=== PATIENT | female | born 1985 | race Caucasian/White ===

== ENCOUNTER → 2018-03-16 17:46 | Outpatient (CLI) | payer BC, SELFPAY | PROVIDERS: PCP Nurse Practitioner Family; Visit Provider Nurse Practitioner Family | DX: R00.2 Palpitations (principal) | CPT/HCPCS: 93225; 93226 ==

== ENCOUNTER → 2018-03-30 08:26 | Outpatient (CLI) | payer BC, SELFPAY ==
--- NOTE | 2018-03-30 08:47 | CA_ITS ---
PROCEDURE: 2-D M-mode and color Doppler study INDICATIONS FOR THE TEST: Chest pain X COPD Heart Murmur Tobacco SmokingX PalpitationsX Fatigue Syncope Edema Hypertension Diabetes MellitusX Rheumatic Fever SOB CHANG Obesity Hyperlipidemia Family History HD Additional History PATIENT INFORMATION HEIGHT: 63 WEIGHT:137 GENDER: Female B/P:132/65 2-D/M-MODE INTERPRETATION: 2-D MEASUREMENTS OBSERVED VALUES IN CMS Right Ventricular Dimension (RVDd) 1.9 Interventricular Septum (Thickness)(IVsd) .7 Left Ventricular Internal Dimensions(LVIDd) 5.2 Left Ventricular Posterior Wall (Thickness)(LVPWd) .7 Aortic Root 3.1 Aortic Cusp Separation 1.7 Left Atrial Dimensions (LAD) 1.6 2D 1. Left atrium is normal size, left ventricle is normal size, there is no concentric left ventricular hypertrophy, visually estimated ejection fraction 55% with no obvious regional wall motion abnormality. 2. The right atrium and right ventricle are normal size and contractility. 3. The aortic, mitral and tricuspid valve are structurally normal. 4. The pulmonic valve is poorly visualized. 5. No significant pericardial effusion noted DOPPLER INTERROGATION: Doppler interrogation of the aortic, mitral and tricuspid valvular presence of mild mitral and tricuspid regurgitation, tricuspid regurgitant jet velocity is insufficient for calculation of the right ventricular systolic pressure, diastolic parameters are within normal range. CONCLUSION: 1. Normal left ventricular size, preserved left ventricular systolic function, visually estimated ejection fraction 55% with no obvious regional wall motion abnormality, diastolic parameters are within normal range. Mild mitral and tricuspid addition 3. No significant pericardial effusion noted.
== END ==
PROVIDERS: Family Provider Nurse Practitioner Family; PCP Nurse Practitioner Family; Visit Provider Nurse Practitioner Family
DX: R07.2 Precordial pain (principal)
CPT/HCPCS: 93306

== ENCOUNTER → 2018-04-06 06:07 | Outpatient (CLI) | payer BC, SELFPAY ==
--- NOTE | 2018-04-06 | NM_ITS ---
History and Indications: Tobacco use, family history, chest pain, shortness of breath, palpitations and fatigue Procedure: Patient exercised on [place] protocol 10 minutes and 45 seconds, resting heart rate was 70 bpm resting blood pressure 131/66, with exercise maximum heart rate achieved was 1 62 bpm which is equal to 86% of the maximum predicted heart rate and a blood pressure was 176/60. Test was started due to shortness of breath and fatigue, patient also complained of atypical chest pain. Patient has good exercise capacity achieved 12.8mets of workload on treadmill, the blood pressure response to exercise was adequate. Electrocardiogram: Resting electrocardiogram showed sinus rhythm rightward axis, with exercise there is less than 1.[address] segment depression noted from the baseline EKG. The EKG portion of the exercise Myoview is negative for ischemia. Cardiac stress and resting SPECT images: Cardiac stress and rest SPECT images were obtained using technetium 99 Myoview 29.5 mCi at stress content 10.2 mCi at rest, gated SPECT further analysis of segmental wall motion and calculation of the ejection fraction also done. Cardiac stress and resting SPECT images show uniform myocardial activity without segmental perfusion abnormality, computer derived ejection fraction is 55% with no obvious regional wall motion abnormality, right ventricle is normal size and contractility. Conclusion: 1. The EKG portion of the exercise Myoview is negative for ischemia, patient has good exercise capacity achieved 12.8mets of workload on treadmill, the blood pressure response to exercise was adequate, patient complained of atypical chest pain with exercise. 2. No obvious scintigraphic evidence of reversible ischemia seen, computer derived ejection fraction is 55% with no obvious regional wall motion abnormality, right ventricle is normal size and contractility.
== END ==
PROVIDERS: Family Provider Nurse Practitioner Family; PCP Nurse Practitioner Family; Visit Provider Nurse Practitioner Family
DX: R00.2 Palpitations (principal); R07.2 Precordial pain
CPT/HCPCS: 78452; 93017; A9502

== ENCOUNTER → 2018-07-11 11:53 | Outpatient (CLI) | payer BC, SELFPAY ==
[2018-07-11 11:59] LABS: Microscopic, Urine URINE MICROSCOPIC (MICROSCOPIC)
[2018-07-11 12:42] LABS: Appearance,Urine SL CLOUDY (Clear); Bilirubin,Urine Negative (Negative); Blood, Urine Negative (Negative); Color,Urine YELLOW (Yellow); Glucose,Urine (UA) Negative (Negative); Ketones,Urine 1+ (Negative); Leukocyte Esterase,Urine Negative (Negative); Nitrate,Urine Negative (Negative); Protein,Urine Negative (Negative); Specific Gravity, Urine 1.025 (1.005-1.030); Urobilinogen,Urine 0.2 EU/dl (0.2)
[2018-07-11 12:47] LABS: Basophils % 0.3 % (0.1-2.0); Eosinophils # 0.1 K/mm3 (0.0-0.4); Eosinophils % 0.8 % (0.1-12.0); Hematocrit 44.4 % (37.0-47.0); Hemoglobin 14.7 g/dL (12.2-16.2); Lymphocytes % 24.4 K/mm3 (10-50); Mean Corpuscular HGB Conc 33.1 g/dL (31.8-35.4); Mean Corpuscular Volume 96.7 fl (81-99); Mean Platelet Volume 8.7 fl (7.4-10.4); Monocytes # 0.3 K/mm3 (0.1-1.0); Monocytes % 3.6 % (1.7-9.3); Neutrophils # 5.9 K/mm3 (1.8-7.8); Neutrophils % 70.9 % (37.0-80.0); Platelet Count 186 K/mm3 (142-424); Red Blood Count 4.59 M/mm3 (4.20-5.40); Red Cell Distribution Width 12.1 % (11.5-17.5); White Blood Count 8.3 K/mm3 (4.8-10.8)
[2018-07-11 13:01] LABS: Bacteria,Urine Trace /lpf; Squamous Epithelial Cell,Urine 20-50 #/hpf (0-5)
[2018-07-11 13:29] LABS: Alanine Aminotransferase 16 U/L (12-78); Anion Gap 10.2 mEq/L (5-15); Aspartate Amino Transferase 7 U/L (15-37); Bilirubin,Total 0.5 mg/dL (0.2-1.0); Blood Urea Nitrogen 11 mg/dL (7-18); Carbon Dioxide 30 mmol/L (21.0-32.0); Chloride 104 mmol/L (98-107); Creatinine,Serum 0.63 mg/dL (0.55-1.02); Estimated Glomerular Filt Rate 109 ml/min (>60); GFR (African American) 132 ML/MIN (>60); Glucose 87 mg/dL (74-106); Potassium 4.2 mmoL/L (3.5-5.1); Sodium 140 mmol/L (136-145); Total Protein,Serum 7.1 gm/dL (6.4-8.2)
[2018-07-11 13:30] LABS: Albumin Level 4.5 gm/dL (3.4-5.0); Albumin/Globulin Ratio 1.7 (1.1-1.8); Alkaline Phosphatase 58 U/L (46-116); Globulin 2.6 gm/dl (1.3-3.2)
== END ==
PROVIDERS: Family Provider Nurse Practitioner Family; PCP Nurse Practitioner Family; Visit Provider Surgery
DX: R10.84 Generalized abdominal pain (principal); R19.7 Diarrhea, unspecified
CPT/HCPCS: 36415; 80053; 81001; 85025

== ENCOUNTER → 2018-07-20 07:29 | Outpatient (CLI) | payer BC, SELFPAY ==
[2018-07-20 07:37] LABS: Adenovirus F 40/41, stool Not Detected (NotDetected); Astrovirus Not Detected (NotDetected); Campylobacter Not Detected (NotDetected); Clostridium Difficile A/B, PCR Not Detected (NotDetected); Cryptosporidium Not Detected (NotDetected); Cyclospora Cayetanesis Not Detected (NotDetected); Entamoeba histolytica Not Detected (NotDetected); Enteropathogenic E coli Not Detected (NotDetected); Enterotoxigenic E coli Not Detected (NotDetected); Giardia lamblia Not Detected (NotDetected); Norovirus Not Detected (NotDetected); Plesimonas Shigalloides, PCR Not Detected (NotDetected); Rotavirus A Not Detected (NotDetected); Salmonella, PCR Not Detected (NotDetected); Sapovirus Not Detected (NotDetected); Shiga-like toxin E coli Not Detected (NotDetected); Shigella Enterovasive E coli Not Detected (NotDetected); Vibrio Cholerae Not Detected (NotDetected); Vibrio, PCR Not Detected (NotDetected); Yersinia Entercolitica, PCR Not Detected (NotDetected)
--- NOTE | 2018-07-20 07:38 | CT_ITS ---
CT abdomen pelvis w con CLINICAL INDICATION: Periumbilical pain with nausea and diarrhea ITS.REASON: periumbilical pain, diarrhea ORDERING PHYSICIAN: Tony Ruelas MD PATIENT AGE: 33 years COMPARISON: 05/30/2016 TECHNIQUE: Axial images obtained with sagittal and coronal reformats. All CT scans at the facility use one or more dose reduction, viz: automated exposure control, ma/kV adjustment per patient size (including targeted exams where dose is matched to indication, i.e. head), or iterative reconstruction technique. PROCEDURE: Oral Contrast: Gastroview IV Contrast: 75 mL's of Isovue-370. FINDINGS: The lung bases are clear. The liver, gallbladder, spleen, pancreas, adrenal glands, and kidneys have an unremarkable appearance. No renal or ureteral calculi. No hydronephrosis. Unremarkable appendix. No intestinal obstruction or free air. There is mild diffuse thickening of the sigmoid colon and rectosigmoid region consistent with colitis and proctitis. There is some minimal infiltration of the perirectal fat. No evidence of diverticulitis. There are bilateral tubal ligation clips present. There is a small amount of cul-de-sac fluid. No acute bony anomalies. IMPRESSION: 1. Thickening of the sigmoid colon and rectosigmoid region consistent with colitis and proctitis with minimal infiltration of the perirectal fat with a small amount fluid in the cul-de-sac. 2. No evidence of appendicitis or other acute anomalies.
[2018-07-20 19:00] LABS: Enteroaggregative E coli Detected (NotDetected)
== END ==
PROVIDERS: Family Provider Nurse Practitioner Family; PCP Nurse Practitioner Family; Visit Provider Surgery
DX: R10.33 Periumbilical pain (principal); R19.7 Diarrhea, unspecified
CPT/HCPCS: 74177; 87507; Q9967

== ENCOUNTER → 2018-08-20 14:17 | Outpatient (CLI) | payer BC, SELFPAY ==
[2018-08-20 15:08] LABS: Basophils % 0.6 % (0.1-2.0); Eosinophils # 0.1 K/mm3 (0.0-0.4); Hematocrit 45.1 % (37.0-47.0); Hemoglobin 14.7 g/dL (12.2-16.2); Lymphocytes # 2.2 K/mm3 (0.7-4.5); Lymphocytes % 31.7 K/mm3 (10-50); Mean Corpuscular HGB Conc 32.5 g/dL (31.8-35.4); Mean Corpuscular Hemoglobin 31.9 pg (27.0-31.2); Mean Corpuscular Volume 97.9 fl (81-99); Mean Platelet Volume 9.2 fl (7.4-10.4); Monocytes # 0.3 K/mm3 (0.1-1.0); Neutrophils # 4.2 K/mm3 (1.8-7.8); Neutrophils % 62.6 % (37.0-80.0); Platelet Count 216 K/mm3 (142-424); Red Cell Distribution Width 12.1 % (11.5-17.5); White Blood Count 6.8 K/mm3 (4.8-10.8)
== END ==
PROVIDERS: Visit Provider Surgery
DX: K52.9 Noninfective gastroenteritis and colitis, unspecified (principal)
CPT/HCPCS: 36415; 85025

== ENCOUNTER 2018-08-21 12:58 | Outpatient (CLI) | payer BC, SELFPAY ==
[2018-08-21 13:00] VITALS: BMI 23.9
[2018-08-21 13:32] VITALS: BMI 24.6
--- NOTE | 2018-08-21 13:33 | XR_ITS ---
XR chest portable HISTORY: ITS.REASON: PICC PLACEMENT ORDERING PHYSICIAN: Tony Ruelas MD PATIENT AGE: 33 years COMPARISON: None FINDINGS: Left upper from a PICC line has been placed. The tip is in good position at the SVC region. Lungs are clear bilaterally. Normal heart size. IMPRESSION: Good placement of PICC line. Significant findings called to [facility] on 08/21/2018 1:48 PM.
[2018-08-21 13:59] LABS: Creatinine Clearance Estimated 126 mL/min (0-300); Creatinine,Serum 0.63 mg/dL (0.55-1.02); Estimated Glomerular Filt Rate 109 ml/min (>60); GFR (African American) 132 ML/MIN (>60)
[2018-08-21 13:59] LABS: Basophils % 0.7 % (0.1-2.0); Eosinophils # 0.1 K/mm3 (0.0-0.4); Eosinophils % 1.6 % (0.1-12.0); Hematocrit 41.2 % (37.0-47.0); Hemoglobin 13.8 g/dL (12.2-16.2); Lymphocytes # 2.2 K/mm3 (0.7-4.5); Lymphocytes % 39.5 % (10-50); Mean Corpuscular HGB Conc 33.4 g/dL (31.8-35.4); Mean Corpuscular Hemoglobin 31.6 pg (27.0-31.2); Mean Corpuscular Volume 94.7 fl (81-99); Mean Platelet Volume 8.9 fl (7.4-10.4); Monocytes # 0.3 K/mm3 (0.1-1.0); Monocytes % 4.9 % (1.7-9.3); Neutrophils # 2.9 K/mm3 (1.8-7.8); Neutrophils % 53.5 % (37.0-80.0); Platelet Count 205 K/mm3 (142-424); Red Blood Count 4.35 M/mm3 (4.20-5.40); Red Cell Distribution Width 12.1 % (11.5-17.5); White Blood Count 5.5 K/mm3 (4.8-10.8)
[2018-08-21 14:06] VITALS: BP 101/56; PULSE 76; RESP 18; TEMP 36.4; O2SAT 100
[2018-08-21 14:34] VITALS: BP 98/55; PULSE 79; RESP 18; O2SAT 99
[2018-08-21 14:45] VITALS: BP 97/52; PULSE 75; RESP 18; O2SAT 100
== END 2018-08-21 14:55 | disposition home or self-care (01) ==
LOC: INF 12:58
PROVIDERS: Visit Provider Surgery
DX: K52.9 Noninfective gastroenteritis and colitis, unspecified (principal)
CPT/HCPCS: 36569; 71045; 82565; 85025; 96365; C1751; J1335

== ENCOUNTER 2018-08-22 12:26 | Outpatient (CLI) | payer BC, SELFPAY ==
[2018-08-22 12:25] VITALS: BP 115/64; PULSE 76; RESP 18; TEMP 36.8; O2SAT 100
[2018-08-22 12:55] VITALS: BP 109/69; PULSE 78; RESP 18; O2SAT 99
[2018-08-22 13:15] VITALS: BP 112/65; PULSE 76; RESP 18; O2SAT 98
== END 2018-08-22 13:20 | disposition home or self-care (01) ==
LOC: INF 12:26
PROVIDERS: Visit Provider Surgery
DX: K52.9 Noninfective gastroenteritis and colitis, unspecified (principal)
CPT/HCPCS: 96365; J1335

== ENCOUNTER 2018-08-23 13:00 | Outpatient (CLI) | payer BC, SELFPAY ==
[2018-08-23 13:22] VITALS: BP 110/56; PULSE 82; RESP 18; TEMP 36.6; O2SAT 100; BMI 23.9
== END 2018-08-23 13:55 | disposition home or self-care (01) ==
LOC: INF 13:20
PROVIDERS: Visit Provider Surgery
DX: K52.9 Noninfective gastroenteritis and colitis, unspecified (principal)
CPT/HCPCS: 96365; J1335

== ENCOUNTER 2018-08-24 12:35 | Outpatient (CLI) | payer BC, SELFPAY ==
[2018-08-24 12:45] VITALS: BP 103/50; PULSE 68; RESP 20; TEMP 36.9; O2SAT 96
[2018-08-24 13:25] VITALS: BP 112/52; PULSE 62; RESP 20; TEMP 37.1; O2SAT 96
== END 2018-08-24 13:15 | disposition home or self-care (01) ==
LOC: INF 13:01
PROVIDERS: Visit Provider Surgery
DX: K52.9 Noninfective gastroenteritis and colitis, unspecified (principal)
CPT/HCPCS: 96365; J1335

== ENCOUNTER 2018-08-25 12:58 | Outpatient (CLI) | payer BC, SELFPAY ==
[2018-08-25 13:12] VITALS: BMI 23.3
[2018-08-25 13:13] VITALS: BP 116/69; PULSE 72; RESP 16; TEMP 36.4; O2SAT 99
== END 2018-08-25 13:43 | disposition home or self-care (01) ==
LOC: INF 12:58
PROVIDERS: PCP Surgery; Visit Provider Surgery
DX: K52.9 Noninfective gastroenteritis and colitis, unspecified (principal)
CPT/HCPCS: 96365; J1335

== ENCOUNTER 2018-08-26 12:29 | Outpatient (CLI) | payer BC, SELFPAY ==
[2018-08-26 12:52] VITALS: BP 116/51; PULSE 81; RESP 16; TEMP 36.8; O2SAT 94
== END 2018-08-26 14:04 | disposition home or self-care (01) ==
PROVIDERS: PCP Nurse Practitioner Family; Visit Provider Surgery
DX: K52.9 Noninfective gastroenteritis and colitis, unspecified (principal)
CPT/HCPCS: 96365; J1335

== ENCOUNTER 2018-08-27 12:58 | Outpatient (CLI) | payer BC, SELFPAY ==
[2018-08-27 13:10] VITALS: BP 109/61; PULSE 72; RESP 20; TEMP 36.9; O2SAT 96
[2018-08-27 13:45] VITALS: BP 109/62; PULSE 68; RESP 20; TEMP 36.9; O2SAT 96
== END 2018-08-27 13:50 | disposition home or self-care (01) ==
LOC: INF 12:58
PROVIDERS: Visit Provider Surgery
DX: K52.9 Noninfective gastroenteritis and colitis, unspecified (principal)
CPT/HCPCS: 96365; J1335

== ENCOUNTER 2018-08-28 13:00 | Outpatient (CLI) | payer BC, SELFPAY ==
[2018-08-28 13:15] VITALS: BP 105/51; PULSE 68; RESP 20; TEMP 36.9; O2SAT 96
[2018-08-28 13:35] VITALS: BP 106/72; PULSE 72; RESP 20; TEMP 36.9; O2SAT 96
== END 2018-08-28 13:40 | disposition home or self-care (01) ==
LOC: INF 13:20
PROVIDERS: Visit Provider Surgery
DX: K52.9 Noninfective gastroenteritis and colitis, unspecified (principal)
CPT/HCPCS: 96365; J1335

== ENCOUNTER 2018-08-29 12:59 | Outpatient (CLI) | payer BC, SELFPAY ==
[2018-08-29 13:35] VITALS: BP 112/57; PULSE 69; RESP 18; TEMP 36.3; O2SAT 100
[2018-08-29 13:55] VITALS: BMI 23.9
--- NOTE | 2018-08-29 13:56 | NVE_ITS ---
Venous Exam Indications: 729.81 Swelling of limb. s/p PICC placement last Tues, c/o sharp pain 2 days ago now has bruise prox lt arm IMPRESSIONS No evidence of deep or superficial vein thrombosis involving the veins of the left upper extremity Left upper extremity venous duplex. Doppler flow study including spectral analysis, color and gomez scale imaging. Location: Vascular laboratory. Patient status: Outpatient. Findings: Unable to visualize mid lt basilic and mid brachial vein r/t PICC dressing. Tables: Venous flow and imaging: + + + Location Flow properties + + + Left internal jugular Normal phasicity; spontaneous; compressible + + + Left subclavian Normal phasicity; spontaneous; normal augmentation; compressible + + + Left axillary Normal phasicity; spontaneous; normal augmentation; compressible + + + Left brachial Normal phasicity; spontaneous; normal augmentation; compressible + + + Left cephalic Normal phasicity; spontaneous; normal augmentation; compressible + + + Left basilic Normal phasicity; spontaneous; normal augmentation; compressible + + + Left radial Compressible + + + Left ulnar Compressible + + + (Report amended ) Electronically signed by: Jean-Claude Pittman [id number]
[2018-08-29 14:05] VITALS: BP 115/62; PULSE 70; RESP 18; O2SAT 99
[2018-08-29 14:20] VITALS: BP 113/59; PULSE 68; RESP 18; O2SAT 99
== END 2018-08-29 14:25 | disposition home or self-care (01) ==
LOC: INF 12:59
PROVIDERS: Visit Provider Surgery
DX: K52.9 Noninfective gastroenteritis and colitis, unspecified (principal)
CPT/HCPCS: 93971; 96365; J1335

== ENCOUNTER 2018-08-30 12:55 | Outpatient (CLI) | payer BC, SELFPAY ==
[2018-08-30 13:11] VITALS: BP 105/58; PULSE 87; RESP 20; TEMP 36.6; O2SAT 98
[2018-08-30 13:41] VITALS: BP 112/61; PULSE 81; RESP 20; O2SAT 97
[2018-08-30 14:02] VITALS: BP 120/62; PULSE 74; RESP 20; O2SAT 97
== END 2018-08-30 14:05 | disposition home or self-care (01) ==
LOC: INF 13:04
PROVIDERS: Visit Provider Surgery
DX: K52.9 Noninfective gastroenteritis and colitis, unspecified (principal)
CPT/HCPCS: 96365; J1335

== ENCOUNTER 2018-08-31 12:35 | Outpatient (CLI) | payer BC, SELFPAY ==
[2018-08-31 13:20] VITALS: BP 113/58; PULSE 78; RESP 18; TEMP 36.7
[2018-08-31 13:50] VITALS: BP 105/61; PULSE 72; RESP 16; O2SAT 98
== END 2018-08-31 14:25 | disposition home or self-care (01) ==
LOC: INF 13:00
PROVIDERS: Visit Provider Surgery
DX: K52.9 Noninfective gastroenteritis and colitis, unspecified (principal)
CPT/HCPCS: 96365; J1335

== ENCOUNTER → 2018-09-01 13:08 | Outpatient (CLI) | payer BC, SELFPAY ==
[2018-09-01 13:27] VITALS: BP 106/56; BP 111/61; PULSE 74; PULSE 87; RESP 16; TEMP 36.7; TEMP 36.9; O2SAT 100; BMI 23.9
== END ==
PROVIDERS: PCP Surgery; Visit Provider Surgery
DX: K52.9 Noninfective gastroenteritis and colitis, unspecified (principal)
CPT/HCPCS: 96365; J1335

== ENCOUNTER → 2018-09-02 12:43 | Outpatient (CLI) | payer BC, SELFPAY ==
[2018-09-02 12:57] VITALS: BP 127/54; PULSE 69; RESP 16; TEMP 36.9; O2SAT 100
[2018-09-02 13:45] VITALS: BP 114/68; PULSE 60; RESP 16; TEMP 37; O2SAT 99
== END ==
PROVIDERS: PCP Nurse Practitioner Family; Visit Provider Surgery
DX: K52.9 Noninfective gastroenteritis and colitis, unspecified (principal)
CPT/HCPCS: 96365; J1335

== ENCOUNTER 2018-09-03 12:35 | Outpatient (CLI) | payer BC, SELFPAY ==
[2018-09-03 12:55] VITALS: BP 112/55; PULSE 79; RESP 18; O2SAT 99
[2018-09-03 13:40] VITALS: BP 117/55; PULSE 89; RESP 18; O2SAT 100
== END 2018-09-03 13:40 | disposition home or self-care (01) ==
LOC: INF 12:39
PROVIDERS: Visit Provider Surgery
DX: K52.9 Noninfective gastroenteritis and colitis, unspecified (principal)
CPT/HCPCS: 96365; J1335

== ENCOUNTER → 2018-10-10 14:42 | Outpatient (CLI) | payer BC, SELFPAY ==
[2018-10-10 15:12] LABS: Basophils % 0.4 % (0.1-2.0); Eosinophils # 0.1 K/mm3 (0.0-0.4); Eosinophils % 1.8 % (0.1-12.0); Hematocrit 40.2 % (37.0-47.0); Hemoglobin 13.2 g/dL (12.2-16.2); Lymphocytes % 34.5 % (10-50); Mean Corpuscular HGB Conc 32.8 g/dL (31.8-35.4); Mean Corpuscular Hemoglobin 31.9 pg (27.0-31.2); Mean Corpuscular Volume 97.3 fl (81-99); Mean Platelet Volume 8.4 fl (7.4-10.4); Monocytes # 0.2 K/mm3 (0.1-1.0); Monocytes % 4.1 % (1.7-9.3); Neutrophils # 3.5 K/mm3 (1.8-7.8); Neutrophils % 59.1 % (37.0-80.0); Platelet Count 231 K/mm3 (142-424); Red Blood Count 4.13 M/mm3 (4.20-5.40); Red Cell Distribution Width 12.8 % (11.5-17.5); White Blood Count 5.9 K/mm3 (4.8-10.8)
[2018-10-10 16:00] LABS: Alanine Aminotransferase 20 U/L (12-78); Albumin Level 4.2 gm/dL (3.4-5.0); Albumin/Globulin Ratio 1.8 (1.1-1.8); Alkaline Phosphatase 55 U/L (46-116); Anion Gap 13.8 mEq/L (5-15); Aspartate Amino Transferase 13 U/L (15-37); Bilirubin,Total 0.3 mg/dL (0.2-1.0); Blood Urea Nitrogen 14 mg/dL (7-18); Calcium 8.7 mg/dL (8.5-10.1); Carbon Dioxide 28 mmol/L (21.0-32.0); Chloride 105 mmol/L (98-107); Creatinine,Serum 0.66 mg/dL (0.55-1.02); Estimated Glomerular Filt Rate 103 ml/min (>60); GFR (African American) 125 ML/MIN (>60); Globulin 2.4 gm/dl (1.3-3.2); Glucose 93 mg/dL (74-106); Potassium 3.8 mmoL/L (3.5-5.1); Sodium 143 mmol/L (136-145); Total Protein,Serum 6.6 gm/dL (6.4-8.2)
== END ==
PROVIDERS: Visit Provider Surgery
DX: R11.0 Nausea (principal)
CPT/HCPCS: 36415; 80053; 85025

== ENCOUNTER → 2018-10-15 08:45 | Outpatient (CLI) | payer BC, SELFPAY ==
--- NOTE | 2018-10-15 08:46 | US_ITS ---
US gallbladder COMPARISON: CT scan abdomen pelvis 07/20/2018 HISTORY: Sagittal, transverse and decubitus imaging of the gallbladder was performed. GALLBLADDER - No stones are evident. The gallbladder is slightly contracted, there is a minimal amount of biliary sludge along the dependent wall. The common bile duct is normal caliber. Liver: Unremarkable Pancreas: Unremarkable Right kidney: The right kidney measures 11.2 x 4.3 x 5.5 cm and appears sonographically normal. IMPRESSION: Tiny amount biliary sludge, otherwise unremarkable study
== END ==
PROVIDERS: PCP Nurse Practitioner Family; Visit Provider Surgery
DX: R11.0 Nausea (principal)
CPT/HCPCS: 76705

== ENCOUNTER → 2018-10-30 10:01 | Outpatient (CLI) | payer BC, SELFPAY ==
--- NOTE | 2018-10-30 10:07 | NM_ITS ---
NM hepatobiliary w pharm HISTORY: Right upper quadrant pain ITS.REASON: ruq pain ORDERING PHYSICIAN: Tony Ruelas MD PATIENT AGE: 33 years COMPARISON: None DOSE: 8.65 MCI TC Choletec 1.3 MCG CCK INJ into RT ANT FINDINGS: Homogeneous activity is present within the hepatic parenchyma. Activity is present in the gallbladder by 15 minutes. Activity is present in the small bowel by 45 minutes. The gallbladder ejection fraction is calculated to be 98% The patient reported mild pain during CCK infusion. IMPRESSION: Unremarkable hepatobiliary scan and gallbladder ejection fraction. No evidence of common or cystic duct obstruction with normal gallbladder ejection fraction The patient did report mild pain with CCK infusion
--- NOTE | 2018-10-30 10:26 | HMH.ITSHM ---
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 []OMEPRAZOLE RANITIDINE HYDROXEFINE TOZANOMINE
== END ==
PROVIDERS: PCP Nurse Practitioner Family; Visit Provider Surgery
DX: R10.11 Right upper quadrant pain (principal)
CPT/HCPCS: 78227; A9537; J2805

== ENCOUNTER 2018-11-13 18:51 | Observation (INO) ==
--- NOTE | 2018-11-13 19:14 | Emergency Department Note ---
ED Disposition Clinical Impression: Right upper quadrant abdominal pain Disposition: Admitted as Observation Condition on Discharge: Fair Referrals: Gladys Sabillon APRN [Primary Care Provider] - - Critical Care Critical Care Time: No Attestation: On 11/13/18, the high probability of a clinically significant, sudden or life threatening deterioration of the following system(s) required my full and direct attention, intervention and personal management. The time I documented below is in addition to time spent performing reported procedures but includes the following listed in this critical care notation. Medical Decision Making - [place] Inquiry Pt receiving controlled substance: Yes [place] was queried for this patient: No Reason not queried -: Emergent pt cond-no time Risks and benefits of using a controlled substance: were not discussed with pt by me Vital Signs: 11/13/18 18:58 Temperature 98.5 F Temperature Source Oral Pulse Rate [Left Radial] 73 Respiratory Rate 16 Blood Pressure [Right Arm] 141/95 H Blood Pressure Mean [Right Arm] 110 Blood Pressure Source [Right Arm] Automatic Cuff Blood Pressure Position [Right Arm] Sitting 02 Sat by Pulse Oximetry 98 Oxygen Delivery Method Room Air - Lab Data Lab Results 11/13/18 19:10: WBC 8.4, RBC 4.24, Hgb 13.3, Hct 41.5, MCV 97.9, MCH 31.4 H, MCHC 32.0, RDW 12.9, Plt Count 193, MPV 8.3, Neut % (Auto) 64.5, Lymph % (Auto) 28.9, Bath % (Auto) 5.1, Eos % (Auto) 1.2, Baso % (Auto) 0.3, Neut # (Auto) 5.4, Lymph # (Auto) 2.4, Bath # (Auto) 0.4, Eos # (Auto) 0.1, Baso # (Auto) 0.0 11/13/18 19:10: Sodium 141, Potassium 3.3 L, Chloride 104, Carbon Dioxide 30, Anion Gap 10.3, BUN 11, Creatinine 0.71, Estimated Creat Clear 102, Estimated GFR 95, Est GFR ( Amer) 115, Glucose 107 H, Calcium 8.4 L, Total Bilirubin 0.3, AST 195 H, ALT 137 H, Alkaline Phosphatase 95, Total Protein 7.0, Albumin 4.1, Globulin 2.9, Albumin/Globulin Ratio 1.4 11/13/18 19:10: Serum HCG, Qual Negative 11/13/18 19:10: Lipase 61 L Result diagrams: 11/13/18 19:10 11/13/18 19:10 Orders (Tests/Meds): ED MEDICATIONS Discontinued Medications Generic Name Dose Route Start Last Admin Trade Name Freq PRN Reason Stop Dose Admin Hydromorphone HCl 1 mg 11/13/18 19:22 11/13/18 19:29 Dilaudid 2mg/Ml Syringe IV 11/13/18 19:23 1 mg ONCE ONE Administration Hydromorphone HCl 1 mg 11/13/18 20:36 11/13/18 20:39 Dilaudid 2mg/Ml Syringe IV 11/13/18 20:37 1 mg ONCE ONE Administration Ondansetron HCl 4 mg 11/13/18 19:22 11/13/18 19:30 Zofran 4mg/2ml Vial IV 11/13/18 19:23 4 mg ONCE ONE Administration - Physician Consults Physician Consulted: Dustin Ruelas Time: 19:35 Reason -: Surgical Eval/Care Comment/Response: Discussed case. Discussed imaging. He does not feel any imaging is needed at this point unless labs are significantly abnormal. Dr. Ruelas can follow-up the patient in the office tomorrow. May restart pain medication. Additional Consult: Dustin Time: 20:45 Reason -: Admission Comment/Response: Discussed clinical condition and labs. Discussed imaging again. Admit to Dr. Ruelas. He does not feel imaging is needed at this time. Pain control overnight and they will reassess in the morning. Repeat labs in the morning. - Reevaluation(s) Time: 20:35 Reevaluation #1: Patient says she initially started feeling a little better after Dilaudid, but now pain is severe again. General Adult HPI - General Chief complaint: Abdominal Pain Stated complaint: Surg Fri GB Time Seen by Provider: 11/13/18 19:14 Mode of Arrival: Ambulatory Limitations: No Limitations Description of Symptoms (Recalled from ER Triage Doc. 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 pt states gallbladder surgery monday. pt denies fever, chills, nausea, vomiting - History of Present Illness HPI narrative: The patient had a cholecystectomy done on Monday 4 days ago. She says that after eating tonight she had sudden onset of severe right upper quadrant pain. The pain is like what she had prior to having her cholecystectomy, but worse. No vomiting or diarrhea. No fever. She was on pain medication postoperatively, but took the last of it this morning. Review of her records shows that she had an unremarkable gallbladder ultrasound, small amount of sludge. She had a HIDA scan that showed normal ejection fraction, but she had pain with CCK administration, therefore cholecystectomy was performed. Dr. Ruelas notes that if symptoms do not improve following cholecystectomy he was going to refer her to gastroenterology for possible sp hincter of Oddi spasm, ERCP. - Related Data Home Medications Medication Instructions Recorded Confirmed hydrOXYzine HCl [Hydroxyzine HCl] 25 mg PO BID 03/10/18 11/13/18 Loratadine [Claritin] 10 mg PO DAILY 03/28/18 11/13/18 aspirin 81 mg tablet,delayed 81 mg PO DAILY tab 04/06/18 11/13/18 release tizanidine 4 mg tablet 2 mg PO QHS tab 04/06/18 11/13/18 Omeprazole [Omeprazole 40mg 40 mg PO QDAY 08/21/18 11/13/18 Capsule] Allergies Allergy/AdvReac Type Severity Reaction Status Date / Time lactose Allergy Mild DIARRHEA Verified 11/09/18 11:01 [From LACTOSE (FOOD/DRUG)] From LACTOSE (FOOD/DRUG) Allergy Mild DIARRHEA Uncoded 11/07/18 13:23 [facility] History - Hepatitis A Screen Drug use history?: Yes High risk sexual behaviors?: No History of sexually transmitted infection?: No Currently employed?: No Childcare worker?: No Do you have indoor plumbing?: Yes Do you have electricity?: Yes Attestation statement:: This patient has been screened for Hepatitis A risk factors. I have reviewed the patient's past medical history: Yes Medical History: Reports:: Hiatal Hernia, Kidney Stones, Palpitations Denies:: Cancer, Diabetes Mellitus Type 1, Diabetes Mellitus Type 2, Internal Pacemaker, MRSA, Seizures Other Medical History: Denies: Blood Transfusion Reaction Laterality Cases: Bilateral: Myringotomy (Ear Tubes), Tonsillectomy Other Surgeries: Yes: Tubal Ligation. No: Pacemaker Amputation: No Fractures: No - Social History Smoking Status: Current every day smoker Tobacco Type: cigarettes # Packs/Day (cigarettes): 1 Alcohol Intake: never Alcohol Intake Frequency:: holidays/special occasions only Substance Use Type: former substance user Occupational Status: employed Housing: house Household Members: children - Psychiatric History Expresses thoughts of harming self/others: None Suicide Plan Description: No Plan Family Hx:: Heart Attack, Coronary Artery Disease Comment: Father- of [place] at 60's ROS Obtained: Yes All systems reviewed & no additional complaints - Constitutional Constitutional: Denies fever(s) - Gastrointestinal Gastrointestingal: Reports: abdominal pain. Denies: diarrhea, nausea, vomiting Physical Exam - General General appearance: alert, in distress Comment: Tearful - Head Head exam: atraumatic, normocephalic - Eye Eye exam: Present: normal appearance, PERRL, EOMI - ENT ENT exam: Present: mucous membranes moist - Neck Neck exam: Present: normal inspection, trachea midline - Chest Chest inspection: Present: normal inspection, symmetric chest wall rise - Respiratory Respiratory exam: Present: normal lung sounds bilaterally. Absent: respiratory distress - Cardiovascular Cardiovascular exam: Present: regular rate, normal rhythm, normal heart sounds - Abdominal Exam Abdominal exam: Present: soft, tenderness. Absent: distention, guarding, rebound, rigidity Abdominal tenderness: Present: RUQ Comment: Laparoscopic incisions unremarkable. - Extremities Exam Extremities exam: Present: normal inspection - Neurological Exam Neurological exam: Present: alert, oriented X3 - Psychiatric Psychiatric exam: Present: anxious - Skin Skin exam: Present: warm, dry
[2018-11-13 19:27] LABS: Basophils % 0.3 % (0.1-2.0); Eosinophils # 0.1 K/mm3 (0.0-0.4); Eosinophils % 1.2 % (0.1-12.0); Hematocrit 41.5 % (37.0-47.0); Hemoglobin 13.3 g/dL (12.2-16.2); Lymphocytes # 2.4 K/mm3 (0.7-4.5); Lymphocytes % 28.9 % (10-50); Mean Corpuscular Hemoglobin 31.4 pg (27.0-31.2); Mean Corpuscular Volume 97.9 fl (81-99); Mean Platelet Volume 8.3 fl (7.4-10.4); Monocytes # 0.4 K/mm3 (0.1-1.0); Monocytes % 5.1 % (1.7-9.3); Neutrophils # 5.4 K/mm3 (1.8-7.8); Neutrophils % 64.5 % (37.0-80.0); Platelet Count 193 K/mm3 (142-424); Red Blood Count 4.24 M/mm3 (4.20-5.40); Red Cell Distribution Width 12.9 % (11.5-17.5); White Blood Count 8.4 K/mm3 (4.8-10.8)
[2018-11-13 19:38] LABS: Albumin Level 4.1 gm/dL (3.4-5.0); Albumin/Globulin Ratio 1.4 (1.1-1.8); Anion Gap 10.3 mEq/L (5-15); Bilirubin,Total 0.3 mg/dL (0.2-1.0); Calcium 8.4 mg/dL (8.5-10.1); Globulin 2.9 gm/dl (1.3-3.2); Potassium 3.3 mmoL/L (3.5-5.1)
[2018-11-14 06:36] LABS: Basophils % 0.2 % (0.1-2.0); Eosinophils # 0.1 K/mm3 (0.0-0.4); Eosinophils % 0.5 % (0.1-12.0); Hematocrit 38.5 % (37.0-47.0); Hemoglobin 12.5 g/dL (12.2-16.2); Lymphocytes # 1.1 K/mm3 (0.7-4.5); Lymphocytes % 10.2 % (10-50); Mean Corpuscular HGB Conc 32.6 g/dL (31.8-35.4); Mean Corpuscular Volume 98.2 fl (81-99); Mean Platelet Volume 8.7 fl (7.4-10.4); Monocytes # 0.5 K/mm3 (0.1-1.0); Monocytes % 4.9 % (1.7-9.3); Neutrophils # 9.4 K/mm3 (1.8-7.8); Neutrophils % 84.3 % (37.0-80.0); Platelet Count 157 K/mm3 (142-424); Red Blood Count 3.92 M/mm3 (4.20-5.40); Red Cell Distribution Width 12.9 % (11.5-17.5); White Blood Count 11.2 K/mm3 (4.8-10.8)
[2018-11-14 06:51] LABS: Albumin Level 3.4 gm/dL (3.4-5.0); Albumin/Globulin Ratio 1.3 (1.1-1.8); Anion Gap 10.6 mEq/L (5-15); Bilirubin,Total 0.8 mg/dL (0.2-1.0); Calcium 8.4 mg/dL (8.5-10.1); Globulin 2.6 gm/dl (1.3-3.2); Potassium 4.6 mmoL/L (3.5-5.1)
--- NOTE | 2018-11-14 07:40 | Pharmacy Consult Notes ---
[facility] Pharmacy VTE Monitoring - Patient Demographics Admission date: 11/13/18 Report Date: 11/14/18 Time: 07:39 Allergies/Adverse Reactions: Patient Allergies lactose [From LACTOSE (FOOD/DRUG)] Allergy (Mild, Verified 11/09/18 11:01) DIARRHEA From LACTOSE (FOOD/DRUG) Allergy (Mild, Uncoded 11/07/18 13:23) DIARRHEA Height: 1.6 m Weight: 64.042 kg Patient Problems: Current Active Problems Right upper quadrant abdominal pain (Acute) - VTE Risk Labs: VTE Related Lab Results Hgb 12.5 g/dL (12.2-16.2) 11/14/18 06:12 Hct 38.5 % (37.0-47.0) 11/14/18 06:12 Plt Count 157 K/mm3 (142-424) 11/14/18 06:12 BUN 9 mg/dL (7-18) 11/14/18 06:12 Creatinine 0.64 mg/dL (0.55-1.02) 11/14/18 06:12 Estimated Creat Clear 126 mL/min (50-200) 11/14/18 06:12 Was VTE Risk Assessment Performed: Yes VTE Score: 2 VTE Risk Level: Very Low Risk - Prophylaxis VTE Prophylaxis Ordered?: Yes Types of VTE Prophylaxis: TEDS Knee High Location of Applied Device: Bilateral Lower Extremeties - VTE Diagnosis Confirmed Treatment or plan recommended: Continue Current Treatment
--- NOTE | 2018-11-14 08:29 | History & Physical Report ---
HPI HPI: This is a 33-year-old female who presented overnight to the emergency department with sharp pain in the upper abdomen. She is now postoperative day 5 status post laparoscopic cholecystectomy. She initially convalesced well; however, she developed what she describes as "sharp/crampy pain" while visiting a restaurant last evening. She states that her symptoms started before she began her meal. No fevers. No jaundice. [facility] History Medical History: Reports:: Hiatal Hernia, Kidney Stones, Palpitations Denies:: Cancer, Diabetes Mellitus Type 1, Diabetes Mellitus Type 2, Internal Pacemaker, MRSA, Seizures Have you ever received a pneumonia vaccine?: No Have you received a flu vaccine this season?: No Other Medical History: Denies: Blood Transfusion Reaction Laterality Cases: Bilateral: Myringotomy (Ear Tubes), Tonsillectomy Other Surgeries: Yes: Cholecystectomy, Tubal Ligation. No: Pacemaker Amputation: No Fractures: No - *Social History Educational Level: Completed College Smoking Status: Current every day smoker Tobacco Type: cigarettes # Packs/Day (cigarettes): 1 Alcohol Intake: current Alcohol Intake Frequency:: holidays/special occasions only Substance Use Type: former substance user Occupational Status: employed Housing: house Household Members: significant other, children Travel in the last 8 weeks: None - Psychiatric History Expresses thoughts of harming self/others: None Suicide Plan Description: No Plan *Family Hx:: Heart Attack, Coronary Artery Disease Review of Systems - Constitutional Denies chills - Eyes Denies change in vision - ENT Denies change in voice - *Cardiovascular Denies chest pain - *Respiratory Denies cough - *Gastrointestinal Reports abdominal pain, Denies bright, red blood in stools, Denies black, tarry stools, Denies nausea - *Genitourinary Denies abnormal vaginal bleeding - *Musculoskeletal Denies abnormal walking - Integumentary/Breasts Denies change in hair - *Neurologic Denies abnormal hearing - Psychiatric Denies anxiety - Endocrine Denies cold intolerance - Hematologic/Lymphatic Denies easy bleeding - Allergic/Immunologic Denies tongue swelling Meds Home Medications Medication Instructions Recorded Confirmed Type hydrOXYzine HCl [Hydroxyzine HCl] 25 mg PO BID 03/10/18 11/13/18 History Loratadine [Claritin] 10 mg PO DAILY 03/28/18 11/13/18 History aspirin 81 mg tablet,delayed 81 mg PO DAILY tab 04/06/18 11/13/18 History release tizanidine 4 mg tablet 2 mg PO QHS tab 04/06/18 11/13/18 History Omeprazole [Omeprazole 40mg 40 mg PO HS 08/21/18 11/13/18 History Capsule] Allergies Allergy/AdvReac Type Severity Reaction Status Date / Time lactose Allergy Mild DIARRHEA Verified 11/09/18 11:01 [From LACTOSE (FOOD/DRUG)] From LACTOSE (FOOD/DRUG) Allergy Mild DIARRHEA Uncoded 11/07/18 13:23 Exam Vital signs and Labs for Last 24 Hours: Temp Pulse Resp BP Pulse Ox 98.2 F 74 16 125/47 L 99 11/14/18 07:21 11/14/18 07:21 11/14/18 07:21 11/14/18 07:21 11/14/18 07:21 Laboratory Results - last 24 hr 11/13/18 19:10: WBC 8.4, RBC 4.24, Hgb 13.3, Hct 41.5, MCV 97.9, MCH 31.4 H, MCHC 32.0, RDW 12.9, Plt Count 193, MPV 8.3, Neut % (Auto) 64.5, Lymph % (Auto) 28.9, [place] % (Auto) 5.1, Eos % (Auto) 1.2, Baso % (Auto) 0.3, Neut # (Auto) 5.4, Lymph # (Auto) 2.4, [place] # (Auto) 0.4, Eos # (Auto) 0.1, Baso # (Auto) 0.0 11/13/18 19:10: Sodium 141, Potassium 3.3 L, Chloride 104, Carbon Dioxide 30, Anion Gap 10.3, BUN 11, Creatinine 0.71, Estimated Creat Clear 102, Estimated GFR 95, Est GFR ( Amer) 115, Glucose 107 H, Calcium 8.4 L, Total Bilirubin 0.3, AST 195 H, ALT 137 H, Alkaline Phosphatase 95, Total Protein 7.0, Albumin 4.1, Globulin 2.9, Albumin/Globulin Ratio 1.4 11/13/18 19:10: Serum HCG, Qual Negative 11/13/18 19:10: Lipase 61 L 11/14/18 06:12: WBC 11.2 H D, RBC 3.92 L, Hgb 12.5, Hct 38.5, MCV 98.2, MCH 32.0 H, MCHC 32.6, RDW 12.9, Plt Count 157, MPV 8.7, Neut % (Auto) 84.3 H, Lymph % (Auto) 10.2, [place] % (Auto) 4.9, Eos % (Auto) 0.5, Baso % (Auto) 0.2, Neut # (Auto) 9.4 H, Lymph # (Auto) 1.1, [place] # (Auto) 0.5, Eos # (Auto) 0.1, Baso # (Auto) 0.0 11/14/18 06:12: Sodium 139, Potassium 4.6 D, Chloride 105, Carbon Dioxide 28, Anion Gap 10.6, BUN 9, Creatinine 0.64, Estimated Creat Clear 126, Estimated GFR 107, Est GFR ( Amer) 129, Glucose 119 H, Calcium 8.4 L, Total Bilirubin 0.8, AST 117 H D, ALT 154 H, Alkaline Phosphatase 91, Total Protein 6.0 L, Albumin 3.4 D, Globulin 2.6, Albumin/Globulin Ratio 1.3 I & O for Last 24 hours: Intake & Output 11/11/18 11/12/18 11/13/18 11/14/18 11:59 11:59 11:59 11:59 Intake Total 924 / 924 Output Total 600 / 600 Balance 324 / 324 Weight 141 lb 3 oz - Constitutional no acute distress - *Routine HEENT Exam Head: Present: normocephalic, atraumatic - *Routine Neck Exam Present: full ROM - Routine Chest/Breast/Axilla Exam Chest wall: Absent: tenderness - *Routine Respiratory Exam Absent: respiratory distress - *Routine Cardiovascular Exam Present: RRR - *Routine Abdominal Exam Present: soft, tenderness, guarding. Absent: distended, rebound - *Routine Extremities Exam Present: full ROM - Routine Back/Spine/Pelvis Exam Back/Spine: Present: full ROM - *Routine Skin Exam Present: intact Comments: Incision(s) clean, dry, and intact. No erythema. - *Routine Neurological Exam Present: alert, oriented X3 - Routine Psychiatric Exam Present: normal affect Results - Results Lab Results Last 24 Hours:: Laboratory Results - last 24 hr 11/13/18 19:10: WBC 8.4, RBC 4.24, Hgb 13.3, Hct 41.5, MCV 97.9, MCH 31.4 H, MCHC 32.0, RDW 12.9, Plt Count 193, MPV 8.3, Neut % (Auto) 64.5, Lymph % (Auto) 28.9, [place] % (Auto) 5.1, Eos % (Auto) 1.2, Baso % (Auto) 0.3, Neut # (Auto) 5.4, Lymph # (Auto) 2.4, [place] # (Auto) 0.4, Eos # (Auto) 0.1, Baso # (Auto) 0.0 11/13/18 19:10: Sodium 141, Potassium 3.3 L, Chloride 104, Carbon Dioxide 30, Anion Gap 10.3, BUN 11, Creatinine 0.71, Estimated Creat Clear 102, Estimated GFR 95, Est GFR ( Amer) 115, Glucose 107 H, Calcium 8.4 L, Total Bilirubin 0.3, AST 195 H, ALT 137 H, Alkaline Phosphatase 95, Total Protein 7.0, Albumin 4.1, Globulin 2.9, Albumin/Globulin Ratio 1.4 11/13/18 19:10: Serum HCG, Qual Negative 11/13/18 19:10: Lipase 61 L 11/14/18 06:12: WBC 11.2 H D, RBC 3.92 L, Hgb 12.5, Hct 38.5, MCV 98.2, MCH 32.0 H, MCHC 32.6, RDW 12.9, Plt Count 157, MPV 8.7, Neut % (Auto) 84.3 H, Lymph % (Auto) 10.2, [place] % (Auto) 4.9, Eos % (Auto) 0.5, Baso % (Auto) 0.2, Neut # (Auto) 9.4 H, Lymph # (Auto) 1.1, [place] # (Auto) 0.5, Eos # (Auto) 0.1, Baso # (Auto) 0.0 11/14/18 06:12: Sodium 139, Potassium 4.6 D, Chloride 105, Carbon Dioxide 28, Anion Gap 10.6, BUN 9, Creatinine 0.64, Estimated Creat Clear 126, Estimated GFR 107, Est GFR ( Amer) 129, Glucose 119 H, Calcium 8.4 L, Total Bilirubin 0.8, AST 117 H D, ALT 154 H, Alkaline Phosphatase 91, Total Protein 6.0 L, Albumin 3.4 D, Globulin 2.6, Albumin/Globulin Ratio 1.3 Assessment and Plan (1) Right upper quadrant abdominal pain Current visit: Yes Status: Acute Category: Medical Code(s): R10.11 - Right upper quadrant pain Most likely secondary to "gas trapping". Also with known history of irritable bowel syndrome; therefore, spasmodic bowel also consideration. Toradol Minimize narcotics Continue ambulation Clear liquids Librax (2) Abdominal pain Current visit: No Status: Acute Qualifiers: Abdominal location: right upper quadrant Qualified Code(s): R10.11 - Right upper quadrant pain Category: Medical Code(s): R10.9 - Unspecified abdominal pain
--- NOTE | 2018-11-14 13:41 | Discharge Summary ---
General - General Admission date:: 11/13/18 Discharge date: 11/14/18 HPI HPI: This is a 33-year-old female who presented overnight to the emergency department with sharp pain in the upper abdomen. She is now postoperative day 5 status post laparoscopic cholecystectomy. She initially convalesced well; however, she developed what she describes as "sharp/crampy pain" while visiting a restaurant last evening. She states that her symptoms started before she began her meal. No fevers. No jaundice. Hospital Course Hospital Course: The patient was admitted for pain control from the emergency department. She was initially placed on Dilaudid and did have a dose of Toradol. These medications did not seem to alleviate her symptoms. Dilaudid was discontinued and she was started on Librax and continued on p.o. Toradol. She stated that the Librax significantly helped and was "wanting to go home" on the afternoon of November 14, 2018. At the time of discharge the patient was afebrile stable normal vital signs. She was ambulating without difficulty and tolerating clear liquids. Objective Vital signs: Temp Pulse Resp BP Pulse Ox 98.2 F 74 16 125/47 L 99 11/14/18 07:21 11/14/18 07:21 11/14/18 07:21 11/14/18 07:21 11/14/18 07:21 no acute distress - *Routine HEENT Exam Head: Present: normocephalic, atraumatic - *Routine Neck Exam Present: full ROM - Routine Chest/Breast/Axilla Exam Chest wall: Absent: tenderness - *Routine Cardiovascular Exam Present: RRR - *Routine Abdominal Exam Present: soft, tenderness Comments: upper abdominal TTP (resolved at time of discharge) - *Routine Extremities Exam Present: full ROM - Routine Back/Spine/Pelvis Exam Back/Spine: Present: full ROM - *Routine Skin Exam Present: intact Comments: Incision(s) clean, dry, and intact. No erythema. - *Routine Neurological Exam Present: alert, oriented X3 - Routine Psychiatric Exam Present: normal affect Results Labs on day of discharge: Labs from last 24 hours 11/14/18 11/14/18 11/13/18 06:12 06:12 19:10 WBC 11.2 H D RBC 3.92 L Hgb 12.5 Hct 38.5 MCV 98.2 MCH 32.0 H MCHC 32.6 RDW 12.9 Plt Count 157 MPV 8.7 Neut % (Auto) 84.3 H Lymph % (Auto) 10.2 [place] % (Auto) 4.9 Eos % (Auto) 0.5 Baso % (Auto) 0.2 Neut # (Auto) 9.4 H Lymph # (Auto) 1.1 [place] # (Auto) 0.5 Eos # (Auto) 0.1 Baso # (Auto) 0.0 Sodium 139 Potassium 4.6 D Chloride 105 Carbon Dioxide 28 Anion Gap 10.6 BUN 9 Creatinine 0.64 Estimated Creat Clear 126 Estimated GFR 107 Est GFR ( Amer) 129 Glucose 119 H Calcium 8.4 L Total Bilirubin 0.8 AST 117 H D ALT 154 H Alkaline Phosphatase 91 Total Protein 6.0 L Albumin 3.4 D Globulin 2.6 Albumin/Globulin Ratio 1.3 Lipase 61 L Serum HCG, Qual 11/13/18 11/13/18 11/13/18 19:10 19:10 19:10 WBC 8.4 RBC 4.24 Hgb 13.3 Hct 41.5 MCV 97.9 MCH 31.4 H MCHC 32.0 RDW 12.9 Plt Count 193 MPV 8.3 Neut % (Auto) 64.5 Lymph % (Auto) 28.9 [place] % (Auto) 5.1 Eos % (Auto) 1.2 Baso % (Auto) 0.3 Neut # (Auto) 5.4 Lymph # (Auto) 2.4 [place] # (Auto) 0.4 Eos # (Auto) 0.1 Baso # (Auto) 0.0 Sodium 141 Potassium 3.3 L Chloride 104 Carbon Dioxide 30 Anion Gap 10.3 BUN 11 Creatinine 0.71 Estimated Creat Clear 102 Estimated GFR 95 Est GFR ( Amer) 115 Glucose 107 H Calcium 8.4 L Total Bilirubin 0.3 AST 195 H ALT 137 H Alkaline Phosphatase 95 Total Protein 7.0 Albumin 4.1 Globulin 2.9 Albumin/Globulin Ratio 1.4 Lipase Serum HCG, Qual Negative DS: Diagnosis - Discharge Diagnosis (1) Right upper quadrant abdominal pain Status: Acute Problem details: Essentially resolved with Librax and Toradol. (2) Abdominal pain Status: Acute Discharge Plan - Patient Discharge Instructions ACTIVITY: No heavy lifting DIET: advance to your usual diet Additional Instructions: wean Librax to off Patient Instructions: DI for Abdominal Pain-Adult - Follow up Plan Follow up with: Tony Ruelas MD [Staff Physician] - 1 week Disposition: Home, [facility] Medications: Home Medications Medication Instructions Recorded Confirmed Type hydrOXYzine HCl [Hydroxyzine HCl] 25 mg PO BID 03/10/18 11/13/18 History Loratadine [Claritin] 10 mg PO DAILY 03/28/18 11/13/18 History aspirin 81 mg tablet,delayed 81 mg PO DAILY tab 04/06/18 11/13/18 History release Tizanidine HCl 2 mg PO HS 11/14/18 11/14/18 History raNITIdine HCl [Ranitidine HCl] 150 mg PO BID 11/14/18 11/14/18 History Prescriptions/Medication Reconciliation: New Chlordiazepoxide/Clidinium Br [Librax Capsule] 1 each PO QID capsule Simethicone [Mylicon 80mg Chewable Tablet] 80 mg PO Q4HP PRN tab.chew PRN Reason: GAS PAIN Tizanidine HCl [Zanaflex 4mg tablet] 2 mg PO HS tablet Continue aspirin 81 mg tablet,delayed release 81 mg PO DAILY tab hydrOXYzine HCl [Hydroxyzine HCl] 25 mg PO BID Loratadine [Claritin] 10 mg PO DAILY Tizanidine HCl 2 mg PO HS raNITIdine HCl [Ranitidine HCl] 150 mg PO BID
[2018-11-15 07:15] LABS: Hepatitis B Core Antibody IgM Negative (Negative); Hepatitis B Surface Antigen Negative (Negative)
[2018-11-15 13:35] LABS: Hepatitis C Antibody <0.1 s/co ratio (0.0-0.9)
== END 2018-11-14 15:00 | disposition home or self-care (01) ==
LOC: ER 18:51 → 2ND 18:51
PROVIDERS: ADMIT Surgery; ATTEND Surgery
DX: Z91.011 Allergy to milk products; Z79.899 Other long term (current) drug therapy; R10.11 Right upper quadrant pain; Z90.49 Acquired absence of other specified parts of digestive tract; Z79.82 Long term (current) use of aspirin
CPT/HCPCS: 36415; 80053; 80074; 83690; 84703; 85025; 96374; 96375; 96376; 99282; G0378; J2405

== ENCOUNTER 2019-06-12 17:30 | Outpatient (RCR) | payer OTHER, MEDICAID, SELFPAY | END 2019-06-12 17:35 | disposition home or self-care (01) | LOC: PT 17:30 | PROVIDERS: Visit Provider Nurse Practitioner Family | DX: M79.641 Pain in right hand (principal) | CPT/HCPCS: 97010; 97012; 97014; 97035; 97110; 97140; 97163; G0283 ==

== ENCOUNTER → 2019-08-07 10:05 | Outpatient (CLI) | payer OTHER, MEDICAID, SELFPAY ==
[2019-08-07 10:21] LABS: Basophils % 0.6 % (0.1-2.0); Eosinophils # 0.1 K/mm3 (0.0-0.4); Eosinophils % 1.3 % (0.1-12.0); Hematocrit 44.5 % (37.0-47.0); Hemoglobin 14.7 g/dL (12.2-16.2); Lymphocytes # 1.6 K/mm3 (0.7-4.5); Lymphocytes % 22.4 % (10-50); Mean Corpuscular Hemoglobin 32.1 pg (27.0-31.2); Mean Corpuscular Volume 97.4 fl (81-99); Mean Platelet Volume 7.8 fl (7.4-10.4); Monocytes # 0.4 K/mm3 (0.1-1.0); Neutrophils # 4.9 K/mm3 (1.8-7.8); Neutrophils % 70.7 % (37.0-80.0); Platelet Count 204 K/mm3 (142-424); Red Blood Count 4.57 M/mm3 (4.20-5.40); Red Cell Distribution Width 12.1 % (11.5-17.5)
[2019-08-07 11:10] LABS: Anion Gap 14.2 mEq/L (5-15); Blood Urea Nitrogen 18 mg/dL (7-18); Calcium 9.3 mg/dL (8.5-10.1); Carbon Dioxide 27 mmol/L (21.0-32.0); Chloride 105 mmol/L (98-107); Creatinine,Serum 0.82 mg/dL (0.55-1.02); Estimated Glomerular Filt Rate 80 ml/min (>60); GFR (African American) 97 ML/MIN (>60); Glucose 95 mg/dL (74-106); Potassium 4.2 mmoL/L (3.5-5.1); Sodium 142 mmol/L (136-145)
[2019-08-07 13:42] LABS: HCG Qualitative, Serum Negative (Negative)
== END ==
PROVIDERS: Visit Provider Nurse Practitioner Obstetrics & Gynecology
DX: Z01.818 Encounter for other preprocedural examination (principal); N92.0 Excessive and frequent menstruation with regular cycle
CPT/HCPCS: 36415; 80048; 84703; 85025

== ENCOUNTER → 2019-08-26 14:48 | Outpatient (POV) | payer OTHER, MEDICAID, SELFPAY | PROVIDERS: PCP Nurse Practitioner Family; Visit Provider Nurse Practitioner Family | DX: Z00.00 Encounter for general adult medical examination without abnormal findings (principal) ==

== ENCOUNTER → 2019-09-23 14:31 | Outpatient (POV) | payer OTHER, MEDICAID, SELFPAY | PROVIDERS: Visit Provider Nurse Practitioner Family | DX: Z00.00 Encounter for general adult medical examination without abnormal findings (principal) ==

== ENCOUNTER → 2019-09-26 08:25 | Outpatient (CLI) | payer OTHER, MEDICAID, SELFPAY ==
--- NOTE | 2019-09-26 08:34 | MR_ITS ---
PROCEDURE: MR ABDOMEN WO/W CON CLINICAL INDICATION: ABDOMINAL PAIN, CONSTIPATION, HEPATIC FLEXURE SYNDROME Right upper quadrant pain off and on irregular bowel movements COMPARISON: CT ABDOMEN PELVIS W CON from 06/10/2019 TECHNIQUE: Routine multiplanar multi echo sequences are performed without and with gadolinium enhancement. MRCP sequences also performed FINDINGS: The liver, spleen, kidneys, adrenal glands, and pancreas have an unremarkable appearance. No enhancing lesions are evident. There is a moderate amount of retained colonic feces. MRCP images show prominence of the common hepatic duct and common bile duct. The common hepatic duct measures to 10 mm and the common bile duct measures up to 7 mm. No obvious filling defects are evident within the common duct. Pancreatic duct is slightly prominent in the head of the pancreas at 3 mm and has an unremarkable appearance in the body and tail the pancreas. There has been a prior cholecystectomy. IMPRESSION: 1. Ectasia of the common hepatic and common bile duct without obvious common duct lesion or filling defect. This may be physiologic secondary to prior cholecystectomy. 2. Moderate amount of retained colonic feces 3. Otherwise negative MR abdomen Dictated by: Jean-Claude Pittman MD 09/27/2019 11:25 Electronically signed by Jean-Claude Pittman MD in [place] 10/01/2019 10:47
== END ==
PROVIDERS: PCP Nurse Practitioner Family; Visit Provider Nurse Practitioner Family
DX: R10.11 Right upper quadrant pain (principal); K59.00 Constipation, unspecified; K59.8 Other specified functional intestinal disorders
CPT/HCPCS: 74183; 76376; A9576

== ENCOUNTER → 2019-10-25 11:39 | Outpatient (CLI) | payer OTHER, MEDICAID, SELFPAY | PROVIDERS: PCP Nurse Practitioner Family; Visit Provider Internal Medicine Cardiovascular Disease | DX: R00.2 Palpitations (principal); R07.89 Other chest pain; R42 Dizziness and giddiness; F41.9 Anxiety disorder, unspecified; Z72.0 Tobacco use | CPT/HCPCS: 93270 ==

== ENCOUNTER → 2019-11-04 14:15 | Outpatient (POV) | payer OTHER, MEDICAID, SELFPAY | PROVIDERS: Visit Provider Specialist | DX: G25.81 Restless legs syndrome (principal) | CPT/HCPCS: 95886; 95908 ==

== ENCOUNTER → 2019-11-07 07:42 | Outpatient (CLI) | payer OTHER, MEDICAID, SELFPAY ==
--- NOTE | 2019-11-07 | CA_ITS ---
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 Exam: Exercise Treadmill Technologist: Radha Higginbotham, Ht: 5 ft 3 in Wt: 141 lbs BSA: 1.67 m2 HR: 82 bpm BP: 139/58 mmHg Rhythm: NSR Indications: PalpATATIONS Medical History Medications: Lorazepam,,,,, Citalopram,,,,, Montelukast,,,,, Buspiron,,,,, LiNACLOTIDE,,,,, Hydroxine,,,,, HyCOScyamine,,,,, Allergies: LACTOSE Stress Test Details Test: Jamie HR Resting HR: 96 bpm Max Heart Rate (APMHR): 186 bpm Max HR Achieved: 170 bpm Target HR (85% APMHR): 158 bpm % of APMHR: 91 Recovery HR: 158 bpm BP Resting BP: 124/76 mmHg Max BP: 142/83 mmHg Recovery BP: 120.0/57.0 mmHg ECG Resting ECG: NSR Arrhythmia: None, APC's, VPC's Clinical Reason for Termination: Dyspnea Exercise duration: 09:01 min Highest Stage Achieved: Exercise capacity: 10.1 METs Stress ECG Conclusion PATIENT WALKED 9 MINUTES ON JAMIE PROTOCOL WITH METS = 10.1. MAX HEART RATE 168 BPM WHICH IS 106% OF PM. TEST STOPPED DUE TO SOA. NO CHEST PAIN. ONE COUPLET. <1.5MM ST SEGMENT CHANGES. NEGATIVE STRESS. Test Summary REST . . . . . . . Sitting REST . . . . . . . Standing REST 12:19 0.0 0.0 96 . 124/ 76 . . Stage 1 01:00 10.0 1.7 110 . . . . Stage 1 02:00 10.0 1.7 117 . . . . Stage 1 03:00 10.0 1.7 122 . 128/ 72 . . Stage 2 01:00 12.0 2.5 127 . . . . Stage 2 02:00 12.0 2.5 135 . . . . Stage 2 03:00 12.0 2.5 144 . 134/ 80 . . Stage 3 01:00 14.0 3.4 156 . . . . Stage 3 02:00 14.0 3.4 162 . . . . Stage 3 . . . . . . . Stage held Stage 3 03:00 14.0 3.4 . . 142/ 83 . . Stage 3 . . . . . . . Stage resumed Stage 3 03:01 14.0 3.4 . . 142/ 83 . Stop exercise at 09:01 RECOVERY 01:00 0.0 0.0 134 . . . . RECOVERY 02:00 0.0 0.0 117 . . . . RECOVERY 03:00 0.0 0.0 106 . . . . RECOVERY 04:00 0.0 0.0 101 . . . . RECOVERY 05:00 0.0 0.0 99 . . . . RECOVERY 06:00 0.0 0.0 99 . . . . RECOVERY 07:00 0.0 0.0 118 . . . . RECOVERY 07:16 0.0 0.0 114 . . . . Electronically signed by : Ham Rogers, 11/07/2019 12:49:05
--- NOTE | 2019-11-07 07:42 | CA_ITS ---
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 EXAM: Comprehensive 2D, Doppler, and color-flow Echocardiogram Drop Man: Sheron Dumont RDCS Ht: 5 ft 3 in Wt: 141lbs BSA: 1.67 BP: 121/68 mmHg Indications: Abnormal ECG R94.31, Syncope R55, Chest Pain R07.89 stress echo Conclusion 1. Patient exercised on [place] protocol without any chest pain or EKG changes. Demonstrated good exercise capacity. 2. The resting echocardiogram showed normal left ventricular systolic function, with exercise there is no exercise induced segmental wall motion abnormality to suggest underlying ischemic heart disease. 3. Normal exercise stress echo. Electronically signed by : Ham Rogers, 11/07/2019 15:19:55
--- NOTE | 2019-11-07 07:42 | CA_ITS ---
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 EXAM: Comprehensive 2D, Doppler, and color-flow Echocardiogram Green Building Design Specialist: Svitlana Godinez CRT Ht: 5 ft 3 in Wt: 141lbs BSA: 1.67 BP: 126/61 mmHg Indications: Abnormal ECG, Chest Pain, Shortness of Breath, Dizziness and Vertigo, Palpitations, Fatigue 2D Dimensions LVOT 1.95 cm (M/F) 1.5-2.5 M-Mode Dimensions RVDd 2.10 cm (0.9-2.6) LVDd 4.26 cm (3.5-5.7) LVDs 3.03 cm (3.5-5.7) IVSd 0.98 cm (0.6-1.1) PWd 0.54 cm (0.6-1.1) EF (Teich) 55.80% FS 28.90% EDV (Teich) 81.30 mL ESV (Teich) 35.90 mL LV Diastology E/A Ratio 1.12 Mitral Valve MV A Velocity 56.00 (40-130 cm/s) Left Ventricle Left atrium is normal size, left ventricle is normal size, there is no concentric left ventricular hypertrophy, visually estimated ejection fraction 55% with no regional wall motion abnormality. Diastolic parameters are within normal range. Right Ventricle Right atrium and right ventricular normal size and contractility. Aortic Valve Aortic valve is normal, there is no aortic stenosis or aortic insufficiency. Mitral Valve Mitral valve is grossly normal, there is mild mitral regurgitation. Tricuspid Valve Tricuspid valve is grossly normal, there is mild tricuspid regurgitation. Pulmonic Valve Pulmonic valve is poorly visualized. Great Vessels Aortic root is normal size. Pericardium No significant pericardial effusion noted. Conclusion 1. Normal left ventricular size, preserved left ventricular systolic function, visually estimated ejection fraction 55% with no regional wall motion abnormality. Diastolic parameters are within normal range. 2. Mild mitral and tricuspid regurgitation. 3. No significant pericardial effusion noted. Electronically signed by : Ham Rogers, 11/07/2019 15:17:42
--- NOTE | 2019-11-07 09:23 | XR_ITS ---
PROCEDURE: XR SHOULDER RT MIN 2V CLINICAL INDICATION: Shoulder pain COMPARISON: No exams were available for comparison FINDINGS: There is no acute fracture dislocation or other focal bony lesion. Joint space is preserved. IMPRESSION: No acute findings. Dictated by: Tra De León 11/07/2019 09:48 Electronically signed by Tra De León in [place] 11/07/2019 09:48
== END ==
PROVIDERS: PCP Nurse Practitioner Family; Visit Provider Internal Medicine Cardiovascular Disease
DX: R00.2 Palpitations (principal); R07.89 Other chest pain; R42 Dizziness and giddiness; F41.9 Anxiety disorder, unspecified; Z72.0 Tobacco use; R55 Syncope and collapse; M25.511 Pain in right shoulder
CPT/HCPCS: 73030; 93017; 93306; 93350

== ENCOUNTER → 2019-11-19 07:47 | Outpatient (CLI) | payer OTHER, MEDICAID, SELFPAY ==
--- NOTE | 2019-11-19 07:48 | MR_ITS ---
PROCEDURE: MR CERVICAL SPINE WO CON CLINICAL INDICATION: neck/shoulder pain Neck and shoulder pain with burning down the right arm right weakness COMPARISON: There TECHNIQUE: Standard multiplanar multiecho sequences are performed without contrast. 3-D MIP and myelographic images are also rendered and reviewed FINDINGS: The craniocervical junction has an unremarkable appearance. There is normal alignment with straightening of the normal cervical lordosis. C2-C3: Unremarkable. C3-C4: Unremarkable. C4-C5: Small right paracentral disc protrusion which abuts the anterior aspect of the cord on the right with some minimal right lateral recess narrowing. Not significantly changed. C5-C6: Unremarkable. C6-C7: Minimal bulging disc. C7-T1 and T1-T2: Unremarkable. No extruded herniated disc evident. Cervical cord has an unremarkable appearance IMPRESSION: 1. Overall no significant change compared to the previous exam. 2. At C4-C5 there is a small right paracentral disc protrusion which abuts the anterior aspect of the cord on the right with some minimal right lateral recess narrowing. Not significantly changed. Dictated by: Jean-Claude Pittman MD 11/20/2019 12:59 Electronically signed by Jean-Claude Pittman MD in [place] 11/20/2019 12:59
== END ==
PROVIDERS: PCP Nurse Practitioner Family; Visit Provider Orthopaedic Surgery
DX: M54.2 Cervicalgia (principal)
CPT/HCPCS: 72141; 76376

== ENCOUNTER → 2019-11-22 13:48 | Outpatient (CLI) | payer OTHER, MEDICAID, SELFPAY ==
--- NOTE | 2019-11-22 13:54 | XR_ITS ---
PROCEDURE: XR CERVICAL SPINE 2V CLINICAL INDICATION: Neck pain COMPARISON: No exams were available for comparison FINDINGS: There is normal alignment. No fracture or dislocation is evident. There is slight decrease in the disc space at C4-C5 consistent with mild degenerative disc disease. No lytic or blastic change. Patient's head is slightly tilted toward the right IMPRESSION: Mild degenerative disc disease C4-C5. Dictated by: Jean-Claude Pittman MD 11/22/2019 14:07 Electronically signed by Jean-Claude Pittman MD in [place] 11/22/2019 14:07
== END ==
PROVIDERS: Visit Provider Orthopaedic Surgery
DX: M54.2 Cervicalgia (principal)
CPT/HCPCS: 72040

== ENCOUNTER 2019-11-27 17:30 | Outpatient (RCR) | payer OTHER, MEDICAID, SELFPAY | END 2019-11-27 17:35 | disposition home or self-care (01) | LOC: PT 17:30 | PROVIDERS: PCP Nurse Practitioner Family; Visit Provider Nurse Practitioner Family | DX: G25.81 Restless legs syndrome (principal); M50.10 Cervical disc disorder with radiculopathy, unspecified cervical region | CPT/HCPCS: 95886; 95908; 97010; 97012; 97014; 97110; 97163; G0283 ==

== ENCOUNTER → 2019-12-09 11:12 | Outpatient (POV) | payer OTHER, MEDICAID, SELFPAY ==
[2019-12-09 11:24] VITALS: BP 137/72; PULSE 85; RESP 18; O2SAT 98; BMI 25.8
--- NOTE | 2019-12-09 12:46 | HMH.PMCON ---
Assessment and Plan (1) Cervical radiculopathy at C5 Current visit: No Status: Chronic Category: Medical Code(s): M54.12 - Radiculopathy, cervical region (2) Cervical disc disease Current visit: No Status: Chronic Category: Medical Code(s): M50.90 - Cervical disc disorder, unspecified, unspecified cervical region - Assessment and plan all Dx Assessment and Plan for all problems:: We will set up a C4-C5 cervical epidural steroid injection to the patient. I do believe it would benefit her given her symptomology. Also her pathology in regards to her MRI. Patient also has some SI joint issues she would like to address in the future. At this time her neck is what bothers her the worst she also is continuing physical therapy at this time. Patient's been instructed to call the office if she has any issues prior to her next appointment. She is not on any anticoagulation therapy. Dr. Kearns has reviewed this note and agrees with this plan of care. This note was dictated using voice recognition software and may contain errors or omissions HPI - Data of Consult Consult date: 12/09/19 Requesting Physician: Zelda Kirkland APRN Primary Care Provider: Jesus Manuel Castro MD - Consult Narrative Reason for consult: Neck pain, arm pain History of present illness: Ms. Leiva is a 34 year old female who presents today for consultation in regards to her neck and arm pain. Patient has had chronic neck pain for quite some time however she had an accident back in April 2019 which aggravated it. Patient is continuing physical therapy. Traction does benefit her however the effects are not long lasting she rates her pain a 7 out of 10 in a radiation down her right arm and into her hands. Patient does have an dated MRI showing a C4-C5 paracentral disc protrusion that abuts the anterior aspect of the cord on the right side. Patient and I discussed about epidural injection she is interested in pursuing this. Patient is unable to take anti-inflammatories due to her cardiac history. Patient was on gabapentin however she is no longer on it at this time. CC: Zelda Kirkland APRN [facility] History I have reviewed the patient's past medical history: Yes Medical History: Reports:: Anxiety, Gastroesophageal Reflux Disease(GERD), Hiatal Hernia, Kidney Stones, Palpitations, Seizures Denies:: Cancer, Diabetes Mellitus Type 1, Diabetes Mellitus Type 2, Internal Pacemaker, Lung Disease, MRSA *Have you ever received a pneumonia vaccine?: Yes *Have you received a flu vaccine this season?: Yes Other Medical History: Reports: Other. Denies: Blood Transfusion Reaction Laterality Cases: Bilateral: Myringotomy (Ear Tubes), Tonsillectomy Other Surgeries: Yes: Cholecystectomy, Colonoscopy, Diagnostic Lap, Hernia Repair, Tubal Ligation. No: Pacemaker Amputation: No Fractures: No - *Social History Smoking Status: Current every day smoker Tobacco Type: cigarettes # Packs/Day (cigarettes): 1 Alcohol Intake: never Alcohol Intake Frequency:: holidays/special occasions only Substance Use Type: unknown *Occupational Status:: other Housing: house Household Members: other *Travel in the last 8 weeks: None - Psychiatric History Pschychiatric History:: Reports:: Anxiety Family Hx:: Unable to obtain Review of Systems - Review of Systems ROS General: no recent weight change, no fever, no sleep disturbances Respiratory: no cough, no shortness of air, no recurring pulmonary infections Cardiovascular/Peripheral Vascular: No chest pain, No palpitations, no edema, no shortness of breath. Gastrointestinal: no new onset incontinence, normal bowel movements reported Genitourinary: no new onset incontinence Musculoskeletal: Neck pain, arm pain Psychiatric: normal mood/ affect Neurological: [denies new onset weakness in extremities], [denies new onset balance issues] Meds Home Medications Medication Instructions Recorded Confirmed Type
== END ==
PROVIDERS: PCP Emergency Medicine; Visit Provider Clinical Nurse Specialist Family Health
DX: M50.10 Cervical disc disorder with radiculopathy, unspecified cervical region (principal)
CPT/HCPCS: 99202

== ENCOUNTER → 2019-12-30 13:53 | Outpatient (POV) | payer OTHER, SELFPAY ==
[2019-12-30 14:48] VITALS: BP 130/80; PULSE 89; RESP 18; O2SAT 98; BMI 26.0
--- NOTE | 2019-12-31 09:14 | P.CONS_ITS ---
[facility] Pain Management SOAP Note Subjective:: Patient is a pleasant 34-year-old white female who presents today for follow-up after cervical epidural steroid injection. She rates her pain a 7 out of 10. She had a couple hours relief however after that she was diagnosed with pancreatitis and taken to [facility] where she had an ERCP. Patient is doing somewhat better. Patient I have discussed multiple things however we did discuss adding gabapentin to her medication regimen. I discussed with the patient that it is a controlled substance and that she will be subject to urine drug screens and pill counts. Patient [facility] #[id number] reviewed and appropriate. ROS General: no recent weight change, no fever, no sleep disturbances Respiratory: no cough, no shortness of air, no recurring pulmonary infections Cardiovascular/Peripheral Vascular: No chest pain, No palpitations, no edema, no shortness of breath. Gastrointestinal: no new onset incontinence, normal bowel movements reported Genitourinary: no new onset incontinence Musculoskeletal: Cervical pain Psychiatric: normal mood/ affect Neurological: [denies new onset weakness in extremities], [denies new onset balance issues] Objective:: Physical Exam General: Alert and oriented x3, no acute distress, pleasant and cooperative, [on room air] Lungs: Resps E/U, Symmetrical chest expansion, Eyes: PERRL Musculoskeletal: Flexion and extension of cervical spine somewhat guarded secondary to pain, deep tendon reflexes normal, strength in upper and lower extremities [5/5], slightly antalgic gait noted Neurological: speech clear, director client services equal, no gross sensory deficits Assessment:: Degenerative disc disease cervical spine cervical radiculopathy Plan:: We will start the patient on gabapentin 300 mg 1 p.o. 3 times daily. I will see the patient back in 1 month and reassess her symptoms. She is been instructed to call the office if she has any issues prior to her next appointment. Dr. Kearns has reviewed this note and agrees with this plan of care. This note was dictated using voice recognition software and may contain errors or omissions [facility] History I have reviewed the patient's past medical history: Yes Medical History: Reports:: Anxiety, Arrhythmia, Gastroesophageal Reflux Disease(GERD), Hiatal Hernia, Kidney Stones, Palpitations, Seizures Denies:: Cancer, Diabetes Mellitus Type 1, Diabetes Mellitus Type 2, Internal Pacemaker, Lung Disease, MRSA *Have you ever received a pneumonia vaccine?: Yes *Have you received a flu vaccine this season?: Yes Other Medical History: Reports: Other. Denies: Blood Transfusion Reaction Laterality Cases: Bilateral: Myringotomy (Ear Tubes), Tonsillectomy Other Surgeries: Yes: Cholecystectomy, Colonoscopy, Diagnostic Lap, Hernia Repair, Tubal Ligation. No: Pacemaker Amputation: No Fractures: No - *Social History Smoking Status: Current every day smoker Tobacco Type: e-cigarettes # Packs/Day (cigarettes): 1 Alcohol Intake: never Alcohol Intake Frequency:: holidays/special occasions only Substance Use Type: unknown *Occupational Status:: other Housing: house Household Members: other *Travel in the last 8 weeks: None - Psychiatric History Pschychiatric History:: Reports:: Anxiety Family Hx:: Heart Attack, Cancer, Diabetes
== END ==
PROVIDERS: PCP Emergency Medicine; Visit Provider Clinical Nurse Specialist Family Health
DX: M50.10 Cervical disc disorder with radiculopathy, unspecified cervical region (principal)
CPT/HCPCS: 99212

== ENCOUNTER → 2020-01-01 12:47 | Outpatient (CLI) | payer OTHER, SELFPAY ==
--- NOTE | 2020-01-01 12:57 | XR_ITS ---
PROCEDURE: XR KUB CLINICAL INDICATION: SPONTANEOUS PASSAGE OF PANCREAS DUCT STENT COMPARISON: CT ABDOMEN PELVIS W CON from 06/10/2019 MR ABDOMEN WO/W CON from 09/26/2019 FINDINGS: A stent is present in the mid abdominal region at the L1 area on the right consistent with a pancreatic ductal stent. Surgical clips are present in right upper quadrant and there are bilateral tubal ligation clips present. Bowel gas pattern is nonspecific. IMPRESSION: Pancreatic stent in place otherwise negative Dictated by: Jean-Claude Pittman MD 01/01/2020 13:53 Electronically signed by Jean-Claude Pittman MD in [place] 01/01/2020 13:53
[2020-01-01 15:00] LABS: Basophils % 0.4 % (0.1-2.0); Eosinophils # 0.1 K/mm3 (0.0-0.4); Eosinophils % 1.7 % (0.1-12.0); Hematocrit 40.9 % (37.0-47.0); Hemoglobin 13.8 g/dL (12.2-16.2); Lymphocytes % 31.1 % (10-50); Mean Corpuscular HGB Conc 33.7 g/dL (31.8-35.4); Mean Corpuscular Hemoglobin 31.6 pg (27.0-31.2); Mean Corpuscular Volume 93.9 fl (81-99); Monocytes # 0.3 K/mm3 (0.1-1.0); Monocytes % 4.3 % (1.7-9.3); Neutrophils # 4.1 K/mm3 (1.8-7.8); Neutrophils % 62.4 % (37.0-80.0); Platelet Count 246 K/mm3 (142-424); Red Blood Count 4.36 M/mm3 (4.20-5.40); Red Cell Distribution Width 12.5 % (11.5-17.5); White Blood Count 6.6 K/mm3 (4.8-10.8)
== END ==
PROVIDERS: Physician Assistant; PCP Emergency Medicine; Referring Provider Internal Medicine Gastroenterology; Visit Provider Internal Medicine Gastroenterology
DX: Q45.3 Other congenital malformations of pancreas and pancreatic duct (principal)
CPT/HCPCS: 36415; 74018; 85025

== ENCOUNTER → 2020-01-13 09:43 | Outpatient (POV) | payer OTHER, SELFPAY ==
--- NOTE | 2020-01-13 09:56 | HMH.VVPMSO ---
[facility] Virtual Visit SOAP Consent for virtual visit:: With the recent concerns about the COVID-19, we are trying to minimize exposure to you by shifting to telehealth appointments whenever possible. It restricts me from seeing you in person, but the trade off is protecting you during this pandemic. Can you see and hear me okay, and do you consent to this option? If not, I would be happy to see if we can reschedule your appointment in the future, when feasible. Has patient consented to this virtual visit?: Yes Subjective:: Patient has chosen to have telemedicine visit for his symptoms due to risk of COVID19 Patient is a pleasant 34-year-old white female who is being evaluated via telehealth today secondary to recent restrictions associated with Covid 19 pandemic. Patient is being treated for neck pain with cervical radiculopathy symptoms. Patient rates her pain a 5 out of 10 today. She says following her injection that she did get a few hours of relief. The patient was started on gabapentin for severe numbness and tingling in her bilateral arms and hands. She says that she has gotten some relief with gabapentin . She was also managed with Flexeril 10 mg 1 tablet p.o. 3 times daily. She does say that she did get relief with the muscle relaxer. She denies any side effects to the medications. He says that it is controlling her pain to a degree. Patient's [place]rell #[id number] reviewed and is appropriate. Her urine drug screens are appropriate. Review of Systems General: No recent weight changes, no fever, no sleep disturbances Respiratory: No cough, no shortness of air, no recurring pulmonary infections Cardiovascular/peripheral vascular: No chest pain, no palpitations, no edema, no shortness of breath Gastrointestinal: No new onset incontinence, normal bowel movements reported Genitourinary: No new onset incontinence Musculoskeletal: Neck pain, bilateral arm pain with numbness and tingling Psychiatric: Normal mood/affect Neurological: [Denies weakness in extremities], [denies balance issues] Objective:: PHYSICAL EXAM: Constitutional: Healthy appearing, well-developed, alert and oriented, no acute distress noted Psychiatric: Judgment and insight intact. Mood normal, affect appropriate Head: Normocephalic, atraumatic, extraocular movement intact Respiratory: Nonlabored, non-dyspneic Cardiovascular: No cyanosis, no clubbing, no edema observed Skin: Head and neck, no lesions or rashes noted. Bilateral upper extremities no lesions or rashes noted Gait: Able to walk without assist of heel and toe walk Neurological: Sensation grossly intact per patient C3-T1 Musculoskeletal: Full range of motion, positive straight leg raise Assessment:: Degenerative disc disease cervical spine cervical radiculopathy Plan:: We will refill the patient's Flexeril 10 mg 1 tablet p.o. 3 times daily. She does not need any refills on her gabapentin at this time. We will not be able to perform any type of injective therapies secondary to restrictions associated with pandemic. Patient has been instructed to contact clinic if she has any concerns before next appointment. Dr. Kearns has reviewed this note and agrees with this plan of care. This note was dictated using voice recognition software and make contain errors or omissions. This encounter was performed as telemedicine. The visit was performed via a secure to a video and audio to minimize risk and transmission of COVID19. Patient understands limitations of telemedicine visits which include inability to check reflexes, possibly missing subtle findings on the physical exam. Alternative options were presented to the patient and the patient did elect to proceed with the visit. The patient and I specifically discussed risk factors for COVID19. These risks include, but are not limited to age greater than 60, heart or lung disease, diabetes, immunosuppression, and travel. We also discussed NSAIDs
== END ==
PROVIDERS: Visit Provider Clinical Nurse Specialist Family Health
DX: M50.10 Cervical disc disorder with radiculopathy, unspecified cervical region (principal)
CPT/HCPCS: 99212

== ENCOUNTER → 2020-02-06 20:21 | Outpatient (CLI) | payer OTHER, SELFPAY ==
[2020-02-08 08:51] LABS: Covid-19 Nasal PCR Sendout Lex Not Detected
--- NOTE | 2020-02-08 10:19 | PC.NURSE ---
Notified pt and Dr Castro of negative covid results[facility]
== END ==
PROVIDERS: Visit Provider Nurse Practitioner
DX: Z03.818 Encounter for observation for suspected exposure to other biological agents ruled out (principal)
CPT/HCPCS: U0003

== ENCOUNTER → 2020-04-06 10:49 | Outpatient (POV) | payer OTHER, SELFPAY ==
--- NOTE | 2020-04-06 12:44 | P.CONS_ITS ---
[facility] History I have reviewed the patient's past medical history: Yes Medical History: Reports:: Anxiety, Arrhythmia, Gastroesophageal Reflux Disease(GERD), Hiatal Hernia, Kidney Stones, Palpitations, Seizures Denies:: Cancer, Diabetes Mellitus Type 1, Diabetes Mellitus Type 2, Internal Pacemaker, Lung Disease, MRSA *Have you ever received a pneumonia vaccine?: Yes *Have you received a flu vaccine this season?: Yes Other Medical History: Reports: Other. Denies: Blood Transfusion Reaction Laterality Cases: Bilateral: Myringotomy (Ear Tubes), Tonsillectomy Other Surgeries: Yes: Cholecystectomy, Colonoscopy, Diagnostic Lap, Hernia Repair, Tubal Ligation. No: Pacemaker Amputation: No Fractures: No - *Social History Smoking Status: Current every day smoker Tobacco Type: cigarettes # Packs/Day (cigarettes): 1 Alcohol Intake: never Alcohol Intake Frequency:: holidays/special occasions only Substance Use Type: unknown *Occupational Status:: other Housing: house Household Members: other *Travel in the last 8 weeks: None - Psychiatric History Pschychiatric History:: Reports:: Anxiety Family Hx:: Heart Attack, Cancer, Diabetes
--- NOTE | 2020-04-06 12:48 | HMH.VVPMSO ---
[facility] Virtual Visit SOAP Consent for virtual visit:: With the recent concerns about the COVID-19, we are trying to minimize exposure to you by shifting to telehealth appointments whenever possible. It restricts me from seeing you in person, but the trade off is protecting you during this pandemic. Can you see and hear me okay, and do you consent to this option? If not, I would be happy to see if we can reschedule your appointment in the future, when feasible. Has patient consented to this virtual visit?: Yes Subjective:: Patient is a pleasant 34-year-old white female who presents today for follow-up. Patient is being treated for pain secondary to degenerative disc disease cervical spine with cervical radiculopathy. She is on gabapentin along with Flexeril. Patient and I discussed increasing her gabapentin due to increased numbness and tingling in her hands along with muscle spasms. Patient I also discussed potentially a neurology consult will be necessary. She is on gabapentin 300 mg 1 p.o. 3 times daily and Flexeril 10 mg 1 p.o. 3 times daily. She denies any issues with the medications. [facility] #[id number] reviewed and appropriate. ROS General: no recent weight change, no fever, no sleep disturbances Respiratory: no cough, no shortness of air, no recurring pulmonary infections Cardiovascular/Peripheral Vascular: No chest pain, No palpitations, no edema, no shortness of breath. Gastrointestinal: no new onset incontinence, normal bowel movements reported Genitourinary: no new onset incontinence Musculoskeletal: Neck pain, arm pain, muscle spasms Psychiatric: normal mood/ affect, Neurological: [denies new onset weakness in extremities], [denies new onset balance issues] Objective:: Physical exam: Constitutional: Healthy appearing, well-developed, alert, in no acute distress Psychiatric: Judgment and insight intact, Alert and oriented x4 Mood and affect: Mood normal, affect appropriate Head and face: Inspection: Normocephalic atraumatic, extraocular movement intact Respiratory: Breathing nonlabored, nondyspneic Cardiovascular: No cyanosis, clubbing, or edema observed Skin: Head and neck: Skin with no lesions or rash observed Gait: Able to walk without assistive device: Able to heel and toe walk Neurologic: Sensation grossly intact per patient Musculoskeletal: Decreased range of motion cervical spine noted Assessment:: Degenerative disc disease cervical spine cervical radiculopathy Plan:: We will increase the patient's gabapentin to 300 mg 1 p.o. 5 times a day and continue her Flexeril 10 mg 1 p.o. 3 times daily. We will see her in 1 month reassess her symptoms at that time. Again patient may need a neurology consult. Patient's been instructed to call the office if she has any issues prior to her next appointment. This encounter was performed as a telemedicine visit via secure 2 way video and audio to minimize risk and transmission of Covid-19. The patient and we understand the limitations of a telemedicine visit including inability to check reflexes, possibly missing subtle findings on physical exam. Alternative options were presented to the patient and the patient elected to proceed with the visit. We specifically discussed risk factors for Covid-19 including age, heart or lung disease, diabetes, immunosuppression and travel. We also discussed that NSAIDs may worsen Covid-19 infection symptoms and that they should not be used to treat Covid-19 symptoms. Patient was also informed that corticosteroids in any form oral or injectable will decrease immune response and may increase risk of Covid-[address] Kearns has reviewed this patient's chart and this note and agrees with plan of care. Patient has been instructed to call the office if they have any issues prior to the next appointment. Time In:: 10:30 Time Out:: 10:40 [facility] History I have reviewed the patient's past medical history: Yes Medical History: Re
== END ==
PROVIDERS: Visit Provider Clinical Nurse Specialist Family Health
DX: M50.10 Cervical disc disorder with radiculopathy, unspecified cervical region (principal)
CPT/HCPCS: 99212

== ENCOUNTER → 2020-04-09 11:30 | Outpatient (CLI) | payer OTHER, SELFPAY ==
[2020-04-09 11:47] LABS: Basophils # 0.1 K/mm3 (0-0.2); Basophils % 0.7 % (0.1-2.0); Eosinophils # 1.1 K/mm3 (0.0-0.4); Eosinophils % 14.3 % (0.1-12.0); Hematocrit 39.8 % (37.0-47.0); Hemoglobin 13.8 g/dL (12.2-16.2); Lymphocytes # 2.2 K/mm3 (0.7-4.5); Lymphocytes % 28.1 % (10-50); Mean Corpuscular HGB Conc 34.5 g/dL (31.8-35.4); Mean Corpuscular Hemoglobin 32.3 pg (27.0-31.2); Mean Corpuscular Volume 93.5 fl (81-99); Mean Platelet Volume 8.2 fl (7.4-10.4); Monocytes # 0.3 K/mm3 (0.1-1.0); Neutrophils # 4.1 K/mm3 (1.8-7.8); Neutrophils % 52.9 % (37.0-80.0); Platelet Count 205 K/mm3 (142-424); Red Blood Count 4.26 M/mm3 (4.20-5.40); Red Cell Distribution Width 12.8 % (11.5-17.5); White Blood Count 7.7 K/mm3 (4.8-10.8)
[2020-04-09 13:20] LABS: Alanine Aminotransferase 28 U/L (12-78); Albumin Level 4.5 g/dl (3.5-5.0); Alkaline Phosphatase 66 U/L (38-126); Amylase 34 U/L (30-110); Anion Gap 11.1 mEq/L (5-15); Aspartate Amino Transferase 34 U/L (14-36); Bilirubin,Total 0.5 mg/dl (0.2-1.3); Blood Urea Nitrogen 13 mg/dl (7-17); Calcium 9.4 mg/dl (8.4-10.2); Carbon Dioxide 28 mmol/L (22.0-30.0); Chloride 100 mmol/L (98-107); Estimated Glomerular Filt Rate 96 ml/min (>60); GFR (African American) 116 ML/MIN (>60); Globulin 2.3 g/dL (1.3-3.2); Glucose 99 mg/dl (74-100); Lipase 40 U/L (23-300); Potassium 4.1 mmoL/L (3.5-5.1); Sodium 135 mmol/L (136-145); Total Protein,Serum 6.8 g/dl (6.3-8.2)
[2020-04-09 13:36] LABS: Free Thyroxine Index 2.4 ug/dL (5.93-13.13); T4 (Thyroxine) 7.9 ug/dl (5.53-11.0); Triiodothryronine (T3) Uptake 31 % (23.5-40.5)
== END ==
PROVIDERS: Nurse Practitioner Family; Visit Provider Nurse Practitioner Obstetrics & Gynecology
DX: R53.82 Chronic fatigue, unspecified (principal); R63.5 Abnormal weight gain
CPT/HCPCS: 36415; 80053; 82150; 83690; 84436; 84443; 84479; 85025

== ENCOUNTER 2020-04-14 16:53 | Emergency (ER) | payer OTHER, SELFPAY ==
[2020-04-14 17:13] VITALS: BP 120/73; PULSE 114; RESP 18; TEMP 36.4; O2SAT 98; BMI 29.7
--- NOTE | 2020-04-14 17:17 | CT_ITS ---
PROCEDURE: CT ABDOMEN PELVIS WO CON CLINICAL INDICATION: RUQ abd pain COMPARISON: CT ABDOMEN PELVIS W CON from 06/10/2019 TECHNIQUE: Axial images obtained with sagittal and coronal reformats. All CT scans at the facility use one or more dose reduction, viz: automated exposure control, ma/kV adjustment per patient size (including targeted exams where dose is matched to indication, i.e. head), or iterative reconstruction technique. FINDINGS: LOWER THORAX: No acute finding ABDOMEN & PELVIS: The prior cholecystectomy with biliary ectasia slightly increased compared to the previous exam. MRCP may provide further evaluation. The liver, spleen, adrenal glands, pancreas, and kidneys have an unremarkable appearance. There are fluid-filled loops of small and large bowel which may indicate enterocolitis/diarrhea disease. Mild amount of retained colonic feces. The appendix has an unremarkable appearance. There is a small amount fluid in the cul-de-sac. There is a small umbilical hernia which contains fat. No acute bony anomalies. IMPRESSION: Possible enterocolitis/diarrhea disease Biliary ectasia status post cholecystectomy which may be better evaluated with MRCP if clinically desired Dictated by: Jean-Claude Pittman MD 04/15/2020 09:12 Electronically signed by Jean-Claude Pittman MD in [place] 04/15/2020 09:12
[2020-04-14 17:22] LABS: Microscopic, Urine URINE MICROSCOPIC (MICROSCOPIC)
[2020-04-14 17:24] LABS: Appearance,Urine CLEAR (Clear); Bilirubin,Urine Negative (Negative); Blood, Urine Negative (Negative); Color,Urine YELLOW (Yellow); Glucose,Urine (UA) Negative (Negative); Ketones,Urine Negative (Negative); Leukocyte Esterase,Urine TRACE (Negative); Nitrate,Urine Negative (Negative); Protein,Urine Negative (Negative); Specific Gravity, Urine 1.025 (1.005-1.030); Urobilinogen,Urine 0.2 EU/dl (0.2)
[2020-04-14 17:26] LABS: Bacteria,Urine Trace /lpf
[2020-04-14 17:37] LABS: Basophils % 0.3 % (0.1-2.0); Eosinophils # 0.7 K/mm3 (0.0-0.4); Eosinophils % 4.1 % (0.1-12.0); Hemoglobin 15.9 g/dL (12.2-16.2); Lymphocytes # 1.8 K/mm3 (0.7-4.5); Lymphocytes % 10.9 % (10-50); Mean Corpuscular HGB Conc 35.2 g/dL (31.8-35.4); Mean Corpuscular Hemoglobin 32.7 pg (27.0-31.2); Mean Corpuscular Volume 92.8 fl (81-99); Mean Platelet Volume 7.7 fl (7.4-10.4); Monocytes # 0.6 K/mm3 (0.1-1.0); Monocytes % 3.9 % (1.7-9.3); Neutrophils # 13.1 K/mm3 (1.8-7.8); Neutrophils % 80.8 % (37.0-80.0); Platelet Count 262 K/mm3 (142-424); Red Blood Count 4.85 M/mm3 (4.20-5.40); Red Cell Distribution Width 12.5 % (11.5-17.5); White Blood Count 16.2 K/mm3 (4.8-10.8)
[2020-04-14 17:40] LABS: Chloride 100 mmol/L (98-107); MANUAL DIFFERENTIAL MANUAL DIFFERENTIAL (MANUAL DIFF); Sodium 138 mmol/L (136-145)
[2020-04-14 17:41] LABS: Potassium 4.2 mmoL/L (3.5-5.1)
[2020-04-14 17:43] LABS: Alanine Aminotransferase 51 U/L (12-78); Alkaline Phosphatase 75 U/L (38-126); Amylase 66 U/L (30-110); Anion Gap 13.2 mEq/L (5-15); Aspartate Amino Transferase 46 U/L (14-36); Bilirubin,Total 0.5 mg/dl (0.2-1.3); Blood Urea Nitrogen 13 mg/dl (7-17); Calcium 9.7 mg/dl (8.4-10.2); Carbon Dioxide 29 mmol/L (22.0-30.0); Creatinine Clearance Estimated 119 mL/min (50-200); Estimated Glomerular Filt Rate 82 ml/min (>60); GFR (African American) 99 ML/MIN (>60); Glucose 128 mg/dl (74-100)
[2020-04-14 17:44] LABS: Albumin Level 4.9 g/dl (3.5-5.0); Albumin/Globulin Ratio 1.6 (1.1-1.8); Lipase 45 U/L (23-300); Total Protein,Serum 7.9 g/dl (6.3-8.2)
--- NOTE | 2020-04-14 18:15 | HMH.EDABDPAI ---
ED Disposition Clinical Impression: Gastroenteritis, UTI (urinary tract infection) Disposition: Home, Self-Care Condition on Discharge: Good Instructions: DI for Acute Abdomen Prescriptions: Dicyclomine HCl [Bentyl 10mg capsule] 20 mg PO QID PRN 10 Days #40 cap PRN Reason: Abdominal Distention Transmission Status: Received by [id number] Cefdinir [Omnicef 300mg Capsule] 300 mg PO BID 10 Days #20 cap Transmission Status: Received by [id number] Promethazine HCl 50 mg PO TID 6 Days #20 tab Transmission Status: Received by [id number] Ondansetron [Zofran 4mg ODT] 4 mg PO TID PRN 4 Days #15 tab.rapdis PRN Reason: Nausea Transmission Status: Received by [id number] Referrals: Jesus Manuel Castro MD [Primary Care Provider] - - Critical Care Critical Care Time: No Attestation: On 04/14/20, the high probability of a clinically significant, sudden or life threatening deterioration of the following system(s) required my full and direct attention, intervention and personal management. The time I documented below is in addition to time spent performing reported procedures but includes the following listed in this critical care notation. Medical Decision Making - Medical Records Medical records reviewed: Yes: I reviewed the patient's medical records. - [place]rell Inquiry Pt receiving controlled substance: No Vital Signs: 04/14/20 17:13 Temperature 97.5 F L Temperature Source Oral Pulse Rate [Left Radial] 114 H Respiratory Rate 18 Blood Pressure [Left Arm] 120/73 Blood Pressure Mean [Left Arm] 88 Blood Pressure Source [Left Arm] Automatic Cuff Blood Pressure Position [Left Arm] Sitting 02 Sat by Pulse Oximetry 98 Oxygen Delivery Method Room Air - Lab Data Lab Results 04/14/20 17:10: Urine Color Yellow, Urine Appearance Clear, Urine pH 6.0, Ur Specific [place] 1.025, Urine Protein Negative, Urine Glucose (UA) Negative, Urine Ketones Negative, Urine Blood Negative, Urine Nitrate Negative, Urine Bilirubin Negative, Urine Urobilinogen 0.2, Ur Leukocyte Esterase Trace, Urine WBC 3-5, Ur Squamous Epith Cells 10-20, Urine Bacteria Trace 04/14/20 17:33: WBC 16.2 H, RBC 4.85, Hgb 15.9, Hct 45.0, MCV 92.8, MCH 32.7 H, MCHC 35.2, RDW 12.5, Plt Count 262, MPV 7.7, Neut % (Auto) 80.8 H, Lymph % (Auto) 10.9, [place] % (Auto) 3.9, Eos % (Auto) 4.1, Baso % (Auto) 0.3, Neut # (Auto) 13.1 H, Lymph # (Auto) 1.8, [place] # (Auto) 0.6, Eos # (Auto) 0.7 H, Baso # (Auto) 0.0 04/14/20 17:33: Sodium 138, Potassium 4.2, Chloride 100, Carbon Dioxide 29, Anion Gap 13.2, BUN 13, Creatinine 0.80, Estimated Creat Clear 119, Estimated GFR 82, Est GFR ( Amer) 99, Glucose 128 H, Calcium 9.7, Total Bilirubin 0.5, AST 46 H, ALT 51, Alkaline Phosphatase 75, Total Protein 7.9, Albumin 4.9, Globulin 3.0, Albumin/Globulin Ratio 1.6, Amylase 66, Lipase 45 Result diagrams: 04/14/20 17:33 04/14/20 17:33 Orders (Tests/Meds): ED MEDICATIONS Generic Name Dose Route Start Last Admin Trade Name Freq PRN Reason Stop Dose Admin Sodium Chloride 1,000 mls @ 999 mls/hr 04/14/20 17:45 04/14/20 17:39 Sod Chlor 0.9% 1000ml Bag IV 04/14/20 18:45 999 mls/hr .Q1H1M NORBERTO Administration Discontinued Medications Generic Name Dose Route Start Last Admin Trade Name Freq PRN Reason Stop Dose Admin Ketorolac Tromethamine 30 mg 04/14/20 17:34 04/14/20 17:39 Toradol 30mg/Ml Vial IV 04/14/20 17:35 30 mg ONCE ONE Administration Ondansetron HCl 4 mg 04/14/20 17:34 04/14/20 17:39 Zofran 4mg/2ml Vial IV 04/14/20 17:35 4 mg ONCE ONE Administration ORDERS Category Date Time Status CT abdomen pelvis wo con Stat Cat Scan 04/14/20 17:17 Taken Complete Blood Count Auto Diff Stat Lab 04/14/20 17:33 Results - CT Data CT Scan: Abdomen, Pelvis Time Received: 18:[address] Reviewed: Yes: I have viewed the radiologist's interpretation Preliminary Findings: Abnormal (Patient does have d
[2020-04-14 18:24] VITALS: BP 109/62; PULSE 84; RESP 18; O2SAT 100
[2020-04-14 19:02] VITALS: BP 102/90; PULSE 82; RESP 16; TEMP 36.6; O2SAT 97
[2020-04-14 19:36] LABS: Eosinophils % 2 % (0-3); Lymphocytes % 23 % (10-50); Monocytes % 4 % (2-9); Neutrophils % 71 % (42-76); Total Cells Counted 100
[2020-04-14 19:38] LABS: Platelet Estimate Normal; RBC Morphology Normal
== END 2020-04-14 19:08 | disposition home or self-care (01) ==
PROVIDERS: Emergency Provider Family Medicine; PCP Emergency Medicine
DX: K52.9 Noninfective gastroenteritis and colitis, unspecified (principal); N39.0 Urinary tract infection, site not specified; K59.00 Constipation, unspecified; F17.210 Nicotine dependence, cigarettes, uncomplicated; K21.9 Gastro-esophageal reflux disease without esophagitis; Z79.899 Other long term (current) drug therapy
CPT/HCPCS: 74176; 80053; 81001; 82150; 83690; 85007; 85025; 96365; 96366; 96375; 99283; J2405

== ENCOUNTER → 2020-05-04 10:59 | Outpatient (POV) | payer OTHER, SELFPAY ==
--- NOTE | 2020-05-04 11:25 | HMH.PAINSOAP ---
[facility] Pain Management SOAP Note Subjective:: Patient is a 34-year-old white female who presents today for follow-up. She has been treated for degenerative disc disease cervical spine with cervical radiculopathy symptoms. Patient says that her pain and numbness and tingling to her upper extremities has worsened. She does say she got relief with an increase in her gabapentin and was started on Flexeril, however, she says she is now dropping objects and is unable to grasp anything due to the numbness in her hands. She did discuss a possible neurological consult with the provider at her last visit and would like to proceed with the. She has seen Dr. Bradford in the past for bilateral lower extremity numbness and tingling. Patient says that she was told she has restless leg syndrome in her lower extremities. She says that she is also having jerking sensations to her bilateral upper extremities. She is scheduled for hysterectomy in a week. She does want to undergo bilateral SI joint injections, however, she says this will have to be after her hysterectomy. He does have chronic low back pain with pain into her bilateral hips. She does have notable tenderness over bilateral SI joints today. Review of Systems General: No recent weight changes, no fever, no sleep disturbances Respiratory: No cough, no shortness of air, no recurring pulmonary infections Cardiovascular/peripheral vascular: No chest pain, no palpitations, no edema, no shortness of breath Gastrointestinal: No new onset incontinence, normal bowel movements reported Genitourinary: No new onset incontinence Musculoskeletal: Low back pain, bilateral arm numbness and tingling Psychiatric: Normal mood/affect Neurological: [Denies weakness in extremities], [denies balance issues] Objective:: Physical exam General: Alert and oriented x3, no acute distress, pleasant and cooperative, [on room air] Lungs: Respirations even and unlabored, symmetrical chest expansion Eyes: PERRL Musculoskeletal: Flexion and extension of cervical and lumbar spine somewhat guarded secondary to pain, deep tendon reflexes normal, strength in upper and lower extremities [5/5], [abnormal gait noted] positive [place]'s test, positive Carrie's test, positive distraction test Neurological: Speech clear, final cleaner equal, no gross sensory deficit Assessment:: Degenerative disc disease cervical spine with cervical radiculopathy symptoms, bilateral sacroiliitis Plan:: Patient is scheduled to undergo a hysterectomy this upcoming week. We will plan for bilateral SI joint injections after her surgery. We will also refer her to Dr. Bradford for worsening numbness and tingling in her upper extremities all along with jerking movements and ability to grasp objects. We will see her back in the clinic to her injections to reassess her symptoms. She has been instructed to contact the clinic if she has any concerns before next appointment. Patient does not need a refill on her medications. She says that she did get refills last week. Patient has been instructed to contact clinic if she has any concerns before next ointment. The patient and I specifically discussed risk factors for COVID19. These risks include, but are not limited to age greater than 60, heart or lung disease, diabetes, immunosuppression, and travel. We also discussed NSAIDs may worsen COVID19 infection or symptoms. Patient should not use NSAIDs to treat COVID19 signs or symptoms. Patient was also informed that any type of corticosteroid of any form (oral or injection) will decrease the patient's immune system response and may increase the likelihood of COVID19 infection and symptoms. And [facility] History I have reviewed the patient's past medical history: Yes Medical History: Reports:: Anxiety, Arrhythmia, Gastroesophageal Reflux Disease(GERD), Hiatal Hernia, Kidney Stones, Palpitations, Seizures Denies:: Cancer, Diabetes Mellitus Type 1, Diabetes Mellitus Type 2,
[2020-05-04 11:26] VITALS: BP 149/72; PULSE 81; RESP 18; O2SAT 98; BMI 28.3
== END ==
PROVIDERS: PCP Emergency Medicine; Visit Provider Clinical Nurse Specialist Family Health
DX: M50.10 Cervical disc disorder with radiculopathy, unspecified cervical region (principal); M46.1 Sacroiliitis, not elsewhere classified
CPT/HCPCS: 99212

== ENCOUNTER → 2020-05-07 10:04 | Outpatient (CLI) | payer OTHER, SELFPAY ==
[2020-05-07 11:30] LABS: Coronavirus 19 IgG Antibody Negative (Negative); Coronavirus 19 IgM Antibody Negative (Negative)
== END ==
PROVIDERS: Visit Provider Nurse Practitioner Obstetrics & Gynecology
DX: Z01.818 Encounter for other preprocedural examination (principal)
CPT/HCPCS: 36415; 86328

== ENCOUNTER 2020-05-08 12:01 | Observation (INO) | payer OTHER, SELFPAY ==
[2020-05-06 12:00] VITALS: BMI 29.7
[2020-05-08] VITALS (25 sets, daily range): BP systolic 89–150; BP diastolic 41–83; PULSE 86–112; RESP 12–18; TEMP 36.5–43; O2SAT 92–99
[2020-05-08 07:45] LABS: Urine Pregnancy, HCG Qual. Negative (Negative)
[2020-05-08 07:51] LABS: Basophils % 0.6 % (0.1-2.0); Eosinophils # 0.3 K/mm3 (0.0-0.4); Hematocrit 39.4 % (37.0-47.0); Hemoglobin 13.4 g/dL (12.2-16.2); Lymphocytes # 1.9 K/mm3 (0.7-4.5); Lymphocytes % 28.1 % (10-50); Mean Corpuscular HGB Conc 33.9 g/dL (31.8-35.4); Mean Corpuscular Hemoglobin 32.1 pg (27.0-31.2); Mean Corpuscular Volume 94.8 fl (81-99); Monocytes # 0.3 K/mm3 (0.1-1.0); Monocytes % 4.8 % (1.7-9.3); Neutrophils # 4.1 K/mm3 (1.8-7.8); Neutrophils % 62.4 % (37.0-80.0); Platelet Count 200 K/mm3 (142-424); Red Blood Count 4.16 M/mm3 (4.20-5.40); Red Cell Distribution Width 12.5 % (11.5-17.5); White Blood Count 6.6 K/mm3 (4.8-10.8)
[2020-05-08 07:55] LABS: Chloride 103 mmol/L (98-107); Potassium 3.9 mmoL/L (3.5-5.1); Sodium 137 mmol/L (136-145)
[2020-05-08 07:58] LABS: Anion Gap 9.9 mEq/L (5-15); Blood Urea Nitrogen 12 mg/dl (7-17); Carbon Dioxide 28 mmol/L (22.0-30.0); Creatinine Clearance Estimated 136 mL/min (50-200); Estimated Glomerular Filt Rate 96 ml/min (>60); GFR (African American) 116 ML/MIN (>60); Glucose 95 mg/dl (74-100)
[2020-05-08 07:59] LABS: Calcium 8.7 mg/dl (8.4-10.2)
--- NOTE | 2020-05-08 09:06 | P.PN_ITS ---
[facility] Anesthesia Checklist - Structural Data Admitted From: Home Planned Operative Procedure/s: [facility] Consent for Planned Operative Procedure(s) Verified: Yes - Additional verifications Anesthesia Reactions: No Hx Blood Transfusions: No Blood Transfusion Reaction: No - Airway Assessment C-Spine Mobility Assessed: Yes TMJ Mobility Assessed: Yes Dentition: Good Dentition - Neurological Assessment Level of Consciousness: Awake, Alert, Appropriate - Anesthesia Plan Anesthesia Risk discussed: Yes Anesthesia Plan: Verified ASA Class: II Anesthesia Type: General [facility] History I have reviewed the patient's past medical history: Yes Medical History: Reports:: Anxiety, Arrhythmia, Gastroesophageal Reflux Disease(GERD), Hiatal Hernia, Kidney Stones, Palpitations, Seizures Denies:: Cancer, Diabetes Mellitus Type 1, Diabetes Mellitus Type 2, Internal Pacemaker, Lung Disease, MRSA *Have you ever received a pneumonia vaccine?: No *Have you received a flu vaccine this season?: No Other Medical History: Reports: Other. Denies: Blood Transfusion Reaction Anesthesia experience/problems:: none Laterality Cases: Bilateral: Myringotomy (Ear Tubes), Tonsillectomy Other Surgeries: Yes: Cholecystectomy, Colonoscopy, Diagnostic Lap, Hernia Repair, Tubal Ligation. No: Pacemaker Amputation: No Fractures: No - *Social History Last grade of school completed: Advanced degree Smoking Status: Current every day smoker Tobacco Type: e-cigarettes # Packs/Day (cigarettes): 1 Alcohol Intake: never Alcohol Intake Frequency:: holidays/special occasions only Substance Use Type: unknown, crack/cocaine, heroin *Occupational Status:: employed Housing: house Household Members: family *Travel in the last 8 weeks: None - Psychiatric History Pschychiatric History:: Reports:: Anxiety Family Hx:: Heart Attack, Cancer, Diabetes
--- NOTE | 2020-05-08 10:40 | HMH.OPNOTE ---
Date of procedure: 05/08/20 Pre-op Diagnosis:: Pelvic pain, possible adenomyosis Post-op Diagnosis:: Pelvic pain, adenomyosis Procedure performed:: Laparoscopically assisted vaginal hysterectomy, bilateral salpingectomy Surgeon:: Meir Paulson MD Marketing Administrator(s):: Chana Coronel WOUND CARE TECHNICIAN:: Messi Becerril Anesthesia: GETA Estimated blood loss (mL): 150 Clinical Note:: She is a 34-year-old lady who had an ablation last year. She had menorrhagia. Since that time she has had severe discomfort when she is due to have her period. She said that the pain is excruciating. On examination her uterus was exquisitely tender. It was somewhat bulky as well. After having discussed the risks and benefits with her to perform a laparoscopic-assisted vaginal hysterectomy and bilateral salpingectomy for suspected adenomyosis. Operative findings:: She had an anteverted bulky uterus. The ovaries and tubes appeared normal. The tubes of been previously ligated with Filshie clips. Appendix appeared normal. Upper abdomen appeared normal. Her gallbladder had been previously surgically removed. The rest the pelvis appeared completely normal. Operative note:: She was taken to the operating room where general anesthesia was found be adequate. She was prepped and draped in normal sterile fashion in the semilithotomy position. A weighted speculum was placed in the vagina and the anterior lip of the cervix was grasped with a tenaculum. An acorn uterine manipulator was then placed within the cervical os. I then changed gloves. I injected 10 cc of 0.5% ropivacaine around the umbilicus and made a small incision within the umbilicus. I inserted a Veress needle into the abdominal cavity. The abdominal cavity was then insufflated with carbon dioxide gas to a pressure of 20 mmHg. I then inserted an 11 mm trocar under direct vision. I injected through and through the pubic hairline, made a small incision here and inserted a 5 mm trocar under direct vision. I identified the inferior epigastric arteries on the left side, went lateral to these and injected through and through. I then made a small incision and inserted an 11 mm trocar under direct vision. A similar 11 mm trocar was placed on the right side. The left round ligament was then grasped and cut through with harmonic scalpel. This was followed by opening up the peritoneum anteriorly to the midline. I then grasped the tube on the left side and cut through this. This is followed by cutting through the left utero-ovarian ligament. I used Harmonic scalpel on the coagulation mode. I then took down the posterior aspect of the broad ligament to the level of the uterosacral ligament. I then skeletonized the uterine arteries on the left side and placed hemoclips on these. Using the harmonic scalpel on coagulation mode adjacent to the cervix I then took down these uterine arteries. I then further freed up the bladder anteriorly and laterally on the left side. I then turned my attention to the right side where I grasped the right round ligament. I then cut through the right round ligament. I then took down the anterior peritoneum to the midline joining up with the other side. I further dissected the bladder off. The posterior aspect of the right broad ligament was then taken down with harmonic scalpel. I skeletonized the uterine arteries on the right side. I applied hemoclips to the uterine arteries and staying adjacent to the cervix on the right side I took down the uterine arteries with harmonic scalpel on coagulation mode. I further freed up the bladder. We then assured hemostasis. I then grasped the distal end of the right tube and using harmonic scalpel I cut along the mesosalpinx. The tube was removed through the 11 mm trocar site. This was only performed on the patient's left side. There was a small hematoma in the left peritoneum overlying the infundibulopelvic ligament. I placed hemoclips here and then
--- NOTE | 2020-05-08 10:47 | P.PN_ITS ---
[facility] Anesthesia Record Part I Intake, IV Amount: 2,500 Estimated blood loss (mL): 150 Urine output (mL): 200 Blood Pressure: 118/75 SaO2: 98 Pulse Rate: 98 Respiratory Rate: 12 Temperature: 98.3 F Patient is:: Awake, Stable Stable to PACU at:: 10:45
--- NOTE | 2020-05-08 14:59 | PC.NURSE ---
REPORT RECEIVED FROM Hill BARRAGAN RN
--- NOTE | 2020-05-08 15:06 | PC.NURSE ---
PT RESTING IN BED. ICE CREAM PROVIDED. NO FURTHER NEEDS
[2020-05-08 15:10] LABS: Microscopic,Cath URINE MICROSCOPIC (MICROSCOPIC)
[2020-05-08 15:19] LABS: Appearance,Urine/Cath CLEAR (Clear); Bilirubin,Cath Negative (Negative); Blood, Urine/Cath Negative (Negative); Color,Urine/Cath YELLOW (Yellow); Glucose,Urine/Cath (UA) Negative (Negative); Ketones,Urine/Cath Negative (Negative); Leukocyte Esterase,Cath Negative (Negative); Nitrate,Cath Negative (Negative); Protein,Urine/Cath Negative (Negative); Specific Gravity, Urine/Cath >= 1.030 (1.005-1.030); Urobilinogen,Cath 0.2 EU/dl (0.2)
[2020-05-08 16:01] LABS: Amorphous Sediment,Ur/Cath 1+ /lpf
--- NOTE | 2020-05-08 16:20 | PC.NURSE ---
NO ACUTE CHANGES NOTED IN REASSESSMENT. LUNGS CTA AND BOWEL SOUNDS HYPOACTIVE X4. 4 LAP SITES NOTED. SEROSANG DRAINAGE ON ALL OF THEM. SCANT VAG BLEEDING. 1+ PEDAL AND ANKLE EDEMA NOTED. PULSES 2+. IV INFUSING W/O DIFFICULTY. AMBULATING W/O DIFFICULTY. DECLINES PAIN. USING INCENTIVE SPRIO. NO CURRENT NEEDS VOICED. GOOD APPETITE
--- NOTE | 2020-05-08 17:18 | PC.NURSE ---
DINNER TRAY GIVEN. PT UP TO THE BATHROOM. NO NEW NEEDS VOICED.
--- NOTE | 2020-05-08 18:38 | PC.NURSE ---
pt had just received dilaudid 2mg iv for pain. toradol due, but held r/t patient no needing it now. will pass along in report
--- NOTE | 2020-05-08 19:08 | PC.NURSE ---
report given to moiz peoples rn
--- NOTE | 2020-05-08 19:10 | PC.NURSE ---
Report received from Gary Emery RN.
--- NOTE | 2020-05-08 20:30 | PC.NURSE ---
routine assessment completed , pt. reports pain medications given see DEC , swelling noted edema on ankles, feet propped on pillow after pt ambulated to bathroom pt tolerated well, Gatorade and sherbert given per pt request pt denies further needs
--- NOTE | 2020-05-08 22:58 | PC.NURSE ---
NURSE TO ROOM PATIENT RATES PAIN 8 OUT OF 10 IN LOWER ABD PAIN MEDICATION GIVEN SEE MAR. dRESSING OVER UMBILICUS NOTED TO BE LEAKING TELFA/TEGADERM REMOVED CLEANED WITH HALF SALINE HALF PEROXIDE SOLUTION NEW TELFA/TEGADERM IN PLACE PATIENT TOLERATED WELL
[2020-05-09] VITALS: BP 112/54; PULSE 90; RESP 16; TEMP 36.8; O2SAT 100
[2020-05-09 04:00] VITALS: BP 106/54; PULSE 88; RESP 17; TEMP 36.9
--- NOTE | 2020-05-09 05:27 | PC.NURSE ---
reassessment competed no acute changes, Lungs CTA, heart at RRR, bowels sounds present x4 quadrants, telfa tegaderm remain unchanged, +1 pitting edema in left ankle, nonpitting noted in right patient rates pain 7 out of 10 pain medication given see MAR advised for patient to rest in bed until pain medications takes effect patient verbalizes understanding and denies further needs at this time
--- NOTE | 2020-05-09 07:16 | PC.NURSE ---
Report given to Faina Reddy RN, and Bartolome Luke RN.
--- NOTE | 2020-05-09 07:22 | HMH.DCSUM ---
General - General Admission date:: 05/08/20 Discharge date: 05/09/20 HPI HPI: She is a 34-year-old lady who had a NovaSure ablation last year. I suspected that she had adenomyosis that caused her menorrhagia. She was doing well initially post surgery but then began having severe lower abdominal pain and her uterus was exquisitely tender. After having discussed the risks and benefits we like to perform a laparoscopically assisted vaginal hysterectomy and bilateral salpingectomy. Hospital Course Hospital Course: On May 08, 2020 she underwent a laparoscopically assisted vaginal hysterectomy and bilateral salpingectomy. She has done well postoperatively and has remained afebrile with her hospitalization. She is eating and drinking and ambulating. She denies any chest pain, shortness of breath or calf tenderness. On examination her heart sounds are normal her chest is clear. Her incisions are clean and dry. She is discharged home to follow-up with me in 2 weeks time. She will continue with her home medications. She was given a prescription for Percocet 5/325 number 30 tablets. She will also take an anti-inflammatory. She was given the usual instructions with respect to limiting her activity, driving and sexual activity. Her condition on discharge is stable and improved. Objective Vital signs: Temp Pulse Resp BP Pulse Ox 98.4 F 88 17 106/54 L 100 05/09/20 04:00 05/09/20 04:00 05/09/20 04:00 05/09/20 04:00 05/09/20 00:00 no acute distress - *Routine HEENT Exam Head: Present: normocephalic Eye: Present: EOMI, PERRL ENT: Present: mucous membranes moist Results Labs on day of discharge: Labs from last 24 hours 05/08/20 05/08/20 05/08/20 10:15 07:40 07:40 WBC 6.6 RBC 4.16 L Hgb 13.4 Hct 39.4 MCV 94.8 MCH 32.1 H MCHC 33.9 RDW 12.5 Plt Count 200 MPV 8.0 Neut % (Auto) 62.4 Lymph % (Auto) 28.1 [place] % (Auto) 4.8 Eos % (Auto) 4.0 Baso % (Auto) 0.6 Neut # (Auto) 4.1 Lymph # (Auto) 1.9 [place] # (Auto) 0.3 Eos # (Auto) 0.3 Baso # (Auto) 0.0 Sodium 137 Potassium 3.9 Chloride 103 Carbon Dioxide 28 Anion Gap 9.9 BUN 12 Creatinine 0.70 Estimated Creat Clear 136 Estimated GFR 96 Est GFR ( Amer) 116 Glucose 95 Calcium 8.7 Urine Color Yellow Urine Appearance Clear Urine pH 6.0 Ur Specific [place] >= 1.030 Urine Protein Negative Urine Glucose (UA) Negative Urine Ketones Negative Urine Blood Negative Urine Nitrate Negative Urine Bilirubin Negative Urine Urobilinogen 0.2 Ur Leukocyte Esterase Negative Urine RBC None Urine WBC None Ur Squamous Epith Cells 10-20 Urine Bacteria None Urine HCG, Qual 05/08/20 07:30 WBC RBC Hgb Hct MCV MCH MCHC RDW Plt Count MPV Neut % (Auto) Lymph % (Auto) [place] % (Auto) Eos % (Auto) Baso % (Auto) Neut # (Auto) Lymph # (Auto) [place] # (Auto) Eos # (Auto) Baso # (Auto) Sodium Potassium Chloride Carbon Dioxide Anion Gap BUN Creatinine Estimated Creat Clear Estimated GFR Est GFR ( Amer) Glucose Calcium Urine Color Urine Appearance Urine pH Ur Specific [place] Urine Protein Urine Glucose (UA) Urine Ketones Urine Blood Urine Nitrate Urine Bilirubin Urine Urobilinogen Ur Leukocyte Esterase Urine RBC Urine WBC Ur Squamous Epith Cells Urine Bacteria Urine HCG, Qual Negative DS: Diagnosis - Discharge Diagnosis (1) Adenomyosis Status: Acute (2) Dysmenorrhea Status: Acute (3) Pelvic pain Status: Acute Discharge Plan - Patient Discharge Instructions ACTIVITY: No heavy lifting DIET: continue same diet Additional Instructions: NO HEAVY LIFTING, NOTHING IN THE VAGINA FOR 6 WEEKS. Patient Instructions: How to Care for a Surgical Wound, DI for Surgical Site Infection, DI for Postoperative
[2020-05-09 07:44] LABS: Hematocrit 33.1 % (37.0-47.0)
[2020-05-09 07:55] LABS: Hemoglobin 11.5 g/dL (12.2-16.2)
[2020-05-09 08:03] VITALS: BP 111/63; PULSE 89; RESP 18; TEMP 36.6; O2SAT 98
== END 2020-05-09 10:00 | disposition home or self-care (01) ==
LOC: OB 12:02
PROVIDERS: Admitting Provider Nurse Practitioner Obstetrics & Gynecology; PCP Emergency Medicine; Visit Provider Nurse Practitioner Obstetrics & Gynecology
PROC: 0UT9FZZ Resection of Uterus, Via Natural or Artificial Opening With Percutaneous Endoscopic Assistance (ICD-10-PCS; CPT 58552; principal; 2020-05-08 08:45)
DX: R10.2 Pelvic and perineal pain (principal); N80.0 Endometriosis of uterus; N94.6 Dysmenorrhea, unspecified
CPT/HCPCS: 58552; 80048; 81001; 81025; 85014; 85018; 85025; 96372; 96374; G0378; J2405

== ENCOUNTER 2020-06-15 13:46 | Day surgery (SDC) | payer OTHER, SELFPAY ==
[2020-06-15 13:58] VITALS: BP 122/76; PULSE 90; RESP 18; TEMP 36.3; O2SAT 100; BMI 31.8
[2020-06-15 14:06] VITALS: BP 142/78; PULSE 85; RESP 18; O2SAT 98
--- NOTE | 2020-06-15 14:06 | HMH.PMPROC ---
- Procedure Date: 06/15/20 Time: 14:15 Anesthesiologist:: Zelda Kirkland APRN Complications:: None Pre-procedure Diagnosis:: Sacroiliitis Post-procedure Diagnosis:: Same Indications for Procedure:: Patient is a pleasant 35-year-old white female presents today for follow-up and bilateral SI joint injections. Patient's been having quite a bit of SI joint pain. She is a positive Isidro test SI joint compression test and Carrie's test bilaterally. She has notable tenderness over her bilateral SI joints. She rates her pain a 6 out of 10 today. We will move forward with an injection today. Physical Exam General: Alert and oriented x3, no acute distress, pleasant and cooperative, Lungs: Resps E/U, Symmetrical chest expansion, Eyes: PERRL Musculoskeletal: Flexion and extension of lumbar spine somewhat guarded secondary to pain, deep tendon reflexes normal, strength in upper and lower extremities [5/5], slightly antalgic gait noted Neurological: speech clear, numerical control programmer equal, no gross sensory deficits Procedure Details:: Informed consent was obtained and the risks and benefits of the procedure were explained to the patient. Patient was taken to the procedure room. Patient was placed prone on the procedure table. The left hip was prepped using ChloraPrep as a cleansing solution. The skin and subcutaneous tissues were anesthetized using lidocaine. Using fluoroscopic guidance I placed a 22-gauge spinal needle into the inferior aspect of the left SI joint. After this I injected 5 mL bupivacaine 0.25% and Depo-Medrol 40 mg into the left SI joint. We then repeated this on the right side. The patient tolerated the procedure well with no complication. Plan and Disposition:: I will see the patient back in several weeks reassess her symptoms at that time she has been instructed to call the office if she has any issues prior to her next appointment. Dr. Kearns has reviewed this note and agrees with this plan of care. This note was dictated using voice recognition software and may contain errors or omissions
[2020-06-15 14:07] VITALS: BP 140/78; PULSE 79; RESP 18; O2SAT 98
[2020-06-15 14:19] VITALS: BP 107/70; PULSE 77; RESP 20; O2SAT 100
== END 2020-06-15 14:19 | disposition home or self-care (01) ==
LOC: SC.PAINP 13:47
PROVIDERS: PCP Emergency Medicine; Visit Provider Clinical Nurse Specialist Family Health
DX: M46.1 Sacroiliitis, not elsewhere classified (principal)
CPT/HCPCS: 27096; G0260; J1030; Q9966

== ENCOUNTER → 2020-07-06 11:23 | Outpatient (POV) | payer OTHER, MEDICAID, SELFPAY ==
[2020-07-06 11:34] VITALS: BP 125/52; PULSE 74; RESP 18; TEMP 36.9; O2SAT 98; BMI 31.8
--- NOTE | 2020-07-06 13:09 | P.CONS_ITS ---
[facility] Pain Management SOAP Note Subjective:: Patient is a pleasant 35-year-old white female who presents today for follow-up after bilateral SI joint injections. Patient got over 80% relief of her symptomology. Patient's pain today is in her neck. She had a cervical epidural steroid injection which did help somewhat however most of her pain is when she is try to turn her neck. She has tenderness over her facet joints. Patient rates her pain today 2 out of 10. Patient is tried and failed anti- inflammatories, medications, stretching exercises. ROS General: no recent weight change, no fever, no sleep disturbances Respiratory: no cough, no shortness of air, no recurring pulmonary infections Cardiovascular/Peripheral Vascular: No chest pain, No palpitations, no edema, no shortness of breath. Gastrointestinal: no new onset incontinence, normal bowel movements reported Genitourinary: no new onset incontinence Musculoskeletal:Neck pain Psychiatric: normal mood/ affect Neurological: [denies new onset weakness in extremities], [denies new onset balance issues] Objective:: Physical Exam General: Alert and oriented x3, no acute distress, pleasant and cooperative, [on room air] Lungs: Resps E/U, Symmetrical chest expansion, Eyes: PERRL Musculoskeletal: Flexion and extension of cervical spine somewhat guarded secondary to pain, deep tendon reflexes normal, strength in upper and lower extremities [5/5], normal gait noted Neurological: speech clear, guest services assistant equal, no gross sensory deficits Assessment:: Degenerative disc disease cervical spine, facet arthropathy cervical spine Plan:: We will schedule a C5-C6 C6-C7 bilateral cervical medial branch block. She may be a neurotomy candidate. I will follow-up with her after and reassess her symptoms at that time she has been instructed to call the office if she has any issues prior to her next appointment. Patient is not on any anticoagulation therapy. Dr. Kearns has reviewed this note and agrees with this plan of care. This note was dictated using voice recognition software and may contain errors or omissions [facility] History I have reviewed the patient's past medical history: Yes Medical History: Reports:: Anxiety, Arrhythmia, Gastroesophageal Reflux Disease(GERD), Hiatal Hernia, Kidney Stones, Palpitations Denies:: Cancer, Diabetes Mellitus Type 1, Diabetes Mellitus Type 2, Internal Pacemaker, Lung Disease, MRSA, Seizures *Have you ever received a pneumonia vaccine?: Yes *Have you received a flu vaccine this season?: Yes Other Medical History: Reports: Other. Denies: Blood Transfusion Reaction Laterality Cases: Bilateral: Myringotomy (Ear Tubes), Tonsillectomy Other Surgeries: Yes: Cholecystectomy, Colonoscopy, Diagnostic Lap, Hernia Repair, Hysterectomy-Total, Tubal Ligation. No: Pacemaker Amputation: No Fractures: No - *Social History Smoking Status: Current every day smoker Tobacco Type: e-cigarettes # Packs/Day (cigarettes): 1 Alcohol Intake: never Alcohol Intake Frequency:: holidays/special occasions only Substance Use Type: unknown, crack/cocaine, heroin *Occupational Status:: other Housing: house Household Members: other *Travel in the last 8 weeks: None - Psychiatric History Pschychiatric History:: Reports:: Anxiety Family Hx:: Heart Attack, Cancer, Diabetes
== END ==
PROVIDERS: PCP Emergency Medicine; Visit Provider Clinical Nurse Specialist Family Health
DX: M50.30 Other cervical disc degeneration, unspecified cervical region (principal); M12.88 Other specific arthropathies, not elsewhere classified, other specified site
CPT/HCPCS: 99212

== ENCOUNTER → 2020-07-15 17:27 | Outpatient (CLI) | payer OTHER, MEDICAID, SELFPAY ==
[2020-07-15 18:39] LABS: Free T4 (Free Thyroxine) 0.92 ng/dl (0.78-2.19)
[2020-07-15 18:53] LABS: Thyroid Stimulating Hormone 1.02 uIU/mL (0.465-4.68)
[2020-07-17 19:06] LABS: Triiodothyronine (T3) Total 112 ng/dL (71-180)
== END ==
PROVIDERS: Visit Provider Nurse Practitioner Family
DX: R10.11 Right upper quadrant pain (principal); R14.0 Abdominal distension (gaseous); R63.5 Abnormal weight gain; K59.00 Constipation, unspecified
CPT/HCPCS: 36415; 84439; 84443; 84480

== ENCOUNTER → 2020-08-05 13:51 | Outpatient (CLI) | payer OTHER, MEDICAID, SELFPAY ==
[2020-08-05 14:24] LABS: Basophils % 0.5 % (0.1-2.0); Eosinophils # 0.2 K/mm3 (0.0-0.4); Eosinophils % 2.1 % (0.1-12.0); Hemoglobin 14.3 g/dL (12.2-16.2); Lymphocytes # 2.2 K/mm3 (0.7-4.5); Lymphocytes % 31.8 % (10-50); Mean Corpuscular HGB Conc 32.5 g/dL (31.8-35.4); Mean Corpuscular Hemoglobin 30.2 pg (27.0-31.2); Mean Platelet Volume 7.7 fl (7.4-10.4); Monocytes # 0.4 K/mm3 (0.1-1.0); Monocytes % 5.2 % (1.7-9.3); Neutrophils # 4.2 K/mm3 (1.8-7.8); Neutrophils % 60.4 % (37.0-80.0); Platelet Count 263 K/mm3 (142-424); Red Blood Count 4.73 M/mm3 (4.20-5.40); Red Cell Distribution Width 12.7 % (11.5-17.5); White Blood Count 6.9 K/mm3 (4.8-10.8)
[2020-08-05 15:01] LABS: Anion Gap 11.5 mEq/L (5-15); Blood Urea Nitrogen 8 mg/dl (7-17); Calcium 9.7 mg/dl (8.4-10.2); Carbon Dioxide 33 mmol/L (22.0-30.0); Chloride 98 mmol/L (98-107); Estimated Glomerular Filt Rate 82 ml/min (>60); GFR (African American) 99 ML/MIN (>60); Glucose 92 mg/dl (74-100); Potassium 4.5 mmoL/L (3.5-5.1); Sodium 138 mmol/L (136-145)
== END ==
PROVIDERS: Visit Provider Urology
DX: R07.9 Chest pain, unspecified (principal); R06.00 Dyspnea, unspecified; R00.2 Palpitations; R20.0 Anesthesia of skin; R42 Dizziness and giddiness; Z72.0 Tobacco use
CPT/HCPCS: 36415; 80048; 85025

== ENCOUNTER → 2020-08-06 06:52 | Outpatient (CLI) | payer OTHER, MEDICAID, SELFPAY ==
--- NOTE | 2020-08-06 06:57 | CT_ITS ---
PROCEDURE: CT HEAD/BRAIN WO CON CLINICAL INDICATION: numbness in face, hands, and left arm COMPARISON: No exams were available for comparison TECHNIQUE: Axial images obtained. All CT scans at the facility use one or more dose reduction, viz: automated exposure control, ma/kV adjustment per patient size (including targeted exams where dose is matched to indication, i.e. head), or iterative reconstruction technique. FINDINGS: No midline shift, mass effect, intracranial hemorrhage, hydrocephalus, or extra-axial fluid collection is evident. There is a 6 mm area of decreased density in the deep white matter of the right parietal lobe nonspecific. There is sclerosis with decreased pneumatization of the right mastoid sinus the. The calvarium has an unremarkable appearance. No mastoid effusion. No sinus air-fluid level. IMPRESSION: 1. No acute intracranial findings. 2. Small hypodense region in the deep white matter of the right parietal lobe which could represent an old lacunar infarction or small cystic area of encephalomalacia. Dictated by: Jean-Claude Pittman MD 08/06/2020 12:38 Jean-Claude Pittman MD in [place] 08/06/2020 12:38
== END ==
PROVIDERS: PCP Emergency Medicine; Visit Provider Urology
DX: R42 Dizziness and giddiness (principal); R00.2 Palpitations; R06.00 Dyspnea, unspecified; R07.9 Chest pain, unspecified; R20.0 Anesthesia of skin; Z72.0 Tobacco use
CPT/HCPCS: 70450

== ENCOUNTER 2020-08-20 14:23 | Emergency (ER) | payer OTHER, MEDICAID, SELFPAY ==
[2020-08-20 14:24] VITALS: BP 142/80; PULSE 104; RESP 18; TEMP 36.6; O2SAT 100; BMI 33.6
--- NOTE | 2020-08-20 14:42 | HMH.EDABDPAI ---
ED Disposition Clinical Impression: Abdominal pain Qualifiers: Abdominal location: upper abdomen, unspecified Qualified Code(s): R10.10 - Upper abdominal pain, unspecified Disposition: Home, Self-Care Condition on Discharge: Good Instructions: DI for Abdominal Pain-Adult Referrals: Jesus Manuel Castro MD [Primary Care Provider] - 3 days Sylvester Babin MD [Staff Physician] - 3 days - Critical Care Critical Care Time: No Attestation: On 08/20/20, the high probability of a clinically significant, sudden or life threatening deterioration of the following system(s) required my full and direct attention, intervention and personal management. The time I documented below is in addition to time spent performing reported procedures but includes the following listed in this critical care notation. Medical Decision Making - Medical Records Medical records reviewed: Yes: I reviewed the patient's medical records. - [place] Inquiry Pt receiving controlled substance: No Vital Signs: 08/20/20 14:24 08/20/20 16:26 Temperature 97.8 F Temperature Source Temporal Artery Scan Pulse Rate [Right] 104 H 89 Respiratory Rate 18 16 Blood Pressure [Right Arm] 142/80 H 121/59 L Blood Pressure Mean [Right Arm] 100 79 Blood Pressure Position [Right Arm] Sitting 02 Sat by Pulse Oximetry 100 98 - Lab Data Lab results reviewed: Yes: I reviewed the patient's lab results. Lab Results 08/20/20 15:03: WBC 10.8, RBC 4.58, Hgb 14.2, Hct 42.2, MCV 92.0, MCH 31.0, MCHC 33.7, RDW 12.7, Plt Count 236, MPV 8.5, Neut % (Auto) 68.1, Lymph % (Auto) 24.3, [place] % (Auto) 4.8, Eos % (Auto) 2.3, Baso % (Auto) 0.6, Neut # (Auto) 7.4, Lymph # (Auto) 2.6, [place]anan # (Auto) 0.5, Eos # (Auto) 0.2, Baso # (Auto) 0.1 08/20/20 15:03: Sodium 139, Potassium 3.8, Chloride 100, Carbon Dioxide 31 H, Anion Gap 11.8, BUN 10, Creatinine 0.70, Estimated Creat Clear 153, Estimated GFR 95, Est GFR ( Amer) 115, Glucose 95, Calcium 9.3, Total Bilirubin 0.3, AST 26, ALT 18, Alkaline Phosphatase 59, Total Protein 7.3, Albumin 4.5, Globulin 2.8, Albumin/Globulin Ratio 1.6, Lipase 76 08/20/20 15:07: Urine Color Yellow, Urine Appearance Clear, Urine pH 7.0, Ur Specific [place] 1.025, Urine Protein Negative, Urine Glucose (UA) Negative, Urine Ketones Negative, Urine Blood Negative, Urine Nitrate Negative, Urine Bilirubin Negative, Urine Urobilinogen 0.2, Ur Leukocyte Esterase Negative, Urine RBC Occasional, Urine WBC 3-5, Ur Squamous Epith Cells 3-5 08/20/20 15:07: Urine HCG, Qual Negative Result diagrams: 08/20/20 15:03 08/20/20 15:03 Orders (Tests/Meds): ED MEDICATIONS Discontinued Medications Generic Name Dose Route Start Last Admin Trade Name Freq PRN Reason Stop Dose Admin Sodium Chloride 1,000 mls @ 999 mls/hr 08/20/20 14:45 08/20/20 15:22 Sod Chlor 0.9% 1000ml Bag IV 08/20/20 15:45 999 mls/hr .Q1H1M NORBERTO Administration Ketorolac Tromethamine 30 mg 08/20/20 15:40 08/20/20 15:42 Ketorolac 30mg/Ml Vial IV 08/20/20 15:41 30 mg ONCE ONE Administration Medical Decision Narrative: Patient with labs within normal limits. No significant elevation of lipase, no signs of biliary obstruction. No fever or leukocytosis that would suggest acute necrotizing pancreatitis. She has no vomiting and is in no distress here. Her abdominal exam is benign. Low suspicion for bowel obstruction, perforation, volvulus, perforated viscus given her history and exam. Given Toradol here with no improvement of symptoms, however she is in no distress on multiple reevaluations and then asks for a work note at the end of the visit. I have advised follow-up with her GI doctor for further management. Abdominal Pain HPI - General Chief Complaint: Abdominal Pain Stated Complaint: Possible pancreatitis Time Seen by Provider: 08/20/20 14:42 Mode of Arrival: Ambulatory Source of Information: Patient Limitations: No Limitations Description of Symptoms (Recalled from
[2020-08-20 15:15] LABS: Microscopic, Urine URINE MICROSCOPIC (MICROSCOPIC)
[2020-08-20 15:28] LABS: Basophils # 0.1 K/mm3 (0-0.2); Basophils % 0.6 % (0.1-2.0); Eosinophils # 0.2 K/mm3 (0.0-0.4); Eosinophils % 2.3 % (0.1-12.0); Hematocrit 42.2 % (37.0-47.0); Hemoglobin 14.2 g/dL (12.2-16.2); Lymphocytes # 2.6 K/mm3 (0.7-4.5); Lymphocytes % 24.3 % (10-50); Mean Corpuscular HGB Conc 33.7 g/dL (31.8-35.4); Mean Platelet Volume 8.5 fl (7.4-10.4); Monocytes # 0.5 K/mm3 (0.1-1.0); Monocytes % 4.8 % (1.7-9.3); Neutrophils # 7.4 K/mm3 (1.8-7.8); Neutrophils % 68.1 % (37.0-80.0); Platelet Count 236 K/mm3 (142-424); Red Blood Count 4.58 M/mm3 (4.20-5.40); Red Cell Distribution Width 12.7 % (11.5-17.5); White Blood Count 10.8 K/mm3 (4.8-10.8)
[2020-08-20 15:28] LABS: Appearance,Urine CLEAR (Clear); Bilirubin,Urine Negative (Negative); Blood, Urine Negative (Negative); Color,Urine YELLOW (Yellow); Glucose,Urine (UA) Negative (Negative); Ketones,Urine Negative (Negative); Leukocyte Esterase,Urine Negative (Negative); Nitrate,Urine Negative (Negative); Protein,Urine Negative (Negative); Specific Gravity, Urine 1.025 (1.005-1.030); Urobilinogen,Urine 0.2 EU/dl (0.2)
[2020-08-20 15:30] LABS: Urine Pregnancy, HCG Qual. Negative (Negative)
[2020-08-20 15:31] LABS: RBC,Urine Occasional #/hpf (0-3)
[2020-08-20 15:35] LABS: Chloride 100 mmol/L (98-107); Sodium 139 mmol/L (136-145)
[2020-08-20 15:36] LABS: Potassium 3.8 mmoL/L (3.5-5.1)
[2020-08-20 15:38] LABS: Alanine Aminotransferase 18 U/L (12-78); Alkaline Phosphatase 59 U/L (38-126); Anion Gap 11.8 mEq/L (5-15); Aspartate Amino Transferase 26 U/L (14-36); Bilirubin,Total 0.3 mg/dl (0.2-1.3); Blood Urea Nitrogen 10 mg/dl (7-17); Calcium 9.3 mg/dl (8.4-10.2); Carbon Dioxide 31 mmol/L (22.0-30.0); Creatinine Clearance Estimated 153 mL/min (50-200); Estimated Glomerular Filt Rate 95 ml/min (>60); GFR (African American) 115 ML/MIN (>60); Glucose 95 mg/dl (74-100)
[2020-08-20 15:39] LABS: Albumin Level 4.5 g/dl (3.5-5.0); Albumin/Globulin Ratio 1.6 (1.1-1.8); Globulin 2.8 g/dL (1.3-3.2); Lipase 76 U/L (23-300); Total Protein,Serum 7.3 g/dl (6.3-8.2)
[2020-08-20 16:26] VITALS: BP 121/59; PULSE 89; RESP 16; O2SAT 98
[2020-08-20 16:49] VITALS: BP 126/59; PULSE 90; RESP 13; TEMP 36.6; O2SAT 100
== END 2020-08-20 16:58 | disposition home or self-care (01) ==
PROVIDERS: Emergency Provider Emergency Medicine; PCP Emergency Medicine
DX: R10.10 Upper abdominal pain, unspecified (principal); K21.9 Gastro-esophageal reflux disease without esophagitis; Z87.442 Personal history of urinary calculi; R00.2 Palpitations; F17.290 Nicotine dependence, other tobacco product, uncomplicated; Z90.49 Acquired absence of other specified parts of digestive tract
CPT/HCPCS: 80053; 81001; 81025; 83690; 85025; 96365; 96375; 99283

== ENCOUNTER → 2020-09-01 09:34 | Outpatient (CLI) | payer MEDICAID, SELFPAY ==
--- NOTE | 2020-09-01 09:34 | CA_ITS ---
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: CT Laterality: Bilateral Indications: facial numbness Risk Factors Hypertension: Hyperlipidemia Smoking Doppler Spectral Velocity Analysis ECA (R) 75.90/18.70 cm/s ECA (L) 68.10/15.40 cm/s dICA (R) 75.60/32.20 cm/s dICA (L) 75.80/32.70 cm/s Karen (R) 59.90/30.40 cm/s Karen (L) 73.20/30.80 cm/s pICA (R) 56.50/21.40 cm/s pICA (L) 62.30/19.90 cm/s dCCA (R) 85.30/21.70 cm/s dCCA (L) 86.00/21.20 cm/s pCCA (R) 86.00/21.70 cm/s pCCA (L) 100.30/26.20 cm/s Vert (R) 57.30/12.40 cm/s Vert (L) 53.90/19.30 cm/s ICA/CCA 0.90 ICA/CCA 0.90 Findings Duplex evaluation demonstrates stenosis of the right proximal internal carotid artery <20%. Duplex evaluation demonstrates stenosis of the left proximal internal carotid artery <20%. Duplex evaluation demonstrates antegrade flow of the bilateral Vertebral Arteries. Conclusion Duplex evaluation demonstrates stenosis of the right proximal internal carotid artery <20%. Duplex evaluation demonstrates stenosis of the left proximal internal carotid artery <20%. Duplex evaluation demonstrates antegrade flow of the bilateral Vertebral Arteries. 1.7cm solid rt thyroid nodule well circumscribed mildly suspicious rec 6mo thyroid ultrasound follow up Electronically signed by : Jean-Claude Pittman MD 09/01/2020 17:33:06
== END ==
PROVIDERS: PCP Emergency Medicine; Visit Provider Internal Medicine Cardiovascular Disease
DX: R42 Dizziness and giddiness (principal); R20.0 Anesthesia of skin; R00.2 Palpitations; R06.00 Dyspnea, unspecified; R07.9 Chest pain, unspecified; Z72.0 Tobacco use; R09.89 Other specified symptoms and signs involving the circulatory and respiratory systems
CPT/HCPCS: 93880

== ENCOUNTER → 2020-09-02 17:51 | Outpatient (CLI) | payer MEDICAID, SELFPAY ==
[2020-09-02 19:29] LABS: Chol/HDL Ratio 2.4 (1-3.5); Cholesterol 141 mg/dl (140-200); HDL Cholesterol 60 mg/dl (40-60); Triglycerides 126 mg/dl (30-150); VLDL Cholesterol 25 mg/dL (0-40)
[2020-09-02 19:39] LABS: Direct LDL Cholesterol 64.48 mg/dL (100-129)
== END ==
PROVIDERS: Visit Provider Emergency Medicine
DX: R42 Dizziness and giddiness (principal)
CPT/HCPCS: 80061

== ENCOUNTER 2020-09-04 09:56 | Day surgery (SDC) | payer MEDICAID, SELFPAY ==
[2020-09-04 10:19] VITALS: BP 127/68; PULSE 84; RESP 18; TEMP 37.2; O2SAT 98; BMI 33.6
[2020-09-04 10:40] VITALS: BP 122/78; PULSE 89; RESP 18; O2SAT 98
[2020-09-04 10:42] VITALS: BP 123/87; PULSE 88; RESP 18; O2SAT 98
--- NOTE | 2020-09-04 10:48 | HMH.PMPROC ---
- Procedure Date: 09/04/20 Time: 10:49 Anesthesiologist:: Shon Kearns MD Complications:: None Pre-procedure Diagnosis:: Degenerative disc disease of cervical spine with cervical spondylosis and cervical facet arthropathy neck pain Post-procedure Diagnosis:: Same Indications for Procedure:: Patient is a pleasant 35-year-old white female who we have been treating for neck pain with cervical radiculopathy symptoms. She did have a cervical epidural steroid injection which did help some however she has some increasing axial neck pain worse when she is turning her head. She is tender over the facet joints of C5-C6 and C6-C7. We will do bilateral cervical medial branch block/facet joint injections of C5-C6 and C6-C7 today. Procedure Details:: Cervical medial branch block Informed consent was obtained and the risk and benefits of the procedure was explained to the patient. The patient was into the procedure room and placed prone on the procedure table. The neck was prepped using ChloraPrep. C-arm fluoroscopy was used to view the cervical spine. The skin and subcutaneous tissues were anesthetized lidocaine. I placed 22-gauge spinal needles into the facet joints of C5-6, C6-7 bilaterally. Needle placement was confirmed with dye. After this I injected 1 mL lidocaine 1.5% and Depo-Medrol 20 mg into each facet joint/medial branch of C5-6, C6-7 bilaterally. We used a total of 80 mg of Medrol for both levels bilaterally. Patient tolerated the procedure well with no complications. Plan and Disposition:: We will follow-up with this patient in 2 weeks. Will reevaluate symptoms at that time.
[2020-09-04 10:55] VITALS: BP 119/76; PULSE 81; RESP 18; O2SAT 98
== END 2020-09-04 10:56 | disposition home or self-care (01) ==
LOC: SC.PAINP 09:57
PROVIDERS: PCP Emergency Medicine; Visit Provider Anesthesiology
DX: M50.30 Other cervical disc degeneration, unspecified cervical region (principal); M54.02 Panniculitis affecting regions of neck and back, cervical region; M47.892 Other spondylosis, cervical region; I10 Essential (primary) hypertension; E78.5 Hyperlipidemia, unspecified; K21.9 Gastro-esophageal reflux disease without esophagitis; F32.9 Major depressive disorder, single episode, unspecified; Z88.6 Allergy status to analgesic agent
CPT/HCPCS: 64490; 64491; J1030; Q9966

== ENCOUNTER → 2020-09-16 15:18 | Outpatient (CLI) | payer MEDICAID, SELFPAY ==
--- NOTE | 2020-09-16 15:18 | MR_ITS ---
PROCEDURE: MR HEAD/BRAIN WO CON CLINICAL INDICATION: dizziness, facial numbness ABNORMAL CT 08-06-20. LT FACIAL NUMBNESS. COMPARISON: CT CT HEAD/BRAIN WO CON from 08/06/2020 TECHNIQUE: Routine multiplanar multi echo sequences are performed without gadolinium enhancement. FINDINGS: No midline shift, mass effect, intracranial hemorrhage or hydrocephalus. No evidence of acute infarction. The cerebellopontine angles, cerebellum, brainstem, and mid brain have an unremarkable appearance. There is a 6 x 4 mm well circumscribed cystic area in the a deep white matter at the right parieto-occipital junction. This does not demonstrate any surrounding gliotic change. The hippocampal gyri and temporal horns have an unremarkable appearance. The pituitary, optic chiasm, corpus callosum, and craniocervical junction have an unremarkable appearance. No mastoid effusion or sinus air-fluid level. IMPRESSION: 1. Benign-appearing cyst within the right parietal occipital junction white matter measuring 6 x 4 mm. This does not appear to represent an area of gliosis or demyelinization. Consider six-month follow-up to confirm stability. 2. Otherwise negative MRI of the brain. Dictated by: Jean-Claude Pittman MD 09/17/2020 09:41 Jean-Claude Pittman MD in [place] 09/17/2020 09:41
== END ==
PROVIDERS: PCP Emergency Medicine; Visit Provider Emergency Medicine
DX: R42 Dizziness and giddiness (principal)
CPT/HCPCS: 70551

== ENCOUNTER → 2020-09-17 10:14 | Outpatient (CLI) | payer MEDICAID, SELFPAY | PROVIDERS: PCP Emergency Medicine; Visit Provider Specialist | DX: E83.10 Disorder of iron metabolism, unspecified (principal) | CPT/HCPCS: 36415; 82728; 93225; 93226 ==

== ENCOUNTER → 2020-09-21 13:36 | Outpatient (CLI) | payer MEDICAID, SELFPAY ==
--- NOTE | 2020-09-21 13:36 | CA_ITS ---
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 Household Appliances: Svitlana Godinez CRT Ht: 5 ft 3 in Wt: 196lbs BSA: 1.92 BP: 130/72 mmHg Indications: Palpitations, Hyperlipidemia, Hypertension/HDD, smoker, hx substance abuse, GERD, Migraines 2D Dimensions LVOT 1.90 cm (M/F) 1.5-2.5 M-Mode Dimensions RVDd 1.70 cm (0.9-2.6) LA Diam 2.90 cm (1.9-4.0) LVDd 4.80 cm (3.5-5.7) Ao Diam 3.60 cm (2.0-3.7) LVDs 3.10 cm (3.5-5.7) AV Cusp 2.10 cm (1.5-2.6) IVSd 1.40 cm (0.6-1.1) PWd 1.00 cm (0.6-1.1) EF (Teich) 64.90% FS 35.40% EDV (Teich) 108.00 mL ESV (Teich) 37.90 mL LV Diastology E/A Ratio 1.20 MED E' 11.70 (< 7 cm/sec) E'/MED E' Ratio 8.40 (>14) LAT E' 14.90 (<10 cm/sec) E/LAT E' Ratio 6.60 (>14) Aortic Valve AoV Peak Ranjan. 147.00 (50-130 cm/s) AO Peak GR. 9.00 mmHg Mitral Valve MV E Max Ranjan. 98.70 (40-130 cm/s) MV A Velocity 80.90 (40-130 cm/s) E/A Ratio 1.20 Pulmonary Valve CO End VMAX 61.10 cm/s PA Accel Time 201.00 (>120 msec) Tricuspid Valve TR P. Velocity 160.00 cm/s RAP Estimate 10.00 mmHg RVSP 20.00 mmHg Left Ventricle Left atrium is normal size, left ventricle is normal size, preserved left ventricular systolic function, visually estimated ejection fraction 55% with no regional wall motion abnormality, diastolic parameters are within normal range. Right Ventricle Right atrium and right ventricle are normal size and contractility. Aortic Valve Aortic valve is grossly normal, there is no aortic stenosis or aortic insufficiency. Mitral Valve Mitral valve is grossly normal, there is trace mitral regurgitation. Tricuspid Valve Tricuspid valve grossly normal, there is trace tricuspid regurgitation, tricuspid regurgitation jet velocity is inadequate for calculation of the right ventricular systolic pressure. Pulmonic Valve Pulmonic valve is poorly visualized. Great Vessels Aortic root is normal size. Pericardium No significant pericardial effusion noted. Conclusion 1. Normal left ventricular size, preserved left ventricular systolic function, visually estimated ejection fraction 55% with no regional wall motion abnormality. Diastolic parameters are within normal range. 2. Trace mitral and tricuspid regurgitation. 3. No significant pericardial effusion noted. Electronically signed by : Ham Rogers, 09/22/2020 06:05:11
== END ==
PROVIDERS: PCP Emergency Medicine; Visit Provider Specialist
DX: I69.398 Other sequelae of cerebral infarction (principal); R20.9 Unspecified disturbances of skin sensation; R00.2 Palpitations
CPT/HCPCS: 93306

== ENCOUNTER → 2020-09-24 10:29 | Outpatient (POV) | payer MEDICAID, SELFPAY ==
[2020-09-24 10:47] VITALS: BP 112/74; PULSE 65; RESP 18; O2SAT 98; BMI 34.7
--- NOTE | 2020-09-24 10:55 | HMH.PAINSOAP ---
[facility] Pain Management SOAP Note Subjective:: Patient is a pleasant 35-year-old white female who presents today for follow-up after C5-C6 C6-C7 medial branch block. Patient got relief up to 80% right after her medial branch block. She did not have any long-term relief with this after her the anesthetic wore off. She rates her pain a 6 out of 10 she has difficulty with turning her neck. Patient may be a candidate for a neurotomy. She is not on any anticoagulation therapy. She would like to repeat her medial branch block to see if she potentially could benefit from an RFA. ROS General: no recent weight change, no fever, no sleep disturbances Respiratory: no cough, no shortness of air, no recurring pulmonary infections Cardiovascular/Peripheral Vascular: No chest pain, No palpitations, no edema, no shortness of breath. Gastrointestinal: no new onset incontinence, normal bowel movements reported Genitourinary: no new onset incontinence Musculoskeletal: Neck pain Psychiatric: normal mood/ affect Neurological: [denies new onset weakness in extremities], [denies new onset balance issues] Objective:: Physical Exam General: Alert and oriented x3, no acute distress, pleasant and cooperative, [on room air] Lungs: Resps E/U, Symmetrical chest expansion, Eyes: PERRL Musculoskeletal: Flexion and extension of cervical spine somewhat guarded secondary to pain, deep tendon reflexes normal, strength in upper and lower extremities [5/5], normal gait noted Neurological: speech clear, equine 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 Patient is on gabapentin and has failed other injective therapy, physical therapy, medications. I will follow-up with her after this reassess her symptoms at that time she has been instructed to call the office if she has any issues prior to her next appointment. She is not on any anticoagulation therapy. Dr. Kearns has reviewed this note and agrees with this plan of care. This note was dictated using voice recognition software and may contain errors or omissions [facility] History I have reviewed the patient's past medical history: Yes Medical History: Reports:: Anxiety, Arrhythmia, Depression, Gastroesophageal Reflux Disease(GERD), Hiatal Hernia, Hyperlipidemia, Hypertension, Kidney Stones, Migraine, Palpitations, Seizures Denies:: Cancer, Diabetes Mellitus Type 1, Diabetes Mellitus Type 2, Internal Pacemaker, Lung Disease, MRSA *Have you ever received a pneumonia vaccine?: No *Have you received a flu vaccine this season?: No Other Medical History: Reports: Thyroid Disease, Other. Denies: Blood Transfusion Reaction Laterality Cases: Bilateral: Myringotomy (Ear Tubes), Tonsillectomy Other Surgeries: Yes: Cholecystectomy, Colonoscopy, Diagnostic Lap, Hernia Repair, Hysterectomy-Total, Tubal Ligation, Other. No: Pacemaker Amputation: No Fractures: No - *Social History Smoking Status: Current every day smoker Tobacco Type: e-cigarettes # Packs/Day (cigarettes): 1 Alcohol Intake: never Alcohol Intake Frequency:: holidays/special occasions only Substance Use Type: unknown, crack/cocaine, heroin *Occupational Status:: other Housing: house Household Members: children, significant other *Travel in the last 8 weeks: None - Psychiatric History Pschychiatric History:: Reports:: Anxiety, Depression Family Hx:: Heart Attack, Cancer, Diabetes
== END ==
PROVIDERS: PCP Emergency Medicine; Visit Provider Clinical Nurse Specialist Family Health
DX: M50.30 Other cervical disc degeneration, unspecified cervical region (principal); M47.812 Spondylosis without myelopathy or radiculopathy, cervical region; M54.02 Panniculitis affecting regions of neck and back, cervical region
CPT/HCPCS: 99212

== ENCOUNTER → 2020-09-29 10:27 | Outpatient (POV) | payer MEDICAID, SELFPAY | PROVIDERS: Visit Provider Otolaryngology | DX: Z00.00 Encounter for general adult medical examination without abnormal findings (principal) ==

== ENCOUNTER → 2020-09-30 17:17 | Outpatient (CLI) | payer MEDICAID, SELFPAY ==
[2020-09-30 18:02] LABS: Coronavirus 19 IgG Antibody Negative (Negative); Coronavirus 19 IgM Antibody Negative (Negative)
[2020-09-30 18:37] LABS: Chloride 99 mmol/L (98-107)
[2020-09-30 18:38] LABS: Potassium 3.9 mmoL/L (3.5-5.1); Sodium 136 mmol/L (136-145)
[2020-09-30 18:41] LABS: Anion Gap 9.9 mEq/L (5-15); Blood Urea Nitrogen 12 mg/dl (7-17); Calcium 9.5 mg/dl (8.4-10.2); Carbon Dioxide 31 mmol/L (22.0-30.0); Estimated Glomerular Filt Rate 95 ml/min (>60); GFR (African American) 115 ML/MIN (>60); Glucose 105 mg/dl (74-100)
== END ==
PROVIDERS: PCP Specialist; Visit Provider Internal Medicine
DX: R07.9 Chest pain, unspecified (principal); R06.00 Dyspnea, unspecified; R60.0 Localized edema; Z72.0 Tobacco use; Z01.818 Encounter for other preprocedural examination; Z03.818 Encounter for observation for suspected exposure to other biological agents ruled out
CPT/HCPCS: 36415; 80048; 86328

== ENCOUNTER → 2020-10-01 20:03 | Outpatient (CLI) | payer MEDICAID, SELFPAY | PROVIDERS: PCP Emergency Medicine; Visit Provider Specialist | DX: G47.33 Obstructive sleep apnea (adult) (pediatric) (principal) | CPT/HCPCS: 95810 ==

== ENCOUNTER → 2020-10-05 15:05 | Outpatient (CLI) | payer MEDICAID, SELFPAY ==
--- NOTE | 2020-10-05 15:08 | US_ITS ---
PROCEDURE: US THYROID CLINICAL INDICATION: THYROID NODULE thyroid nodule seen on recent carotid ultrasound-prior thyroid ultrasound in PACS from 2017- hypervascular nodule seen in right lobe COMPARISON: US THY US THYROID from 06/06/2017 FINDINGS: Right lobe: 1.5cm x 4.5cm x 1.8cm Left lobe: 0.9cm x 3.9cm x 1.3cm Isthmus: Unremarkable Additional findings: There is a well-circumscribed I so/hypoechoic nodule in the mid polar region of the right lobe of the thyroid gland. This is hypervascular measuring 14 x 9 mm. This has increased in size previously measuring 7 x 6 mm. This is wider than tall. No internal calcifications. There is an additional 6 mm I so/hypoechoic nodule in the mid polar region laterally previously measuring 5 mm. The left lobe has an unremarkable appearance. IMPRESSION: TR level 3 nodule right lobe of the thyroid gland less than 1.5 cm. This has nearly doubled in size from 06/06/2017 therefore, suggest ultrasound-guided FNA for further evaluation. Dictated by: Jean-Claude Pittman MD 10/06/2020 10:51 Jean-Claude Pittman MD in [place] 10/06/2020 10:51
== END ==
PROVIDERS: PCP Specialist; Visit Provider Otolaryngology
DX: E04.1 Nontoxic single thyroid nodule (principal)
CPT/HCPCS: 76536

== ENCOUNTER → 2020-10-06 07:36 | Outpatient (CLI) | payer MEDICAID, SELFPAY ==
--- NOTE | 2020-10-06 | CA_ITS ---
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 Exam: Exercise Treadmill Technologist: Jessy Mendoza Ht: 5 ft 3 in Wt: 205 lbs BSA: 1.95 m2 HR: 85 bpm BP: 117/49 mmHg Indications: Shortness of Air, chest pain Medical History Medications: Lorazepam,,,,, Aspirin,,,,, Propranolol,,,,, Gabapentin,,,,, Hyoscyamine,,,,, Pantoprazole,,,,, Escitalopram,,,,, Ropinirole,,,,, Montelukast,,,,, FluTICASONE,,,,, PraZOSIN,,,,, Cyclobenzaprine,,,,, Stress Test Details Test: Ky HR Resting HR: 89 bpm Max Heart Rate (APMHR): 185 bpm Max HR Achieved: 138 bpm Target HR (85% APMHR): 157 bpm % of APMHR: 74 Recovery HR: 96 bpm BP Resting BP: 117.0/49.0 mmHg Max BP: 164.0/80.0 mmHg Recovery BP: 130.0/68.0 mmHg ECG Resting ECG: Normal sinus rhythm, rightward axis ST Change: Normal ST response to exercise, for heart rate achieved. Clinical Exercise duration: 06:00 min Highest Stage Achieved: Exercise capacity: 7.0 METs Stress ECG Conclusion Patient exercised for 6:00 on Ky Protocol, stopping due to fatigue and shortness of air. Symptoms: complained of sharp, tight chest pain briefly during exercise. Arrhythmias/Ectopy: None ST-T Changes: Normal ST response to exercise, for heart rate achieved. Conclusion: Normal GXT to heart rate achieved (75% of PM), Atypical chest pain, Blunted heart rate response on Propranolol, Myoview images reported separately. Electronically signed by : Ham Rogers, 10/07/2020 06:35:42
--- NOTE | 2020-10-06 07:37 | NM_ITS ---
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 Exam: Nuclear Stress Test Indication: Chest pain, SOB, Palpitations, Syncope, Fatigue, High cholesterol, Tobacco use, Family history Patient Location: Outpatient Stress Tech: Jessy Mendoza CO Tech:Jazmyne Acosta, ARRT, RT (R)(N) Ht: 5 ft 3 in Wt: 200 lbs Bra Size: 38B HR: 85 bpm BP: 117/49 mmHg BSA: 1.93 m2 BMI: 35.4 History: Chest pain, SOB, Palpitations, Syncope, Fatigue, High cholesterol, Tobacco use, Family history Procedure: Patient exercised on Ky protocol 6:00 minutes and sec, resting heart rate 85 bpm, resting blood pressure 117/49 mmHg, with exercise maximum heart rate achived was 138 bpm which is 75 % of the maximum predicted heart rate and blood pressure was 164/80 mmHg. Test was stopped due to SOA and fatigue. Patient has Adequate exercise capacity, achieved 7.0 METs of workload on treadmill, the blood pressure response to exercise was Adequate. Electrocardiogram Resting electrocardiogram showed sinus rhythm nonspecific ST-T changes, with exercise there is less than 1.[address] segment depression noted from the baseline EKG. The EKG portion of the exercise Myoview is nondiagnostic as patient did not achieve the target heart rate. Cardiac Stress and Resting SPECT Images: Cardiac Stress and Resting SPECT images were obtained using technetium 99m Myoview 32.7 mCi stress and 10.31 mCi at rest. Gated SPECT for analysis of segmental wall motion and calculation of the ejection fraction also done, prone images were also obtained. Cardiac stress and resting SPECT images show uniform myocardial activity without segmental perfusion abnormality, computer derived ejection fraction is 47% with no regional wall motion abnormality, right ventricle is normal size and contractility. Conclusion: 1. The EKG portion of the exercise Myoview is nondiagnostic as patient did not achieve the target heart rate, patient has adequate exercise capacity achieved 7 mets of workload on treadmill, the blood pressure response to exercise was adequate. 2. No scintigraphic evidence of reversible ischemia seen at this level of exercise, computer derived ejection fraction is 47% with no regional wall motion abnormality, right ventricle is normal size and contractility. Electronically signed by : Ham Rogers, 10/07/2020 06:50:00
--- NOTE | 2020-10-06 09:11 | HMH.ITSHM ---
Current Home Medications as stated by this patient Samson Leiva or labor relations representative. []PROPRANOLOL CRESTOR FUROSEMIDE GABAPENTIN ADAVAN HYDROXOZINE FLEXERIL PRESOSIN ROPINOROLE LEXAPRO
== END ==
PROVIDERS: PCP Specialist; Visit Provider Urology
DX: R07.9 Chest pain, unspecified (principal); R00.2 Palpitations; R42 Dizziness and giddiness; R60.0 Localized edema; F17.200 Nicotine dependence, unspecified, uncomplicated
CPT/HCPCS: 78452; 93017; A9502

== ENCOUNTER 2020-10-14 13:53 | Day surgery (SDC) | payer MEDICAID, SELFPAY ==
[2020-10-14 14:12] VITALS: BP 121/68; PULSE 94; RESP 18; TEMP 36.4; O2SAT 98; BMI 35.9
[2020-10-14 14:59] VITALS: BP 125/88; BP 132/74; PULSE 79; PULSE 85; RESP 18; O2SAT 99
--- NOTE | 2020-10-14 15:03 | HMH.PMPROC ---
- Procedure Date: 10/14/20 Time: 15:03 Anesthesiologist:: Shon Kearns MD Complications:: None Pre-procedure Diagnosis:: Degenerative disc disease of the cervical spine with cervical spondylosis and increasing neck pain with cervical facet arthropathy Post-procedure Diagnosis:: Same Indications for Procedure:: Patient is a pleasant 35-year-old white female who we are treating for neck pain with cervical spondylosis and cervical facet arthropathy. She was 80 to 90% better after her last round of medial branch blocks for several days. Her pain is now starting to return. We will do a repeat bilateral cervical medial branch block/facet joint injections of C5-C6 and C6-C7 today to help her with her returning pain symptoms. Procedure Details:: Cervical medial branch block Informed consent was obtained and the risk and benefits of the procedure was explained to the patient. The patient was into the procedure room and placed prone on the procedure table. The neck was prepped using ChloraPrep. C-arm fluoroscopy was used to view the cervical spine. The skin and subcutaneous tissues were anesthetized lidocaine. I placed 22-gauge spinal needles into the facet joints of C5-6, C6-7 bilaterally. Needle placement was confirmed with dye. After this I injected 1 mL lidocaine 1.5% and Depo-Medrol 20 mg into each facet joint/medial branch of C5-6, C6-7 bilaterally. We used a total of 80 mg of Medrol for both levels bilaterally. Patient tolerated the procedure well with no complications. Plan and Disposition:: We will follow-up with her in 2 weeks. Will reevaluate symptoms at that time. We will plan on RF ablation to the facet joints of C5-C6 and C6-C7 if these are successful blocks.
[2020-10-14 15:10] VITALS: BP 122/60; PULSE 83; RESP 18; O2SAT 98
== END 2020-10-14 15:10 | disposition home or self-care (01) ==
LOC: SC.PAINP 13:54
PROVIDERS: PCP Nurse Practitioner Family; Visit Provider Anesthesiology
DX: M50.30 Other cervical disc degeneration, unspecified cervical region (principal); M47.812 Spondylosis without myelopathy or radiculopathy, cervical region; M54.02 Panniculitis affecting regions of neck and back, cervical region; F41.9 Anxiety disorder, unspecified; F32.9 Major depressive disorder, single episode, unspecified; Z88.8 Allergy status to other drugs, medicaments and biological substances; K21.9 Gastro-esophageal reflux disease without esophagitis; Z87.19 Personal history of other diseases of the digestive system; E07.9 Disorder of thyroid, unspecified
CPT/HCPCS: 64490; 64491; J1030; Q9966

== ENCOUNTER → 2020-10-20 12:46 | Outpatient (CLI) | payer OTHER, SELFPAY ==
--- NOTE | 2020-10-20 12:51 | US_ITS ---
PROCEDURE: US FNA THYROID CLINICAL INDICATION: THYROID NODULE COMPARISON: US US THYROID from 10/05/2020 TECHNIQUE: Following obtaining informed consent, using aseptic technique and local anesthesia with buffered lidocaine, fine-needle aspiration was performed of the nodule of interest using sonographic guidance. 3 passes were made into the nodule with a 21-gauge needle. Specimen was given to cytology. The patient tolerated the procedure well without evidence of immediate complications and left the ultrasound suite in stable condition. FINDINGS: Right thyroid nodule CYTOLOGY: Negative for malignant cells. Benign follicular nodule IMPRESSION: Uneventful ultrasound-guided FNA of the right lobe of the thyroid nodule negative for malignant cells. Dictated by: Jean-Claude Pittman MD 11/09/2020 19:35 Jean-Claude Pittman MD in [place] 11/09/2020 19:35
== END ==
PROVIDERS: PCP Emergency Medicine; Visit Provider Otolaryngology
DX: E04.1 Nontoxic single thyroid nodule (principal)
CPT/HCPCS: 10005

== ENCOUNTER 2020-10-31 14:09 | Emergency (ER) | payer OTHER, SELFPAY ==
[2020-10-31 14:41] VITALS: BP 102/45; PULSE 87; RESP 20; TEMP 36.3; O2SAT 99; BMI 35.9
--- NOTE | 2020-10-31 14:42 | HMH.EDUTC ---
[facility] [place] Disposition Clinical Impression: Viral syndrome, Exposure to COVID-19 virus Disposition: Home, Self-Care Condition on Discharge: Good Instructions: DI for COVID-19 (Suspected or Confirmed ), Preventing the Spread of Coronavirus Discharge Instructions Additional Instructions: Drink plenty of fluids. Take tylenol for pain or fever. Return if you begin to have difficulty breathing. Follow up with your regular doctor. GO TO THE ER FOR ANY WORSENING SYMPTOMS Prescriptions: Azithromycin [Z-Nathaniel 250mg Tab*] 250 mg PO UD DOSE PK #6 tab Transmission Status: Received by [id number] Referrals: Jesus Manuel Castro MD [Primary Care Provider] - Time of Disposition: 15:01 Medical Decision Making - Medical Records Medical records reviewed: No: I reviewed the patient's medical records. - Montrell Inquiry Pt receiving controlled substance: No Vital Signs: 10/31/20 14:41 10/31/20 14:58 Temperature 97.3 F L 97.3 F L Temperature Source Oral Pulse Rate 87 Pulse Rate [Right Brachial] 87 Respiratory Rate 20 20 Blood Pressure 102/45 L Blood Pressure [Right Arm] 102/45 L Blood Pressure Mean [Right Arm] 64 Blood Pressure Source [Right Arm] Automatic Cuff Blood Pressure Position [Right Arm] Sitting 02 Sat by Pulse Oximetry 99 Oxygen Delivery Method Room Air [facility] [place] HPI - General Stated complaint: covid exposure Time Seen by Provider: 10/31/20 14:45 - History of Present Illness Provider Complaint: She states that since yesterday she has had a dry cough, sinus drainage and feeling bad. She has been exposed to covid thru her job. - Related Data Home Medications Medication Instructions Recorded Confirmed montelukast 10 mg tablet 1 mg PO DAILY tab 10/25/19 10/27/20 fluticasone propionate 50 1 mcg INTRANASAL DAILY 12/09/19 10/27/20 mcg/actuation nasal spray,suspension Cyclobenzaprine HCl [Flexeril 10mg 10 mg PO TID 12/20/19 10/27/20 tablet] Aspirin [Low Dose Aspirin EC] 81 mg PO DAILY 09/04/20 10/27/20 Rosuvastatin Calcium 10 mg PO DAILY 09/04/20 10/27/20 hyoscyamine sulfate 0.125 mg tablet 0.125 mg PO QID PRN tab 09/17/20 10/27/20 linaclotide 290 mcg capsule 290 mcg PO DAILY cap 09/17/20 10/27/20 gabapentin 300 mg capsule 300 mg PO Q8H cap 10/13/20 10/27/20 Galcanezumab-Gnlm [Emgality Pen] 120 mg SQ QMONTH 10/14/20 10/27/20 Propranolol HCl [Inderal 20mg 20 mg PO BID 10/14/20 10/27/20 tablet] Rimegepant Sulfate [Nurtec ODT] 75 mg PO .COMPLEX 10/14/20 10/27/20 Previous Rx's Medication Instructions Recorded ropinirole 1 mg tablet 1 mg PO QHS #90 tab 07/23/20 lorazepam 0.5 mg tablet 0.5 mg PO TID PRN #90 tab 09/02/20 furosemide 20 mg tablet 20 mg PO DAILY PRN #90 tab 09/28/20 escitalopram oxalate 20 mg tablet 20 mg PO DAILY #30 tab 10/27/20 hydroxyzine HCl 50 mg tablet 50 mg PO QID PRN #120 tab 10/27/20 pantoprazole 40 mg tablet,delayed 40 mg PO DAILY #90 tab 10/27/20 release prazosin 5 mg capsule 5 mg PO HS #30 cap 10/27/20 Azithromycin [Z-Nathaniel 250mg Tab*] 250 mg PO UD DOSE PK #6 tab 10/31/20 Allergies Allergy/AdvReac Type Severity Reaction Status Date / Time lactose Allergy Mild DIARRHEA Verified 10/27/20 15:27 [From LACTOSE (FOOD/DRUG)] ibuprofen Allergy Verified 10/27/20 15:27 [facility] History - Hepatitis A Screen Attestation statement:: This patient has been screened for Hepatitis A risk factors. I have reviewed the patient's past medical history: Yes Medical History: Reports:: Anxiety, Arrhythmia, Depression, Gastroesophageal Reflux Disease(GERD), Hiatal Hernia, Hyperlipidemia, Hypertension, Kidney Stones, Migraine, Palpitations Denies:: Cancer, Diabetes Mellitus Type 1, Diabetes Mellitus Type 2, Internal Pacemaker, Lung Disease, MRSA, Seizures Other Medical History: Reports: Thyroid Disease, Other. Denies: Blood Transfusion Reaction Comment: IBS. Audiosclerosis Laterality Cases: Bilateral: Myringotomy (Ear Tubes), Tonsillectomy Other Surge
[2020-10-31 14:58] VITALS: BP 102/45; PULSE 87; RESP 20; TEMP 36.3; O2SAT 99
== END 2020-10-31 15:00 | disposition home or self-care (01) ==
PROVIDERS: Emergency Provider Nurse Practitioner Family; PCP Emergency Medicine
DX: Z20.822 Contact with and (suspected) exposure to COVID-19 (principal); B34.9 Viral infection, unspecified; F41.8 Other specified anxiety disorders; E78.5 Hyperlipidemia, unspecified; I10 Essential (primary) hypertension; K21.9 Gastro-esophageal reflux disease without esophagitis; F17.290 Nicotine dependence, other tobacco product, uncomplicated; Z79.899 Other long term (current) drug therapy
CPT/HCPCS: 99202; G0463; U0003

== ENCOUNTER → 2020-11-05 10:42 | Outpatient (POV) | payer OTHER, SELFPAY ==
[2020-11-05 10:56] VITALS: BP 122/74; PULSE 75; RESP 18; O2SAT 98; BMI 35.9
--- NOTE | 2020-11-05 11:29 | HMH.PAINSOAP ---
[facility] Pain Management SOAP Note Subjective:: Patient is a pleasant 35-year-old white female who presents today for follow-up after her second medial branch block at C5-C6 C6-C7 bilaterally. Patient got percent relief of her symptomology. She rates her pain today 3 out of 10. Her pain is beginning to return she is had 2 successful medial branch block she is a neurotomy candidate. She is interested in moving forward with radiofrequency ablation. Patient is not on any anticoagulation therapy. Patient's tried and failed other conservative modalities of treatment including anti-inflammatories, medication management, stretching. ROS General: no recent weight change, no fever, no sleep disturbances Respiratory: no cough, no shortness of air, no recurring pulmonary infections Cardiovascular/Peripheral Vascular: No chest pain, No palpitations, no edema, no shortness of breath. Gastrointestinal: no new onset incontinence, normal bowel movements reported Genitourinary: no new onset incontinence Musculoskeletal: Neck pain Psychiatric: normal mood/ affect Neurological: [denies new onset weakness in extremities], [denies new onset balance issues] Objective:: Physical Exam General: Alert and oriented x3, no acute distress, pleasant and cooperative, [on room air] Lungs: Resps E/U, Symmetrical chest expansion, Eyes: PERRL Musculoskeletal: Flexion and extension of cervical spine somewhat guarded secondary to pain, deep tendon reflexes normal, strength in upper and lower extremities [5/5], normal gait noted Neurological: speech clear, 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 Patient's not on any anticoagulation therapy. She had 2 appropriate medial branch blocks. Patient will be followed up with after this procedure and reassessed at that time she has been instructed to call the office if she has any issues prior to her next appointment. Patient is having some back pain I told her we would discuss this post neurotomy. Dr. Kearns has reviewed this note and agrees with this plan of care. This note was dictated using voice recognition software and may contain errors or omissions [facility] History I have reviewed the patient's past medical history: Yes Medical History: Reports:: Anxiety, Arrhythmia, Depression, Gastroesophageal Reflux Disease(GERD), Hiatal Hernia, Hyperlipidemia, Hypertension, Kidney Stones, Migraine, Palpitations Denies:: Cancer, Diabetes Mellitus Type 1, Diabetes Mellitus Type 2, Internal Pacemaker, Lung Disease, MRSA, Seizures *Have you ever received a pneumonia vaccine?: Yes *Have you received a flu vaccine this season?: Yes Other Medical History: Reports: Thyroid Disease, Other. Denies: Blood Transfusion Reaction Laterality Cases: Bilateral: Myringotomy (Ear Tubes), Tonsillectomy Other Surgeries: Yes: Cholecystectomy, Colonoscopy, Diagnostic Lap, Hernia Repair, Hysterectomy-Total, Tubal Ligation, Other. No: Pacemaker Amputation: No Fractures: No - *Social History Smoking Status: Current every day smoker Tobacco Type: e-cigarettes # Packs/Day (cigarettes): 1 Alcohol Intake: never Alcohol Intake Frequency:: holidays/special occasions only Substance Use Type: unknown, crack/cocaine, heroin *Occupational Status:: other Housing: house Household Members: children, significant other *Travel in the last 8 weeks: None - Psychiatric History Pschychiatric History:: Reports:: Anxiety, Depression Family Hx:: Heart Attack, Cancer, Diabetes
== END ==
PROVIDERS: PCP Nurse Practitioner Family; Visit Provider Clinical Nurse Specialist Family Health
DX: M50.10 Cervical disc disorder with radiculopathy, unspecified cervical region (principal); M54.04 Panniculitis affecting regions of neck and back, thoracic region
CPT/HCPCS: 99212; G0463

== ENCOUNTER 2020-11-07 14:02 | Emergency (ER) | payer OTHER, SELFPAY ==
[2020-11-07 14:20] VITALS: BP 132/84; PULSE 91; RESP 18; TEMP 36.8; O2SAT 98; BMI 35.9
--- NOTE | 2020-11-07 14:39 | HMH.EDUTC ---
[facility] [place] Disposition Clinical Impression: Viral syndrome, Encounter for laboratory testing for COVID-19 virus Disposition: Home, Self-Care Condition on Discharge: Good Instructions: DI for COVID-19 (Suspected or Confirmed ), Coronavirus Disease 2019, Preventing the Spread of Coronavirus Discharge Instructions Additional Instructions: *Monitor Temp, Over the counter Motrin or Tylenol as directed/as needed Tylenol every 4 hours and Motrin every 6 hours (as long as your family doctor has told you that you can take it) for fever or pain. and straight to ER if unable to lower temp less than 101.0 after medication given *Warm salt water gargles may help to soothe the throat *Throat Lozenges *Warm fluids like tea with honey may help to soothe the throat *Sleep elevated *Humidifier/Vaporizer Follow up IMMEDIATELY for new or worsening symptoms or no Noticeable improvement over the next 48-72 hours. 911 for difficulty breathing or swallowing You were tested for today for COVID19 your test result should be back in the next 24-48 hours, you may call to the [facility] to see if your test results are back in the next 48 hours [phone] [facility] hours are 9am-9pm You was given a handout with instructions for Self Quarantine and Self isolation for while you wait on test results and what to do if they are positive If you are positive the Health Dept will be contacting you also Referrals: Jesus Manuel Castro MD [Primary Care Provider] - As needed Forms: Work/School Release Time of Disposition: 14:43 Medical Decision Making - Montrell Inquiry Pt receiving controlled substance: No Montrell was queried for this patient: No Vital Signs: 11/07/20 14:20 Temperature 98.2 F Temperature Source Oral Pulse Rate [Right Brachial] 91 H Respiratory Rate 18 Blood Pressure [Right Arm] 132/84 Blood Pressure Mean [Right Arm] 100 Blood Pressure Source [Right Arm] Automatic Cuff Blood Pressure Position [Right Arm] Sitting 02 Sat by Pulse Oximetry 98 Oxygen Delivery Method Room Air Orders (Tests/Meds): ORDERS Category Date Time Status Covid-19 Nasal PCR ([facility]) Routine Lab 11/07/20 14:18 Ordered [facility] HPI - General Stated complaint: covid test Time Seen by Provider: 11/07/20 14:39 Mode of Arrival: Ambulatory Source of Information: Patient Limitations: No Limitations Description of Symptoms (Recalled from Triage Doc. by RN): COVID RE-TEST D/T EXPOSURE. C/O BODY ACHES, COUGH, SOA, AND NAUSEA X 1 WEEK HEENT Symptoms (Recalled from RN notes): No Resp Symptoms (Recalled from RN notes): No Skin Symptoms (Recalled from RN notes): No MS Symptoms (Recalled from RN notes): Yes Functional Status (Recalled from RN notes): WNL - History of Present Illness Provider Complaint: Patient states that she was exposed to COVID about a week ago and got tested and thinks she may have tested too early States that for the last week she has been having runny nose, cough, body aches and felt SOA a few times and had fever State that she is feeling a little better todya but wanted to get tested for COVID thinking she may have tested too early - Related Data Home Medications Medication Instructions Recorded Confirmed montelukast 10 mg tablet 1 mg PO DAILY tab 10/25/19 10/27/20 fluticasone propionate 50 1 mcg INTRANASAL DAILY 12/09/19 10/27/20 mcg/actuation nasal spray,suspension Cyclobenzaprine HCl [Flexeril 10mg 10 mg PO TID 12/20/19 10/27/20 tablet] Aspirin [Low Dose Aspirin EC] 81 mg PO DAILY 09/04/20 10/27/20 Rosuvastatin Calcium 10 mg PO DAILY 09/04/20 10/27/20 hyoscyamine sulfate 0.125 mg tablet 0.125 mg PO QID PRN tab 09/17/20 10/27/20 linaclotide 290 mcg capsule 290 mcg PO DAILY cap 09/17/20 10/27/20 gabapentin 300 mg capsule 300 mg PO Q8H cap 10/13/20 10/27/20 Galcanezumab-Gnlm [Emgality Pen] 120 mg SQ QMONTH 10/14/20 10/27/20 Propranolol HCl [Inderal 20mg 20 mg PO BID 10/14/20 10/27/20 tablet] Rimegepant Sulfate [Nurtec ODT] 75 mg PO .COMPLEX
[2020-11-07 14:44] VITALS: BP 132/84; PULSE 91; RESP 18; TEMP 36.8; O2SAT 98
== END 2020-11-07 14:48 | disposition home or self-care (01) ==
PROVIDERS: Emergency Provider Nurse Practitioner; PCP Emergency Medicine
DX: Z20.822 Contact with and (suspected) exposure to COVID-19 (principal); B34.9 Viral infection, unspecified; I10 Essential (primary) hypertension; E78.5 Hyperlipidemia, unspecified; F41.8 Other specified anxiety disorders; K21.9 Gastro-esophageal reflux disease without esophagitis; F17.290 Nicotine dependence, other tobacco product, uncomplicated; Z87.442 Personal history of urinary calculi; Z79.899 Other long term (current) drug therapy
CPT/HCPCS: 99202; G0463; U0003

== ENCOUNTER → 2020-12-10 12:34 | Outpatient (CLI) | payer OTHER, SELFPAY ==
--- NOTE | 2020-12-10 12:35 | CA_ITS ---
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 Bilateral Lower Extremity Venous Study for DVT. Potato Peeler: Marge RCS, RVS Indications Lower Extremity Swelling: Bilateral edema, Heaviness in legs, smoker, HTN, HLD Risk Factors Current Smoker Findings All visualized bilateral lower extremity veins are clear and compressible. Color flow duplex of the bilateral lower extremities demonstrates no evidence of superficial venous thrombophlebitis. Conclusion All visualized bilateral lower extremity veins are clear and compressible. Color flow duplex of the bilateral lower extremities demonstrates no evidence of superficial venous thrombophlebitis. Electronically signed by : Jean-Claude Pittman MD 12/10/2020 15:52:58
== END ==
PROVIDERS: PCP Emergency Medicine; Visit Provider Internal Medicine Cardiovascular Disease
DX: R60.9 Edema, unspecified (principal)
CPT/HCPCS: 93970

== ENCOUNTER → 2020-12-18 16:47 | Outpatient (CLI) | payer OTHER, SELFPAY ==
[2020-12-18 17:35] LABS: Anion Gap 11.1 mEq/L (5-15); Blood Urea Nitrogen 11 mg/dl (7-17); Carbon Dioxide 31 mmol/L (22.0-30.0); Chloride 100 mmol/L (98-107); Estimated Glomerular Filt Rate 71 ml/min (>60); GFR (African American) 86 ML/MIN (>60); Glucose 107 mg/dl (74-100); Potassium 4.1 mmoL/L (3.5-5.1); Sodium 138 mmol/L (136-145)
[2020-12-18 17:43] LABS: NT Pro Brain Natriuretic Pep. 19.9 pg/mL (0-125)
== END ==
PROVIDERS: Visit Provider Internal Medicine Cardiovascular Disease
DX: R06.00 Dyspnea, unspecified (principal); R00.2 Palpitations; I50.9 Heart failure, unspecified; R60.9 Edema, unspecified; Z72.0 Tobacco use
CPT/HCPCS: 36415; 80048; 83880

== ENCOUNTER → 2021-01-11 08:51 | Outpatient (POV) | payer OTHER, SELFPAY ==
[2021-01-11 08:58] VITALS: BP 132/66; PULSE 95; RESP 18; O2SAT 98; BMI 36.8
--- NOTE | 2021-01-11 09:03 | HMH.PAINSOAP ---
[facility] Pain Management SOAP Note Subjective:: 35-year-old white female who presents today for follow-up. Patient had 2 medial branch blocks at C5-C6 C6-C7 bilaterally. She got over 80% relief of her symptomology. She rates her pain today a 5 out of 10. She is interested in moving forward with her radiofrequency ablation. She is not on any anticoagulation therapy. Patient's tried and failed other conservative modalities of treatment including anti-inflammatories, medication management and stretching. Patient is on gabapentin 3 mg 1 p.o. 5 times a day. [facility] #[id number] reviewed. ROS General: no recent weight change, no fever, no sleep disturbances Respiratory: no cough, no shortness of air, no recurring pulmonary infections Cardiovascular/Peripheral Vascular: No chest pain, No palpitations, no edema, no shortness of breath. Gastrointestinal: no new onset incontinence, normal bowel movements reported Genitourinary: no new onset incontinence Musculoskeletal: Neck pain Psychiatric: normal mood/ affect Neurological: [denies new onset weakness in extremities], [denies new onset balance issues] Objective:: Physical Exam General: Alert and oriented x3, no acute distress, pleasant and cooperative, [on room air] Lungs: Resps E/U, Symmetrical chest expansion, Eyes: PERRL Musculoskeletal: Flexion and extension of cervical spine somewhat guarded secondary to pain, deep tendon reflexes normal, strength in upper and lower extremities [5/5], normal gait noted Neurological: speech clear, 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 Again she is not on any anticoagulation therapy she is had 2 appropriate medial branch blocks. We will follow up with her after this reassess her symptoms at that time she has been instructed to call the office if she has any issues prior to her next appointment. Dr. Kearns has reviewed this note and agrees with this plan of care. This note was dictated using voice recognition software and may contain errors or omissions [facility] History I have reviewed the patient's past medical history: Yes Medical History: Reports:: Anxiety, Arrhythmia, Depression, Gastroesophageal Reflux Disease(GERD), Hiatal Hernia, Hyperlipidemia, Hypertension, Kidney Stones, Migraine, Palpitations Denies:: Cancer, Diabetes Mellitus Type 1, Diabetes Mellitus Type 2, Internal Pacemaker, Lung Disease, MRSA, Seizures *Have you ever received a pneumonia vaccine?: Yes *Have you received a flu vaccine this season?: Yes Other Medical History: Reports: Thyroid Disease, Other. Denies: Blood Transfusion Reaction Laterality Cases: Bilateral: Myringotomy (Ear Tubes), Tonsillectomy Other Surgeries: Yes: Cholecystectomy, Colonoscopy, Diagnostic Lap, Hernia Repair, Hysterectomy-Total, Tubal Ligation, Other. No: Pacemaker Amputation: No Fractures: No - *Social History Smoking Status: Current every day smoker Tobacco Type: e-cigarettes # Packs/Day (cigarettes): 1 Alcohol Intake: never Alcohol Intake Frequency:: holidays/special occasions only Substance Use Type: unknown, crack/cocaine, heroin *Occupational Status:: employed Housing: house Household Members: children, significant other *Travel in the last 8 weeks: None - Psychiatric History Pschychiatric History:: Reports:: Anxiety, Depression Family Hx:: Heart Attack, Cancer, Diabetes
== END ==
PROVIDERS: Visit Provider Clinical Nurse Specialist Family Health
DX: M50.30 Other cervical disc degeneration, unspecified cervical region (principal); M54.02 Panniculitis affecting regions of neck and back, cervical region
CPT/HCPCS: 99212; G0463

== ENCOUNTER 2021-01-15 11:23 | Day surgery (SDC) | payer OTHER, SELFPAY ==
[2021-01-15 12:35] VITALS: BP 155/52; PULSE 85; RESP 18; TEMP 36.7; O2SAT 98; BMI 36.8
--- NOTE | 2021-01-15 12:48 | P.PCN_ITS ---
- Procedure Date: 01/15/21 Time: 12:48 Anesthesiologist:: Shon Kearns MD Complications:: None Pre-procedure Diagnosis:: Degenerative disc disease of the cervical spine with cervical spondylosis and cervical facet arthropathy Post-procedure Diagnosis:: Same Indications for Procedure:: Patient is a pleasant 35-year-old white female who we are treating for neck pain with cervical spondylosis and cervical facet arthropathy. She is done well with previous medial branch blocks of C5-C6 and C6-C7. He was 80% better for a couple weeks. We will do RF ablation to the facet joint/medial branches of C5- C6 and C6-C7 today. We will start with the right side followed by the left side in 2 weeks. Procedure Details:: Cervical RFA informed consent was obtained and the risk and benefits of the procedure was explained to the patient. Patient was placed prone on the procedure table. The patient was prepped and draped in sterile fashion. C-arm fluoroscopy was used to view the cervical spine. The skin and subcutaneous tissues were anesthetized using lidocaine. I placed 20-gauge RF needles into the facet joints of C5-C6 and C6-7 levels on the right side. We underwent sensory stimulation. There is good sensory stimulation at 0.8 V. We underwent motor stimulation. There is no motor stimulation at 2 V. We then anesthetized these levels with lidocaine and Depo-Medrol. I used a total of 40 mg Depo-Medrol for both levels. I then burned both levels of C5-C6 and C6-C7 facet joint/medial branches on the right side, each one, for 4 minutes at 80 ?C. We underwent 4 cross again each 1 for 60 seconds at 80?C. Patient tolerated the procedure well with no complication. Plan and Disposition:: We will follow-up with her in 2 weeks. Will reevaluate symptoms at that time. We will plan on RF ablation to the facet joint/medial branches of C5-C6 and C6- C7 on the left side.
[2021-01-15 12:56] VITALS: BP 132/78; PULSE 85; RESP 18; O2SAT 98
[2021-01-15 12:57] VITALS: BP 132/79; PULSE 89; RESP 18; O2SAT 98
[2021-01-15 13:15] VITALS: BP 145/80; PULSE 79; RESP 20; O2SAT 98
== END 2021-01-15 13:15 | disposition home or self-care (01) ==
PROVIDERS: PCP Emergency Medicine; Visit Provider Anesthesiology
DX: M50.30 Other cervical disc degeneration, unspecified cervical region (principal); M47.812 Spondylosis without myelopathy or radiculopathy, cervical region; M54.02 Panniculitis affecting regions of neck and back, cervical region; J45.909 Unspecified asthma, uncomplicated; F41.9 Anxiety disorder, unspecified; F32.9 Major depressive disorder, single episode, unspecified; Z72.0 Tobacco use; Z82.49 Family history of ischemic heart disease and other diseases of the circulatory system; Z88.6 Allergy status to analgesic agent; K21.9 Gastro-esophageal reflux disease without esophagitis; Z87.19 Personal history of other diseases of the digestive system; Z79.899 Other long term (current) drug therapy
CPT/HCPCS: 64633; 64634; J1040; Q9966

== ENCOUNTER → 2021-01-25 08:14 | Outpatient (POV) | payer OTHER, SELFPAY ==
[2021-01-25 08:40] VITALS: BP 133/74; PULSE 74; RESP 18; O2SAT 98; BMI 37.5
--- NOTE | 2021-01-25 08:45 | HMH.PAINSOAP ---
[facility] Pain Management SOAP Note Subjective:: Patient is a pleasant 35-year-old white female who we are treating for neck pain with cervical spondylosis and cervical facet arthropathy. Patient is following up after her cervical RFA she rates her pain a 3 out of 10 stating that it is helped up to 80%. Overall doing extremely well. She is having some left foot pain. Patient and I discussed a visit with the clinical practice consultant she is agreeable. We will set this up. ROS General: no recent weight change, no fever, no sleep disturbances Respiratory: no cough, no shortness of air, no recurring pulmonary infections Cardiovascular/Peripheral Vascular: No chest pain, No palpitations, no edema, no shortness of breath. Gastrointestinal: no new onset incontinence, normal bowel movements reported Genitourinary: no new onset incontinence Musculoskeletal: Left foot pain Psychiatric: normal mood/ affect Neurological: [denies new onset weakness in extremities], [denies new onset balance issues] Objective:: Physical Exam General: Alert and oriented x3, no acute distress, pleasant and cooperative, [on room air] Lungs: Resps E/U, Symmetrical chest expansion, Eyes: PERRL Musculoskeletal: Flexion and extension of cervical spine somewhat guarded secondary to pain, deep tendon reflexes normal, strength in upper and lower extremities [5/5], slightly antalgic gait noted Neurological: speech clear, solution maker equal, no gross sensory deficits Assessment:: Degenerative disc disease cervical spine cervical facet arthropathy, cervical spondylosis Plan:: We will see the patient back in 3 months we will also refer her to Dr. Vidal. Patient's been instructed to call the office if she has any issues prior to her next appointment. Dr. Kearns has reviewed this note and agrees with this plan of care. This note was dictated using voice recognition software and may contain errors or omissions [facility] History I have reviewed the patient's past medical history: Yes Medical History: Reports:: Anxiety, Arrhythmia, Depression, Gastroesophageal Reflux Disease(GERD), Hiatal Hernia, Hyperlipidemia, Hypertension, Kidney Stones, Migraine, Palpitations Denies:: Cancer, Diabetes Mellitus Type 1, Diabetes Mellitus Type 2, Internal Pacemaker, Lung Disease, MRSA, Seizures *Have you ever received a pneumonia vaccine?: Yes *Have you received a flu vaccine this season?: Yes Other Medical History: Reports: Thyroid Disease, Other. Denies: Blood Transfusion Reaction Laterality Cases: Bilateral: Myringotomy (Ear Tubes), Tonsillectomy Other Surgeries: Yes: Cholecystectomy, Colonoscopy, Diagnostic Lap, Hernia Repair, Hysterectomy-Total, Tubal Ligation, Other (pancreatic stent, fine needle aspiration on thyroid). No: Pacemaker Amputation: No Fractures: No - *Social History Smoking Status: Current every day smoker Tobacco Type: e-cigarettes # Packs/Day (cigarettes): 0 Alcohol Intake: never Alcohol Intake Frequency:: holidays/special occasions only Substance Use Type: unknown, crack/cocaine, heroin *Occupational Status:: employed Housing: house Household Members: other *Travel in the last 8 weeks: None - Psychiatric History Pschychiatric History:: Reports:: Anxiety, Depression Family Hx:: Heart Attack, Cancer, Diabetes
== END ==
PROVIDERS: PCP Emergency Medicine; Visit Provider Clinical Nurse Specialist Family Health
DX: M50.30 Other cervical disc degeneration, unspecified cervical region (principal); M47.812 Spondylosis without myelopathy or radiculopathy, cervical region; M54.02 Panniculitis affecting regions of neck and back, cervical region
CPT/HCPCS: 99212; G0463

== ENCOUNTER 2021-01-25 14:00 | Emergency (ER) | payer OTHER, SELFPAY ==
[2021-01-25 14:05] VITALS: BP 117/74; PULSE 86; RESP 19; TEMP 36.8; O2SAT 100; BMI 37.5
--- NOTE | 2021-01-25 14:31 | HMH.EDUTC ---
[facility] [place] Dis[place] Clinical Impression: Encounter for laboratory testing for COVID-19 virus Disposition: Home, Self-Care Condition on Discharge: Good Instructions: DI for COVID-19 (Suspected or Confirmed ), Preventing the Spread of Coronavirus Discharge Instructions Additional Instructions: *Monitor Temp, Over the counter Motrin or Tylenol as directed/as needed Tylenol every 4 hours and Motrin every 6 hours (as long as your family doctor has told you that you can take it) for fever or pain. and straight to ER if unable to lower temp less than 101.0 after medication given Follow up IMMEDIATELY for new or worsening symptoms or no Noticeable improvement over the next 48-72 hours. 911 for difficulty breathing or swallowing You were tested for today for COVID19 your test result should be back in the next 24-48 hours, you may call to the [facility] to see if your test results are back in the next 48 hours [phone] [facility] hours are 9am-9pm You was given a handout with instructions for Self Quarantine and Self isolation for while you wait on test results and what to do if they are positive If you are positive the Health Dept will be contacting you also Referrals: Jesus Manuel Castro MD [Primary Care Provider] - As needed Forms: Work/School Release Time of Disposition: 14:40 Medical Decision Making - Montrell Inquiry Pt receiving controlled substance: No Montrell was queried for this patient: No Vital Signs: 01/25/21 14:05 Temperature 98.2 F Temperature Source Oral Pulse Rate [Right Brachial] 86 Respiratory Rate 19 Blood Pressure [Right Arm] 117/74 Blood Pressure Mean [Right Arm] 88 Blood Pressure Source [Right Arm] Automatic Cuff Blood Pressure Position [Right Arm] Sitting 02 Sat by Pulse Oximetry 100 Oxygen Delivery Method Room Air Orders (Tests/Meds): ORDERS Category Date Time Status Covid-19 Nasal PCR ([facility]) Routine Lab 01/25/21 14:10 Received [facility] [place] HPI - General Stated complaint: cov test Time Seen by Provider: 01/25/21 14:31 Mode of Arrival: Ambulatory Source of Information: Patient Limitations: No Limitations Description of Symptoms (Recalled from Triage Doc. by RN): COVID TEST D/T EXPOSURE ON MONDAY AT WORK. C/O HEADACHE HEENT Symptoms (Recalled from RN notes): Yes Resp Symptoms (Recalled from RN notes): No Skin Symptoms (Recalled from RN notes): No MS Symptoms (Recalled from RN notes): No Functional Status (Recalled from RN notes): WNL - History of Present Illness Provider Complaint: Patient states that she was around someone on Monday at work that has since tested positive for COVID States she also has been walking and exercising with her so today she started having a headache so she came in to get tested - Related Data Home Medications Medication Instructions Recorded Confirmed montelukast 10 mg tablet 1 mg PO DAILY tab 10/25/19 01/15/21 fluticasone propionate 50 1 mcg INTRANASAL DAILY 12/09/19 01/15/21 mcg/actuation nasal spray,suspension Cyclobenzaprine HCl [Flexeril 10mg 10 mg PO TID 12/20/19 01/15/21 tablet] Aspirin [Low Dose Aspirin EC] 81 mg PO DAILY 09/04/20 01/15/21 Rosuvastatin Calcium 10 mg PO DAILY 09/04/20 01/15/21 hyoscyamine sulfate 0.125 mg tablet 0.125 mg PO QID PRN tab 09/17/20 01/15/21 linaclotide 290 mcg capsule 290 mcg PO DAILY cap 09/17/20 01/15/21 gabapentin 300 mg capsule 300 mg PO Q8H cap 10/13/20 01/15/21 Galcanezumab-Gnlm [Emgality Pen] 120 mg SQ QMONTH 10/14/20 01/15/21 rimegepant 75 mg disintegrating 75 mg PO ONCE PRN tab 12/10/20 01/15/21 tablet dicyclomine 20 mg tablet 20 mg PO . PRN tab 12/15/20 01/15/21 prucalopride 2 mg tablet 2 mg PO . tab 12/15/20 01/15/21 valacyclovir 500 mg tablet 500 mg PO . PRN tab 12/15/20 01/15/21 metformin 500 mg tablet 500 mg PO DAILY tab 01/07/21 01/15/21 Mupirocin [Centany] 1 applic TOPICAL BID 01/15/21 01/15/21 Phentermine HCl 37.5 mg PO DAILY 01/15/21 01/15/21 Prazosin HCl [Minipress] 5 mg PO HS 01/15/21 01/15/21
[2021-01-25 14:58] VITALS: BP 117/74; PULSE 86; RESP 19; TEMP 36.8; O2SAT 100
== END 2021-01-25 15:00 | disposition home or self-care (01) ==
PROVIDERS: Emergency Provider Nurse Practitioner; PCP Emergency Medicine
DX: Z20.822 Contact with and (suspected) exposure to COVID-19 (principal); R51.9 Headache, unspecified; F41.8 Other specified anxiety disorders; E78.5 Hyperlipidemia, unspecified; K21.9 Gastro-esophageal reflux disease without esophagitis; I10 Essential (primary) hypertension; Z87.442 Personal history of urinary calculi; E03.9 Hypothyroidism, unspecified; F17.290 Nicotine dependence, other tobacco product, uncomplicated; Z79.899 Other long term (current) drug therapy
CPT/HCPCS: 99202; G0463; U0003

== ENCOUNTER 2021-01-29 16:30 | Emergency (ER) | payer OTHER, SELFPAY ==
--- NOTE | 2021-01-29 16:44 | XR_ITS ---
PROCEDURE: XR FOOT LT MIN 3V CLINICAL INDICATION: PAIN COMPARISON: No exams were available for comparison FINDINGS: No fracture or dislocation. No lytic or blastic change. There is normal mineralization. The joint spaces are well-preserved. No significant degenerative/arthritic changes. No erosive changes evident. Other findings:None. IMPRESSION: No acute findings. Dictated by: Jean-Claude Pittman MD 01/29/2021 17:22 Jean-Claude Pittman MD in [place] 01/29/2021 17:22
[2021-01-29 16:45] VITALS: BP 131/83; PULSE 85; RESP 19; TEMP 37.1; O2SAT 98; BMI 37.5
--- NOTE | 2021-01-29 17:02 | HMH.EDUTC ---
[facility] [place] Disposition Clinical Impression: Foot sprain Qualifiers: Encounter type: initial encounter Laterality: left Qualified Code(s): S93.602A - Unspecified sprain of left foot, initial encounter Disposition: Home, Self-Care Condition on Discharge: Good Instructions: How to Use Crutches, How To Perform RICE (Rest, Ice, Compress, Elevate), How to Use a Walking Boot Additional Instructions: *weight bearing as tolerated *RICE, Rest the extremity, Ice 15-20 minutes 3-4 times daily, Compress- wear the branden wrap as discussed as much as possible to help reduce swelling and pain, Elevate the extremity when at rest *Branden wrap is for support and help control swelling, use it except in the shower. Be sure that is not to tight but not to loose either *Elevate when resting *Ibuprofen every 6-8 hours as needed for pain an inflammation. If need something more can take Tylenol in between doses of Ibuprofen to help Immediately follow up with your family doctor for new or worsening of symptoms, or no noticeable improvement over the next 3-5 days Call back to the [facility] later tonight or in the morning for the Official Radiology reading of your xray Return if needed Straight to ER if any life threatening symptoms Keep appointment with Dr Espinoza Referrals: Jesus Manuel Castro MD [Primary Care Provider] - As needed Lynette Espinoza DPM [Staff Physician] - (as scheduled) Time of Disposition: 17:12 Medical Decision Making - Montrell Inquiry Pt receiving controlled substance: No Montrell was queried for this patient: No Vital Signs: 01/29/21 16:45 01/29/21 17:27 Temperature 98.8 F 98.8 F Temperature Source Oral Pulse Rate 87 Pulse Rate [Right Brachial] 85 Respiratory Rate 19 20 Blood Pressure 130/80 Blood Pressure [Right Arm] 131/83 Blood Pressure Mean [Right Arm] 99 Blood Pressure Source [Right Arm] Automatic Cuff 02 Sat by Pulse Oximetry 98 Oxygen Delivery Method Room Air Room Air - Radiology Data #1 Image(s): Foot/Toes (left) Image Reviewed: Yes I reviewed the patient's radiology image Preliminary Findings: No Fracture Seen will place in walking boot, crutches and have patient call back for official radiology reading [facility] [place] HPI - General Stated complaint: pain in L foot following a popping sound Time Seen by Provider: 01/29/21 17:02 Source of Information: Patient Description of Symptoms (Recalled from Triage Doc. by RN): Pt c/o pain in her left foot that began 1 wk ago. HEENT Symptoms (Recalled from RN notes): No Resp Symptoms (Recalled from RN notes): No Skin Symptoms (Recalled from RN notes): No MS Symptoms (Recalled from RN notes): No Functional Status (Recalled from RN notes): n/a - History of Present Illness Provider Complaint: Patient states that she started having pain in her left foot about a week ago States that she was walking through her house last night when she felt a pop in the top of her foot and has been having pain and swelling since State that she has an appointment with Dr Espinoza but not until next month - Related Data Home Medications Medication Instructions Recorded Confirmed montelukast 10 mg tablet 1 mg PO DAILY tab 10/25/19 01/29/21 fluticasone propionate 50 1 mcg INTRANASAL DAILY 12/09/19 01/29/21 mcg/actuation nasal spray,suspension Cyclobenzaprine HCl [Flexeril 10mg 10 mg PO TID 12/20/19 01/29/21 tablet] Aspirin [Low Dose Aspirin EC] 81 mg PO DAILY 09/04/20 01/29/21 Rosuvastatin Calcium 10 mg PO DAILY 09/04/20 01/29/21 hyoscyamine sulfate 0.125 mg tablet 0.125 mg PO QID PRN tab 09/17/20 01/29/21 linaclotide 290 mcg capsule 290 mcg PO DAILY cap 09/17/20 01/29/21 gabapentin 300 mg capsule 300 mg PO Q8H cap 10/13/20 01/29/21 Galcanezumab-Gnlm [Emgality Pen] 120 mg SQ QMONTH 10/14/20 01/29/21 rimegepant 75 mg disintegrating 75 mg PO ONCE PRN tab 12/10/20 01/29/21 tablet dicyclomine 20 mg tablet 20 mg PO . PRN tab 12/15/20 01/29/21 prucalopride 2 mg tablet 2 mg PO . tab 12/15/20
[2021-01-29 17:27] VITALS: BP 130/80; PULSE 87; RESP 20; TEMP 37.1; O2SAT 100
== END 2021-01-29 17:29 | disposition home or self-care (01) ==
PROVIDERS: Emergency Provider Nurse Practitioner; PCP Emergency Medicine
DX: S93.602A Unspecified sprain of left foot, initial encounter (principal); X50.9XXA Other and unspecified overexertion or strenuous movements or postures, initial encounter; Y92.019 Unspecified place in single-family (private) house as the place of occurrence of the external cause; E11.9 Type 2 diabetes mellitus without complications; F41.8 Other specified anxiety disorders; I10 Essential (primary) hypertension; E78.5 Hyperlipidemia, unspecified; K21.9 Gastro-esophageal reflux disease without esophagitis; F17.290 Nicotine dependence, other tobacco product, uncomplicated; Z79.899 Other long term (current) drug therapy
CPT/HCPCS: 73630; 99202; G0463

== ENCOUNTER 2021-02-26 11:32 | Day surgery (SDC) | payer OTHER, SELFPAY ==
[2021-02-26 11:53] VITALS: BP 125/70; PULSE 101; RESP 18; TEMP 36.7; O2SAT 97; BMI 36.5
[2021-02-26 12:26] VITALS: BP 152/72; PULSE 84; RESP 20; O2SAT 96
[2021-02-26 12:35] VITALS: BP 148/91; PULSE 87; RESP 20; O2SAT 96
--- NOTE | 2021-02-26 12:37 | P.PCN_ITS ---
- Procedure Date: 02/26/21 Time: 12:37 Anesthesiologist:: Shon Kearns MD Complications:: None Pre-procedure Diagnosis:: Disc disease of cervical spine with cervical facet arthropathy and cervical spondylosis Post-procedure Diagnosis:: Same Indications for Procedure:: This patient is a pleasant 35-year-old white female who we are treating for neck pain with cervical spondylosis and cervical facet arthropathy. She has increasing pain in her neck. She is done well with previous medial branch blocks. She has increased pain with extension and twisting. She is tender over the facet joints of C5-C6 and C6-C7 on the left side. Since she has had successful medial branch blocks we will plan on cervical RFA to C5-6 and C6-C7 today. Procedure Details:: Cervical RFA Informed consent was obtained and the risk and benefits of the procedure was explained to the patient. Patient was placed prone on the procedure table. The patient was prepped and draped in sterile fashion. C-arm fluoroscopy was used to view the lumbar spine. The skin and subcutaneous tissues were anesthetized using lidocaine. I placed 20-gauge RF needles into the facet joints of C5-6 and C6-7 levels on the left side. We underwent sensory stimulation. There is good sensory stimulation at 0.8 V. We underwent motor stimulation. There is no motor stimulation at 2.5 V. We then anesthetized these levels with lidocaine and Depo-Medrol. I used a total of 40 mg Depo-Medrol for both levels. I then burned both levels of C5-6, C6-7 facet joint/medial branches on the left side fo r 4 minutes at 80?C. Patient tolerated the procedure well with no complication. Plan and Disposition:: We will follow-up with her in 2 weeks. Will reevaluate her symptoms at that time. We will also refill her gabapentin today.
[2021-02-26 12:55] VITALS: BP 122/78; PULSE 90; RESP 20; O2SAT 97
== END 2021-02-26 12:56 | disposition home or self-care (01) ==
LOC: SC.PAINP 11:33
PROVIDERS: PCP Emergency Medicine; Visit Provider Anesthesiology
DX: M50.30 Other cervical disc degeneration, unspecified cervical region (principal); M54.02 Panniculitis affecting regions of neck and back, cervical region; M47.812 Spondylosis without myelopathy or radiculopathy, cervical region; E03.9 Hypothyroidism, unspecified; E78.5 Hyperlipidemia, unspecified; I10 Essential (primary) hypertension; K21.9 Gastro-esophageal reflux disease without esophagitis; F41.9 Anxiety disorder, unspecified; F32.9 Major depressive disorder, single episode, unspecified
CPT/HCPCS: 64633; 64634; J1040

== ENCOUNTER 2021-03-18 15:35 | Emergency (ER) | payer OTHER, SELFPAY ==
[2021-03-18] VITALS (8 sets, daily range): BP systolic 97–119; BP diastolic 54–76; PULSE 83–98; RESP 18–20; TEMP 36.7; O2SAT 97–100; BMI 36.5; BMI 36.8
--- NOTE | 2021-03-18 15:50 | XR_ITS ---
PROCEDURE INFORMATION: Exam: XR Left Ankle Exam date and time: 03/18/2021 3:50 PM Age: 35 years old Clinical indication: Injury or trauma; Fall; Blunt trauma; Ankle and foot; Patient HX: Patient twisted left ankle her at hospital on curb by pharmacy. Pain and swelling. ; Additional info: Fall/injury TECHNIQUE: Imaging protocol: XR Left ankle. Views: 1 or 2 views. COMPARISON: CR XR FOOT LT MIN 3V 01/29/2021 4:42 PM FINDINGS: Bones/joints: No definite acute fracture or dislocation at the left ankle. Subacute healing 2nd metatarsal fracture noted, see the foot x-ray report. At the ankle joint the bones appear intact and normally aligned with normal mineralization.No significant arthritic deformities. Soft tissues: No acute findings in the soft tissues at the ankle. IMPRESSION: 1. Subacute healing 2nd metatarsal fracture, see foot x-ray report. 2. No acute findings at the ankle joint.
--- NOTE | 2021-03-18 16:33 | XR_ITS ---
PROCEDURE INFORMATION: Exam: XR Left Foot Exam date and time: 03/18/2021 4:33 PM Age: 35 years old Clinical indication: Injury or trauma; Fall; Blunt trauma; Patient HX: Left foot injured, fell on curb here at hospital TECHNIQUE: Imaging protocol: XR Left foot. Views: 3 or more views. COMPARISON: CR XR FOOT LT MIN 3V 01/29/2021 4:42 PM FINDINGS: Bones/joints: Healing stress fracture of the 2nd metatarsal neck. There is surrounding callus formation. There is normal alignment. The fracture is not visible on the previous x-rays from 01/29/2021. Bones otherwise appear intact and normally aligned with normal mineralization. Soft tissues: No acute findings in the soft tissues. No radiopaque foreign bodies seen. IMPRESSION: 1. Healing stress fracture of the 2nd metatarsal neck with surrounding callus formation, as detailed above. 2. No acute findings.
--- NOTE | 2021-03-18 18:38 | HMH.EDGENADL ---
ED Disposition Clinical Impression: Foot sprain Disposition: Home, Self-Care Condition on Discharge: Good Instructions: Sprain Additional Instructions: Ice elevation with using a walking boot for 1 to 3 weeks as needed can follow-up with an orthopedist or wound care coordinator Referrals: Jesus Manuel Castro MD [Primary Care Provider] - - Critical Care Critical Care Time: No Attestation: On 03/18/21, the high probability of a clinically significant, sudden or life threatening deterioration of the following system(s) required my full and direct attention, intervention and personal management. The time I documented below is in addition to time spent performing reported procedures but includes the following listed in this critical care notation. Medical Decision Making - Medical Records Medical records reviewed: Yes: I reviewed the patient's medical records. - Montrell Inquiry Pt receiving controlled substance: No Vital Signs: 03/18/21 15:37 03/18/21 16:12 Temperature 98.1 F Temperature Source Oral Pulse Rate 89 Pulse Rate [Left Radial] 93 H Respiratory Rate 18 Blood Pressure 106/67 L Blood Pressure [Right Arm] 103/76 L Blood Pressure Mean 81 Blood Pressure Mean [Right Arm] 85 Blood Pressure Source [Right Arm] Automatic Cuff Blood Pressure Position [Right Arm] Sitting 02 Sat by Pulse Oximetry 97 98 Oxygen Delivery Method Room Air Orders (Tests/Meds): ED MEDICATIONS Discontinued Medications Generic Name Dose Route Start Last Admin Trade Name Freq PRN Reason Stop Dose Admin Acetaminophen 1,000 mg 03/18/21 15:51 03/18/21 15:56 Acetaminophen 500mg Tab PO 03/18/21 15:52 1,000 mg ONCE ONE Administration - Radiology Data #1 Image(s): Ankle, Foot/Toes Image Reviewed: Yes I reviewed the patient's radiology results, Yes I have reviewed radiologist's interpretation Preliminary Findings: No Fracture Seen (No acute fracture seen a healing fracture of the second metatarsal on x-ray) Medical Decision Narrative: 35-year-old female with a inversion injury of her left foot some history of previous injury in the past, x-rays are negative for acute fracture but an old fracture of the second metatarsal. Patient still has a walking boot at home General Adult HPI - General Chief complaint: Extremity Injury, Lower Stated complaint: [id number] left foot injury Time Seen by Provider: 03/18/21 15:35 Mode of Arrival: Wheelchair Source of Information: Patient Limitations: No Limitations Description of Symptoms (Recalled from ER Triage Doc. by RN): Pt states that she was walking by the pharmacy when she fell hurting her left ankle. States that she has been seeing Dr. Mackay for this foot and was just taken out of a boot. - History of Present Illness HPI narrative: Ends of twisting her left foot with pain over the lateral aspect. Now she has pain on walking no additional injury no ankle pain Onset (ago): hour(s) - Related Data Home Medications Medication Instructions Recorded Confirmed montelukast 10 mg tablet 1 mg PO DAILY tab 10/25/19 03/02/21 fluticasone propionate 50 1 mcg INTRANASAL DAILY 12/09/19 03/02/21 mcg/actuation nasal spray,suspension Cyclobenzaprine HCl [Flexeril 10mg 10 mg PO TID 12/20/19 03/02/21 tablet] Aspirin [Low Dose Aspirin EC] 81 mg PO DAILY 09/04/20 03/02/21 Rosuvastatin Calcium 10 mg PO DAILY 09/04/20 03/02/21 hyoscyamine sulfate 0.125 mg tablet 0.125 mg PO QID PRN tab 09/17/20 03/02/21 linaclotide 290 mcg capsule 290 mcg PO DAILY cap 09/17/20 03/02/21 Galcanezumab-Gnlm [Emgality Pen] 120 mg SQ QMONTH 10/14/20 03/02/21 rimegepant 75 mg disintegrating 75 mg PO ONCE PRN tab 12/10/20 03/02/21 tablet dicyclomine 20 mg tablet 20 mg PO . PRN tab 12/15/20 03/02/21 prucalopride 2 mg tablet 2 mg PO . tab 12/15/20 03/02/21 Mupirocin [Centany] 1 applic TOPICAL BID 01/15/21 03/02/21 Spironolactone [Spironolactone 25 mg PO DAILY 01/15/21 03/02/21 25mg Ta
== END 2021-03-18 19:05 | disposition home or self-care (01) ==
PROVIDERS: Emergency Provider Emergency Medicine; PCP Emergency Medicine
DX: S93.602A Unspecified sprain of left foot, initial encounter (principal); X50.1XXA Overexertion from prolonged static or awkward postures, initial encounter; Y93.9 Activity, unspecified; Y92.89 Other specified places as the place of occurrence of the external cause; E78.5 Hyperlipidemia, unspecified; K21.9 Gastro-esophageal reflux disease without esophagitis; E11.9 Type 2 diabetes mellitus without complications; I10 Essential (primary) hypertension; F41.8 Other specified anxiety disorders; Z87.442 Personal history of urinary calculi; E03.9 Hypothyroidism, unspecified; F17.210 Nicotine dependence, cigarettes, uncomplicated; Z79.899 Other long term (current) drug therapy
CPT/HCPCS: 73600; 73630; 99282

== ENCOUNTER → 2021-03-25 10:11 | Outpatient (POV) | payer OTHER, SELFPAY ==
--- NOTE | 2021-03-25 10:34 | HMH.VVPMSO ---
[facility] Virtual Visit SOAP Consent for virtual visit:: With the recent concerns about the COVID-19, we are trying to minimize exposure to you by shifting to telehealth appointments whenever possible. It restricts me from seeing you in person, but the trade off is protecting you during this pandemic. Can you see and hear me okay, and do you consent to this option? If not, I would be happy to see if we can reschedule your appointment in the future, when feasible. Has patient consented to this virtual visit?: Yes Subjective:: Patient is a 35-year-old female who presents with a virtual visit for follow-up after a cervical RFA. Patient rates her pain a 2 out of 10 today. She says that she has gotten significant relief after her RFA. She is much more mobile and able to function with less pain. She says that she does still have some stiffness, however, she is doing much better. She is also managed with Flexeril 10 mg 1 tablet p.o. 3 times daily and gabapentin 300 mg 1 tablet p.o. 5 times daily. She does need a refill on the medications. [facility] #[id number] has been reviewed and is appropriate. Drug screens have been appropriate. Review of Systems General: No recent weight changes, no fever, no sleep disturbances Respiratory: No cough, no shortness of air, no recurring pulmonary infections Cardiovascular/peripheral vascular: No chest pain, no palpitations, no edema, no shortness of breath Gastrointestinal: No new onset incontinence, normal bowel movements reported Genitourinary: No new onset incontinence Musculoskeletal: Stiffness to neck Psychiatric: Normal mood/affect Neurological: [Denies weakness in extremities], [denies balance issues] Objective:: Constitutional: alert and oriented, no acute distress noted Psychiatric: Judgment and insight intact. Mood normal, affect appropriate Assessment:: Degenerative disc disease cervical spine with cervical facet arthropathy Plan:: Patient is doing well since her RFA. We will refill her medications of Flexeril 10 mg 1 tablet p.o. 3 times daily and gabapentin 300 mg 1 tablet p.o. 5 times daily. We will follow up with the patient in 3 months for reevaluation of her symptoms and for medication refills. She has been instructed to contact clinic if she has any concerns before next appointment. Risks and benefits of the medication have been explained in detail to the patient. The patient has been advised to consult with his/her primary care provider and pharmacist regarding drug-drug interaction of medications currently prescribed. Patient has been instructed to contact the clinic with any concerns before the next appointment. Dr. Kearns has reviewed this note and agrees with this plan of care. This note was dictated using voice recognition software and make contain errors or omissions. Time In:: 10:36 Time Out:: 10:37 [facility] History I have reviewed the patient's past medical history: Yes Medical History: Reports:: Anxiety, Arrhythmia, Depression, Diabetes Mellitus Type 2, Gastroesophageal Reflux Disease(GERD), Hiatal Hernia, Hyperlipidemia, Hypertension, Kidney Stones, Migraine, Palpitations Denies:: Cancer, Diabetes Mellitus Type 1, Internal Pacemaker, Lung Disease, MRSA, Seizures *Have you ever received a pneumonia vaccine?: No *Have you received a flu vaccine this season?: No Other Medical History: Reports: Glaucoma, Thyroid Disease, Other. Denies: Blood Transfusion Reaction Laterality Cases: Bilateral: Myringotomy (Ear Tubes), Tonsillectomy Other Surgeries: Yes: Cholecystectomy, Colonoscopy, Diagnostic Lap, Hernia Repair, Hysterectomy-Total, Tubal Ligation, Other (pancreatic stent, fine needle aspiration on thyroid). No: Pacemaker Amputation: No Fractures: No - *Social History Smoking Status: Current every day smoker Tobacco Type: cigarettes # Packs/Day (cigarettes): 1 Alcohol Intake: never Alcohol Intake Frequency:: holidays/special occasions only Substance Use Type: unknown, c
== END ==
PROVIDERS: PCP Emergency Medicine; Visit Provider Clinical Nurse Specialist Family Health
DX: M50.30 Other cervical disc degeneration, unspecified cervical region (principal); M54.02 Panniculitis affecting regions of neck and back, cervical region
CPT/HCPCS: 99212; G0463

== ENCOUNTER → 2021-04-29 08:25 | Outpatient (POV) | payer OTHER, SELFPAY ==
--- NOTE | 2021-04-29 08:42 | HMH.PAINSOAP ---
[facility] Pain Management SOAP Note Subjective:: Patient is a 35-year-old white female who presents today for follow-up. She has been treated for degenerative disc disease cervical spine with cervical radiculopathy symptoms and cervical facet arthropathy and spondylosis. Patient did undergo an RFA recently. She got excellent relief. Her pain is a 0 out of 10. She is also managed with gabapentin 300 mg 1 tablet p.o. 5 times daily and Flexeril 10 mg 1 tablet p.o. 3 times daily. She denies any side effects to the medication and does need refills today. Her Crystal #[id number] has been reviewed and is appropriate. Drug screens are appropriate. Review of Systems General: No recent weight changes, no fever, no sleep disturbances Respiratory: No cough, no shortness of air, no recurring pulmonary infections Cardiovascular/peripheral vascular: No chest pain, no palpitations, no edema, no shortness of breath Gastrointestinal: No new onset incontinence, normal bowel movements reported Genitourinary: No new onset incontinence Musculoskeletal: No pain at this time Psychiatric: Normal mood/affect Neurological: [Denies weakness in extremities], [denies balance issues] Objective:: Physical exam General: Alert and oriented x3, no acute distress, pleasant and cooperative, [on room air] Lungs: Respirations even and unlabored, symmetrical chest expansion Eyes: PERRL Musculoskeletal: Flexion and extension of [] spine nonguarded, deep tendon reflexes normal, strength in upper and lower extremities [5/5], [normal gait noted Neurological: Speech clear, piping designer equal, no gross sensory deficit Assessment:: Degenerative disc disease cervical spine with cervical radiculopathy symptoms Plan:: We will refill the patient's gabapentin 3 mg 1 tablet p.o. 5 times daily and Flexeril 10 mg 1 tablet p.o. 3 times daily. We will give her 3 months of medication see her back in 3 months. She has been instructed to contact clinic if she has any concerns for next morning. Patient has been instructed to contact the clinic with any concerns before the next appointment. Dr. Kearns has reviewed this note and agrees with this plan of care. This note was dictated using voice recognition software and make contain errors or omissions. Patient has been prescribed a controlled substance after being counseled on the medication, medication safety, and possible side effects. CRYSTAL report has been obtained and reviewed prior to prescription and found to be appropriate. Opioid contract was reviewed and signed by the patient, and that they have agreed to all of the terms set forth by our compliance program. [facility] History I have reviewed the patient's past medical history: Yes Medical History: Reports:: Anxiety, Arrhythmia, Depression, Diabetes Mellitus Type 2, Gastroesophageal Reflux Disease(GERD), Hiatal Hernia, Hyperlipidemia, Hypertension, Kidney Stones, Migraine, Palpitations Denies:: Cancer, Diabetes Mellitus Type 1, Internal Pacemaker, Lung Disease, MRSA, Seizures *Have you ever received a pneumonia vaccine?: No *Have you received a flu vaccine this season?: No Other Medical History: Reports: Glaucoma, Thyroid Disease, Other. Denies: Blood Transfusion Reaction Laterality Cases: Bilateral: Myringotomy (Ear Tubes), Tonsillectomy Other Surgeries: Yes: Cholecystectomy, Colonoscopy, Diagnostic Lap, Hernia Repair, Hysterectomy-Total, Tubal Ligation, Other (pancreatic stent, fine needle aspiration on thyroid). No: Pacemaker Amputation: No Fractures: No - *Social History Smoking Status: Current every day smoker Tobacco Type: cigarettes # Packs/Day (cigarettes): 1 Alcohol Intake: never Alcohol Intake Frequency:: holidays/special occasions only Substance Use Type: unknown, crack/cocaine, heroin *Occupational Status:: employed Housing: house Household Members: other *Travel in the last 8 weeks: None - Psychiatric History Pschychiatric History:: Reports:: Anxiety, Depression Family
[2021-04-29 08:48] VITALS: BP 136/76; PULSE 76; RESP 18; O2SAT 98; BMI 38.7
== END ==
PROVIDERS: Visit Provider Clinical Nurse Specialist Family Health
DX: M50.10 Cervical disc disorder with radiculopathy, unspecified cervical region (principal)
CPT/HCPCS: 99212; G0463

== ENCOUNTER → 2021-04-29 08:47 | Outpatient (CLI) | payer OTHER, SELFPAY ==
[2021-04-29 10:16] LABS: Ferritin 33.8 ng/ml (6.24-137)
== END ==
PROVIDERS: Visit Provider Specialist
DX: E83.10 Disorder of iron metabolism, unspecified (principal); G25.81 Restless legs syndrome
CPT/HCPCS: 36415; 82728

== ENCOUNTER → 2021-05-04 09:22 | Outpatient (CLI) | payer OTHER, SELFPAY ==
--- NOTE | 2021-05-04 09:26 | XR_ITS ---
PROCEDURE: XR FOOT WT BEARING LT 3V CLINICAL INDICATION: pain COMPARISON: CR XR FOOT LT MIN 3V from 01/29/2021 CR XR FOOT LT MIN 3V from 03/18/2021 FINDINGS: There is a fracture of the base of the 5th metatarsal. Minor associated soft tissue swelling is noted. Callus formation is noted adjacent to the 2nd metatarsal diaphysis, suggestive of healed stress fracture. No other acute fractures or dislocations. Other findings:None. IMPRESSION: Fracture of the base of the 5th metatarsal with minor associated soft tissue swelling. Healed fracture of the left 2nd metatarsal diaphysis. Dictated by: Cathy Scales 05/04/2021 10:11 Cathy Scales in [place] 05/04/2021 10:11
== END ==
PROVIDERS: PCP Emergency Medicine; Visit Provider Podiatrist
DX: M79.672 Pain in left foot (principal)
CPT/HCPCS: 73630

== ENCOUNTER → 2021-05-10 08:20 | Outpatient (CLI) | payer OTHER, SELFPAY ==
--- NOTE | 2021-05-10 08:20 | MR_ITS ---
PROCEDURE: MR HEAD/BRAIN WO CON CLINICAL INDICATION: abnormal finding on brain MRI COMPARISON: MR MR HEAD/BRAIN WO CON from 09/16/2020 TECHNIQUE: Routine multiplanar multi echo sequences are performed without gadolinium enhancement. FINDINGS: No midline shift, mass effect, intracranial hemorrhage, or hydrocephalus. No evidence of acute infarction. No areas abnormal restricted diffusion. The cerebellopontine angles, cerebellum, and brainstem have an unremarkable appearance. Small cystic area once again noted in the parietal occipital junction not significantly changed measuring approximately 6 mm. There is a small T2 hyperintensity at 3 mm in the right frontal temporal junction in the subcortical region which is not significantly changed. The pituitary, optic chiasm, corpus callosum, and craniocervical junction have an unremarkable appearance. There is a small amount fluid in the right mastoid sinus. No paranasal sinus air-fluid level is evident. IMPRESSION: No change with no acute finding. The small cystic area in the right parietal occipital junction is unchanged. Dictated by: Jean-Claude Pittman MD 05/10/2021 10:20 Jean-Claude Pittman MD in [place] 05/10/2021 10:20
[2021-05-10 10:14] LABS: Basophils % 0.4 % (0.1-2.0); Eosinophils # 0.2 K/mm3 (0.0-0.4); Eosinophils % 2.4 % (0.1-12.0); Hematocrit 40.5 % (37.0-47.0); Hemoglobin 13.8 g/dL (12.2-16.2); Lymphocytes # 1.3 K/mm3 (0.7-4.5); Lymphocytes % 20.4 % (10-50); Mean Corpuscular HGB Conc 34.1 g/dL (31.8-35.4); Mean Corpuscular Hemoglobin 30.3 pg (27.0-31.2); Mean Corpuscular Volume 88.6 fl (81-99); Mean Platelet Volume 8.7 fl (7.4-10.4); Monocytes # 0.3 K/mm3 (0.1-1.0); Neutrophils # 4.7 K/mm3 (1.8-7.8); Neutrophils % 71.9 % (37.0-80.0); Platelet Count 186 K/mm3 (142-424); Red Blood Count 4.57 M/mm3 (4.20-5.40); Red Cell Distribution Width 12.6 % (11.5-17.5); White Blood Count 6.6 K/mm3 (4.8-10.8)
[2021-05-10 10:35] LABS: Alanine Aminotransferase 18 U/L (12-78); Albumin Level 4.8 g/dl (3.5-5.0); Albumin/Globulin Ratio 1.8 (1.1-1.8); Alkaline Phosphatase 79 U/L (38-126); Anion Gap 15.5 mEq/L (5-15); Aspartate Amino Transferase 27 U/L (14-36); Bilirubin,Total 0.6 mg/dl (0.2-1.3); Blood Urea Nitrogen 10 mg/dl (7-17); Calcium 8.9 mg/dl (8.4-10.2); Carbon Dioxide 27 mmol/L (22.0-30.0); Chloride 100 mmol/L (98-107); Estimated Glomerular Filt Rate 95 ml/min (>60); GFR (African American) 115 ML/MIN (>60); Globulin 2.7 g/dL (1.3-3.2); Glucose 89 mg/dl (74-100); Potassium 3.5 mmoL/L (3.5-5.1); Sodium 139 mmol/L (136-145); Total Protein,Serum 7.5 g/dl (6.3-8.2)
[2021-05-10 10:52] LABS: 25-OH Vitamin D, Total 25.7 ng/mL (30-100)
[2021-05-16 14:36] LABS: Cotinine 212.6
== END ==
PROVIDERS: Podiatrist; PCP Emergency Medicine; Visit Provider Specialist
DX: R90.89 Other abnormal findings on diagnostic imaging of central nervous system (principal); S92.902A Unspecified fracture of left foot, initial encounter for closed fracture; E55.9 Vitamin D deficiency, unspecified
CPT/HCPCS: 36415; 70551; 80053; 80323; 82306; 85025

== ENCOUNTER → 2021-05-17 14:41 | Outpatient (CLI) | payer OTHER, SELFPAY ==
--- NOTE | 2021-05-17 14:47 | MR_ITS ---
PROCEDURE: MR FOOT LT WO/W CON CLINICAL INDICATION: evaluation of fractures of left foot The COMPARISON: CR XR FOOT LT MIN 3V from 01/29/2021 CR XR FOOT LT MIN 3V from 03/18/2021 CR XR FOOT WT BEARING LT 3V from 05/04/2021 TECHNIQUE: Routine multiplanar multi echo sequences are performed without and with gadolinium enhancement. FINDINGS: Bones: Nondisplaced fracture is present at the base of the 5th metatarsal with some mild bone marrow edema. The fracture is transverse in nature. There is some mild enhancement at the fracture site. There is some mild overlying soft tissue swelling. Focal cortical thickening involves the distal aspect of the 2nd metatarsal with some minimal bone marrow edema. Minimal enhancement noted. Small bone island involves the calcaneus at the spots tear subtalar joint region measuring 8 mm. Ligaments: Tibiofibular ligaments, ATFL, PT FL, and calcaneal fibular ligaments appear intact. There is a small amount fluid at the ATFL area Tendons: Peroneal, flexor digitorum longus and flexor hallucis longus and posterior tibial tendons appear intact. The Achilles tendon has an unremarkable appearance. Soft tissues in joints: There is a small amount of fluid at the 1st through 5th metatarsophalangeal joints. No soft tissue mass or abnormal fluid collection within the soft tissues apparent. IMPRESSION: 1. Healing fracture at the 2nd metatarsal. Nondisplaced transverse fracture at the base of the 5th metatarsal. There is mild bone marrow edema and minimal contrast enhancement at the fracture sites. 2. Small amount of fluid within the metatarsophalangeal joints of digits 1 through 5 the Dictated by: Jean-Claude Pittman MD 05/20/2021 10:46 Jean-Claude Pittman MD in [facility] 05/20/2021 10:46
== END ==
PROVIDERS: PCP Emergency Medicine; Visit Provider Podiatrist
DX: M84.375A Stress fracture, left foot, initial encounter for fracture (principal); S92.322A Displaced fracture of second metatarsal bone, left foot, initial encounter for closed fracture; S92.352A Displaced fracture of fifth metatarsal bone, left foot, initial encounter for closed fracture
CPT/HCPCS: 73720; A9576

== ENCOUNTER → 2021-05-19 08:54 | Outpatient (CLI) | payer OTHER, SELFPAY ==
--- NOTE | 2021-05-19 09:01 | XR_ITS ---
PROCEDURE: XR DEXA AXIAL SKELETON CLINICAL HISTORY: High risk for fractures COMPARISON: No exams were available for comparison FINDINGS: The right hip BMD is 0.748 with a T-score of -1.6. The left hip BMD is 0.719 with a T-score of -1.8. The lumbar spine BMD is 1.051 with a T-score of 0.0. IMPRESSION: This patient is considered osteopenic according to the World Health Organization criteria. Bone density is between 10 and 25 percent below young normal. Fracture risk is moderate. Treatment is advised. Based on these results a follow-up exam is recommended in 2 year. Dictated by: Jean-Claude Pittman MD 05/19/2021 16:48 Jean-Claude Pittman MD in [facility] 05/19/2021 16:48
== END ==
PROVIDERS: PCP Emergency Medicine; Visit Provider Podiatrist
DX: M85.89 Other specified disorders of bone density and structure, multiple sites (principal); S92.902A Unspecified fracture of left foot, initial encounter for closed fracture
CPT/HCPCS: 77080

== ENCOUNTER 2021-06-08 15:55 | Emergency (ER) | payer OTHER, SELFPAY ==
[2021-06-08 18:03] VITALS: BP 122/74; PULSE 78; RESP 20; TEMP 36.9; O2SAT 97; BMI 37.0
--- NOTE | 2021-06-08 18:05 | HMH.EDUTC ---
[facility] [place] Disposition Clinical Impression: Exposure to COVID-19 virus Pharyngitis Qualifiers: Pharyngitis/tonsillitis etiology: unspecified etiology Qualified Code(s): J02.9 - Acute pharyngitis, unspecified Disposition: Home, Self-Care Condition on Discharge: Good Instructions: DI for COVID-19 (Suspected or Confirmed ), Preventing the Spread of Coronavirus Discharge Instructions Additional Instructions: Drink plenty of fluids. Take tylenol for pain or fever. Return if you begin to have difficulty breathing. Follow up with your regular doctor. GO TO THE ER FOR ANY WORSENING SYMPTOMS Quarantine until you know the results of your covid-19 test. If it is positive, the health department should call you and give you further instructions about your length of Quarantine and other things. Notify your school or workplace of your results and follow their instructions regarding return to work/school. Referrals: Jesus Manuel Castro MD [Primary Care Provider] - Forms: Work/School Release Time of Disposition: 18:12 Medical Decision Making - Medical Records Medical records reviewed: No: I reviewed the patient's medical records. - Montrell Inquiry Pt receiving controlled substance: No Vital Signs: 06/08/21 18:03 06/08/21 18:46 Temperature 98.5 F 98.2 F Temperature Source Oral Pulse Rate 72 Pulse Rate [Left] 78 Respiratory Rate 20 16 Blood Pressure 119/74 Blood Pressure [Right Arm] 122/74 Blood Pressure Mean [Right Arm] 90 02 Sat by Pulse Oximetry 97 - Lab Data Lab results reviewed: Yes: I reviewed the patient's lab results. Lab Results 06/08/21 18:14: Strep Scn Rapid Clinic Negative Orders (Tests/Meds): ORDERS Category Date Time Status Covid-19 Nasal PCR ([facility]) Routine Lab 06/08/21 17:54 Received Strep Screen Confirmation Stat Micro 06/08/21 18:14 Received [facility] HPI - General Stated complaint: Covid test Time Seen by Provider: 06/08/21 18:05 - History of Present Illness Provider Complaint: She states that she was exposed to covid-19 around 4 days ago. She has had a sore throat and head ache for the past 1 day. She denies any fever or chills. - Related Data Home Medications Medication Instructions Recorded Confirmed montelukast 10 mg tablet 1 mg PO DAILY tab 10/25/19 06/03/21 fluticasone propionate 50 1 mcg INTRANASAL DAILY 12/09/19 06/03/21 mcg/actuation nasal spray,suspension Aspirin [Low Dose Aspirin EC] 81 mg PO DAILY 09/04/20 06/03/21 Rosuvastatin Calcium 10 mg PO DAILY 09/04/20 06/03/21 hyoscyamine sulfate 0.125 mg tablet 0.125 mg PO QID PRN tab 09/17/20 06/03/21 linaclotide 290 mcg capsule 290 mcg PO DAILY cap 09/17/20 06/03/21 rimegepant 75 mg disintegrating 75 mg PO ONCE PRN tab 12/10/20 06/03/21 tablet dicyclomine 20 mg tablet 20 mg PO . PRN tab 12/15/20 06/03/21 Spironolactone [Spironolactone 25 mg PO DAILY 01/15/21 06/03/21 25mg Tablet] albuterol sulfate 90 mcg/actuation 2 puff INHALATION g 03/02/21 06/03/21 aerosol inhaler chlordiazepoxide-clidinium 5 1 cap PO cap 03/02/21 06/03/21 mg-2.5 mg capsule lubiprostone 24 mcg capsule 24 mcg PO cap 06/03/21 06/03/21 propranolol 20 mg tablet 20 mg PO tab 06/03/21 06/03/21 prucalopride 2 mg tablet 2 mg PO tab 06/03/21 06/03/21 Previous Rx's Medication Instructions Recorded furosemide 20 mg tablet 20 mg PO DAILY #30 tab 01/07/21 meloxicam 7.5 mg tablet 7.5 mg PO DAILY 30 Days #30 tab 03/02/21 Cyclobenzaprine HCl [Flexeril 10mg 10 mg PO Q8HP PRN 30 Days #90 tab 03/25/21 tablet] pantoprazole 40 mg tablet,delayed See Rx Instructions .ROUTE 03/29/21 release .COMPLEX #90 tab escitalopram oxalate 20 mg tablet 20 mg PO DAILY #30 tab 04/22/21 hydroxyzine HCl 50 mg tablet 50 mg PO QID PRN #120 tab 04/22/21 prazosin 5 mg capsule 5 mg PO HS #30 cap 04/22/21 Gabapentin [Neurontin 300mg 300 mg PO 5XDAY 30 Days #150 cap 04/29/21 capsule] galcanezumab-gnlm 120 mg/mL 120 mg SQ
[2021-06-08 18:46] VITALS: BP 119/74; PULSE 72; RESP 16; TEMP 36.8
[2021-06-08 19:15] LABS: UTC Strep Screen (Rapid) Negative (Negative)
== END 2021-06-08 18:47 | disposition home or self-care (01) ==
PROVIDERS: Emergency Provider Nurse Practitioner Family; PCP Emergency Medicine
DX: J02.9 Acute pharyngitis, unspecified (principal); Z20.822 Contact with and (suspected) exposure to COVID-19; E11.9 Type 2 diabetes mellitus without complications; F41.8 Other specified anxiety disorders; E78.5 Hyperlipidemia, unspecified; I10 Essential (primary) hypertension; K21.9 Gastro-esophageal reflux disease without esophagitis; F17.210 Nicotine dependence, cigarettes, uncomplicated
CPT/HCPCS: 87880; 99203; G0463; U0003

== ENCOUNTER → 2021-06-24 10:49 | Outpatient (POV) | payer OTHER, SELFPAY ==
[2021-06-24 10:56] VITALS: BP 159/78; PULSE 92; RESP 18; O2SAT 97; BMI 37.3
--- NOTE | 2021-06-24 11:28 | HMH.PAINSOAP ---
[facility] Pain Management SOAP Note Subjective:: Patient is a 36-year-old white female who presents today for follow-up. She has been seen for degenerative disc disease cervical spine with cervical radicular symptoms and cervical facet arthropathy and spondylosis. She has had an RFA of her cervical spine and did get excellent relief, however, she is slowly starting to feel pain once again to her neck. She is managed in the clinic with gabapentin 300 mg 1 tablet p.o. 5 times daily and Flexeril 10 mg 1 tablet p.o. 3 times daily. She does take Flexeril only as needed. She is asking for an increase in her gabapentin dosing today. She gets up to 1500 mg of gabapentin daily. We did discuss increasing to 600 mg 1 tablet p.o. 3 times daily. If the patient does well with this medication regimen and does need an increase we can go up to 4 times daily. She is in agreement. She does understand this is the maximum dose that we will be able to prescribe her with gabapentin, however. Patient's Crystal #[id number] has been reviewed and is appropriate. Morphine equivalent is 0. Review of Systems General: No recent weight changes, no fever, no sleep disturbances Respiratory: No cough, no shortness of air, no recurring pulmonary infections Cardiovascular/peripheral vascular: No chest pain, no palpitations, no edema, no shortness of breath Gastrointestinal: No new onset incontinence, normal bowel movements reported Genitourinary: No new onset incontinence Musculoskeletal: Neck pain, bilateral upper extremity pain Psychiatric: [Normal mood/affect] Neurological: [Denies weakness in extremities], [denies balance issues] Objective:: Physical exam General: Alert and oriented x3, no acute distress, pleasant and cooperative, [on room air] Lungs: Respirations even and unlabored, symmetrical chest expansion Eyes: PERRL Musculoskeletal: Flexion and extension of cervical [spine] somewhat guarded secondary to pain, strength in upper and lower extremities [5/5], normal gait noted Neurological: Speech clear, [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 3 times daily. If she is able to tolerate this dose and is continuing to have symptoms, we can increase to 4 times daily. She has been advised to take gabapentin at 3 times a day for the next week. If she does well with this dosing, she can go to 4 times daily. If she notices any symptoms or side effects, she has been advised to stop dosing and go back to 300 mg 1 tablet p.o. 5 times daily. She does still have some of this medication available. Risks and benefits of the medication have been explained in detail to the patient. The patient has been advised to consult with his/her primary care provider and pharmacist regarding drug-drug interaction of medications currently prescribed. Patient has been prescribed a controlled substance after being counseled on the medication, medication safety, and possible side effects. CRYSTAL report has been obtained and reviewed prior to prescription and found to be appropriate. Opioid contract was reviewed and signed by the patient, and that they have agreed to all of the terms set forth by our compliance program. Patient has been instructed to contact the clinic with any concerns before the next appointment. Dr. Kearns has reviewed this note and agrees with this plan of care. This note was dictated using voice recognition software and make contain errors or omissions. [facility] History I have reviewed the patient's past medical history: Yes Medical History: Reports:: Anxiety, Arrhythmia, Depression, Diabetes Mellitus Type 2, Gastroesophageal Reflux Disease(GERD), Hiatal Hernia, Hyperlipidemia, Hypertension, Kidney Stones, Migraine, Palpitations Denies:: Cancer, Diabetes Mellitus Type 1,
== END ==
PROVIDERS: PCP Emergency Medicine; Visit Provider Clinical Nurse Specialist Family Health
DX: M50.10 Cervical disc disorder with radiculopathy, unspecified cervical region (principal); M47.812 Spondylosis without myelopathy or radiculopathy, cervical region; M54.02 Panniculitis affecting regions of neck and back, cervical region
CPT/HCPCS: 99212; G0463

== ENCOUNTER 2021-07-07 16:35 | Emergency (ER) | payer OTHER, SELFPAY ==
[2021-07-07 16:50] VITALS: BP 123/74; PULSE 84; RESP 19; TEMP 36.8; O2SAT 99; BMI 33.5
--- NOTE | 2021-07-07 16:53 | XR_ITS ---
PROCEDURE INFORMATION: Exam: XR Left Foot Exam date and time: 07/07/2021 4:53 PM Age: 36 years old Clinical indication: Ankle and foot; Patient HX: PT C/O lateral left foot/ankle pain with no known injury. PT states she has osteopenia and has a HX of metatarsal FX. TECHNIQUE: Imaging protocol: XR Left foot. Views: 3 or more views. COMPARISON: MR FOOT LT WO/W CON 05/17/2021 3:01 PM FINDINGS: Bones/joints: A nondisplaced transverse fracture is seen through the base of the 5th metatarsal. It appears subacute or old, but is incompletely healed. No malalignment. Old 2nd metatarsal shaft fracture. Soft tissues: Normal. IMPRESSION: No acute osseous abnormality
--- NOTE | 2021-07-07 16:53 | XR_ITS ---
PROCEDURE INFORMATION: Exam: XR Left Ankle Exam date and time: 07/07/2021 4:53 PM Age: 36 years old Clinical indication: Ankle and foot; Patient HX: PT C/O lateral left foot/ankle pain with no known injury. PT states she has osteopenia and has a HX of metatarsal FX. TECHNIQUE: Imaging protocol: XR Left ankle. Views: 3 or more views. COMPARISON: CR XR ANKLE LT 2V 03/18/2021 3:52 PM FINDINGS: Bones/joints: Fifth metatarsal fracture better seen on foot radiographs. No malalignment. Soft tissues: Normal. IMPRESSION: No acute osseous abnormality
--- NOTE | 2021-07-07 18:04 | HMH.EDUTC ---
[facility] [place] Clinical Impression: Ankle sprain Qualifiers: Encounter type: initial encounter Involved ligament of ankle: unspecified ligament Laterality: left Qualified Code(s): S93.402A - Sprain of unspecified ligament of left ankle, initial encounter Disposition: Home, Self-Care Condition on Discharge: Good Instructions: Ankle Sprain, DI for Ankle Sprain, How To Perform RICE (Rest, Ice, Compress, Elevate) Additional Instructions: *RICE, Rest the extremity, Ice 15-20 minutes 3-4 times daily, Compress- wear the branden wrap as discussed as much as possible to help reduce swelling and pain, Elevate the extremity when at rest *Branden wrap is for support and help control swelling, use it except in the shower. Be sure that is not to tight but not to loose either *Elevate when resting *Ibuprofen every 6-8 hours as needed for pain an inflammation. If need something more can take Tylenol in between doses of Ibuprofen to help Immediately follow up with your family doctor for new or worsening of symptoms, or no noticeable improvement over the next 3-5 days Follow up with Dr Espinoza for further evaluation and treatment Use Crutches to get around and ambulate Return if needed Referrals: Jesus Manuel Castro MD [Primary Care Provider] - As needed Lynette Espinoza DPM [Staff Physician] - Time of Disposition: 18:08 Medical Decision Making - Montrell Inquiry Pt receiving controlled substance: No Montrell was queried for this patient: No Vital Signs: 07/07/21 16:50 Temperature 98.2 F Temperature Source Oral Pulse Rate [Left] 84 Respiratory Rate 19 Blood Pressure [Right Arm] 123/74 Blood Pressure Mean [Right Arm] 90 02 Sat by Pulse Oximetry 99 - Radiology Data #1 Image(s): Ankle (left) Image Reviewed: Yes I have reviewed radiologist's interpretation Preliminary Findings: No Fracture Seen IMPRESSION: No acute osseous abnormality #2 Image(s): Foot/Toes Image Reviewed: Yes I have reviewed radiologist's interpretation Preliminary Findings: No Fracture Seen IMPRESSION: No acute osseous abnormality [facility] [place] - General Stated complaint: left foot/ankle Time Seen by Provider: 07/07/21 17:20 Mode of Arrival: Ambulatory Source of Information: Patient Limitations: No Limitations Description of Symptoms (Recalled from Triage Doc. by RN): pt states she thinks her L ankle is broke and that its swollen. no injury noted. HEENT Symptoms (Recalled from RN notes): No Resp Symptoms (Recalled from RN notes): No Skin Symptoms (Recalled from RN notes): No MS Symptoms (Recalled from RN notes): Yes (L ANKLE PAIN) Functional Status (Recalled from RN notes): na - History of Present Illness Provider Complaint: Patient states that she thinks she may have broken her left ankle States that she hasnt done anything that she can remember and doesnt recall hurting it but it is swollen and hurts when she walks on it States that she has hurt this ankle before - Related Data Home Medications Medication Instructions Recorded Confirmed montelukast 10 mg tablet 1 mg PO DAILY tab 10/25/19 07/02/21 fluticasone propionate 50 1 mcg INTRANASAL DAILY 12/09/19 07/02/21 mcg/actuation nasal spray,suspension Aspirin [Low Dose Aspirin EC] 81 mg PO DAILY 09/04/20 07/02/21 Rosuvastatin Calcium 10 mg PO DAILY 09/04/20 07/02/21 hyoscyamine sulfate 0.125 mg tablet 0.125 mg PO QID PRN tab 09/17/20 07/02/21 linaclotide 290 mcg capsule 290 mcg PO DAILY cap 09/17/20 07/02/21 dicyclomine 20 mg tablet 20 mg PO . PRN tab 12/15/20 07/02/21 albuterol sulfate 90 mcg/actuation 2 puff INHALATION g 03/02/21 07/02/21 aerosol inhaler chlordiazepoxide-clidinium 5 1 cap PO cap 03/02/21 07/02/21 mg-2.5 mg capsule lubiprostone 24 mcg capsule 24 mcg PO cap 06/03/21 07/02/21 prucalopride 2 mg tablet 2 mg PO tab 06/03/21 07/02/21 propranolol 10 mg tablet 10 mg PO BID tab 06/22/21 07/02/21 Previous Rx's Medication Instructions Recorded furosemide 20 mg
[2021-07-07 18:13] VITALS: BP 123/74; PULSE 84; RESP 19; TEMP 36.8
== END 2021-07-07 18:15 | disposition home or self-care (01) ==
PROVIDERS: Emergency Provider Nurse Practitioner; PCP Emergency Medicine
DX: S93.402A Sprain of unspecified ligament of left ankle, initial encounter (principal); F41.8 Other specified anxiety disorders; I10 Essential (primary) hypertension; E11.9 Type 2 diabetes mellitus without complications; K21.9 Gastro-esophageal reflux disease without esophagitis; E78.5 Hyperlipidemia, unspecified; Z87.442 Personal history of urinary calculi; F17.210 Nicotine dependence, cigarettes, uncomplicated; Z79.899 Other long term (current) drug therapy
CPT/HCPCS: 73610; 73630; 99202; G0463

== ENCOUNTER → 2021-07-21 08:10 | Outpatient (CLI) | payer OTHER, SELFPAY ==
--- NOTE | 2021-07-21 08:11 | CT_ITS ---
PROCEDURE INFORMATION: Exam: CT Left Lower Extremity Without Contrast, Foot Exam date and time: 07/21/2021 8:11 AM Age: 36 years old Clinical indication: Injury or trauma; Fall; Fracture, traumatic; Closed fracture; Foot; Left; Additional info: Fracture evaluation TECHNIQUE: Imaging protocol: CT of the Left lower extremity without contrast was performed. Exam focused on the foot. 3D rendering (Not supervised by radiologist): MIP and/or 3D reconstructed images were created by the technologist. Radiation optimization: All CT scans at this facility use at least one of these dose optimization techniques: automated exposure control; mA and/or kV adjustment per patient size (includes targeted exams where dose is matched to clinical indication); or iterative reconstruction. COMPARISON: 1. MR FOOT LT WO/W CON 05/17/2021 3:01 PM 2. CR XR FOOT LT MIN 3V 07/07/2021 4:53 PM FINDINGS: Bones/joints: The previously described fracture involving the base of the fifth metatarsal is predominantly healed with the fracture line remaining faintly visible (series 602/images [id number]). Alignment is anatomic alignment. Benign bone islands involve the calcaneus. There is a healed fracture of the distal second metatarsal diaphysis. Soft tissues: Mild soft tissue edema involves the plantar lateral foot. IMPRESSION: 1. Predominantly healed fifth metatarsal base fracture that is in anatomic alignment. 2. Healed fracture of the distal second metatarsal diaphysis.
== END ==
PROVIDERS: PCP Emergency Medicine; Visit Provider Podiatrist
DX: S92.322A Displaced fracture of second metatarsal bone, left foot, initial encounter for closed fracture (principal); S92.352A Displaced fracture of fifth metatarsal bone, left foot, initial encounter for closed fracture; S92.902A Unspecified fracture of left foot, initial encounter for closed fracture
CPT/HCPCS: 73700

== ENCOUNTER → 2021-07-26 11:59 | Outpatient (CLI) | payer OTHER, SELFPAY ==
--- NOTE | 2021-07-26 12:13 | XR_ITS ---
PROCEDURE: XR CHEST 2V CLINICAL HISTORY: PT REPORTS HX OF TACHYCARDIA, PRE OPERATIVE COMPARISON: CR CXR2V XR chest 2V from 03/28/2018 CR CXR1VP XR chest portable from 08/21/2018 CR XR CHEST PORTABLE from 10/29/2019 FINDINGS: The cardiomediastinal silhouette and pulmonary vascularity are within normal limits. The lungs are clear without infiltrates, suspicious nodules, or pleural effusions. Old granulomatous disease. No acute bony anomalies IMPRESSION: No change with no acute finding Dictated by: Jean-Claude Pittman MD 07/26/2021 12:30 Jean-Claude Pittman MD in [facility] 07/26/2021 12:30
--- NOTE | 2021-07-26 12:41 | ECG_ITS ---
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 Exam: Resting ECG HR:85 bpm ECG Measurements Heart Rate 85 AXES AZ 154 P 18 QRSd 86 QRS 91 QT 372 T 13 QTc 442 Conclusion Normal sinus rhythm Rightward axis Borderline ECG Electronically signed by : David Carter MD 07/26/2021 21:19:08
[2021-07-26 12:42] LABS: Basophils # 0.1 K/mm3 (0-0.2); Basophils % 0.7 % (0.1-2.0); Eosinophils # 0.4 K/mm3 (0.0-0.4); Eosinophils % 3.5 % (0.1-12.0); Hematocrit 44.5 % (37.0-47.0); Hemoglobin 15.2 g/dL (12.2-16.2); Lymphocytes # 2.4 K/mm3 (0.7-4.5); Lymphocytes % 21.3 % (10-50); Mean Corpuscular HGB Conc 34.1 g/dL (31.8-35.4); Mean Corpuscular Hemoglobin 31.4 pg (27.0-31.2); Mean Corpuscular Volume 92.2 fl (81-99); Mean Platelet Volume 8.2 fl (7.4-10.4); Monocytes # 0.5 K/mm3 (0.1-1.0); Monocytes % 4.1 % (1.7-9.3); Neutrophils # 8.1 K/mm3 (1.8-7.8); Neutrophils % 70.5 % (37.0-80.0); Platelet Count 303 K/mm3 (142-424); Red Blood Count 4.83 M/mm3 (4.20-5.40); Red Cell Distribution Width 12.9 % (11.5-17.5); White Blood Count 11.4 K/mm3 (4.8-10.8)
[2021-07-26 13:21] LABS: HCG Qualitative, Serum Negative (Negative)
[2021-07-26 14:22] LABS: Alanine Aminotransferase 16 U/L (12-78); Albumin Level 4.6 g/dl (3.5-5.0); Albumin/Globulin Ratio 1.8 (1.1-1.8); Alkaline Phosphatase 89 U/L (38-126); Anion Gap 12.1 mEq/L (5-15); Aspartate Amino Transferase 23 U/L (14-36); Bilirubin,Total 0.2 mg/dl (0.2-1.3); Blood Urea Nitrogen 10 mg/dl (7-17); Calcium 9.4 mg/dl (8.4-10.2); Carbon Dioxide 31 mmol/L (22.0-30.0); Chloride 101 mmol/L (98-107); Estimated Glomerular Filt Rate 95 ml/min (>60); GFR (African American) 115 ML/MIN (>60); Globulin 2.6 g/dL (1.3-3.2); Glucose 93 mg/dl (74-100); Potassium 4.1 mmoL/L (3.5-5.1); Sodium 140 mmol/L (136-145); Total Protein,Serum 7.2 g/dl (6.3-8.2)
[2021-12-10 17:31] LABS: Nicotine 27.3
[2021-12-10 17:32] LABS: Cotinine 276.5
== END ==
PROVIDERS: Visit Provider Podiatrist
DX: Z01.818 Encounter for other preprocedural examination (principal); Z11.52 Encounter for screening for COVID-19; S92.355A Nondisplaced fracture of fifth metatarsal bone, left foot, initial encounter for closed fracture; S92.325A Nondisplaced fracture of second metatarsal bone, left foot, initial encounter for closed fracture; S86.312A Strain of muscle(s) and tendon(s) of peroneal muscle group at lower leg level, left leg, initial encounter; E66.9 Obesity, unspecified; Z68.36 Body mass index [BMI] 36.0-36.9, adult
CPT/HCPCS: 36415; 71046; 80053; 80323; 82306; 84703; 85025; 93005; C9803; U0003; U0005

== ENCOUNTER 2021-07-28 06:49 | Day surgery (SDC) | payer OTHER, SELFPAY ==
[2021-07-26 14:12] VITALS: BMI 36.6
[2021-07-28] VITALS (11 sets, daily range): BP systolic 102–159; BP diastolic 53–93; PULSE 72–96; RESP 12–18; TEMP 36.2–37; O2SAT 93–97
[2021-07-28 08:12] LABS: POC Glucose,Bedside 102 (70-110)
--- NOTE | 2021-07-28 09:49 | P.PN_ITS ---
[facility] Anesthesia Checklist - Structural Data Admitted From: Home Planned Operative Procedure/s: orif l 4th and 5th metatarsal Consent for Planned Operative Procedure(s) Verified: Yes - Additional verifications Anesthesia Reactions: No Hx Blood Transfusions: No Blood Transfusion Reaction: No - Airway Assessment C-Spine Mobility Assessed: Yes TMJ Mobility Assessed: Yes Dentition: Good Dentition - Neurological Assessment Level of Consciousness: Awake, Alert, Appropriate - Anesthesia Plan Anesthesia Risk discussed: Yes Anesthesia Plan: Verified ASA Class: III Anesthesia Type: General w/block - Preoperative Comments Pre-Operative Comments: exp sciatic block to pt, pt agrees to proceed [facility] History I have reviewed the patient's past medical history: Yes Medical History: Reports:: Anxiety, Arrhythmia, Depression, Diabetes Mellitus Type 2, Gastroesophageal Reflux Disease(GERD), Hiatal Hernia, Hyperlipidemia, Hypertension, Kidney Stones, Migraine, Palpitations Denies:: Cancer, Diabetes Mellitus Type 1, Internal Pacemaker, Lung Disease, MRSA, Seizures *Have you ever received a pneumonia vaccine?: No *Have you received a flu vaccine this season?: No Other Medical History: Reports: Glaucoma, Thyroid Disease, Other. Denies: Blood Transfusion Reaction Anesthesia experience/problems:: none Laterality Cases: Bilateral: Myringotomy (Ear Tubes), Tonsillectomy Other Surgeries: Yes: Cholecystectomy, Colonoscopy, Diagnostic Lap, Hernia Repair, Hysterectomy-Total, Tubal Ligation, Other (pancreatic stent, fine needle aspiration on thyroid). No: Pacemaker Amputation: No Fractures: No - *Social History Last grade of school completed: High school graduate Smoking Status: Current every day smoker Tobacco Type: cigarettes # Packs/Day (cigarettes): 1 #Yrs smoked (if former smoker): 22 Alcohol Intake: never Alcohol Intake Frequency:: holidays/special occasions only Substance Use Type: unknown, crack/cocaine, heroin, former substance user *Occupational Status:: employed Housing: house Household Members: other *Travel in the last 8 weeks: None - Psychiatric History Pschychiatric History:: Reports:: Anxiety, Depression Family Hx:: Heart Attack, Cancer, Diabetes
--- NOTE | 2021-07-28 11:00 | XR_ITS ---
PROCEDURE: XR FOOT LT MIN 3V CLINICAL INDICATION: Post op ORIF COMPARISON: CR XR FOOT LT MIN 3V from 03/18/2021 CR XR FOOT WT BEARING LT 3V from 05/04/2021 CR XR FOOT LT MIN 3V from 07/07/2021 CR XR ANKLE LT MIN 3V from 07/28/2021 CR XR FOOT LT 2V from 07/28/2021 FINDINGS: Exam is obtained in a cast obscuring fine bony detail. There has been ORIF the mid distal 2nd metatarsal with a dorsal bone plate with good alignment. Longitudinal screws present through the base of the 5th metatarsal with good alignment. The joint spaces are well-preserved. No significant degenerative/arthritic changes. No erosive changes evident. Left ankle: Unremarkable. No fracture or dislocation with good alignment. IMPRESSION: Good alignment status post ORIF 2nd and 5th metatarsals. Unremarkable left ankle Dictated by: Jean-Claude Pittman MD 07/28/2021 17:37 Jean-Claude Pittman MD in [facility] 07/28/2021 17:37
--- NOTE | 2021-07-28 11:11 | XR_ITS ---
PROCEDURE: XR FOOT LT 2V CLINICAL INDICATION: LEFT ORIF OF 2ND AND 5TH METATARSAL COMPARISON: CR XR FOOT LT MIN 3V from 01/29/2021 CR XR FOOT LT MIN 3V from 03/18/2021 CR XR FOOT WT BEARING LT 3V from 05/04/2021 CR XR FOOT LT MIN 3V from 07/07/2021 FINDINGS: Fluoroscopy time 1.12 minutes. Two images are submitted with the C-arm showing ORIF of the 2nd and 5th metatarsal with good alignment. Other findings:None. IMPRESSION: Post ORIF 5th and 2nd metatarsal with C-arm assistance Dictated by: Jean-Cluade Pittman MD 07/28/2021 17:38 Jean-Claude Pittman MD in [facility] 07/28/2021 17:38
--- NOTE | 2021-07-28 11:39 | P.PN_ITS ---
[facility] Anesthesia Record Part I Intake, IV Amount: 1,500 Estimated blood loss (mL): 0 Urine output (mL): 0 Blood Pressure: 124/70 SaO2: 94 Pulse Rate: 72 Respiratory Rate: 12 Temperature: 98.6 F Patient is:: Awake, Stable Stable to PACU at:: 11:35
[2021-07-28 11:54] LABS: POC Glucose,Bedside 117 (70-110)
--- NOTE | 2021-07-28 11:59 | SUR.PHASEI ---
finger stick blood glucose in pacu 117
--- NOTE | 2021-07-28 12:18 | HMH.OPNOTE ---
Date of procedure: 07/28/21 Pre-op Diagnosis:: 1. 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 Left ankle instability 4. Peroneal tendinitis of left lower leg 5. Left gastrocnemius equinus 6. Osteopenia, tobacco abuse, vitamin D deficiency, obesity Post-op Diagnosis:: Same Procedure performed:: 1. Left 5th metatarsal non-union ORIF 2. Left 2nd metatarsal ORIF 3. Left bone marrow aspiration 4. Left peroneal tenosynovectomy 5. Left modified Brostrum 6. Left gastrocneius recession 7. Left ankle/subtalar joint synovectomy 8. Application of amniotic injectable graft 9. Application of posterior splint Surgeon:: Lynette Espinoza DPM STRIPPER LATEX:: Messi Becerril Anesthesia: GETA, regional (Left popliteal nerve block) Estimated blood loss (mL): 20 Clinical Note:: Indications: 35 y/o female with multiple metatarsal fractures and foot pain/swelling > 6-8 months without significant trauma history, left ankle instability. Family hx of osteoporosis, multiple sclerosis. Personaly hx of vaping/tobacco use, vitamin D deficiency, osteopenia on DEXA scan. X-ray and MRI show non-displaced transverse 5th metatarsal fracture without callus formation. We discussed surgery. All risks and benefits were discussed including but not limited to: damage to blood vessels and nerves, bleeding, infection, wound complications, delayed, mal or non-union of bone, post-traumatic arthritis, need for further surgery, implant failure, need for removal of implant, prolonged or permanent swelling of the extremity, prolonged or permanent pain or deformity, CRPS/RSD, DVT/PE, and anesthetic complications including . No guarantees were given. All questions fully answered. The patient verbalized understanding and agreed to proceed with surgery. Consent was obtained. Medical clearance granted. Necessary labs and pre-op testing ordered: hcg, CBC, BMP, EKG, CXR, covid, vit D. Will need Rx for [place] 7.5/325 #30, Zofran, Motrin, vit D. Continue fracture boot. Patient has crutches and walker at home. Medical clearance per Dr. Castro. Operative findings:: Gastrocnemius equinus noted. Left ATFL had a partial tear, positive anterior ankle drawer. Peroneal tendons intact there was some synovitis noted around the tendons. Some scar tissue consistent with possible old injury that had already started healing. Second metatarsal had a fracture with some bone callus noted. On the medial aspect of the fracture there was soft bone and 20% of the fracture still noted. Some micromotion appreciated at this level. The fifth metatarsal had a Alvarado fracture nonunion. Overall the bone was soft. The case took an extra 30 minutes longer due to the patient's body habitus, soft poor bone quality and scar tissue. Operative note:: On this date and time patient was deemed an appropriate surgical candidate. With informed consent signed, the patient was taken to the operating theater. The patient was positioned supine. General anesthesia was induced. 2g IV Ancef given. Tourniquet was applied to the left mid-calf. The left lower extremity was prepped and draped in normal sterile fashion. Left gastrocneius recession: Attention directed to the medial calf where incision was made over the gastroc. Dissection carried down to the level of the tendon in standard technique. Care to maintain surgical hemostasis and save retract neurovascular structures. A Jaxon type transverse incision made in the gastroc, partial release performed with the foot dorsiflexed. Area flushed with saline. Vicryl and Monocryl were used to reapproximate deep, subcutaneous tissue and skin. Left peroneal tenosynovectomy, ankle/subtalar joint synovectomy: Tourniquet was deflated at 125 mmHg.Attention was directed to the ankle where an incision was mapped out over the peroneal tendons under the distal fibula. Dissection was carried in a layered fashion to the level of the tendons. The sheath was incised. Th
--- NOTE | 2021-07-29 10:55 | P.PN_ITS ---
[facility] Anesthesia Record Part II Discharge Time: 12:05 Destination: [facility] PACU nurse assessment reviewed?: Yes Patient Condition:: Good Anesthesia Complications:: None Swallowing reflex intact?: Yes Cyanosis?: No Blood Pressure: 111/70 Pulse Rate: 81 Temperature: 97.3 F Mental Status: Alert & Oriented Pain level:: 4 Nausea and/or vomitting:: None Intake, IV Amount: 1,500
[2021-07-29 10:56] VITALS: BP 111/70; PULSE 81; TEMP 36.3
== END 2021-07-28 13:05 | disposition home or self-care (01) ==
LOC: OR 06:50
PROVIDERS: PCP Emergency Medicine; Visit Provider Podiatrist
PROC: (CPT 28322; principal; 2021-07-28 08:30)
DX: S92.355K Nondisplaced fracture of fifth metatarsal bone, left foot, subsequent encounter for fracture with nonunion (principal); S92.325K Nondisplaced fracture of second metatarsal bone, left foot, subsequent encounter for fracture with nonunion; E55.9 Vitamin D deficiency, unspecified; M85.80 Other specified disorders of bone density and structure, unspecified site; M76.72 Peroneal tendinitis, left leg; M21.6X2 Other acquired deformities of left foot; M77.42 Metatarsalgia, left foot; F17.210 Nicotine dependence, cigarettes, uncomplicated; M24.572 Contracture, left ankle; M25.372 Other instability, left ankle; E11.9 Type 2 diabetes mellitus without complications; Z79.899 Other long term (current) drug therapy; Z79.84 Long term (current) use of oral hypoglycemic drugs
CPT/HCPCS: 28322 ×2; 27626; 27698; 27687; 73610; 73620; 73630; 76000; 82962; 96374; C1713; C1762; C1776; J2405

== ENCOUNTER → 2021-08-03 16:12 | Outpatient (CLI) | payer OTHER, SELFPAY ==
--- NOTE | 2021-08-03 16:15 | XR_ITS ---
PROCEDURE: XR FOOT WT BEARING LT 3V CLINICAL INDICATION: Fracture Evaluation, fall COMPARISON: CR XR FOOT WT BEARING LT 3V from 05/04/2021 CR XR FOOT LT MIN 3V from 07/07/2021 CR XR FOOT LT 2V from 07/28/2021 CR XR FOOT LT MIN 3V from 07/28/2021 FINDINGS: Posterior splint remains in place. No change in the bone plate at the 2nd metatarsal and a longitudinal screw at the 5th metatarsal stabilizing nondisplaced fractures. No hardware malfunction Other findings:None. IMPRESSION: Postsurgical changes which are stable Dictated by: Jean-Claude Pittman MD 08/04/2021 07:51 Jean-Claude Pittman MD in [place] 08/04/2021 07:51
== END ==
PROVIDERS: PCP Emergency Medicine; Visit Provider Podiatrist
DX: S92.325G Nondisplaced fracture of second metatarsal bone, left foot, subsequent encounter for fracture with delayed healing (principal); S92.355K Nondisplaced fracture of fifth metatarsal bone, left foot, subsequent encounter for fracture with nonunion; Z98.890 Other specified postprocedural states
CPT/HCPCS: 73630

== ENCOUNTER → 2021-08-05 09:57 | Outpatient (POV) | payer OTHER, SELFPAY ==
[2021-08-05 10:19] VITALS: BP 130/56; PULSE 104; RESP 18; O2SAT 95; BMI 36.6
--- NOTE | 2021-08-05 10:36 | HMH.PAINSOAP ---
[facility] Pain Management SOAP Note Subjective:: Patient is a 36-year-old white female who presents today for medication refills. The patient is being treated for chronic neck pain with degenerative disc disease cervical spine with cervical radicular symptoms and cervical facet arthropathy and spondylosis. Patient is doing well with her medications. She is currently on gabapentin 300 mg 1 tablet p.o. 4 times daily. She says she is doing well overall with her regimen. She recently had surgery to her left foot with Dr. Vidal. She had 2 fractures and a tendon repair. She is doing well overall. She denies any side effects from medication. She rates her pain a 3 out of 10 today. Review of Systems General: No recent weight changes, no fever, no sleep disturbances Respiratory: No cough, no shortness of air, no recurring pulmonary infections Cardiovascular/peripheral vascular: No chest pain, no palpitations, no edema, no shortness of breath Gastrointestinal: No new onset incontinence, normal bowel movements reported Genitourinary: No new onset incontinence Musculoskeletal: Chronic neck pain with radiation into bilateral upper extremities Psychiatric: [Normal mood/affect] Neurological: [Denies weakness in extremities], [denies balance issues] Objective:: Physical exam General: Alert and oriented x3, no acute distress, pleasant and cooperative Lungs: Respirations even and unlabored, symmetrical chest expansion Eyes: PERRL Musculoskeletal: Flexion and extension of cervical [spine] somewhat guarded secondary to pain, normal gait noted Assessment:: Degenerative disc disease cervical spine cervical radiculopathy symptoms, cervical facet arthropathy and spondylosis Plan:: We will continue the patient's gabapentin 300 mg 1 tablet p.o. 4 times daily. We will give the patient 3 months of medication see her back in the clinic in 3 months. Risks and benefits of the medication have been explained in detail to the patient. If side effects do present with the medication, patient has been advised to stop the medication immediately and call the clinic. The patient has been advised to consult with his/her primary care provider and pharmacist regarding drug-drug interaction of medications currently prescribed. Patient has been instructed to contact the clinic with any concerns before the next appointment. Dr. Kearns has reviewed this note and agrees with this plan of care. This note was dictated using voice recognition software and make contain errors or omissions. [facility] History I have reviewed the patient's past medical history: Yes (Female) Medical History: Reports:: Anxiety, Arrhythmia, Depression, Diabetes Mellitus Type 2, Gastroesophageal Reflux Disease(GERD), Hiatal Hernia, Hyperlipidemia, Hypertension, Kidney Stones, Migraine, Palpitations Denies:: Cancer, Diabetes Mellitus Type 1, Internal Pacemaker, Lung Disease, MRSA, Seizures *Have you ever received a pneumonia vaccine?: No *Have you received a flu vaccine this season?: No Other Medical History: Reports: Glaucoma, Thyroid Disease, Other. Denies: Blood Transfusion Reaction Laterality Cases: Bilateral: Myringotomy (Ear Tubes), Tonsillectomy Other Surgeries: Yes: Cholecystectomy, Colonoscopy, Diagnostic Lap, Hernia Repair, Hysterectomy-Total, Tubal Ligation, Other (pancreatic stent, fine needle aspiration on thyroid). No: Pacemaker Amputation: No Fractures: No - *Social History Smoking Status: Current every day smoker Tobacco Type: cigarettes # Packs/Day (cigarettes): 1 #Yrs smoked (if former smoker): 22 Alcohol Intake: never Alcohol Intake Frequency:: holidays/special occasions only Substance Use Type: unknown, crack/cocaine, heroin, former substance user *Occupational Status:: unemployed Housing: house Household Members: other *Travel in the last 8 weeks: None - Psychiatric History Pschychiatric History:: Reports:: Anxiety, Depression Family Hx:: Heart Attack, Cancer, Diabetes
== END ==
PROVIDERS: Visit Provider Clinical Nurse Specialist Family Health
DX: M50.10 Cervical disc disorder with radiculopathy, unspecified cervical region (principal); M47.812 Spondylosis without myelopathy or radiculopathy, cervical region; M54.02 Panniculitis affecting regions of neck and back, cervical region
CPT/HCPCS: 99212; G0463

== ENCOUNTER → 2021-08-30 12:24 | Outpatient (CLI) | payer OTHER, SELFPAY ==
--- NOTE | 2021-08-30 12:30 | XR_ITS ---
PROCEDURE: XR FOOT WT BEARING LT 3V CLINICAL INDICATION: postop views, fracture evaluation COMPARISON: CR XR FOOT LT MIN 3V from 07/07/2021 CR XR FOOT LT 2V from 07/28/2021 CR XR FOOT LT MIN 3V from 07/28/2021 CR XR FOOT WT BEARING LT 3V from 08/03/2021 FINDINGS: The cast has been removed. Prior ORIF 5th and 2nd metatarsal with a longitudinal screw at the 5th metatarsal and a dorsal bone plate at the 2nd metatarsal with good alignment. The joint spaces are well-preserved. No significant degenerative/arthritic changes. No erosive changes evident. Other findings:Small bone island of the calcaneus unchanged. IMPRESSION: Good alignment status post ORIF 2nd and 5th metatarsals not significantly changed Dictated by: Jean-Claude Pittman MD 08/30/2021 13:36 Jean-Claude Pittman MD in [facility] 08/30/2021 13:36
== END ==
PROVIDERS: PCP Emergency Medicine; Visit Provider Podiatrist
DX: S92.322A Displaced fracture of second metatarsal bone, left foot, initial encounter for closed fracture (principal); S92.352A Displaced fracture of fifth metatarsal bone, left foot, initial encounter for closed fracture; Z98.890 Other specified postprocedural states
CPT/HCPCS: 73630

== ENCOUNTER → 2021-09-14 14:42 | Outpatient (CLI) | payer OTHER, SELFPAY ==
[2021-09-14 14:45] LABS: Influenza A, PCR Not Detected (NotDetected); Influenza B, PCR Not Detected (NotDetected)
[2021-09-14 15:20] LABS: Coronavirus 19, PCR Detected (NotDetected)
--- NOTE | 2021-09-15 12:00 | PC.NURSE ---
notified of positive COVID test results at this time
== END ==
PROVIDERS: Visit Provider Emergency Medicine
DX: U07.1 COVID-19 (principal); R05.9 Cough, unspecified
CPT/HCPCS: C9803; U0003; U0005

== ENCOUNTER → 2021-09-27 12:59 | Outpatient (CLI) | payer OTHER, SELFPAY ==
--- NOTE | 2021-09-27 13:08 | XR_ITS ---
PROCEDURE: XR FOOT WT BEARING LT 3V CLINICAL INDICATION: fracture evaluation, postop views COMPARISON: CR XR FOOT LT MIN 3V from 07/07/2021 CR XR FOOT LT 2V from 07/28/2021 CR XR FOOT LT MIN 3V from 07/28/2021 CR XR FOOT WT BEARING LT 3V from 08/03/2021 CR XR FOOT WT BEARING LT 3V from 08/30/2021 FINDINGS: There is a anterior bone plate present along the distal aspect of the 2nd metatarsal with good alignment. Longitudinal screw at the base of the 5th metatarsal. Fracture line is becoming less visible. There is good alignment. IMPRESSION: Prior ORIF 5th metatarsal and 2nd metatarsal with good alignment Dictated by: Jean-Claude Pittman MD 09/27/2021 13:57 Jean-Claude Pittman MD in [facility] 09/27/2021 13:57
--- NOTE | 2021-09-27 13:08 | XR_ITS ---
PROCEDURE: XR FOOT WT BEARING RT 3V CLINICAL INDICATION: pain COMPARISON: CR XR FOOT LT 2V from 07/28/2021 CR XR FOOT LT MIN 3V from 07/28/2021 CR XR FOOT WT BEARING LT 3V from 08/03/2021 CR XR FOOT WT BEARING LT 3V from 08/30/2021 FINDINGS: No fracture or dislocation. No lytic or blastic change. There is normal mineralization. The joint spaces are well-preserved. No significant degenerative/arthritic changes. No erosive changes evident. Other findings:None. IMPRESSION: No acute findings. Dictated by: Jean-Claude Pittman MD 09/27/2021 13:52 Jean-Claude Pittman MD in [facility] 09/27/2021 13:52
== END ==
PROVIDERS: PCP Emergency Medicine; Visit Provider Podiatrist
DX: S92.322A Displaced fracture of second metatarsal bone, left foot, initial encounter for closed fracture (principal); S92.352A Displaced fracture of fifth metatarsal bone, left foot, initial encounter for closed fracture; S92.902A Unspecified fracture of left foot, initial encounter for closed fracture
CPT/HCPCS: 73630

== ENCOUNTER → 2021-10-15 14:47 | Outpatient (CLI) | payer OTHER, SELFPAY ==
--- NOTE | 2021-10-15 14:48 | CT_ITS ---
PROCEDURE INFORMATION: Exam: CT Left Lower Extremity Without Contrast, Foot Exam date and time: 10/15/2021 2:48 PM Age: 36 years old Clinical indication: Pain and injury or trauma; Fall; Fracture, traumatic and swelling (edema); Foot; Left; Routine healing; Prior surgery; Surgery date: 1-6 months; Additional info: Fracture evaluation, surgery jul 2021, swelling and pain since TECHNIQUE: Imaging protocol: CT of the Left lower extremity without contrast was performed. Exam focused on the foot. 3D rendering (Not supervised by radiologist): MIP and/or 3D reconstructed images were created by the technologist. Radiation optimization: All CT scans at this facility use at least one of these dose optimization techniques: automated exposure control; mA and/or kV adjustment per patient size (includes targeted exams where dose is matched to clinical indication); or iterative reconstruction. COMPARISON: CT FOOT LT WO CON 07/21/2021 8:24 AM FINDINGS: Bones/joints: Screw fixation fracture base of fifth metatarsal. Fracture line faintly visualized, decreased in conspicuity. Plate and screw fixation fracture distal shaft of second metatarsal. Mild external callus formation. Fracture line faintly visualized, decreased in conspicuity. No definite hardware loosening. No dislocation. Soft tissues: Mild soft tissue swelling along dorsum of forefoot. IMPRESSION: Healing fractures as above.
== END ==
PROVIDERS: PCP Emergency Medicine; Visit Provider Podiatrist
DX: S92.322A Displaced fracture of second metatarsal bone, left foot, initial encounter for closed fracture (principal); S92.352A Displaced fracture of fifth metatarsal bone, left foot, initial encounter for closed fracture; G89.18 Other acute postprocedural pain; Z98.890 Other specified postprocedural states
CPT/HCPCS: 73700

== ENCOUNTER → 2021-11-04 09:45 | Outpatient (CLI) | payer OTHER, SELFPAY ==
--- NOTE | 2021-11-04 09:49 | US_ITS ---
FINAL REPORT CLINICAL HISTORY: THYROID NODULE-- prev fna COMPARISON: October 05, 2020 FINDINGS: THYROID ULTRASOUND Sonographic images of the thyroid was obtained. The right lobe of the thyroid measures 1.8 x 4.5 x 2.5 cm. The left lobe of the thyroid measures 0.9 x 4.2 x 1.5 cm. The isthmus measures 0.4 cm. There is a dominant mass in the right lobe measuring 1.6 x 1.0 cm and was previously 1.4 x 0.9 cm. This has slightly increased in size. There is a 2nd solid, hypoechoic 6 mm nodule that is stable. IMPRESSION: Slightly increased in size right lobe mass. TI-RADS 4. Since this has been previously biopsied, recommend additional follow-up ultrasound. Reviewed, Interpreted and Dictated by Navi Diane III, MD Transcribed by Viridiana Alvarado Authenticated by Navi Diane III, MD on 11/04/2021 12:47:31 PM [facility]
== END ==
PROVIDERS: PCP Emergency Medicine; Visit Provider Otolaryngology
DX: E04.1 Nontoxic single thyroid nodule (principal)
CPT/HCPCS: 76536

== ENCOUNTER → 2021-11-08 10:02 | Outpatient (POV) | payer OTHER, SELFPAY ==
[2021-11-08 10:21] VITALS: BP 150/89; PULSE 99; RESP 18; O2SAT 96; BMI 37.2
--- NOTE | 2021-11-08 10:32 | HMH.PAINSOAP ---
[facility] Pain Management SOAP Note Subjective:: Patient is a 36 year old female following up for medication refills. She also undergoes injective therapy in our clinic. In February 2021, she did undergo RFA cervical spine with excellent relief at about 90%. Pain has returned. Reports pain to be worse with turning head. She is having numbness and tingling along with pain to right upper extremity. Pain is worse with driving to right upper extremity. She is also having low back pain with radiation in bilateral buttock and hips. She underwent bilateral SI injections in the past with 100% relief for approximately one year. Pain is worse to neck at this time. She is ibterested in proceding with repeat RFA neck and then SI injections lumbar spine. She does get gabapentin 300 mg 1 tab po tid and flexeril. Review of Systems General: No recent weight changes, no fever, no sleep disturbances Respiratory: No cough, no shortness of air, no recurring pulmonary infections Cardiovascular/peripheral vascular: No chest pain, no palpitations, no edema, no shortness of breath Gastrointestinal: No new onset incontinence, normal bowel movements reported Genitourinary: No new onset incontinence Musculoskeletal: neck pain with radiation into right upper extremity, bilateral low back pain radiating into bilateral buttock and hips Psychiatric: [Normal mood/affect] Neurological: [Denies weakness in extremities], [denies balance issues] Objective:: Physical exam General: Alert and oriented x3, no acute distress, pleasant and cooperative Lungs: Respirations even and unlabored, symmetrical chest expansion Eyes: PERRL Musculoskeletal: Flexion and extension of cervical and lumbar [spine] somewhat guarded secondary to pain, [antalgic gait noted], positive fortins test, compression test, fabers test, distraction test bilaterally Neurological: Speech clear, no gross sensory deficit Assessment:: sacroiliitis bilateral, degenerative disc disease cervical spine with cervical facet arthropathy and cervical spondylosis Plan:: We will continue gabapentin 300 mg po tid, flexeril 10 mg po tid, and will schedule her for repeat RFA C5-6, C6-7 to right side. She is not on any anticoagulation therapy and is not diabetic. we will see her back afterwards for further evaluation. Risks and benefits of the procedure have been explained to the patient. Patient would like to proceed with the procedure. Patient has been instructed to contact the clinic with any concerns before the next appointment. Dr. Kearns has reviewed this note and agrees with this plan of care. This note was dictated using voice recognition software and make contain errors or omissions. [facility] History I have reviewed the patient's past medical history: Yes Medical History: Reports:: Anxiety, Arrhythmia, Depression, Diabetes Mellitus Type 2, Gastroesophageal Reflux Disease(GERD), Hiatal Hernia, Hyperlipidemia, Hypertension, Kidney Stones, Migraine, Palpitations Denies:: Cancer, Diabetes Mellitus Type 1, Internal Pacemaker, Lung Disease, MRSA, Seizures *Have you ever received a pneumonia vaccine?: No *Have you received a flu vaccine this season?: No Other Medical History: Reports: Glaucoma, Thyroid Disease, Other. Denies: Blood Transfusion Reaction Laterality Cases: Bilateral: Myringotomy (Ear Tubes), Tonsillectomy Other Surgeries: Yes: Cholecystectomy, Colonoscopy, Diagnostic Lap, Hernia Repair, Hysterectomy-Total, Tubal Ligation, Other (pancreatic stent, fine needle aspiration on thyroid). No: Pacemaker Amputation: No Fractures: No - *Social History Smoking Status: Current every day smoker Tobacco Type: cigarettes # Packs/Day (cigarettes): 1 #Yrs smoked (if former smoker): 22 Alcohol Intake: never Alcohol Intake Frequency:: holidays/special occasions only Substance Use Type: unknown, crack/cocaine, heroin, former substance user *Occupational Status:: unemployed Housing: house Household Members: ot
== END ==
PROVIDERS: Visit Provider Clinical Nurse Specialist Family Health
DX: M46.1 Sacroiliitis, not elsewhere classified (principal); M50.10 Cervical disc disorder with radiculopathy, unspecified cervical region; M47.892 Other spondylosis, cervical region
CPT/HCPCS: 99212; G0463

== ENCOUNTER 2021-12-10 14:33 | Day surgery (SDC) | payer OTHER, SELFPAY ==
[2021-12-10 14:39] VITALS: BP 120/80; BP 129/86; PULSE 99; RESP 18; TEMP 36.5; O2SAT 96; O2SAT 99; BMI 37.9
[2021-12-10 15:05] VITALS: BP 121/82; PULSE 100; RESP 18; O2SAT 97
--- NOTE | 2021-12-10 15:13 | P.PCN_ITS ---
- Procedure Date: 12/10/21 Time: 15:13 Anesthesiologist:: Zoya Hendrix MD Complications:: None Pre-procedure Diagnosis:: Disease of the cervical spine with cervical facet arthropathy and spondylosis Post-procedure Diagnosis:: Same Indications for Procedure:: This patient is a very pleasant 36-year-old white female who presents today with chronic neck pain related to the above diagnosis. She has tried and failed conservative treatment including oral pain medications and home stretching program for greater than 6 weeks. She has previously undergone left-sided cervical RFA at C5-C6 and C6-C7 and notes significant improvement that is ongoing. She is very eager to proceed with the right side of her neck today. The plan for today is for the patient to undergo right-sided cervical RFA at C5- C6 C6-C7 under fluoroscopy. Procedure Details:: Cervical RFA Informed consent was obtained and the risk and benefits of the procedure was explained to the patient. Patient was placed prone on the procedure table. The patient was prepped and draped in sterile fashion. C-arm fluoroscopy was used to view the lumbar spine. The skin and subcutaneous tissues were anesthetized using lidocaine. I placed 20-gauge RF needles into the facet joints of [C5-6, C6-7] levels on the left side. We underwent sensory stimulation. There is good sensory stimulation at 0.8 V. We underwent motor stimulation. There is no motor stimulation at 3 V. We then anesthetized these levels with lidocaine and Depo-Medrol. I used a total of 40 mg Depo-Medrol for all 2 levels. I then burned all 3 levels of C5-6, C6-7 facet joint/medial branches on the right side for 4 minutes at 80?C. Patient tolerated the procedure well with no complication. Plan and Disposition:: Follow-up with this patient in 2 weeks and will reevaluate pain symptoms at that time.
[2021-12-10 15:30] VITALS: BP 128/77; PULSE 96; RESP 20; O2SAT 97
== END 2021-12-10 15:30 | disposition home or self-care (01) ==
LOC: SC.PAINP 14:34
PROVIDERS: PCP Emergency Medicine; Visit Provider Anesthesiology Pain Medicine
DX: M50.30 Other cervical disc degeneration, unspecified cervical region (principal); M54.02 Panniculitis affecting regions of neck and back, cervical region; M47.812 Spondylosis without myelopathy or radiculopathy, cervical region; G43.909 Migraine, unspecified, not intractable, without status migrainosus; E78.5 Hyperlipidemia, unspecified; I10 Essential (primary) hypertension; K21.9 Gastro-esophageal reflux disease without esophagitis; E11.9 Type 2 diabetes mellitus without complications; F32.A Depression, unspecified; Z87.442 Personal history of urinary calculi
CPT/HCPCS: 64633; 64634; J1040

== ENCOUNTER → 2022-01-06 11:17 | Outpatient (POV) | payer OTHER, SELFPAY ==
[2022-01-06 11:40] VITALS: BP 147/82; PULSE 101; RESP 20; TEMP 36.5; O2SAT 95; BMI 37.9
--- NOTE | 2022-01-06 14:07 | HMH.PAINSOAP ---
[facility] Pain Management SOAP Note Subjective:: Patient is a pleasant 36-year-old female who presents today for follow-up after a right cervical RFA at C5-C6 and C6-C7. After the procedure, patient had significant relief about 90 to 100%. She underwent a left-sided cervical RFA at C5-C6 and C6-C7 previously. Today, patient is complaining of bilateral hip/SI pain. She previously had bilateral SI injections in the past that helped her significantly. She feels like she needs a repeat of this injection. Patient cannot tolerate sitting, standing, and walking for long periods of time. She rates her pain today as 6 out of 10. For pain management, she is taking gabapentin 600 mg 4 times a day, and Flexeril 10 mg 3 times a day. [facility] #[id number] with an active morphine equivalent of 0. Review of Systems: General: No recent weight changes, no fever, no sleep disturbances Respiratory: No cough, no shortness of air, no recurring pulmonary infections Cardiovascular/peripheral vascular: No chest pain, no palpitations, no edema, no shortness of breath Gastrointestinal: No new onset incontinence, normal bowel movements reported Genitourinary: No new onset incontinence Musculoskeletal: Bilateral hip/SI pain Psychiatric: [Normal mood/affect] Neurological: [Denies weakness in extremities], [denies balance issues] Objective:: General: Alert and oriented x3, no acute distress, pleasant and cooperative, [on room air] Lungs: Respirations even and unlabored, symmetrical chest expansion Eyes: PERRL Musculoskeletal: Flexion and extension of cervical [spine] somewhat guarded secondary to pain; bilateral SIR positive for ANTONINA, Eren's, Waterbury's, Gaenslen's, compression, and distraction. Neurological: Speech clear, no gross sensory deficit Assessment:: Bilateral sacroiliitis Generative disc disease of the cervical spine with cervical radiculopathy symptoms, cervical facet arthropathy, cervical spondylosis Plan:: Patient continues to have relief after her right cervical RFA at C5-C6, C6-C7. She has also undergone a left-sided cervical RFA at C5-C6 and C6-C7. She had 9200% relief of symptoms after these RFA's. Today, patient is complaining of bilateral SI pain. Bilateral SI are positive for ANTONINA, Eren's, [place]'s, Gaenslen's, compression, and distraction. Patient had bilateral SI injections in the past to provide her significant relief. We will schedule the patient for bilateral SI injection. Risks and benefits of the procedure have been explained to the patient. Patient would like to proceed with the procedure. We will continue the patient's gabapentin and Flexeril. We will provide the patient with 3 months worth of refill. Follow-up after the bilateral SI injection Patient has been instructed to contact the clinic with any concerns before the next appointment. Dr. Kearns has reviewed this note and agrees with this plan of care. This note was dictated using voice recognition software and make contain errors or omissions. [facility] History Medical History: Reports:: Anxiety, Arrhythmia, Depression, Diabetes Mellitus Type 2, Gastroesophageal Reflux Disease(GERD), Hiatal Hernia, Hyperlipidemia, Hypertension, Kidney Stones, Migraine, Palpitations Denies:: Cancer, Diabetes Mellitus Type 1, Internal Pacemaker, Lung Disease, MRSA, Seizures *Have you ever received a pneumonia vaccine?: No *Have you received a flu vaccine this season?: No Other Medical History: Reports: Glaucoma, Thyroid Disease, Other. Denies: Blood Transfusion Reaction Laterality Cases: Bilateral: Myringotomy (Ear Tubes), Tonsillectomy Other Surgeries: Yes: Cholecystectomy, Colonoscopy, Diagnostic Lap, Hernia Repair, Hysterectomy-Total, Tubal Ligation, Other (pancreatic stent, fine needle aspiration on thyroid). No: Pacemaker Amputation: No Fractures: No - *Social History Smoking Status: Current every day smoker Tobacco Type: cigarettes # Packs/Day (cigarettes): 1 #Yrs smoked (if former
== END ==
PROVIDERS: Visit Provider Student in an Organized Health Care Education/Training Program
DX: M46.1 Sacroiliitis, not elsewhere classified (principal); M50.10 Cervical disc disorder with radiculopathy, unspecified cervical region; M54.02 Panniculitis affecting regions of neck and back, cervical region; M47.892 Other spondylosis, cervical region
CPT/HCPCS: 99212; G0463

== ENCOUNTER 2022-01-21 10:48 | Day surgery (SDC) | payer OTHER, SELFPAY ==
[2022-01-21 11:03] VITALS: BP 121/73; BP 130/73; PULSE 86; PULSE 94; RESP 20; TEMP 36.6; O2SAT 96; BMI 37.9
--- NOTE | 2022-01-21 11:17 | P.PCN_ITS ---
- Procedure Date: 01/21/22 Time: 11:17 Anesthesiologist:: Phu Torrez CRNA Complications:: None Pre-procedure Diagnosis:: Bilateral sacroiliitis Post-procedure Diagnosis:: Same Indications for Procedure:: Patient is a pleasant 36-year-old white female who comes today for bilateral SI joint injections. She is previously had bilateral SI joint injections with significant improvement. We will proceed with bilateral SI joint injections. Patient describes her bilateral posterior hip pain is constant, dull, aching. She rates the pain 7/10. She has extreme point tenderness over the bilateral SI joints. Procedure Details:: Procedure: Bilateral sacroiliac joint injections under fluoroscopy Informed consent was obtained and the risks and benefits of the procedure were explained to the patient.~ The patient was taken to the procedure room and noninvasive monitors were placed including a noninvasive blood pressure cuff and pulse oximeter.~ The patient was placed prone on the procedure table. Both hips were cleansed using Betadine as a cleansing solution. C-arm fluoroscopy was used to view the right sacroiliac joint.~ The skin and subcutaneous tissues were anesthetized using lidocaine 1.5% and a 25-gauge needle.~ After this, a 22-gauge spinal needle was inserted under fluoroscopic guidance into the inferior aspect of the right sacroiliac joint.~ Omnipaque dye was injected and good spread was seen throughout the joint.~ After this, approximately 5 mL of bupivacaine, 0.25% and Depo-Medrol, 40 mg was incrementally injected into the right sacroiliac joint. We then moved to the left sacroiliac joint.~ The skin and subcutaneous tissues were anesthetized using lidocaine 1.5% and a 25-gauge needle.~ After this, a 22- gauge spinal needle was inserted under fluoroscopic guidance into the inferior aspect of the left sacroiliac joint.~ Omnipaque dye was injected and good spread was seen throughout the joint. After this, approximately 5 mL of bupivacaine, 0.25% and Depo-Medrol, 40 mg was incrementally injected into the left sacroiliac joint.~ The patient tolerated the procedure well with no complications. The patient was observed in the Pain Clinic and then was discharged home neurologically intact. Plan and Disposition:: Patient was discharged home without incident. She will return to see us in the clinic for follow-up visit
[2022-01-21 11:28] VITALS: BP 129/77; PULSE 96; RESP 18; O2SAT 95
== END 2022-01-21 11:16 | disposition home or self-care (01) ==
LOC: SC.PAINP 10:49
PROVIDERS: PCP Emergency Medicine; Visit Provider Nurse Anesthetist, Certified Registered
DX: M46.1 Sacroiliitis, not elsewhere classified (principal); F41.9 Anxiety disorder, unspecified; F32.A Depression, unspecified; E11.9 Type 2 diabetes mellitus without complications; K21.9 Gastro-esophageal reflux disease without esophagitis; E78.5 Hyperlipidemia, unspecified; I10 Essential (primary) hypertension; G43.909 Migraine, unspecified, not intractable, without status migrainosus; R00.2 Palpitations; Z72.0 Tobacco use
CPT/HCPCS: 27096; G0260; J1040

== ENCOUNTER → 2022-02-04 08:46 | Outpatient (CLI) | payer OTHER, SELFPAY ==
[2022-02-04 17:43] LABS: Basophils # 0.2 K/mm3 (0-0.2); Basophils % 1.8 % (0.1-2.0); Eosinophils # 0.2 K/mm3 (0.0-0.4); Eosinophils % 2.1 % (0.1-12.0); Hematocrit 44.5 % (37.0-47.0); Hemoglobin 14.8 g/dL (12.2-16.2); Lymphocytes # 2.4 K/mm3 (0.7-4.5); Lymphocytes % 21.2 % (10-50); Mean Corpuscular HGB Conc 33.2 g/dL (31.8-35.4); Mean Corpuscular Hemoglobin 31.3 pg (27.0-31.2); Mean Corpuscular Volume 94.3 fl (81-99); Mean Platelet Volume 10.3 fl (7.4-10.4); Monocytes # 0.5 K/mm3 (0.1-1.0); Monocytes % 4.9 % (1.7-9.3); Neutrophils # 7.7 K/mm3 (1.8-7.8); Platelet Count 261 K/mm3 (142-424); Red Blood Count 4.72 M/mm3 (4.20-5.40); Red Cell Distribution Width 13.1 % (11.5-17.5); White Blood Count 11.1 K/mm3 (4.8-10.8)
[2022-02-04 18:31] LABS: Alanine Aminotransferase 22 U/L (12-78); Albumin Level 4.5 g/dl (3.5-5.0); Albumin/Globulin Ratio 1.8 (1.1-1.8); Alkaline Phosphatase 94 U/L (38-126); Amylase 49 U/L (30-110); Anion Gap 12.8 mEq/L (5-15); Aspartate Amino Transferase 25 U/L (14-36); Bilirubin,Total 0.4 mg/dl (0.2-1.3); Blood Urea Nitrogen 11 mg/dl (7-17); Calcium 8.8 mg/dl (8.4-10.2); Carbon Dioxide 27 mmol/L (22.0-30.0); Chloride 102 mmol/L (98-107); Estimated Glomerular Filt Rate 113 ml/min (>60); GFR (African American) 137 ML/MIN (>60); Globulin 2.5 g/dL (1.3-3.2); Glucose 99 mg/dl (74-100); Lipase 65 U/L (23-300); Potassium 3.8 mmoL/L (3.5-5.1); Sodium 138 mmol/L (136-145)
== END ==
PROVIDERS: PCP Emergency Medicine; Visit Provider Emergency Medicine
DX: E66.9 Obesity, unspecified (principal); Z68.38 Body mass index [BMI] 38.0-38.9, adult; Z79.899 Other long term (current) drug therapy
CPT/HCPCS: 80053; 82150; 83690; 85025

== ENCOUNTER → 2022-02-14 11:03 | Outpatient (POV) | payer OTHER, SELFPAY ==
--- NOTE | 2022-02-14 11:46 | HMH.PAINSOAP ---
[facility] Pain Management SOAP Note Subjective:: This patient is a pleasant 36-year-old white female that returns our clinic today after receiving bilateral SI joint injections. Patient reports 75% improvement terms of her posterior hip pain. Patient very happy with the results of the injections. Objective:: Patient is awake alert oriented x3. No acute distress. Flexion and extension lumbar spine normal. Deep tendon reflexes upper and lower extremities normal. Motor strength upper and lower extremities normal. There is no gross sensory deficit. Gait is normal. Assessment:: Bilateral sacroiliitis. Low back pain. Plan:: Patient return to follow-up as needed. We will call in Flexeril 10 mg 1 p.o. 3 times daily. Also, side note we have been writing gabapentin 600 mg 1 p.o. 4 times daily for her. However, patient reports to me that Dr. Castro called this in for her recently. She was unsure why this happened. However, she has plenty of gabapentin at this time. [facility] History Medical History: Reports:: Anxiety, Arrhythmia, Cancer, Depression, Diabetes Mellitus Type 2, Gastroesophageal Reflux Disease(GERD), Hiatal Hernia, Hyperlipidemia, Hypertension, Kidney Stones, Migraine, Palpitations Denies:: Diabetes Mellitus Type 1, Internal Pacemaker, Lung Disease, MRSA, Seizures *Have you ever received a pneumonia vaccine?: No *Have you received a flu vaccine this season?: No Other Medical History: Reports: Arthritis, Glaucoma, Thyroid Disease, Other. Denies: Blood Transfusion Reaction Laterality Cases: Bilateral: Myringotomy (Ear Tubes), Tonsillectomy Other Surgeries: Yes: No Previous Surgery, Cholecystectomy, Colonoscopy, Diagnostic Lap, Hernia Repair, Hysterectomy-Total, Tubal Ligation, Other (pancreatic stent, fine needle aspiration on thyroid). No: Pacemaker Amputation: No Fractures: Yes - *Social History Smoking Status: Current every day smoker Tobacco Type: cigarettes # Packs/Day (cigarettes): 1 #Yrs smoked (if former smoker): 22 Alcohol Intake: never Alcohol Intake Frequency:: holidays/special occasions only Substance Use Type: unknown, crack/cocaine, heroin, former substance user *Occupational Status:: other Housing: house Household Members: other, children *Travel in the last 8 weeks: Inside the [facility] - Psychiatric History Pschychiatric History:: Reports:: Anxiety, Depression Family Hx:: No significant family history
[2022-02-14 12:29] VITALS: BP 149/77; PULSE 89; RESP 18; TEMP 36.4; O2SAT 95; BMI 38.2
== END ==
PROVIDERS: Visit Provider Nurse Anesthetist, Certified Registered
DX: M46.1 Sacroiliitis, not elsewhere classified (principal); M54.50 Low back pain, unspecified
CPT/HCPCS: 99212; G0463

== ENCOUNTER → 2022-02-14 11:52 | Outpatient (CLI) | payer OTHER, SELFPAY ==
--- NOTE | 2022-02-14 11:54 | XR_ITS ---
FINAL REPORT CLINICAL HISTORY: post-op pain on lateral side of foot COMPARISON: September 27, 2021 FINDINGS: 3 views of the right foot were obtained. There are postoperative changes in the 2nd and 5th metatarsals, stable from prior. There is no acute fracture or dislocation. The joint spaces are intact. The soft tissues are unremarkable. IMPRESSION: No acute process. Reviewed, Interpreted and Dictated by Navi Diane III, MD Transcribed by Darius Real Authenticated by Navi Diane III, MD on 02/14/2022 01:00:58 PM [facility]
== END ==
PROVIDERS: PCP Emergency Medicine; Visit Provider Podiatrist
DX: M79.672 Pain in left foot (principal); Z98.890 Other specified postprocedural states
CPT/HCPCS: 73630

== ENCOUNTER → 2022-02-22 12:21 | Outpatient (CLI) | payer OTHER, SELFPAY | PROVIDERS: PCP Emergency Medicine; Visit Provider Physician Assistant | DX: R00.2 Palpitations (principal) | CPT/HCPCS: 93270 ==

== ENCOUNTER 2022-03-06 15:41 | Emergency (ER) | payer OTHER, SELFPAY ==
[2022-03-06 15:44] VITALS: BP 134/57; PULSE 106; RESP 16; TEMP 36.6; O2SAT 96; BMI 37.7
--- NOTE | 2022-03-06 16:00 | XR_ITS ---
PROCEDURE INFORMATION: Exam: XR Left Foot Exam date and time: 03/06/2022 4:00 PM Age: 36 years old Clinical indication: Pain; Foot; Left; Prior surgery; Additional info: Left lateral pain TECHNIQUE: Imaging protocol: XR Left foot. Views: 3 or more views. COMPARISON: CR XR FOOT WT BEARING LT 3V 02/14/2022 11:57 AM FINDINGS: Tubes, catheters and devices: There is a cannulated screw involving the proximal 5th metatarsal. There is lateral plate and screw fixation involving the distal 2nd metatarsal. No hardware complication. No acute fracture or dislocation. Bones/joints: See Tubes, catheters and devices finding. Soft tissues: Normal. IMPRESSION: No acute findings.
--- NOTE | 2022-03-06 17:02 | HMH.EDGENADL ---
ED Disposition Clinical Impression: Left foot pain Disposition: Home, Self-Care Condition on Discharge: Good Additional Instructions: Use boot and crutches/scooter as needed. Call Dr. Espinoza tomorrow to arrange follow-up to be seen as soon as possible. [place] as needed for pain. Additional instructions for CONTROLLED SUBSTANCES: You have been prescribed a medication that is a controlled substance. Controlled substances include pain medications known as opiates and sedative nerve medications known as benzodiazepines. Tramadol, fioricet, and gabapentin are also controlled substances. Some common opiates include: Codeine (such as Tylenol #3) Hydrocodone (Vicodin, Lortab, Lorcet, [place]) Oxycodone (Percocet, Percodan, Oxycodone, Oxy IR) Some common benzodiazepines include: Diazepam (Valium) Lorazepam (Ativan) Alprazolam (Xanax) Clonazepam (Klonopin) Oxazepam (Serax) All of these controlled substances are highly addictive and frequently abused. Misuse can and frequently does lead to addiction as well as overdose and . Medication should be stored in a locked cabinet or other secure storage unit. Do not store the medication in a motor vehicle. Short term supplies, 3 days or less, are prescribed because of the highly addictive nature of the medication. Any of the controlled substance medication NOT taken should be disposed of properly and NOT SAVED. The recommended method of disposing of unused medications is: Place the medicines in a sealable plastic bag. If the medicine is a solid, crush it or add water to dissolve it. Add something undesirable (cat litter, coffee grounds, etc.) Dispose of sealed bag in household trash Do not flush or pour unused medicines down a sink or drain. Controlled substances should not be shared, given away or sold. Because of the addictive nature and frequent abuse, these medications are sometimes stolen. These medications should be kept in a safe place where they cannot be stolen. Do not keep them in your car or purse. Lost or stolen prescriptions for controlled substances WILL NOT BE REFILLED in this emergency department, regardless of whether a police report was filed. Prescriptions: Hydrocod/Acet 5/325 mg [[place] 5/325mg tablet] 1 tab PO Q6HP PRN #10 tab PRN Reason: Pain Transmission Status: Sent to [id number] Referrals: Jesus Manuel Castro MD [Primary Care Provider] - - Critical Care Critical Care Time: No Attestation: On 03/06/22, the high probability of a clinically significant, sudden or life threatening deterioration of the following system(s) required my full and direct attention, intervention and personal management. The time I documented below is in addition to time spent performing reported procedures but includes the following listed in this critical care notation. Medical Decision Making - [place] Inquiry Pt receiving controlled substance: Yes [place] was queried for this patient: Yes Risks and benefits of using a controlled substance: were discussed with pt by me Vital Signs: 03/06/22 15:44 03/06/22 17:05 Temperature 98 F Temperature Source Oral Pulse Rate 77 Pulse Rate [Radial] 106 H Respiratory Rate 16 Blood Pressure 114/47 L Blood Pressure [Right Arm] 134/57 L Blood Pressure Mean 78 Blood Pressure Mean [Right Arm] 82 Blood Pressure Position [Right Arm] Sitting 02 Sat by Pulse Oximetry 96 96 Oxygen Delivery Method Room Air - Radiology Data #1 Image(s): Foot/Toes Image Reviewed: Yes I have reviewed radiologist's interpretation PROCEDURE INFORMATION: Exam: XR Left Foot Exam date and time: 03/06/2022 4:00 PM Age: 36 years old Clinical indication: Pain; Foot; Left; Prior surgery; Additional info: Left lateral pain TECHNIQUE: Imaging protocol: XR Left foot. Views: 3 or more views. COMPARISON: CR XR FOOT WT BEARING LT 3V 02/14/2022 11:57 AM FINDINGS: Tubes, catheters and devices:
[2022-03-06 17:05] VITALS: BP 114/47; PULSE 77; O2SAT 96
[2022-03-06 17:30] VITALS: BP 116/63; PULSE 89; O2SAT 95
[2022-03-06 17:43] VITALS: BP 116/63; PULSE 63; RESP 16; TEMP 36.6; O2SAT 98
== END 2022-03-06 17:45 | disposition home or self-care (01) ==
PROVIDERS: Emergency Provider Emergency Medicine; PCP Emergency Medicine
DX: M79.672 Pain in left foot (principal); M85.80 Other specified disorders of bone density and structure, unspecified site; F32.A Depression, unspecified; F41.9 Anxiety disorder, unspecified; E11.9 Type 2 diabetes mellitus without complications; K21.9 Gastro-esophageal reflux disease without esophagitis; E78.5 Hyperlipidemia, unspecified; I10 Essential (primary) hypertension; G43.909 Migraine, unspecified, not intractable, without status migrainosus; R00.2 Palpitations; Z79.82 Long term (current) use of aspirin; Z79.84 Long term (current) use of oral hypoglycemic drugs; Z79.51 Long term (current) use of inhaled steroids; Z79.899 Other long term (current) drug therapy
CPT/HCPCS: 73630; 96372; 99283

== ENCOUNTER 2022-03-16 19:18 | Emergency (ER) | payer OTHER, SELFPAY ==
[2022-03-16 19:20] VITALS: BP 130/77; PULSE 93; RESP 18; TEMP 36.3; O2SAT 98; BMI 37.9
--- NOTE | 2022-03-16 19:34 | XR_ITS ---
PROCEDURE INFORMATION: Exam: XR Left Foot Exam date and time: 03/16/2022 7:31 PM Age: 36 years old Clinical indication: Foot; Left; Prior surgery; Surgery type: Pain and swelling, no known injury; Additional info: Trauma TECHNIQUE: Imaging protocol: XR Left foot. Views: 3 or more views. COMPARISON: CR XR FOOT LT MIN 3V 03/06/2022 4:00 PM FINDINGS: Bones/joints: Fixation plate and 4 corticomedullary screws are identified along the distal and mid diaphysis of the 2nd metatarsal. A corticomedullary screw enters from base of the 5th metatarsal and terminates in the proximal diaphysis. Soft tissues: Normal. IMPRESSION: 1. Fixation plate and 4 corticomedullary screws are identified along the distal and mid diaphysis of the 2nd metatarsal. 2. A corticomedullary screw enters from base of the 5th metatarsal and terminates in the proximal diaphysis.
--- NOTE | 2022-03-16 19:40 | HMH.EDEXTP ---
ED Disposition Clinical Impression: Left foot pain Disposition: Home, Self-Care Condition on Discharge: Good Instructions: DI for Chronic Pain -- Adult Prescriptions: methocarbamoL [Methocarbamol 500mg Tablet] 1,000 mg PO TID 10 Days #60 tab Transmission Status: Pending to [facility] Referrals: Jesus Manuel Castro MD [Primary Care Provider] - - Critical Care Critical Care Time: No Attestation: On , the high probability of a clinically significant, sudden or life threatening deterioration of the following system(s) required my full and direct attention, intervention and personal management. The time I documented below is in addition to time spent performing reported procedures but includes the following listed in this critical care notation. Medical Decision Making - Medical Records Medical records reviewed: Yes: I reviewed the patient's medical records. - [place] Inquiry Pt receiving controlled substance: Yes [place] was queried for this patient: Yes Reference #:: [id number] Risks and benefits of using a controlled substance: were discussed with pt by me Vital Signs: 03/16/22 19:20 Temperature 97.3 F L Temperature Source Oral Pulse Rate [Right] 93 H Respiratory Rate 18 Blood Pressure [Right Arm] 130/77 Blood Pressure Mean [Right Arm] 94 02 Sat by Pulse Oximetry 98 Orders (Tests/Meds): ED MEDICATIONS Discontinued Medications Generic Name Dose Route Start Last Admin Trade Name Peng PRN Reason Stop Dose Admin Morphine Sulfate 4 mg 03/16/22 19:34 03/16/22 19:50 Morphine 2mg/Ml Syringe IM 03/16/22 19:35 4 mg ONCE ONE Administration - Radiology Data #1 Image(s): Foot/Toes Image Reviewed: Yes I reviewed the patient's radiology results, Yes I reviewed the patient's radiology image, Yes I have reviewed radiologist's interpretation IMPRESSION: 1. Fixation plate and 4 corticomedullary screws are identified along the distal and mid diaphysis of the 2nd metatarsal. 2. A corticomedullary screw enters from base of the 5th metatarsal and terminates in the proximal diaphysis. - Reevaluation(s) Time: 20:03 Reevaluation #1: On reevaluation, patient is feeling better. X-rays unremarkable. Patient with follow-up with PCP and podiatry. Given strict return precautions. Verbalized understanding. Medical Decision Narrative: 36-year-old female presented to the emergency department with some left foot pain. The patient appears to have some chronic pain secondary to a previous injury and surgery. She states that she needs to get a CT scan because her insurance would not approve it. Did explain to the patient that she is not deemed appropriate for emergent CT at this time. There is no deformity. No neurovascular compromise. Imaging will be obtained. Patient provided analgesics. Extremity Problem HPI - General Chief complaint: Extremity Injury, Lower Stated complaint: Left foot pain Time Seen by Provider: 03/16/22 19:41 Mode of Arrival: Ambulatory Limitations: No Limitations Description of Symptoms (Recalled from ER Triage Doc. by RN): pt c/o lt foot pain. pt broke foot in july and had surgery. pt denies any new trauma to foot. pt c/o of swelling and pain of lt foot. pt has follow up with dr fang and is awaiting a ct scan. - History of Present Illness HPI Narrative: 36-year-old female presented to the emergency department with some left foot pain. The patient has a history of severe foot pain in this region. She has had a fixation secondary to fracture as well as tendon rupture. This was done by podiatry. Since then and for the past few weeks, the patient has been endorsing increased pain in that area. She denies any new trauma to the area, but complains of pain. States that the pain is causing her to have difficulty sleeping. She has follow-up with her primary and podiatry on Monday but did not think she can make it that long. She denies any fev
[2022-03-16 20:02] VITALS: BP 124/78; PULSE 90; RESP 18; TEMP 36.4; O2SAT 98
== END 2022-03-16 20:13 | disposition home or self-care (01) ==
PROVIDERS: Emergency Provider Emergency Medicine; PCP Emergency Medicine
DX: M79.672 Pain in left foot (principal); E11.9 Type 2 diabetes mellitus without complications; E78.5 Hyperlipidemia, unspecified; I10 Essential (primary) hypertension; K21.9 Gastro-esophageal reflux disease without esophagitis; Z79.899 Other long term (current) drug therapy
CPT/HCPCS: 73630; 96372; 99283

== ENCOUNTER → 2022-03-18 14:46 | Outpatient (CLI) | payer OTHER, SELFPAY ==
[2022-03-18 14:20] LABS: Alanine Aminotransferase 17 U/L (12-78); Albumin Level 4.9 g/dl (3.5-5.0); Albumin/Globulin Ratio 1.9 (1.1-1.8); Alkaline Phosphatase 101 U/L (38-126); Anion Gap 14.9 mEq/L (5-15); Aspartate Amino Transferase 22 U/L (14-36); Basophils # 0.2 K/mm3 (0-0.2); Basophils % 1.3 % (0.1-2.0); Bilirubin,Total 0.2 mg/dl (0.2-1.3); Blood Urea Nitrogen 14 mg/dl (7-17); Calcium 9.6 mg/dl (8.4-10.2); Carbon Dioxide 30 mmol/L (22.0-30.0); Chloride 95 mmol/L (98-107); Eosinophils # 0.3 K/mm3 (0.0-0.4); Eosinophils % 1.9 % (0.1-12.0); Estimated Glomerular Filt Rate 95 ml/min (>60); GFR (African American) 115 ML/MIN (>60); Globulin 2.6 g/dL (1.3-3.2); Glucose 75 mg/dl (74-100); Hematocrit 48.2 % (37.0-47.0); Hemoglobin 16.4 g/dL (12.2-16.2); Lymphocytes # 2.5 K/mm3 (0.7-4.5); Lymphocytes % 17.8 % (10-50); Mean Corpuscular HGB Conc 34.1 g/dL (31.8-35.4); Mean Corpuscular Hemoglobin 31.6 pg (27.0-31.2); Mean Corpuscular Volume 92.6 fl (81-99); Mean Platelet Volume 9.6 fl (7.4-10.4); Monocytes # 0.7 K/mm3 (0.1-1.0); Monocytes % 4.7 % (1.7-9.3); Neutrophils # 10.3 K/mm3 (1.8-7.8); Neutrophils % 74.3 % (37.0-80.0); Platelet Count 319 K/mm3 (142-424); Potassium 3.9 mmoL/L (3.5-5.1); Red Cell Distribution Width 13.1 % (11.5-17.5); Sodium 136 mmol/L (136-145); Total Protein,Serum 7.5 g/dl (6.3-8.2); White Blood Count 13.9 K/mm3 (4.8-10.8)
[2022-03-18 14:31] LABS: C-Reactive Protein 1.3 mg/L (0-4)
[2022-03-18 14:47] LABS: Erythrocyte Sedimentation Rate 5 mm/hr (0-20)
[2022-03-18 16:52] LABS: Hemoglobin A1C 5.4 % (4.0-6.0)
== END ==
PROVIDERS: Podiatrist; PCP Emergency Medicine; Visit Provider Emergency Medicine
DX: R42 Dizziness and giddiness (principal); M79.673 Pain in unspecified foot; M84.375A Stress fracture, left foot, initial encounter for fracture; Z96.9 Presence of functional implant, unspecified; E11.9 Type 2 diabetes mellitus without complications; Z79.84 Long term (current) use of oral hypoglycemic drugs; Z79.899 Other long term (current) drug therapy
CPT/HCPCS: 80053; 83036; 85025; 85651; 86140

== ENCOUNTER → 2022-04-05 14:36 | Outpatient (CLI) | payer OTHER, SELFPAY ==
--- NOTE | 2022-04-05 14:39 | XR_ITS ---
FINAL REPORT CLINICAL HISTORY: pain, weightbearing views COMPARISON: March 16, 2022 FINDINGS: LEFT FOOT: Three weight-bearing views of the left foot were obtained. There is no acute fracture or dislocation. There are postoperative changes of the 2nd and 5th metatarsals. There is a screw plate with multiple screws that are stable and in good position. There is increased new bone formation at the distal aspect of the 3rd metatarsal consistent with a healing fracture and may represent a healing stress fracture. IMPRESSION: Postoperative changes in stable position. Increased bone formation at the 3rd metatarsal that may represent a healing stress fracture. Reviewed, Interpreted and Dictated by Navi Diane III, MD Transcribed by Aviva aMrin Authenticated and [facility]
[2022-04-05 16:40] LABS: Basophils # 0.2 K/mm3 (0-0.2); Basophils % 2.4 % (0.1-2.0); Eosinophils # 0.3 K/mm3 (0.0-0.4); Eosinophils % 3.3 % (0.1-12.0); Hematocrit 42.8 % (37.0-47.0); Hemoglobin 14.5 g/dL (12.2-16.2); Lymphocytes # 2.1 K/mm3 (0.7-4.5); Mean Corpuscular HGB Conc 33.9 g/dL (31.8-35.4); Mean Corpuscular Hemoglobin 31.8 pg (27.0-31.2); Mean Corpuscular Volume 93.9 fl (81-99); Mean Platelet Volume 8.4 fl (7.4-10.4); Monocytes # 0.4 K/mm3 (0.1-1.0); Neutrophils # 6.1 K/mm3 (1.8-7.8); Neutrophils % 67.3 % (37.0-80.0); Platelet Count 285 K/mm3 (142-424); Red Blood Count 4.56 M/mm3 (4.20-5.40); Red Cell Distribution Width 13.2 % (11.5-17.5); White Blood Count 9.1 K/mm3 (4.8-10.8)
[2022-04-05 17:16] LABS: Chloride 100 mmol/L (98-107); Potassium 3.6 mmoL/L (3.5-5.1); Sodium 139 mmol/L (136-145)
[2022-04-05 17:19] LABS: Alanine Aminotransferase 24 U/L (12-78); Albumin Level 4.6 g/dl (3.5-5.0); Albumin/Globulin Ratio 1.8 (1.1-1.8); Alkaline Phosphatase 87 U/L (38-126); Anion Gap 10.6 mEq/L (5-15); Aspartate Amino Transferase 28 U/L (14-36); Bilirubin,Total 0.4 mg/dl (0.2-1.3); Blood Urea Nitrogen 7 mg/dl (7-17); Calcium 9.3 mg/dl (8.4-10.2); Carbon Dioxide 32 mmol/L (22.0-30.0); Estimated Glomerular Filt Rate 95 ml/min (>60); GFR (African American) 115 ML/MIN (>60); Globulin 2.5 g/dL (1.3-3.2); Glucose 102 mg/dl (74-100); Total Protein,Serum 7.1 g/dl (6.3-8.2)
[2022-04-05 17:25] LABS: C-Reactive Protein 1.9 mg/L (0-4)
[2022-04-05 18:38] LABS: Erythrocyte Sedimentation Rate 13 mm/hr (0-20)
[2022-04-22 17:11] LABS: 1,25 Dihydroxy Vitamin D 61 pg/mL (.); 1,25-Dihydroxy, Vitamin D-2 56 pg/mL (.); 1,25-Dihydroxy, Vitamin D-3 <10 pg/mL (.)
== END ==
PROVIDERS: PCP Emergency Medicine; Visit Provider Podiatrist
DX: M79.672 Pain in left foot (principal)
CPT/HCPCS: 36415; 73630; 80053; 82652; 85025; 85651; 86140

== ENCOUNTER → 2022-04-14 13:18 | Outpatient (CLI) | payer OTHER, SELFPAY ==
--- NOTE | 2022-04-14 13:19 | CT_ITS ---
FINAL REPORT CLINICAL HISTORY: left foot pain, no injury, hx of ORIF COMPARISON: Plain films dated April 05, 2022 FINDINGS: CT LEFT FOOT WITHOUT CONTRAST Technique: Axial images through the left foot were performed by computed tomography. Sagittal and coronal reconstruction images were performed. This study was performed with techniques to keep radiation doses as low as reasonably achievable (ALARA). Individualized dose reduction techniques using automated exposure control or adjustment of mA and/or kV according to the patient's size were employed. There is postoperative change of the second and fifth metatarsals. No fracture is identified. No dislocation identified. No soft tissue abnormality. IMPRESSION: No acute process. Reviewed, Interpreted and Dictated by Navi Diane III, MD Transcribed by Darius Real Authenticated and [facility]
== END ==
PROVIDERS: PCP Emergency Medicine; Visit Provider Podiatrist
DX: M79.672 Pain in left foot (principal); M84.375A Stress fracture, left foot, initial encounter for fracture; M85.80 Other specified disorders of bone density and structure, unspecified site; Z96.9 Presence of functional implant, unspecified
CPT/HCPCS: 73700

== ENCOUNTER → 2022-04-19 11:28 | Outpatient (POV) | payer OTHER, SELFPAY ==
[2022-04-19 11:48] VITALS: BP 113/81; PULSE 77; RESP 18; TEMP 36.9; O2SAT 94; BMI 38.2
--- NOTE | 2022-04-19 12:12 | HMH.PAINSOAP ---
[facility] Pain Management SOAP Note Subjective:: Patient is a pleasant 36-year-old female who is here for medication refill and follow-up. Patient is currently being treated for bilateral sacroiliitis, low back pain, neck pain, myofascial pain. Patient is being managed with Flexeril 10 mg 3 times a day and gabapentin 600 mg 4 times a day. Patient denies any side effects from the medications. Patient denies any changes to the location and type of pain. Patient states that this is adequately helping manage their pain. Rates pain as 4 out of 10. [facility] number [phone] with an active morphine equivalent 20. Drug screens have been reviewed and appropriate. Patient recently had these medications refilled. She will let us know if she needs refill on this medication. Patient is currently being treated for a chronic left foot fracture. She is being seen by Dr. Espinoza. She has a surgery on her left foot, not here in the next couple of days. Review of Systems: General: No recent weight changes, no fever, no sleep disturbances Respiratory: No cough, no shortness of air, no recurring pulmonary infections Cardiovascular/peripheral vascular: No chest pain, no palpitations, no edema, no shortness of breath Gastrointestinal: No new onset incontinence, normal bowel movements reported Genitourinary: No new onset incontinence Musculoskeletal: Left foot pain, low back pain, neck pain Psychiatric: [Normal mood/affect] Neurological: [Denies weakness in extremities], [denies balance issues] Objective:: Physical Exam: General: Alert and oriented x3, no acute distress, pleasant and cooperative Lungs: Respirations even and unlabored, symmetrical chest expansion Eyes: PERRL Musculoskeletal: Flexion and extension of lumbar [spine] somewhat guarded secondary to pain, [antalgic gait noted] Neurological: Speech clear, no gross sensory deficit Assessment:: Low back pain, neck pain, left foot fracture Plan:: We will continue the patient's Flexeril 10 mg 3 times a day and gabapentin 600 mg 4 times a day. She still has refills on these medication and will call us if she needs these medications refilled. Patient has been instructed to contact the clinic with any concerns before the next appointment. Dr. Kearns has reviewed this note and agrees with this plan of care. This note was dictated using voice recognition software and make contain errors or omissions. [facility] History Medical History: Reports:: Anxiety, Arrhythmia, Cancer, Depression, Diabetes Mellitus Type 2, Gastroesophageal Reflux Disease(GERD), Hiatal Hernia, Hyperlipidemia, Hypertension, Kidney Stones, Migraine, Palpitations Denies:: Diabetes Mellitus Type 1, Internal Pacemaker, Lung Disease, MRSA, Seizures *Have you ever received a pneumonia vaccine?: No *Have you received a flu vaccine this season?: No Other Medical History: Reports: Arthritis, Glaucoma, Thyroid Disease, Other. Denies: Blood Transfusion Reaction Laterality Cases: Bilateral: Myringotomy (Ear Tubes), Tonsillectomy Other Surgeries: Yes: No Previous Surgery, Cholecystectomy, Colonoscopy, Diagnostic Lap, Hernia Repair, Hysterectomy-Total, Tubal Ligation, Other (pancreatic stent, fine needle aspiration on thyroid). No: Pacemaker Amputation: No Fractures: Yes - *Social History Smoking Status: Current every day smoker Tobacco Type: cigarettes # Packs/Day (cigarettes): 1 #Yrs smoked (if former smoker): 22 Alcohol Intake: never Alcohol Intake Frequency:: holidays/special occasions only Substance Use Type: unknown, crack/cocaine, heroin, former substance user *Occupational Status:: other Housing: house Household Members: other, children *Travel in the last 8 weeks: None - Psychiatric History Pschychiatric History:: Reports:: Anxiety, Depression Family Hx:: No significant family history
== END ==
PROVIDERS: Visit Provider Student in an Organized Health Care Education/Training Program
DX: M54.50 Low back pain, unspecified (principal); M54.2 Cervicalgia; M84.475G Pathological fracture, left foot, subsequent encounter for fracture with delayed healing; M46.1 Sacroiliitis, not elsewhere classified; M79.10 Myalgia, unspecified site
CPT/HCPCS: 99212; G0463

== ENCOUNTER → 2022-04-19 12:09 | Outpatient (CLI) | payer OTHER, SELFPAY ==
--- NOTE | 2022-04-19 12:18 | XR_ITS ---
FINAL REPORT CLINICAL HISTORY: PREOP TESTING, hx of HTN FINDINGS: Two views of the chest were obtained. The heart size and pulmonary vascularity are within normal limits. The mediastinum is normal. No acute pulmonary abnormality is identified. There is no pneumothorax. The bony thorax is intact. IMPRESSION: No active cardiopulmonary disease. Reviewed, Interpreted and Dictated by Navi Diane III, MD Transcribed by Darius Real Authenticated and [facility]
--- NOTE | 2022-04-19 12:42 | ECG_ITS ---
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 Exam: Resting ECG HR:91 bpm ECG Measurements Heart Rate 91 AXES [place] 175 P 37 QRSd 90 QRS 112 QT 379 T 29 QTc 428 Conclusion SINUS RHYTHM POSSIBLE RIGHT VENTRICULAR HYPERTROPHY [SOME/ALL OF: PROMINENT R IN V1, LATE TRANSITION, RAD, VALDEZ, SSS] ABNORMAL ECG UNCONFIRMED REPORT Electronically signed by : David Carter MD 04/21/2022 17:47:34
== END ==
PROVIDERS: PCP Emergency Medicine; Visit Provider Podiatrist
DX: Z01.818 Encounter for other preprocedural examination (principal); Z20.822 Contact with and (suspected) exposure to COVID-19; M79.672 Pain in left foot
CPT/HCPCS: 71046; 93005; C9803; U0003; U0005

== ENCOUNTER 2022-04-20 08:46 | Day surgery (SDC) | payer OTHER, SELFPAY ==
[2022-04-20] VITALS (14 sets, daily range): BP systolic 99–134; BP diastolic 53–76; PULSE 73–100; RESP 16–20; TEMP 36.3–38; O2SAT 93–97; BMI 38.2
[2022-04-20 09:15] LABS: POC Glucose,Bedside 109 (70-110)
--- NOTE | 2022-04-20 09:53 | HMH.ANESCL ---
[facility] Anesthesia Checklist - Patient Identification Patient Identification: Arm Band - Structural Data Admitted From: Home Planned Operative Procedure/s: ORIF Left 3rd Metatarsal Consent for Planned Operative Procedure(s) Verified: Yes Verified Documents: Surgical Consent, History and Physical - NPO Status Verified Time NPO: 00:00 - Additional verifications Anesthesia Reactions: No Hx Blood Transfusions: No Blood Transfusion Reaction: No - Airway Assessment C-Spine Mobility Assessed: Yes (mp2) TMJ Mobility Assessed: Yes Dentition: Good Dentition - Neurological Assessment Level of Consciousness: Awake, Alert - Anesthesia Plan Anesthesia Risk discussed: Yes Anesthesia Plan: Verified ASA Class: III Anesthesia Type: General w/block (Risks/benefits of Popliteal/saphenous nerve block. Pt verbalized understanding) [facility] History I have reviewed the patient's past medical history: Yes Medical History: Reports:: Anxiety, Arrhythmia, Depression, Diabetes Mellitus Type 2, Gastroesophageal Reflux Disease(GERD), Hiatal Hernia, Hyperlipidemia, Hypertension, Kidney Stones, Migraine, Palpitations, Seizures Denies:: Cancer, Diabetes Mellitus Type 1, Internal Pacemaker, Lung Disease, MRSA *Have you ever received a pneumonia vaccine?: No *Have you received a flu vaccine this season?: No Other Medical History: Reports: Arthritis, Glaucoma, Thyroid Disease, Other. Denies: Blood Transfusion Reaction Anesthesia experience/problems:: nac Laterality Cases: Bilateral: Myringotomy (Ear Tubes), Tonsillectomy Other Surgeries: Yes: Cholecystectomy, Colonoscopy, Diagnostic Lap, Hernia Repair, Hysterectomy-Total, Tubal Ligation, Other (pancreatic stent, fine needle aspiration on thyroid). No: Pacemaker Amputation: No Fractures: Yes - *Social History Last grade of school completed: Advanced degree Smoking Status: Current every day smoker Tobacco Type: cigarettes # Packs/Day (cigarettes): 2 #Yrs smoked (if former smoker): 22 Alcohol Intake: never Alcohol Intake Frequency:: holidays/special occasions only Substance Use Type: unknown, crack/cocaine, heroin, former substance user *Occupational Status:: employed Housing: house Household Members: other, children *Travel in the last 8 weeks: None - Psychiatric History Pschychiatric History:: Reports:: Anxiety, Depression Family Hx:: Cancer, Diabetes, Heart Attack, Hypertension
--- NOTE | 2022-04-20 12:01 | SUR.OPER ---
1140 family updated by Vee Topete RN
--- NOTE | 2022-04-20 13:00 | XR_ITS ---
FINAL REPORT CLINICAL HISTORY: Post op 3rd met ORIF FINDINGS: 3 views of the left foot were obtained. Overlying cast obscures detail.. There is postoperative change involving the 3rd metatarsal. Bony alignment appears normal. IMPRESSION: ORIF of the 3rd metatarsal. Reviewed, Interpreted and Dictated by Navi Diane III, MD Transcribed by Darius Real Authenticated and [facility]
--- NOTE | 2022-04-20 13:22 | XR_ITS ---
FINAL REPORT CLINICAL HISTORY: ORIF 3RD METATARSAL FINDINGS: Fluoroscopic guidance was provided for the operating services. A single spot film was provided. 45 seconds of fluoroscopy time was utilized. IMPRESSION: 45 seconds of fluoroscopy time. Reviewed, Interpreted and Dictated by Navi Diane III, MD Transcribed by Darius Real Authenticated and [facility]
--- NOTE | 2022-04-20 13:31 | HMH.ANESI ---
[facility] Anesthesia Record Part I Intake, IV Amount: 700 Estimated blood loss (mL): 2 Urine output (mL): 0 Blood Pressure: 119/68 SaO2: 93 Pulse Rate: 99 Respiratory Rate: 20 Temperature: 98.5 F Patient is:: Drowsy, Oral/Nasal airway Stable to PACU at:: 13:25
--- NOTE | 2022-04-20 13:44 | HMH.OPNOTE ---
Date of procedure: 04/21/22 Pre-op Diagnosis:: 1. Left 3rd metatarsal fracture 2. History of 2nd, 5th metatarsal fracture 3. Retained orthopedic hardware 4. Neuritis 5.Left foot pain 6. Osteopenia with high risk of fracture 7. Tobacco abuse 8. Vitamin D deficiency 9. Obesity, Class II, BMI 35-39.9 Post-op Diagnosis:: Same Procedure performed:: 1. Left 3rd metatarsal ORIF 2. Left nerve decompression 3. Left calcaneal autogenous bone graft harvest 4. Left hardware removal 5. Left foot open bone biopsy 6. Application of amniotic graft 7. Application of posterior splint Surgeon:: Lynette Espinoza DPM BONDING MOLDER:: Demetrius De León Anesthesia: GETA, regional (Left popliteal nerve block) Estimated blood loss (mL): 20 Clinical Note:: Patient is a 36-year-old female who has had multiple stress fractures over the last few years. DEXA scan showed osteopenia. We have been trying to obtain a left foot CT for the last 2 months without success. Insurance denied on the basis of not medically necessary and not life-threatening . Discussed with the patient appealing again for the CT scan. Plan for referral for [facility] specialist to evaluate over the patient has had multiple stress fractures. We discussed surgery. All risks and benefits were discussed including but not limited to: damage to blood vessels and nerves, bleeding, infection, wound complications, delayed, mal or non-union of bone, post-traumatic arthritis, need for further surgery, implant failure, need for removal of implant, prolonged or permanent swelling of the extremity, prolonged or permanent pain or deformity, CRPS/RSD, DVT/PE, and anesthetic complications including . No guarantees were given. All questions fully answered. The patient verbalized understanding and agreed to proceed with surgery. Consent was obtained. Necessary labs and pre-op testing ordered: hcg, CBC, BMP, esr, crp, EKG, CXR, covid. Pt was given a Rx for [place] 5/325. Patient has a fracture boot, crutches and RKS. Operative findings:: Previous well-healed scars over the dorsal second metatarsal and lateral foot over the fifth metatarsal. Left foot edema. No erythema noted. Tattoos over the foot. There was some scar tissue and fibrosis over the second and fifth metatarsal sites. The previous second and fifth metatarsal sites appeared healed with no obvious fracture noted. Hardware removed without complication and sent for specimen. No purulence, malodor or signs of deep infection noted. Third metatarsal had a fracture with minimal bone callus noted. On the medial aspect of the fracture there was soft bone and 20% of the fracture still noted. Some micromotion appreciated at this level. Overall the bone was soft. The case took an extra 30 minutes longer due to the patient's body habitus, soft poor bone quality and scar tissue. Operative note:: On this date and time patient was deemed an appropriate surgical candidate. With informed consent signed, the patient was taken to the operating theater. The patient was positioned supine. General anesthesia was induced. 2g IV Ancef given. Tourniquet was applied to the left mid-calf. The left lower extremity was prepped and draped in normal sterile fashion. Left calcaneal autograft bone harvest: Attention directed to the calcaneus on lateral intraoperative fluoroscopy where and incision was mapped out. Blunt dissection down to level of the bone. Acumed bone graft harvester system utilized to obtain 3cc of calcaneal autogenous bone graft. Wound was flushed with saline. Bio matrix allograft bone fibers were then backfilled and packed into calcaneus where the autograft was taken. Left hardware removal: Incision was mapped out over previous fifth metatarsal incision. Layer dissection down to bone. No signs of deep infection. The [employer] 4.5 millimeter screw was removed without complication and sent for culture. Wound was flushed with saline. Attention then directed to the dorsal sony
[2022-04-20 14:17] LABS: POC Glucose,Bedside 106 (70-110)
--- NOTE | 2022-04-20 15:45 | SUR.OPER ---
LATE ENTRY 1300 family updated by Vee Topete RN
[2022-04-21 12:31] VITALS: BP 110/55; PULSE 90; TEMP 36.3
--- NOTE | 2022-04-21 12:31 | P.PN_ITS ---
[facility] Anesthesia Record Part II Discharge Time: 14:00 Destination: Surgical Day Care (OP Surgery) PACU nurse assessment reviewed?: Yes Patient Condition:: Good Anesthesia Complications:: None Swallowing reflex intact?: Yes Cyanosis?: No Blood Pressure: 110/55 Pulse Rate: 90 Temperature: 97.4 F Mental Status: Alert & Oriented Pain level:: 5 Nausea and/or vomitting:: None Intake, IV Amount: 0
== END 2022-04-20 14:31 | disposition home or self-care (01) ==
LOC: OR 08:48
PROVIDERS: PCP Emergency Medicine; Visit Provider Podiatrist
PROC: (CPT 28525; principal; 2022-04-20 10:45)
DX: S92.335A Nondisplaced fracture of third metatarsal bone, left foot, initial encounter for closed fracture (principal); G57.82 Other specified mononeuropathies of left lower limb; M85.89 Other specified disorders of bone density and structure, multiple sites; E55.9 Vitamin D deficiency, unspecified; E11.9 Type 2 diabetes mellitus without complications; Z79.84 Long term (current) use of oral hypoglycemic drugs; Z79.899 Other long term (current) drug therapy
CPT/HCPCS: 28525; 20680; 20240; 20900; 64704; 73620; 73630; 76000; 82962; 96374; C1713; C1762; C1776; Q4211

== ENCOUNTER 2022-04-22 20:30 | Emergency (ER) | payer OTHER, SELFPAY ==
[2022-04-22 20:32] VITALS: BP 131/81; PULSE 96; RESP 19; TEMP 36.9; O2SAT 99; BMI 38.2
--- NOTE | 2022-04-22 20:43 | HMH.EDLOEX ---
ED Disposition Clinical Impression: Post surgical complication Qualifiers: Surgical complication system/body Area: musculoskeletal system Surgical complication type: hemorrhage Procedure type: musculoskeletal Qualified Code(s): M96.830 - Postprocedural hemorrhage of a musculoskeletal structure following a musculoskeletal system procedure Disposition: Home, Self-Care Condition on Discharge: Good Additional Instructions: Follow-up with your foot surgeon as scheduled. Return to the emergency department if you feel worse in any way. Continue all medications as prescribed. Referrals: Jesus Manuel Castro MD [Primary Care Provider] - - Critical Care Critical Care Time: No Attestation: On 04/22/22, the high probability of a clinically significant, sudden or life threatening deterioration of the following system(s) required my full and direct attention, intervention and personal management. The time I documented below is in addition to time spent performing reported procedures but includes the following listed in this critical care notation. Medical Decision Making - [place] Inquiry Pt receiving controlled substance: No Medical Decision Narrative: The patient's physical exam revealed that the blood in the dressing must of been postsurgical blood without any active bleeding at this time. The extremity is neurovascularly intact without evidence of infection. The foot was resplinted with the original splint. The patient can be discharged in stable condition with instructions to follow-up with her surgeon as scheduled. Lower Extremity Injury HPI - General Chief Complaint: Extremity Problem,Nontraumatic Stated Complaint: [id number] left foot bleeding Time Seen by Provider: 04/22/22 20:44 - History of Present Illness HPI Narrative: Patient presents to the emergency department 3 days after having undergone left-sided foot surgery. The reason the patient presents to the emergency department is because there is bleeding through the splinting material. She denies fevers, redness or increasing pain. Denies any recent injury since surgery. - Related Data Home Medications Medication Instructions Recorded Confirmed fluticasone propionate 50 1 mcg INTRANASAL DAILY PRN 12/09/19 04/20/22 mcg/actuation nasal spray,suspension Aspirin [Low Dose Aspirin EC] 81 mg PO DAILY 09/04/20 04/20/22 hyoscyamine sulfate 0.125 mg tablet 0.125 mg PO QID PRN tab 09/17/20 04/20/22 dicyclomine 20 mg tablet 20 mg PO . PRN tab MDD . 12/15/20 04/20/22 albuterol sulfate 90 mcg/actuation 2 puff INHALATION DAILY g 03/02/21 04/20/22 aerosol inhaler chlordiazepoxide-clidinium 5 1 cap PO DAILY cap 03/02/21 04/20/22 mg-2.5 mg capsule prucalopride 2 mg tablet 2 mg PO DAILY tab 06/03/21 04/20/22 linaclotide 290 mcg capsule 290 mcg PO DAILY cap 03/10/22 04/20/22 Azithromycin See Rx Instructions PO .COMPLEX 04/19/22 04/20/22 Dicyclomine HCl [Bentyl 10mg See Rx Instructions .ROUTE .COMPLEX 04/19/22 04/20/22 capsule] Loratadine/Pseudoephedrine 1 tab PO DAILY 04/19/22 04/20/22 [Loratadine-D 24Hr Tablet] Metformin HCl See Rx Instructions .ROUTE .COMPLEX 04/19/22 04/20/22 Montelukast Sodium [Singulair] See Rx Instructions .ROUTE .COMPLEX 04/19/22 04/20/22 Pantoprazole Sodium See Rx Instructions .ROUTE .COMPLEX 04/19/22 04/20/22 Propranolol HCl [Inderal 20mg See Rx Instructions .ROUTE .COMPLEX 04/19/22 04/20/22 tablet] Ropinirole HCl See Rx Instructions .ROUTE .COMPLEX 04/19/22 04/20/22 Rosuvastatin Calcium See Rx Instructions .ROUTE .COMPLEX 04/19/22 04/20/22 methocarbamoL [Methocarbamol 500mg 1,000 mg PO TID 04/19/22 04/20/22 Tablet] Previous Rx's Medication Instructions Recorded urea 45 % topical cream 1 applic TOPICAL BID 90 Days #255 g 05/04/21 ergocalciferol (vitamin D2) 1,250 50,000 unit PO QWEEK 84 Days #13 07/27/21 mcg (50,000 unit) capsule cap galcanezumab-gnlm 120 mg/mL 120 mg SQ DAILY #1 ml 01/25/22 subcutaneous pen
[2022-04-22 20:55] VITALS: BP 138/85; PULSE 89; RESP 19; TEMP 36.9; O2SAT 98
== END 2022-04-22 21:01 | disposition home or self-care (01) ==
PROVIDERS: Emergency Provider Emergency Medicine; PCP Emergency Medicine
DX: M96.830 Postprocedural hemorrhage of a musculoskeletal structure following a musculoskeletal system procedure (principal); R07.89 Other chest pain; R00.2 Palpitations; R55 Syncope and collapse; R94.31 Abnormal electrocardiogram [ECG] [EKG]; I10 Essential (primary) hypertension; K21.9 Gastro-esophageal reflux disease without esophagitis; E78.5 Hyperlipidemia, unspecified; E07.9 Disorder of thyroid, unspecified; E11.9 Type 2 diabetes mellitus without complications; M19.90 Unspecified osteoarthritis, unspecified site; G43.909 Migraine, unspecified, not intractable, without status migrainosus; G40.909 Epilepsy, unspecified, not intractable, without status epilepticus; H40.9 Unspecified glaucoma; F32.A Depression, unspecified; F41.9 Anxiety disorder, unspecified; F17.210 Nicotine dependence, cigarettes, uncomplicated; Z79.1 Long term (current) use of non-steroidal anti-inflammatories (NSAID); Z79.51 Long term (current) use of inhaled steroids; Z79.82 Long term (current) use of aspirin; Z79.899 Other long term (current) drug therapy; Z88.6 Allergy status to analgesic agent; Z91.011 Allergy to milk products; Z84.1 Family history of disorders of kidney and ureter; Z82.49 Family history of ischemic heart disease and other diseases of the circulatory system; Z83.3 Family history of diabetes mellitus; Z80.9 Family history of malignant neoplasm, unspecified
CPT/HCPCS: 99282

== ENCOUNTER → 2022-05-04 09:56 | Outpatient (CLI) | payer OTHER, SELFPAY ==
--- NOTE | 2022-05-04 10:01 | XR_ITS ---
FINAL REPORT CLINICAL HISTORY: postop views, fall FINDINGS: LEFT ANKLE Three views of the left ankle were obtained. There is no acute fracture or dislocation. The joint spaces and mortise are intact. There is no soft tissue abnormality. IMPRESSION: No acute bony abnormality. Reviewed, Interpreted and Dictated by Navi Diane III, MD Transcribed by Viridiana Alvarado Authenticated and [facility]
--- NOTE | 2022-05-04 10:01 | XR_ITS ---
FINAL REPORT CLINICAL HISTORY: postop views, fall COMPARISON: 04/20/2022 FINDINGS: LEFT FOOT Three views of the left foot were obtained. A cast has been removed. There are postoperative changes of the 3rd metatarsal and probable postoperative changes of the 2nd metatarsal. Bony alignment is stable. No acute fracture is identified. The visualized joint spaces are normally aligned. The soft tissues are unremarkable. IMPRESSION: Postoperative change as described. Reviewed, Interpreted and Dictated by Navi Diane III, MD Transcribed by Viridiana Alvarado Authenticated and [facility]
== END ==
PROVIDERS: PCP Emergency Medicine; Visit Provider Podiatrist
DX: Z98.890 Other specified postprocedural states (principal); M25.572 Pain in left ankle and joints of left foot; W19.XXXA Unspecified fall, initial encounter
CPT/HCPCS: 73610; 73630

== ENCOUNTER → 2022-05-05 16:34 | Outpatient (CLI) | payer OTHER, SELFPAY | PROVIDERS: PCP Emergency Medicine; Visit Provider Podiatrist | DX: S92.335D Nondisplaced fracture of third metatarsal bone, left foot, subsequent encounter for fracture with routine healing (principal); T81.31XD Disruption of external operation (surgical) wound, not elsewhere classified, subsequent encounter; Z98.890 Other specified postprocedural states | CPT/HCPCS: 87070; 87205 ==

== ENCOUNTER → 2022-05-19 09:49 | Outpatient (CLI) | payer OTHER, SELFPAY ==
--- NOTE | 2022-05-19 09:52 | XR_ITS ---
FINAL REPORT CLINICAL HISTORY: postop, fracture eval COMPARISON: 05/04/2022 FINDINGS: LEFT FOOT Three views of the left foot demonstrate no acute fracture or dislocation. There are postoperative changes of the 2nd and 3rd metatarsals. There is a screw plate and multiple screws at the 3rd metatarsal. Bony alignment is normal. The visualized joint spaces are normally aligned. The soft tissues are unremarkable. IMPRESSION: Postoperative changes as described with no acute bony abnormality. Reviewed, Interpreted and Dictated by Navi Diane III, MD Transcribed by Viridiana Alvarado Authenticated and [facility]
[2022-05-19 11:49] LABS: Basophils # 0.1 K/mm3 (0-0.2); Basophils % 1.2 % (0.1-2.0); Eosinophils # 0.6 K/mm3 (0.0-0.4); Eosinophils % 5.6 % (0.1-12.0); Hematocrit 39.8 % (37.0-47.0); Hemoglobin 12.9 g/dL (12.2-16.2); Lymphocytes # 2.4 K/mm3 (0.7-4.5); Lymphocytes % 23.5 % (10-50); Mean Corpuscular HGB Conc 32.3 g/dL (31.8-35.4); Mean Corpuscular Hemoglobin 30.9 pg (27.0-31.2); Mean Corpuscular Volume 95.7 fl (81-99); Mean Platelet Volume 9.2 fl (7.4-10.4); Monocytes # 0.5 K/mm3 (0.1-1.0); Monocytes % 5.1 % (1.7-9.3); Neutrophils # 6.7 K/mm3 (1.8-7.8); Neutrophils % 64.7 % (37.0-80.0); Platelet Count 258 K/mm3 (142-424); Red Blood Count 4.16 M/mm3 (4.20-5.40); Red Cell Distribution Width 13.4 % (11.5-17.5); White Blood Count 10.3 K/mm3 (4.8-10.8)
[2022-05-19 12:24] LABS: Chloride 104 mmol/L (98-107)
[2022-05-19 12:25] LABS: Sodium 139 mmol/L (136-145)
[2022-05-19 12:27] LABS: Alanine Aminotransferase 18 U/L (12-78); Alkaline Phosphatase 81 U/L (38-126); Aspartate Amino Transferase 26 U/L (14-36); Blood Urea Nitrogen 10 mg/dl (7-17); Estimated Glomerular Filt Rate 95 ml/min (>60); GFR (African American) 115 ML/MIN (>60)
[2022-05-19 12:28] LABS: Albumin Level 4.3 g/dl (3.5-5.0); Calcium 9.3 mg/dl (8.4-10.2); Carbon Dioxide 30 mmol/L (22.0-30.0); Globulin 2.2 g/dL (1.3-3.2); Glucose 115 mg/dl (74-100); Total Protein,Serum 6.5 g/dl (6.3-8.2)
[2022-05-19 12:30] LABS: Bilirubin,Total < 0.1 mg/dl (0.2-1.3)
[2022-05-19 12:31] LABS: Erythrocyte Sedimentation Rate 15 mm/hr (0-20)
[2022-05-19 12:34] LABS: C-Reactive Protein 2.2 mg/L (0-4)
== END ==
PROVIDERS: PCP Emergency Medicine; Visit Provider Podiatrist
DX: S92.332A Displaced fracture of third metatarsal bone, left foot, initial encounter for closed fracture (principal); Z98.890 Other specified postprocedural states
CPT/HCPCS: 36415; 73630; 80053; 85025; 85651; 86140

== ENCOUNTER → 2022-06-30 08:40 | Outpatient (CLI) | payer OTHER, SELFPAY ==
--- NOTE | 2022-06-30 08:45 | XR_ITS ---
FINAL REPORT CLINICAL HISTORY: c/o pain in 4th metatarsal COMPARISON: 05/19/2022 FINDINGS: LEFT FOOT 3 views were obtained. There are postoperative changes of the 3rd metatarsal with a screw plate and multiple screws. There is no acute bony abnormality. The joint spaces are maintained. Soft tissues are unremarkable. IMPRESSION: Postoperative change with no acute bony abnormality. Reviewed, Interpreted and Dictated by Navi Diane III, MD Transcribed by Tiki Nielsen Authenticated and [facility]
== END ==
PROVIDERS: PCP Emergency Medicine; Visit Provider Podiatrist
DX: M79.672 Pain in left foot (principal); T81.9XXA Unspecified complication of procedure, initial encounter
CPT/HCPCS: 73630

== ENCOUNTER 2022-07-05 18:26 | Emergency (ER) | payer OTHER, SELFPAY ==
[2022-07-05 19:18] VITALS: RESP 16; O2SAT 98; BMI 35.4
--- NOTE | 2022-07-05 19:21 | HMH.EDGENADL ---
Discharge Plan Disposition Patient Disposition: Home, Self-Care Condition: Good Prescriptions Prescriptions: New hydrocodone-acetaminophen 5-325 mg tablet 1 tab PO Q6H PRN (Reason: Pain) Qty: 10 0RF No Action fluticasone propionate 50 mcg/actuation spray,suspension 1 mcg NS DAILY PRN (Reason: ALLERGIES) albuterol sulfate 90 mcg/actuation HFA aerosol inhaler 2 puff IH DAILY chlordiazepoxide-clidinium 5-2.5 mg capsule 1 cap PO DAILY urea 45 % cream 1 applic TP BID 90 Days Qty: 255 2RF Rx Instructions: Apply up to twice daily to affected dry skin and calluses Linzess 290 mcg capsule 290 mcg PO DAILY prazosin 5 mg capsule 5 mg PO HS Qty: 30 1RF hyoscyamine sulfate 0.125 mg tablet 0.125 mg PO QID PRN (Reason: stomach spasms) Motegrity 2 mg tablet 2 mg PO DAILY Emgality Pen 120 mg/mL pen injector 120 mg SQ DAILY Qty: 1 5RF rimegepant 75 mg tablet,disintegrating 75 mg PO ONCE PRN (Reason: migraine) Qty: 8 5RF Rx Instructions: Place 1 tablet under tongue at onset of symptoms. Max dose 1 tablet in 24 hours. hydroxyzine HCl 50 mg tablet 50 mg PO QID PRN (Reason: Anxiety) Qty: 120 1RF lorazepam [Ativan] 0.5 mg tablet 0.5 mg PO TID PRN (Reason: anxiety) Qty: 90 2RF bupropion HCl 150 mg tablet extended release 24 hr 150 mg PO DAILY mupirocin 2 % ointment 1 applic TP BID 21 Days Qty: 15 1RF Rx Instructions: Apply to affected area up to twice daily Sivextro 200 mg tablet 200 mg PO DAILY 6 Days Qty: 6 0RF oxycodone 5 mg tablet 7.5 mg PO Q4H PRN (Reason: post op pain) 7 Days Qty: 63 0RF propranolol 10 mg tablet 10 mg PO BID Label Comments: TAKE 1 TABLET BY MOUTH TWICE DAILY tramadol 50 mg tablet 50 mg PO BID PRN (Reason: pain) Qty: 30 0RF oxycodone 5 mg tablet 5 mg PO Q6H PRN (Reason: post op pain) 7 Days Qty: 30 0RF ergocalciferol (vitamin D2) 1,250 mcg (50,000 unit) capsule 50,000 unit PO QWEEK 84 Days Qty: 13 0RF furosemide [Lasix] 20 mg tablet 20 mg PO DAILY Qty: 30 5RF cyclobenzaprine 10 MG tablet 10 mg PO TID PRN (Reason: Muscle Spasm) 30 Days Qty: 90 2RF ondansetron 4 mg tablet,disintegrating 4 mg PO Q6H Qty: 30 2RF escitalopram oxalate 20 mg tablet 20 mg PO DAILY Qty: 30 1RF gabapentin 600 mg tablet 600 mg PO QID Qty: 120 0RF metformin 500 mg tablet See Rx Instructions .ROUTE .COMPLEX Qty: 60 0RF Dose Instruction: TAKE 1 TABLET BY MOUTH TWICE DAILY FOR DIABETES Rx Instructions: TAKE 1 TABLET BY MOUTH TWICE DAILY FOR DIABETES phentermine [Adipex-P] 37.5 mg tablet 37.5 mg PO DAILY Qty: 30 0RF Rx Instructions: must administer 30 minutes before or 1-2 hours after breakfast ropinirole 1 mg tablet See Rx Instructions .ROUTE .COMPLEX Qty: 90 0RF Dose Instruction: TAKE 1 TABLET BY MOUTH ONCE DAILY AT BEDTIME FOR RESTLESS LEGS Rx Instructions: TAKE 1 TABLET BY MOUTH ONCE DAILY AT BEDTIME FOR RESTLESS LEGS ALLERGY/DARA RELF D 24H ER TAB See Rx Instructions .ROUTE .COMPLEX Qty: 10 0RF Dose Instruction: Take 1 tablet by mouth once daily Rx Instructions: Take 1 tablet by mouth once daily aspirin 81 MG tablet,delayed release (DR/EC) 81 mg PO DAILY methocarbamol 500 MG tablet 1,000 mg PO TID pantoprazole 40 MG tablet,delayed release (DR/EC) See Rx Instructions .Route .COMPLEX Rx Instructions: Take 1 tablet by mouth once daily montelukast 10 MG tablet See Rx Instructions .Route .COMPLEX Rx Instructions: TAKE 1 TABLET BY MOUTH ONCE DAILY FOR ALLERGIES dicyclomine 10 MG capsule See Rx Instructions .Route .COMPLEX Rx Instructions: Take 1 capsule by mouth twice daily rosuvastatin 10 MG tablet See Rx Instructions .Route .COMPLEX Rx Instructions: Take 1 tablet by mouth once daily Referrals Follow up/Referrals:
--- NOTE | 2022-07-05 19:23 | XR_ITS ---
PROCEDURE INFORMATION: Exam: XR Left Ankle Exam date and time: 07/05/2022 7:30 PM Age: 37 years old Clinical indication: Pain; Ankle; Left; Prior surgery; Surgery date: 1-6 months; Surgery type: Ligament repairs TECHNIQUE: Imaging protocol: Radiologic exam of the Left ankle. Views: 1 or 2 views. COMPARISON: CR XR ANKLE WT BEARING LT MIN 3V 05/04/2022 10:18 AM FINDINGS: Bones/joints: Tiny ossific density in the lateral aspect of the ankle adjacent to the cuboid which could reflect cortical avulsion fracture. Otherwise no acute fracture or dislocation involving the ankle. Soft tissues: Normal. IMPRESSION: Tiny ossific density in the lateral aspect of the ankle adjacent to the cuboid which could reflect cortical avulsion fracture. Otherwise no acute fracture or dislocation involving the ankle.
--- NOTE | 2022-07-05 19:23 | XR_ITS ---
PROCEDURE INFORMATION: Exam: XR Left Foot Exam date and time: 07/05/2022 7:28 PM Age: 37 years old Clinical indication: Pain; Foot; Left; Prior surgery; Surgery date: 1-6 months; Surgery type: 2nd and 3rd metatarsals , and ligament repairs; Additional info: Pain/ felt pop this evening on the lateral side , swelling TECHNIQUE: Imaging protocol: Radiologic exam of the Left foot. Views: 3 or more views. COMPARISON: CR XR FOOT WT BEARING LT 3V 06/30/2022 8:46 AM FINDINGS: Bones/joints: Tiny ossific density in the lateral aspect of the ankle adjacent to the cuboid which could reflect cortical avulsion fracture. Otherwise no acute fracture or dislocation . There is lateral plate and screw fixation of the 3rd metatarsal. No hardware complication. Soft tissues: Normal. IMPRESSION: Tiny ossific density in the lateral aspect of the ankle adjacent to the cuboid which could reflect cortical avulsion fracture. Otherwise no acute fracture or dislocation
[2022-07-05 19:54] VITALS: BP 116/84; PULSE 87; RESP 16; TEMP 36.8; O2SAT 95
[2022-07-06 00:09] VITALS: BP 145/65; PULSE 78; RESP 18; TEMP 36.6; O2SAT 98
== END 2022-07-06 00:12 | disposition home or self-care (01) ==
PROVIDERS: Emergency Provider Emergency Medicine; PCP Emergency Medicine
DX: M84.472A Pathological fracture, left ankle, initial encounter for fracture (principal); Z79.82 Long term (current) use of aspirin; Z79.899 Other long term (current) drug therapy; E78.5 Hyperlipidemia, unspecified; I10 Essential (primary) hypertension; K21.9 Gastro-esophageal reflux disease without esophagitis; G43.909 Migraine, unspecified, not intractable, without status migrainosus; R00.2 Palpitations; E11.9 Type 2 diabetes mellitus without complications; F14.11 Cocaine abuse, in remission; F11.11 Opioid abuse, in remission; Z72.0 Tobacco use
CPT/HCPCS: 29405 ×2; 73600; 73630; 99283

== ENCOUNTER → 2022-07-28 13:03 | Outpatient (POV) | payer OTHER, SELFPAY ==
[2022-07-28 13:28] VITALS: BP 153/71; PULSE 103; RESP 18; TEMP 37.1; O2SAT 98; BMI 38.2
--- NOTE | 2022-07-28 14:56 | EXP.PAIN.SOA ---
[facility] Pain Management SOAP Note Subjective:: Patient is a pleasant 37-year-old female who presents today for follow-up. Patient is current being treated for bilateral sacroiliitis, low back pain, neck pain, myofascial pain, left foot pain. We last saw this patient in April 2022. At that time, she was seeing Dr. Espinoza in regards to her left foot fx. She has had multiple surgeries on her left foot but has been slowly healing. Around June, she was finally discharged by Dr. Espinoza because her foot has healed. About two days later, she was getting out of bed and felt a crack. Then a day later, [facility] went to [facility] a big alma rosa stepped on her foot and ended up fracturing it again. She presents today on a boot. She did see Dr. Espinoza who started her on Percocet then Mclean however, she was told by Dr. Espinoza that she cannot continue prescribing the patient opioid medications. She was told to come see us for pain management. Dr. Espinoza gave her tramadol 50mg TID for a few days. She says that this medication is not helping her pain. She is unsure if she needs more surgery on her foot. She's waiting to get an MRI of her left foot. She is also prescribed gabapentin 600mg QID that we were prescribing until Dr. Castro took it over. She is unsure why Dr. Castro started prescribing this medication. Rates her pain today as 9/10. Review of Systems: General: No recent weight changes, no fever, no sleep disturbances Respiratory: No cough, no shortness of air, no recurring pulmonary infections Cardiovascular/peripheral vascular: No chest pain, no palpitations, no edema, no shortness of breath Gastrointestinal: No new onset incontinence, normal bowel movements reported Genitourinary: No new onset incontinence Musculoskeletal: Left foot pain Psychiatric: [Normal mood/affect] Neurological: [Denies weakness in extremities], [denies balance issues] Objective:: Physical Exam: General: Alert and oriented x3, no acute distress, pleasant and cooperative Lungs: Respirations even and unlabored, symmetrical chest expansion Eyes: PERRL Musculoskeletal: Flexion and extension of cervical and lumbar [spine] somewhat guarded secondary to pain, [antalgic gait noted]; limited range of motion of the left foot secondary to pain Neurological: Speech clear, no gross sensory deficit Assessment:: Left foot fracture, chronic low back pain, neck pain Plan:: I discussed with the patient that all I can do today is increase her tramadol to tramadol 50mg QID. She was very teary eyed today because she says that the tramadol is not helping her pain at all. I discussed with the patient that she can talk with Dr. Kearns to see if he'll start her in something stronger. She agrees and she wants to be started on the tramadol. Will start patient on tramadol 50mg QID and provide the pt 1 month of refill. I will also schedule the patient for a left ankle sympathetic nerve block. Patient has been instructed to contact the clinic with any concerns before the next appointment. Dr. Kearns has reviewed this note and agrees with this plan of care. This note was dictated using voice recognition software and make contain errors or omissions. PFS PFS Medical History Abnormal EKG Anxiety Arrhythmia Atypical chest pain Bipolar II disorder Depression Dizziness Dizziness Dyspnea Edema Generalized anxiety disorder GERD (gastroesophageal reflux disease) Heart palpitations Hiatal hernia HLD (hyperlipidemia) HTN (hypertension), benign Kidney stone Migraine Near syncope Palpitations Seizures Sinus tachycardia T2DM (type 2 diabetes mellitus) Tobacco use Surgical History Hx of myringotomy Hx of tonsillectomy Family History Other Cancer Diabetes Heart attack Hypertension Social History Smoking Status: Never smoker second hand exposure:
== END | disposition home or self-care (01) ==
PROVIDERS: Visit Provider Student in an Organized Health Care Education/Training Program
DX: S92.902A Unspecified fracture of left foot, initial encounter for closed fracture (principal); M54.2 Cervicalgia; M54.50 Low back pain, unspecified; G89.29 Other chronic pain; Z79.899 Other long term (current) drug therapy
CPT/HCPCS: 99212; G0463

== ENCOUNTER → 2022-08-02 16:14 | Outpatient (CLI) | payer OTHER, SELFPAY ==
--- NOTE | 2022-08-02 16:14 | MR_ITS ---
PROCEDURE INFORMATION: Exam: MR Left Lower Extremity Joint Without Contrast; Ankle Exam date and time: 08/02/2022 4:56 PM Age: 37 years old Clinical indication: Pain; Ankle; Left; Prior surgery; Surgery date: 1-6 months; Additional info: Pain, swelling TECHNIQUE: Imaging protocol: Magnetic resonance imaging of the Left lower extremity without contrast. Exam focused on the ankle. COMPARISON: 1. CR XR ANKLE LT 2V 07/05/2022 7:30 PM 2. CR XR ANKLE WT BEARING LT MIN 3V 05/04/2022 10:18 AM 3. CR XR ANKLE LT MIN 3V 07/28/2021 12:06 PM FINDINGS: Bones and cartilage: A defect in the body of the calcaneus appears to be contiguous with soft tissue scarring extending to the lateral skin suggesting a bone graft donor site. Recommend correlation with operative history for confirmation. Abnormal signal involves the fifth metatarsal base where a screw has previously been removed. The third metatarsal is obscured by artifact from orthopedic hardware. A benign-appearing degenerative subchondral cyst involves the navicular. There is a benign bone island in the posterosuperior calcaneus abutting the subtalar joint. There is no acute fracture or dislocation. No aggressive bone lesions are present. Joint spaces: A trace effusion involves the ankle joint. LIGAMENTS: Distal tibiofibular syndesmosis: Unremarkable. No tear. Anterior talofibular ligament: Unremarkable. No tear. Posterior talofibular ligament: Unremarkable. No tear. Calcaneofibular ligament: Unremarkable. No tear. Deltoid ligament complex: Unremarkable. No tear. TENDONS: Flexor tendons of foot: Unremarkable as visualized. Tibialis posterior tendon: Trace tenosynovitis involves the tibialis posterior tendon. Peroneal tendons: Trace tenosynovitis involves the peroneal tendon sheath. Extensor tendons of foot: Unremarkable as visualized. Tibialis anterior tendon: Unremarkable. Achilles tendon: There is no tear or significant tendinosis involving the Achilles tendon. Tarsal canal (Sinus tarsi): Unremarkable. Normal signal of the fat. Tarsal tunnel: Unremarkable. Muscles: Unremarkable. Soft tissues: Moderate subcutaneous edema is present along the posteromedial aspect of the distal tibia and the anterolateral aspect of the hindfoot. Plantar fascia: There is no mass or significant fasciitis (fasciopathy) involving the plantar fascia. IMPRESSION: 1. Calcaneal defect favored to represent a bone graft donor site. Recommend clinical confirmation with operative history. 2. Residual abnormal signal in the fifth metatarsal base along the tract of the removed orthopedic screw. 3. Orthopedic hardware obscuring the third metatarsal. 4. Trace tenosynovitis of the tibialis posterior and peroneal tendons. 5. Nonspecific subcutaneous edema. 6. No acute fracture.
== END ==
PROVIDERS: PCP Emergency Medicine; Visit Provider Podiatrist
DX: S92.212A Displaced fracture of cuboid bone of left foot, initial encounter for closed fracture (principal); R60.0 Localized edema; T14.8XXA Other injury of unspecified body region, initial encounter
CPT/HCPCS: 73721

== ENCOUNTER → 2022-09-05 08:20 | Outpatient (POV) | payer OTHER, SELFPAY ==
[2022-09-05 08:32] VITALS: BP 145/88; PULSE 92; RESP 18; O2SAT 98; BMI 37.9
--- NOTE | 2022-09-05 09:04 | EXP.PAIN.SOA ---
[facility] Pain Management SOAP Note Subjective:: Patient is a pleasant 37-year-old female who presents today for follow-up of injection denial. We are currently treating the patient for bilateral sacroiliitis, low back pain, neck pain, myofascial pain, left ankle pain. Today she rates her pain a 7 out of 10. She states the pain is primarily in her left ankle. Patient states she had a injury in 2020 while she was walking and heard a popping sensation that she later found out did in fact cause fracture to her left ankle. Approximately 3 weeks following this injury she had another injury that caused additional fractures. Patient states that she has her second, third, fifth metatarsal fractures along with a cuboid fracture. Patient did require surgery in July 2021 and then again in April 2022. Patient describes this pain as a constant aching, throbbing, sharp sensation that is worse with increased activity. Patient states she has limited range of motion and frequently has to use a ankle brace to provide support while she walks. Patient is currently managed with Flexeril 10 mg 3 times a day, gabapentin 600 mg 4 times a day. Patient denies any side effects from this medication. She states this medication does help some with her pain symptoms. Patient has been prescribed tramadol 50 mg in the past however she states she did not notice significant improvement with this medication as well as she did seem to get blurry vision when taking this. Patient states she continues to use 800 mg ibuprofen and Tylenol to provide some relief. Patient states she has continuous issues with her left ankle having swelling. patient is still interested in trying with a injection to help with her pain symptoms. Her Montrell is [phone]. It is been reviewed and appropriate. Review of Systems: General: No recent weight changes, no fever, no sleep disturbances Respiratory: No cough, no shortness of air, no recurring pulmonary infections Cardiovascular/peripheral vascular: No chest pain, no palpitations, no edema, no shortness of breath Gastrointestinal: No new onset incontinence, normal bowel movements reported Genitourinary: No new onset incontinence Musculoskeletal: Low back pain, left ankle pain Psychiatric: [Normal mood/affect] Neurological: [Denies weakness in extremities], [denies balance issues] Objective:: Physical Exam: General: Alert and oriented x3, no acute distress, pleasant and cooperative Lungs: Respirations even and unlabored, symmetrical chest expansion Eyes: PERRL Musculoskeletal: Flexion and extension of left ankle somewhat guarded secondary to pain, [antalgic gait noted] Neurological: Speech clear, no gross sensory deficit Skin: Left ankle cool temperature change in comparison to the right, left ankle discoloration compared to the right ankle, left ankle mild edema compared to the right Assessment:: Bilateral sacroiliitis, low back pain, neck pain, myofascial pain, left ankle pain, CRPS 1 lower limb Plan:: Patient continues to experience significant pain in her left ankle and has limited range of motion of this extremity. During our exam today patient's left ankle did have edema, discoloration and temperature change different from her right ankle. These findings are consistent with CRPS. I have discussed that she may benefit from a left sympathetic nerve block. Risk and benefits were discussed with the patient. She would like to proceed forward with this plan of care. Patient is not on any blood thinners. I will refill the patient's Flexeril 10 mg 3 times a day and provide a 1 month supply of this medication. We will schedule the patient for a left sympathetic nerve block L4-L5. Patient has been instructed to contact the clinic with any concerns before the next appointment. Dr. Kearns has reviewed this note and agrees with this plan of care. This note was dictated using voice recognition software and make contain errors or omissions. [facility] Medical History
== END | disposition home or self-care (01) ==
PROVIDERS: PCP Emergency Medicine; Visit Provider Nurse Practitioner Family
DX: M46.1 Sacroiliitis, not elsewhere classified (principal); M54.2 Cervicalgia; M54.50 Low back pain, unspecified; M79.10 Myalgia, unspecified site; G90.529 Complex regional pain syndrome I of unspecified lower limb
CPT/HCPCS: 99212; G0463

== ENCOUNTER 2022-09-19 17:30 | Outpatient (RCR) | payer OTHER, SELFPAY ==
--- NOTE | 2022-08-23 08:42 | HMH.PTOPEV ---
PT Outpatient Evaluation Rehab PT Outpatient Evaluation Start: 08/23/22 08:01 Freq: Status: Active Protocol: Document 08/23/22 08:25 PEDRO (Rec: 08/23/22 08:41 PEDRO [id number]) E-signed By Karson Cruz, PT Outpatient Therapy Subjective History Subjective History This is the initial PT eval for Samson Leiva 37 yowf who presents with c/o worsening L ankle pain. She reports chronic pain for ~ 2 yrs after multiple fxs and 2 ankle/foot surgeries, but now pain has increased on the lateral side of L ankle for the past 2-3 mos. MRI shows peroneal tenosynovitis of the L lateral ankle and chronic changes to the bones due to calcaneal bone graft harvest and hardware removal and replacement. Pt reports increased edema throughout the L lower leg, worse as the day wears on. She reports increased tenderness to palpation along the lateral side of L foot and ankle. She is also being treated by pain management for the chronic pain. Chief Complaint Pain Symptom Type Ache,Throb,Sharp Symptoms Relieved By Nothing Symptoms Aggravated By Walking Prior Functional Limitations None Current Functional Limitations Walking Symptom Description Constant but Variable Level of pain today (0-10) 6 Pain scale - at its worst (0-10) 10 Ankle/Foot Eval Gait Observation General Gait Pattern Observation Antalgic Gait Palpation Tenderness left Ankle/Foot Palpation Findings Tenderness Ankle/Foot Palpation Overall Comment Lateral ankle inferior to malleolus ROM Ankle/Foot Dorsiflexion w/Knee Extended 0-9 Active Range Motion (degrees) Ankle/Foot Plantar Flexion Active Range 0-34 of Motion (degrees) Ankle/Foot Eversion Active Range of 0-9 Motion (degrees) Ankle/Foot Inversion Active Range of 0-22 Motion (degrees) MMT Ankle Dorsiflexion Strength Grade 4 Good Ankle Plantarflexion Strength Grade 4 Good Foot Eversion Strength Grade 4- Good- Foot Inversion Strength Grade 4- Good- Special Tests Ankle Anterior Drawer Test Negative Left
== END 2022-09-19 17:35 | disposition home or self-care (01) ==
LOC: PT 17:30
PROVIDERS: PCP Emergency Medicine; Visit Provider Podiatrist
DX: M76.72 Peroneal tendinitis, left leg (principal); S93.402A Sprain of unspecified ligament of left ankle, initial encounter
CPT/HCPCS: 97010; 97014; 97035; 97110; 97163; G0283

== ENCOUNTER 2022-09-29 09:27 | Emergency (ER) | payer OTHER, SELFPAY ==
[2022-09-29 09:50] VITALS: BP 119/70; PULSE 81; RESP 19; TEMP 37.2; O2SAT 98; BMI 36.7
--- NOTE | 2022-09-29 09:55 | EXP.UTC ---
Discharge Plan Disposition Patient Disposition: Home, Self-Care Condition: Good Prescriptions Prescriptions: New benzonatate [benzonatate] 100 mg capsule 100 mg PO TIDP PRN (Reason: Cough) Qty: 30 0RF oseltamivir [Tamiflu] 75 mg capsule 75 mg PO BID Qty: 10 0RF ondansetron 4 mg Tablet,Disintegrating 4 mg PO Q8H PRN (Reason: Nausea) Qty: 20 0RF No Action fluticasone propionate 50 mcg/actuation spray,suspension 1 mcg NS DAILY PRN (Reason: ALLERGIES) albuterol sulfate 90 mcg/actuation HFA aerosol inhaler 2 puff IH DAILY chlordiazepoxide-clidinium 5-2.5 mg capsule 1 cap PO DAILY Linzess 290 mcg capsule 290 mcg PO DAILY escitalopram oxalate 20 mg tablet 20 mg PO DAILY Qty: 30 1RF hydroxyzine HCl 50 mg tablet 50 mg PO QID PRN (Reason: Anxiety) Qty: 120 1RF prazosin 5 mg capsule 5 mg PO HS Qty: 30 1RF gabapentin 600 mg tablet 600 mg PO QID Qty: 120 2RF lorazepam [Ativan] 0.5 mg tablet 0.5 mg PO TID PRN (Reason: anxiety) Qty: 90 2RF oxycodone-acetaminophen [Percocet] 7.5-325 mg tablet 1 tab PO TID PRN (Reason: breakthrough pain) Qty: 30 0RF hyoscyamine sulfate 0.125 mg tablet 0.125 mg PO QID PRN (Reason: stomach spasms) Motegrity 2 mg tablet 2 mg PO DAILY propranolol 10 mg tablet 10 mg PO BID Label Comments: TAKE 1 TABLET BY MOUTH TWICE DAILY ergocalciferol (vitamin D2) 1,250 mcg (50,000 unit) capsule 50,000 unit PO QWEEK 84 Days Qty: 13 0RF furosemide [Lasix] 20 mg tablet 20 mg PO DAILY Qty: 30 5RF ondansetron 4 mg tablet,disintegrating 4 mg PO Q6H Qty: 30 2RF metformin 500 mg tablet 500 mg PO BID MDD DIABETES Qty: 90 3RF ropinirole 1 mg tablet 1 mg PO DAILY Qty: 90 0RF rosuvastatin 10 mg tablet See Rx Instructions .Route .COMPLEX Qty: 90 1RF Rx Instructions: Take 1 tablet by mouth once daily Emgality Pen 120 mg/mL pen injector 120 mg SQ DAILY Qty: 1 5RF rimegepant 75 mg tablet,disintegrating 75 mg PO ONCE PRN (Reason: migraine) Qty: 8 5RF Rx Instructions: Place 1 tablet under tongue at onset of symptoms. Max dose 1 tablet in 24 hours. ALLERGY/DARA RELF D 24H ER TAB See Rx Instructions .ROUTE .COMPLEX Rx Instructions: Take 1 tablet by mouth once daily phentermine [Adipex-P] 37.5 mg tablet 37.5 mg PO DAILY Rx Instructions: must administer 30 minutes before or 1-2 hours after breakfast tramadol 50 mg tablet 50 mg PO QID cyclobenzaprine 10 MG tablet 10 mg PO TID PRN (Reason: Muscle Spasm) 30 Days Qty: 90 2RF aspirin 81 MG tablet,delayed release (DR/EC) 81 mg PO DAILY pantoprazole 40 MG tablet,delayed release (DR/EC) See Rx Instructions .Route .COMPLEX Rx Instructions: Take 1 tablet by mouth once daily montelukast 10 MG tablet See Rx Instructions .Route .COMPLEX Rx Instructions: TAKE 1 TABLET BY MOUTH ONCE DAILY FOR ALLERGIES bupropion HCl 150 mg tablet extended release 24 hr 150 mg PO DAILY Referrals Follow up/Referrals: Jesus aMnuel Castro MD [Primary Care Provider] - See instructions Activity Restrictions/Add. Instructions Additional Instructions/Restrictions: Drink plenty of fluids. Take tylenol or ibuprofen for pain or fever. Take the medications as directed. Follow up with your regular doctor. GO TO THE ER FOR ANY WORSENING SYMPTOMS Clinical Impressions Clinical Impression: Acute viral syndrome, Exposure to influenza Stand Alone Forms Stand Alone Forms: Work/School Release Instructions Patient Instructions: DI for Influenza -- Adult, Oseltamivir Discharge ED Provider: J Luis Reyes [facility] General Stated complaint: Chills, bodyaches, headache, fever, wheezing Time Seen by Provider: 09/29/22 09:55 History of Present Illness Provider Complaint: She states that for the past 1 day she has had fever, chills, body aches and malaise. Shiv
[2022-09-29 10:04] LABS: Adenovirus,PCR Not Detected (NotDetected); Bordetella Pertussis Not Detected (NotDetected); Chlamydophila Pneumoniae, PCR Not Detected (NotDetected); Coronavirus 19, PCR Not Detected (NotDetected); Coronavirus 229E Not Detected (NotDetected); Coronavirus NL63 Not Detected (NotDetected); Coronavirus OC43 Not Detected (NotDetected); Coronovirus HKU1,PCR Not Detected (NotDetected); Human Metapneumovirus Not Detected (NotDetected); Influenza A, PCR Not Detected (NotDetected); Influenza AH1, 2009 Not Detected (NotDetected); Influenza AH1, PCR Not Detected (NotDetected); Influenza AH3,PCR Not Detected (NotDetected); Influenza B, PCR Not Detected (NotDetected); Mycoplasma Pneumoniae, PCR Not Detected (NotDetected); Parainfluenza 1, PCR Not Detected (NotDetected); Parainfluenza 2, PCR Not Detected (NotDetected); Parainfluenza 3, PCR Not Detected (NotDetected); Parainfluenza 4, PCR Not Detected (NotDetected); Respiratory Syncytial Virus Not Detected (NotDetected); Rhinovirus/Enterovirus Not Detected (NotDetected)
[2022-09-29 11:00] VITALS: BP 119/70; PULSE 81; RESP 19; TEMP 37.2; O2SAT 98
== END 2022-09-29 11:04 | disposition home or self-care (01) ==
PROVIDERS: Emergency Provider Nurse Practitioner Family; PCP Emergency Medicine
DX: B34.9 Viral infection, unspecified (principal); Z20.822 Contact with and (suspected) exposure to COVID-19
CPT/HCPCS: 87581; 87632; 87798; 99212; C9803; G0463; U0003; U0005

== ENCOUNTER → 2022-09-30 15:27 | Outpatient (CLI) | payer OTHER, SELFPAY ==
[2022-09-30 20:14] LABS: Benzodiazepines Screen,Urine Positive ng/ml (<200)
[2022-09-30 20:15] LABS: Amphetamine/Metha Screen,Urine Negative ng/ml (<1000); Barbiturates Screen,Urine Negative ng/ml (<200)
[2022-09-30 20:16] LABS: Cannabinoid Screen,Urine Negative ng/ml (<50); Cocaine Screen,Urine Negative ng/ml (<300)
[2022-09-30 20:17] LABS: Methadone Screen,Urine Negative ng/ml (<300)
[2022-09-30 20:18] LABS: Opiate Screen,Urine Negative ng/ml (<300)
[2022-09-30 20:19] LABS: Phencyclidine Screen,Urine Negative ng/ml (<25)
== END ==
PROVIDERS: PCP Emergency Medicine; Visit Provider Emergency Medicine
DX: Z79.899 Other long term (current) drug therapy (principal)
CPT/HCPCS: 80305

== ENCOUNTER → 2022-10-20 10:07 | Outpatient (CLI) | payer OTHER, SELFPAY ==
--- NOTE | 2022-10-20 10:14 | XR_ITS ---
FINAL REPORT CLINICAL HISTORY: Acute left foot pain COMPARISON: 07/05/2022 FINDINGS: LEFT FOOT Three views of the left foot demonstrate postoperative changes of the 3rd metatarsal. The hardware is unremarkable. There is no acute fracture or dislocation. The visualized joint spaces are normally aligned. The soft tissues are unremarkable. IMPRESSION: Stable exam. Reviewed, Interpreted and Dictated by Shauna Zuñiga MD Transcribed by Meseret Sosa Authenticated and [facility]
[2022-10-20 12:00] LABS: Chloride 105 mmol/L (98-107); Sodium 139 mmol/L (136-145)
[2022-10-20 12:01] LABS: Potassium 4.8 mmoL/L (3.5-5.1)
[2022-10-20 12:03] LABS: Alanine Aminotransferase 14 U/L (12-78); Albumin Level 4.4 g/dl (3.5-5.0); Albumin/Globulin Ratio 1.8 (1.1-1.8); Alkaline Phosphatase 72 U/L (38-126); Anion Gap 11.8 mEq/L (5-15); Aspartate Amino Transferase 21 U/L (14-36); Bilirubin,Total 0.5 mg/dl (0.2-1.3); Blood Urea Nitrogen 13 mg/dl (7-17); Carbon Dioxide 27 mmol/L (22.0-30.0); Estimated Glomerular Filt Rate 81 ml/min (>60); GFR (African American) 98 ML/MIN (>60); Globulin 2.4 g/dL (1.3-3.2); Glucose 97 mg/dl (74-100); Total Protein,Serum 6.8 g/dl (6.3-8.2)
== END ==
PROVIDERS: PCP Emergency Medicine; Visit Provider Podiatrist
DX: S92.332A Displaced fracture of third metatarsal bone, left foot, initial encounter for closed fracture (principal); S93.602A Unspecified sprain of left foot, initial encounter; R60.0 Localized edema; T14.8XXA Other injury of unspecified body region, initial encounter
CPT/HCPCS: 36415; 73630; 80053; 83735

== ENCOUNTER → 2022-10-20 13:03 | Outpatient (POV) | payer OTHER, SELFPAY ==
[2022-10-20 13:41] VITALS: BP 134/71; PULSE 96; RESP 18; O2SAT 97; BMI 37.5
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
== END ==
PROVIDERS: PCP Emergency Medicine; Visit Provider Nurse Practitioner Family
DX: M46.1 Sacroiliitis, not elsewhere classified (principal); M54.50 Low back pain, unspecified; M54.2 Cervicalgia; M79.10 Myalgia, unspecified site; M25.572 Pain in left ankle and joints of left foot; Z79.899 Other long term (current) drug therapy
CPT/HCPCS: 99212; G0463

== ENCOUNTER → 2022-10-31 08:24 | Outpatient (POV) | payer OTHER, SELFPAY ==
[2022-10-31 08:32] VITALS: BP 144/81; PULSE 91; RESP 18; O2SAT 99; BMI 37.5
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
== END | disposition home or self-care (01) ==
PROVIDERS: PCP Emergency Medicine; Visit Provider Nurse Practitioner Family
DX: M46.1 Sacroiliitis, not elsewhere classified (principal); M54.50 Low back pain, unspecified; M54.2 Cervicalgia; M79.10 Myalgia, unspecified site; M25.572 Pain in left ankle and joints of left foot
CPT/HCPCS: 99212; G0463

== ENCOUNTER → 2022-11-05 08:38 | Outpatient (CLI) | payer OTHER, SELFPAY ==
--- NOTE | 2022-11-05 08:43 | MR_ITS ---
PROCEDURE INFORMATION: Exam: MR Left Lower Extremity Joint Without Contrast; Ankle Exam date and time: 11/05/2022 8:56 AM Age: 37 years old Clinical indication: Pain; Ankle; Left; Additional info: Left ankle pain TECHNIQUE: Imaging protocol: Magnetic resonance imaging of the Left lower extremity without contrast. Exam focused on the ankle. COMPARISON: MR ANKLE LT WO CON 08/02/2022 4:56 PM FINDINGS: Bones and cartilage: Previous internal fixation of the 3rd metatarsal. No acute fracture or suspicious marrow signal. Small chronic bony defect base of 5th metatarsal at level of previous intervention. Adjacent peroneus brevis tendon appears intact. Joint spaces: No joint effusion. LIGAMENTS: Distal tibiofibular syndesmosis: Unremarkable. No tear. Anterior talofibular ligament: Unremarkable. No tear. Posterior talofibular ligament: Unremarkable. No tear. Calcaneofibular ligament: Unremarkable. No tear. Deltoid ligament complex: Unremarkable. No tear. TENDONS: Flexor tendons of foot: Unremarkable as visualized. Tibialis posterior tendon: Unremarkable as visualized. Peroneal tendons: Chronic apparent postsurgical defect in the lateral margin of the calcaneus at level where the peroneus longus tendon crosses with some surgical artifact here. The tendon appears intact with minimal tenosynovitis. Extensor tendons of foot: Unremarkable as visualized. Tibialis anterior tendon: Unremarkable as visualized. Achilles tendon: Unremarkable as visualized. Tarsal canal (Sinus tarsi): Unremarkable. Normal signal of the fat. Tarsal tunnel: Unremarkable. Muscles: Unremarkable. Soft tissues: See Peroneal tendons finding. Plantar fascia: Plantar fascia is unremarkable. IMPRESSION: 1. Chronic small apparent postsurgical defect in the lateral margin of the calcaneus at level where the peroneus longus tendon crosses with some surgical artifact here. The tendon appears intact with minimal tenosynovitis. 2. Small chronic bony defect base of 5th metatarsal at level of previous intervention. Adjacent peroneus brevis tendon appears intact.
== END ==
PROVIDERS: PCP Emergency Medicine; Visit Provider Nurse Practitioner Family
DX: M25.572 Pain in left ankle and joints of left foot (principal); M79.672 Pain in left foot
CPT/HCPCS: 73721

== ENCOUNTER 2022-11-08 07:48 | Day surgery (SDC) | payer OTHER, SELFPAY ==
[2022-11-08 08:08] VITALS: BP 118/77; PULSE 107; RESP 18; TEMP 36.9; O2SAT 97; BMI 37.5
[2022-11-08 08:27] VITALS: BP 135/83; PULSE 104; RESP 18; O2SAT 98
[2022-11-08 08:29] VITALS: BP 135/83; PULSE 104; RESP 18; O2SAT 98
--- NOTE | 2022-11-08 08:33 | EXP.PAIN.PRO ---
Procedure Date: 11/08/22 Time: 08:12 Anesthesiologist:: Phu Torrez CRNA Complications:: None Pre-procedure Diagnosis:: CRPS left foot Post-procedure Diagnosis:: Same Indications for Procedure:: Patient is a pleasant 37-year-old female that has had multiple surgeries on the left foot. She is continue to have intense pain she describes as constant, burning. She rates pain 8/10. Procedure Details:: Procedure: Lumbar epidural steroid injection under fluoroscopy Informed consent was obtained and the risks and benefits of the procedure were explained to the patient. The patient was taken to the procedure room and noninvasive monitors placed, including noninvasive blood pressure cuff and pulse oximeter. The back was viewed using C-arm Fluoroscopy and prepped using Chloraprep as a cleansing solution and the L4-L5 interspace was palpated. Skin and subcutaneous tissues were anesthetized using lidocaine 1.5% and a 25-gauge needle. After this, an 18-gauge Touhy epidural needle was placed into the L4-L5 interspace and advanced using fluoroscopic guidance and loss of resistance to air until the epidural space was encountered. After confirmation of needle placement in the epidural space, with dye, a solution containing lidocaine, 5 mL and Depo-Medrol 40 mg were incrementally injected into the lumbar epidural space. The patient tolerated the procedure well with no complications. The patient was observed in the Pain Clinic and then discharged home neurologically intact. Plan and Disposition:: Patient was discharged without incident.
[2022-11-08 08:40] VITALS: BP 114/68; PULSE 104; RESP 18; O2SAT 97
== END 2022-11-08 08:40 | disposition home or self-care (01) ==
PROVIDERS: PCP Emergency Medicine; Visit Provider Nurse Anesthetist, Certified Registered
DX: M46.1 Sacroiliitis, not elsewhere classified (principal); M54.50 Low back pain, unspecified; M54.2 Cervicalgia; M79.10 Myalgia, unspecified site; M25.572 Pain in left ankle and joints of left foot
CPT/HCPCS: 62323; J1030

== ENCOUNTER → 2022-11-22 17:46 | Outpatient (CLI) | payer OTHER, SELFPAY ==
[2022-11-22 19:37] VITALS: BMI 25.7
== END | disposition home or self-care (01) ==
PROVIDERS: PCP Emergency Medicine; Visit Provider Nurse Practitioner Family
DX: Z11.1 Encounter for screening for respiratory tuberculosis (principal)
CPT/HCPCS: 86580

== ENCOUNTER → 2022-11-24 11:10 | Outpatient (POV) | payer OTHER, SELFPAY ==
--- NOTE | 2022-11-24 11:31 | EXP.PAIN.SOA ---
[facility] Pain Management SOAP Note Subjective:: Patient is a pleasant 37-year-old female who presents today for follow-up of sympathetic nerve block of L4-L5 on 11/08/2022. We are currently treating the patient for bilateral sacroiliitis, low back pain with lumbar radiculopathy symptoms, neck pain, myofascial pain, left ankle pain, CRPS lower limb. Today she rates her pain a 6 out of 10. Patient states she did get approximately 30 to 40% relief following this injection however it was only short-term. Patient does states she feels back at her baseline during today's visit. Patient denies any new trauma or injury. Patient denies any change to location or type of pain she experiences. Patient does state she has low back pain with radiating symptoms down into her left leg and ankle. Patient does describe this as a aching, throbbing sensation that is worse with increased activity and does have sharp shooting pains with certain movements. Patient does state this continues to be a problem and interfere with her ability to perform activities of daily living. Patient is currently managed with Flexeril 10 mg 3 times a day, gabapentin 600 mg 4 times a day, lorazepam 0.5 mg 3 times a day, phentermine 37.5 mg daily and Percocet 7.5 mg 3 times a day from Dr. Castro's office. Patient denies any side effects from these medications. She states these medications do help manage her pain symptoms. Patient has tried tramadol in the past however it caused significant blurred vision and she had to discontinue use. Her Montrell is [phone]. Its been reviewed and appropriate. Review of Systems: General: No recent weight changes, no fever, no sleep disturbances Respiratory: No cough, no shortness of air, no recurring pulmonary infections Cardiovascular/peripheral vascular: No chest pain, no palpitations, no edema, no shortness of breath Gastrointestinal: No new onset incontinence, normal bowel movements reported Genitourinary: No new onset incontinence Musculoskeletal: Low back pain, leg pain Psychiatric: [Normal mood/affect] Neurological: [Denies weakness in extremities], [denies balance issues] Objective:: Physical Exam: General: Alert and oriented x3, no acute distress, pleasant and cooperative Lungs: Respirations even and unlabored, symmetrical chest expansion Eyes: PERRL Musculoskeletal: Flexion and extension of lumbar [spine] somewhat guarded secondary to pain, [antalgic gait noted] Neurological: Speech clear, no gross sensory deficit Assessment:: Bilateral sacroiliitis, low back pain, lumbar radiculopathy symptoms, neck pain, myofascial pain, left ankle pain, CRPS lower limb Plan:: Patient continues to experience significant pain in her low back with radiating symptoms into her left leg and left ankle. Patient did have limited range of motion of her lumbar spine during today's visit. I have discussed with the patient that I will order an x-ray of her lumbar spine with the plan to proceed forward with a MRI following her initial imaging. Patient will follow-up back in clinic for reevaluation of symptoms and plan of care. Patient has been instructed to contact the clinic with any concerns before the next appointment. Dr. Kearns has reviewed this note and agrees with this plan of care. This note was dictated using voice recognition software and make contain errors or omissions. [facility] Disclaimer: The information contained in this section may have been updated after the patient was seen, as this information can be updated by other users. Medical History Abnormal EKG Anxiety Arrhythmia Atypical chest pain Bipolar II disorder Depression Dizziness Dizziness Dyspnea Edema Generalized anxiety disorder GERD (gastroesophageal reflux disease) Heart palpitations Hiatal hernia HLD (hyperlipidemia) HTN (hypertension), benign Kidney stone Migraine Near syncope Palpitations Seizures Sinus tachycardia T2DM (type 2 diabetes mellitus) Tobacco use Surgical History
[2022-11-24 11:35] VITALS: BP 131/83; PULSE 103; RESP 18; O2SAT 98; BMI 37.5
== END ==
LOC: SC.PAIN 11:11
PROVIDERS: PCP Emergency Medicine; Visit Provider Nurse Practitioner Family
DX: M54.16 Radiculopathy, lumbar region (principal); M46.1 Sacroiliitis, not elsewhere classified; M54.50 Low back pain, unspecified; M54.2 Cervicalgia; M79.18 Myalgia, other site; M25.572 Pain in left ankle and joints of left foot
CPT/HCPCS: 99212; G0463

== ENCOUNTER → 2022-12-09 13:28 | Outpatient (CLI) | payer OTHER, SELFPAY ==
--- NOTE | 2022-12-09 13:38 | XR_ITS ---
FINAL REPORT CLINICAL HISTORY: BACK PAIN GOING DOWN LEFT LEG FINDINGS: LUMBAR SPINE Five views demonstrate no acute fracture. There is mild rightward curvature. The disc spaces are well preserved. There is no malalignment. IMPRESSION: No acute process. Reviewed, Interpreted and Dictated by Navi Diane III, MD Transcribed by Anika Alberts Authenticated and [facility]
== END ==
PROVIDERS: PCP Emergency Medicine; Visit Provider Nurse Practitioner Family
DX: M54.50 Low back pain, unspecified (principal)
CPT/HCPCS: 72110

== ENCOUNTER 2023-01-25 09:10 | Emergency (ER) | payer OTHER, SELFPAY ==
[2023-01-25 09:20] VITALS: BP 149/73; PULSE 90; RESP 16; TEMP 36.6; O2SAT 97; BMI 36.1
[2023-01-25 09:30] VITALS: BP 133/80; PULSE 86; O2SAT 96
--- NOTE | 2023-01-25 10:00 | HMH.EDGENADL ---
Discharge Plan Disposition Patient Disposition: Home, Self-Care Condition: Good Prescriptions Prescriptions: New sulfamethoxazole-trimethoprim [Bactrim DS] 800-160 mg tablet 1 tab PO BID 7 Days Qty: 14 0RF Rx Instructions: For abscess No Action fluticasone propionate 50 mcg/actuation spray,suspension 1 mcg NS DAILY PRN (Reason: ALLERGIES) albuterol sulfate 90 mcg/actuation HFA aerosol inhaler 2 puff IH DAILY chlordiazepoxide-clidinium 5-2.5 mg capsule 1 cap PO DAILY phentermine [Adipex-P] 37.5 mg tablet 37.5 mg PO DAILY Qty: 30 0RF Rx Instructions: must administer 30 minutes before or 1-2 hours after breakfast gabapentin 600 mg tablet 600 mg PO QID Qty: 120 1RF oxycodone-acetaminophen [Percocet] 10-325 mg tablet 1 tab PO QID Qty: 120 0RF Motegrity 2 mg tablet 2 mg PO DAILY lorazepam [Ativan] 0.5 mg tablet 0.5 mg PO TID PRN (Reason: anxiety) Qty: 90 1RF ergocalciferol (vitamin D2) 1,250 mcg (50,000 unit) capsule 50,000 unit PO QWEEK 84 Days Qty: 13 0RF ropinirole 1 mg tablet 1 mg PO DAILY Qty: 90 0RF rosuvastatin 10 mg tablet See Rx Instructions .Route .COMPLEX Qty: 90 1RF Rx Instructions: Take 1 tablet by mouth once daily Emgality Pen 120 mg/mL pen injector 120 mg SQ DAILY Qty: 1 5RF rimegepant 75 mg tablet,disintegrating 75 mg PO ONCE PRN (Reason: migraine) Qty: 8 5RF Rx Instructions: Place 1 tablet under tongue at onset of symptoms. Max dose 1 tablet in 24 hours. furosemide [Lasix] 20 mg tablet 20 mg PO DAILY Qty: 30 5RF bupropion HCl 150 mg tablet extended release 24 hr 150 mg PO DAILY Qty: 30 1RF escitalopram oxalate 20 mg tablet 20 mg PO DAILY Qty: 30 1RF hydroxyzine HCl 50 mg tablet 50 mg PO QID PRN (Reason: Anxiety) Qty: 120 1RF prazosin 5 mg capsule 5 mg PO HS Qty: 30 1RF cyclobenzaprine 10 mg tablet 10 mg PO TID PRN (Reason: Muscle Spasm) 30 Days Qty: 90 2RF propranolol 20 mg tablet 20 mg PO BID Qty: 180 1RF Ozempic 0.25 mg or 0.5 mg(2 mg/1.5 mL) pen injector See Rx Instructions .ROUTE .COMPLEX Qty: 1.5 0RF Dose Instruction: INJECT 0.25 MG (0.2 ML) UNDER THE SKIN ONCE WEEKLY FOR 2 WEEKS THEN, INJECT 0.5 MG ONCE WEEKLY FOR 2 WEEKS Rx Instructions: INJECT 0.25 MG (0.2 ML) UNDER THE SKIN ONCE WEEKLY FOR 2 WEEKS THEN, INJECT 0.5 MG ONCE WEEKLY FOR 2 WEEKS ALLERGY/DARA RELF D 24H ER TAB See Rx Instructions .ROUTE .COMPLEX Rx Instructions: Take 1 tablet by mouth once daily benzonatate [benzonatate] 100 mg capsule 100 mg PO TIDP PRN (Reason: Cough) Qty: 30 0RF aspirin 81 MG tablet,delayed release (DR/EC) 81 mg PO DAILY pantoprazole 40 MG tablet,delayed release (DR/EC) See Rx Instructions .Route .COMPLEX Rx Instructions: Take 1 tablet by mouth once daily montelukast 10 MG tablet See Rx Instructions .Route .COMPLEX Rx Instructions: TAKE 1 TABLET BY MOUTH ONCE DAILY FOR ALLERGIES Referrals Follow up/Referrals: Jesus Manuel Castro MD [Primary Care Provider] - See instructions Activity Restrictions/Add. Instructions Additional Instructions/Restrictions: At this point it was felt you are safe to be discharged home. If new or worsening symptoms please do not hesitate to return to the emergency department. Please take antibiotics as prescribed. Clinical Impressions Clinical Impression: Abscess, gluteal cleft Instructions Patient Instructions: DI for Skin Abscess Discharge ED Provider: Diony Boyce General Adult HPI General Chief complaint: Skin/Abscess/Foreign Body Stated complaint: Boil genital area Time Seen by Provider: 01/25/23 09:50 Mode of Arrival: Ambulatory Source of Information: Patient Limitations: No Limitations Description of Symptoms (Recalled from ER Triage Doc. by RN): patient comes in with c/o left sided coccyx pain. pt states that a few days ago she noticed a
[2023-01-25 10:25] VITALS: BP 142/78; PULSE 84; RESP 16; TEMP 36.6
== END 2023-01-25 10:26 | disposition home or self-care (01) ==
PROVIDERS: Emergency Provider Emergency Medicine; PCP Emergency Medicine
DX: L02.91 Cutaneous abscess, unspecified (principal); F17.210 Nicotine dependence, cigarettes, uncomplicated
CPT/HCPCS: 10060; 99283; 99284

== ENCOUNTER 2023-04-06 10:59 | Emergency (ER) | payer OTHER, SELFPAY ==
--- NOTE | 2023-04-06 11:11 | EXP.UTC ---
Discharge Plan Disposition Patient Disposition: Home, Self-Care Condition: Good Prescriptions Prescriptions: New sulfamethoxazole-trimethoprim [Bactrim DS] 800-160 mg Tablet 1 tab PO BID Qty: 20 0RF mupirocin 2 % ointment 1 applic topical TID 7 Days Qty: 15 0RF No Action albuterol sulfate 90 mcg/actuation HFA aerosol inhaler 2 puff IH DAILY phentermine [Adipex-P] 37.5 mg tablet 37.5 mg PO DAILY Qty: 30 0RF Rx Instructions: must administer 30 minutes before or 1-2 hours after breakfast lorazepam [Ativan] 0.5 mg tablet 0.5 mg PO TID PRN (Reason: anxiety) Qty: 90 1RF gabapentin 800 mg tablet 800 mg PO TID Qty: 90 1RF oxycodone 10 mg tablet 10 mg PO QID Qty: 120 0RF ergocalciferol (vitamin D2) 1,250 mcg (50,000 unit) capsule 50,000 unit PO QWEEK 84 Days Qty: 13 0RF rosuvastatin 10 mg tablet See Rx Instructions .Route .COMPLEX Qty: 90 1RF Rx Instructions: Take 1 tablet by mouth once daily Emgality Pen 120 mg/mL pen injector 120 mg SQ DAILY Qty: 1 5RF rimegepant 75 mg tablet,disintegrating 75 mg PO ONCE PRN (Reason: migraine) Qty: 8 5RF Rx Instructions: Place 1 tablet under tongue at onset of symptoms. Max dose 1 tablet in 24 hours. hydroxyzine HCl 50 mg tablet 50 mg PO QID PRN (Reason: Anxiety) Qty: 120 1RF prazosin 5 mg capsule 5 mg PO HS Qty: 30 1RF bupropion HCl 150 mg tablet extended release 24 hr 150 mg PO DAILY Qty: 30 1RF ropinirole 1 mg tablet 1 mg PO DAILY Qty: 90 0RF Ozempic 0.25 mg or 0.5 mg(2 mg/1.5 mL) pen injector See Rx Instructions .ROUTE .COMPLEX Qty: 1.5 0RF Dose Instruction: INJECT 0.25 MG (0.2 ML) UNDER THE SKIN ONCE WEEKLY FOR 2 WEEKS THEN, INJECT 0.5 MG ONCE WEEKLY FOR 2 WEEKS Rx Instructions: INJECT 0.25 MG (0.2 ML) UNDER THE SKIN ONCE WEEKLY FOR 2 WEEKS THEN, INJECT 0.5 MG ONCE WEEKLY FOR 2 WEEKS propranolol 20 mg tablet 20 mg PO BID 90 Days Qty: 180 0RF montelukast 10 mg tablet See Rx Instructions .Route .COMPLEX Qty: 90 0RF Rx Instructions: TAKE 1 TABLET BY MOUTH ONCE DAILY FOR ALLERGIES cyclobenzaprine 10 mg tablet 10 mg PO TID PRN (Reason: Muscle Spasm) 90 Days Qty: 270 0RF furosemide [Lasix] 20 mg tablet 20 mg PO DAILY Qty: 90 0RF escitalopram oxalate 20 mg tablet 20 mg PO DAILY 90 Days Qty: 90 0RF ALLERGY/DARA RELF D 24H ER TAB See Rx Instructions .ROUTE .COMPLEX Rx Instructions: Take 1 tablet by mouth once daily aspirin 81 MG tablet,delayed release (DR/EC) 81 mg PO DAILY pantoprazole 40 MG tablet,delayed release (DR/EC) See Rx Instructions .Route .COMPLEX Rx Instructions: Take 1 tablet by mouth once daily Referrals Follow up/Referrals: Jesus Manuel Castro MD [Primary Care Provider] - See instructions Activity Restrictions/Add. Instructions Additional Instructions/Restrictions: Keep the wounds clean and dry. Watch the wound for signs of infection, such as redness, swelling, drainage, fever. etc. Take tylenol for pain. Follow up with your regular doctor. Follow up with podiatry regarding your foot pain. I put in a referral to Dr. Espinoza. Please call and make an appointment there. Follow up with orthopedics regarding your hip pain. I put in a referral to Dr. Jain. Please call and make an appointment. GO TO THE ER FOR ANY WORSENING SYMPTOMS OR CONCERNS. Clinical Impressions Clinical Impression: Impetigo, Sprain of foot, left, Hip pain, right Instructions Patient Instructions: Impetigo, DI for Impetigo, DI for Foot Sprain, DI for Hip Pain Discharge ED Provider: J Luis Reyse [facility] HPI General Stated complaint: Sores on stomache, RT hip/Lt foot pain Time Seen by Provider: 04/06/23 11:11 History of Present Illness Provider Complaint: She states that she has had multiple scabbed lesions on her skin for the past 4 days. She also has had right hip pain and left foot
[2023-04-06 11:15] VITALS: BP 109/51; PULSE 86; RESP 19; TEMP 36.8; O2SAT 95; BMI 36.1
--- NOTE | 2023-04-06 11:20 | XR_ITS ---
FINAL REPORT CLINICAL HISTORY: pain rt hip COMPARISON: None FINDINGS: RIGHT HIP Two views of the right hip demonstrate no acute fracture or dislocation. The hip joint spaces preserved. Femoral head has normal smooth contour. The visualized bony structures are well aligned. No soft tissue abnormality is seen. IMPRESSION: No acute bony abnormality. Reviewed, Interpreted and Dictated by Vaibhav Nick MD Transcribed by Meseret Sosa Authenticated and [facility]
--- NOTE | 2023-04-06 11:20 | XR_ITS ---
FINAL REPORT CLINICAL HISTORY: pain lt foot COMPARISON: 07/05/2022 FINDINGS: LEFT FOOT Three views of the left foot demonstrate no acute fracture or dislocation. There is a sideplate and screws securing the distal third metatarsal. There is old healed fracture deformity of the distal second metatarsal. The visualized joint spaces are normally aligned. Mild soft tissue swelling over the dorsum of the foot. IMPRESSION: Postsurgical changes and soft tissue swelling without acute bony abnormality. Reviewed, Interpreted and Dictated by Vaibhav Nick MD Transcribed by Meseret Sosa Authenticated and [facility]
--- NOTE | 2023-04-06 11:20 | XR_ITS ---
FINAL REPORT CLINICAL HISTORY: pain lt ankle COMPARISON: 07/05/2022 FINDINGS: LEFT ANKLE Three views demonstrate no acute fracture or dislocation. The visualized joint spaces are normally aligned. The ankle mortise is intact. There is mild soft tissue swelling about the ankle. IMPRESSION: Soft tissue swelling with no acute bony abnormality. Reviewed, Interpreted and Dictated by Vaibhav Nick MD Transcribed by Meseret Sosa Authenticated and [facility]
[2023-04-06 12:20] VITALS: BP 109/51; PULSE 86; RESP 19; TEMP 36.8; O2SAT 95
== END 2023-04-06 12:23 | disposition home or self-care (01) ==
PROVIDERS: Emergency Provider Nurse Practitioner Family; PCP Emergency Medicine
DX: L01.00 Impetigo, unspecified; S93.602A Unspecified sprain of left foot, initial encounter; M25.551 Pain in right hip; F17.210 Nicotine dependence, cigarettes, uncomplicated; E11.9 Type 2 diabetes mellitus without complications; I10 Essential (primary) hypertension; E78.5 Hyperlipidemia, unspecified; K21.9 Gastro-esophageal reflux disease without esophagitis; F31.81 Bipolar II disorder; F41.1 Generalized anxiety disorder; X58.XXXA Exposure to other specified factors, initial encounter; B95.7 Other staphylococcus as the cause of diseases classified elsewhere; Z79.84 Long term (current) use of oral hypoglycemic drugs
CPT/HCPCS: 73502; 73610; 73630; 87070; 87077; 87186; 87205; 99212; 99214; G0463

== ENCOUNTER → 2023-04-14 09:12 | Outpatient (CLI) | payer OTHER, SELFPAY ==
[2023-04-14 19:05] LABS: Basophils # 0.1 K/mm3 (0-0.2); Basophils % 0.6 % (0.1-2.0); Eosinophils # 0.5 K/mm3 (0.0-0.4); Eosinophils % 4.7 % (0.1-12.0); Hematocrit 43.8 % (37.0-47.0); Hemoglobin 13.8 g/dL (12.2-16.2); Lymphocytes # 3.3 K/mm3 (0.7-4.5); Lymphocytes % 30.7 % (10-50); Mean Corpuscular HGB Conc 31.4 g/dL (31.8-35.4); Mean Corpuscular Hemoglobin 29.2 pg (27.0-31.2); Mean Corpuscular Volume 92.9 fl (81-99); Mean Platelet Volume 8.9 fl (7.4-10.4); Monocytes # 0.5 K/mm3 (0.1-1.0); Monocytes % 4.4 % (1.7-9.3); Neutrophils # 6.4 K/mm3 (1.8-7.8); Neutrophils % 59.6 % (37.0-80.0); Platelet Count 372 K/mm3 (142-424); Red Blood Count 4.72 M/mm3 (4.20-5.40); Red Cell Distribution Width 12.9 % (11.5-17.5); White Blood Count 10.8 K/mm3 (4.8-10.8)
[2023-04-14 19:26] LABS: Alanine Aminotransferase 28 U/L (12-78); Albumin Level 4.6 g/dl (3.5-5.0); Albumin/Globulin Ratio 1.8 (1.1-1.8); Alkaline Phosphatase 90 U/L (38-126); Anion Gap 16.2 mEq/L (5-15); Aspartate Amino Transferase 30 U/L (14-36); Bilirubin,Total 0.3 mg/dl (0.2-1.3); Blood Urea Nitrogen 9 mg/dl (7-17); Calcium 9.3 mg/dl (8.4-10.2); Carbon Dioxide 28 mmol/L (22.0-30.0); Chloride 99 mmol/L (98-107); Chol/HDL Ratio 5.3 (1-3.5); Cholesterol 219 mg/dl (140-200); Estimated Glomerular Filt Rate 81 ml/min (>60); GFR (African American) 98 ML/MIN (>60); Globulin 2.6 g/dL (1.3-3.2); Glucose 65 mg/dl (74-100); HDL Cholesterol 41 mg/dl (40-60); Potassium 4.2 mmoL/L (3.5-5.1); Sodium 139 mmol/L (136-145); Total Protein,Serum 7.2 g/dl (6.3-8.2); Triglycerides 304 mg/dl (30-150); VLDL Cholesterol 61 mg/dL (0-40)
[2023-04-14 19:36] LABS: Direct LDL Cholesterol 120.05 mg/dL (100-129)
[2023-04-14 19:42] LABS: 25-OH Vitamin D, Total 25.2 ng/mL (30-100)
[2023-04-14 19:43] LABS: Free T4 (Free Thyroxine) 0.69 ng/dl (0.78-2.19)
[2023-04-14 19:57] LABS: Thyroid Stimulating Hormone 1.41 uIU/mL (0.465-4.68)
[2023-04-14 20:16] LABS: Hemoglobin A1C 5.6 % (4.0-6.0)
[2023-04-14 20:30] LABS: Amphetamine/Metha Screen,Urine Negative ng/ml (<1000); Barbiturates Screen,Urine Negative ng/ml (<200)
[2023-04-14 20:32] LABS: Benzodiazepines Screen,Urine Positive ng/ml (<200)
[2023-04-14 20:33] LABS: Cannabinoid Screen,Urine Negative ng/ml (<50); Cocaine Screen,Urine Negative ng/ml (<300)
[2023-04-14 20:34] LABS: Methadone Screen,Urine Negative ng/ml (<300)
[2023-04-14 20:35] LABS: Opiate Screen,Urine Positive ng/ml (<300); Phencyclidine Screen,Urine Negative ng/ml (<25)
== END ==
PROVIDERS: PCP Emergency Medicine; Visit Provider Emergency Medicine
DX: F41.1 Generalized anxiety disorder (principal); E55.9 Vitamin D deficiency, unspecified; E11.9 Type 2 diabetes mellitus without complications; E66.9 Obesity, unspecified; Z68.38 Body mass index [BMI] 38.0-38.9, adult; Z79.899 Other long term (current) drug therapy
CPT/HCPCS: 80053; 80061; 80305; 82306; 83036; 84439; 84443; 85025

== ENCOUNTER 2023-04-27 17:24 | Emergency (ER) | payer OTHER, SELFPAY ==
[2023-04-27 18:40] VITALS: BP 131/89; PULSE 76; RESP 18; TEMP 37; O2SAT 98; BMI 35.3
--- NOTE | 2023-04-27 19:05 | EXP.UTC ---
Discharge Plan Disposition Patient Disposition: Home, Self-Care Condition: Good Prescriptions Prescriptions: No Action albuterol sulfate 90 mcg/actuation HFA aerosol inhaler 2 puff IH DAILY oxycodone 10 mg tablet 10 mg PO QID Qty: 120 0RF phentermine [Adipex-P] 37.5 mg tablet 37.5 mg PO DAILY Qty: 30 0RF Rx Instructions: must administer 30 minutes before or 1-2 hours after breakfast gabapentin 800 mg tablet 800 mg PO TID Qty: 90 0RF lorazepam [Ativan] 0.5 mg tablet 0.5 mg PO TID PRN (Reason: anxiety) Qty: 90 1RF hydroxyzine HCl 50 mg tablet 50 mg PO QID PRN (Reason: Anxiety) Qty: 120 1RF prazosin 5 mg capsule 5 mg PO HS Qty: 30 1RF ropinirole 1 mg tablet 1 mg PO DAILY Qty: 90 0RF Ozempic 0.25 mg or 0.5 mg(2 mg/1.5 mL) pen injector See Rx Instructions .ROUTE .COMPLEX Qty: 1.5 0RF Dose Instruction: INJECT 0.25 MG (0.2 ML) UNDER THE SKIN ONCE WEEKLY FOR 2 WEEKS THEN, INJECT 0.5 MG ONCE WEEKLY FOR 2 WEEKS Rx Instructions: INJECT 0.25 MG (0.2 ML) UNDER THE SKIN ONCE WEEKLY FOR 2 WEEKS THEN, INJECT 0.5 MG ONCE WEEKLY FOR 2 WEEKS propranolol 20 mg tablet 20 mg PO BID 90 Days Qty: 180 0RF furosemide [Lasix] 20 mg tablet 20 mg PO DAILY Qty: 90 0RF escitalopram oxalate 20 mg tablet 20 mg PO DAILY 90 Days Qty: 90 0RF montelukast 10 mg tablet See Rx Instructions .Route .COMPLEX Qty: 90 0RF Rx Instructions: TAKE 1 TABLET BY MOUTH ONCE DAILY FOR ALLERGIES bupropion HCl 150 mg tablet extended release 24 hr 150 mg PO DAILY Qty: 30 1RF rosuvastatin [Crestor] 20 mg tablet 20 mg PO HS Qty: 30 2RF ergocalciferol (vitamin D2) [Vitamin D2] 1,250 mcg (50,000 unit) capsule 1,250 mcg PO WEEKLY Qty: 5 2RF cyclobenzaprine 10 mg tablet 10 mg PO TID PRN (Reason: Muscle Spasm) 90 Days Qty: 270 0RF clindamycin HCl 300 mg capsule 300 mg PO TID 10 Days Qty: 30 0RF meloxicam 7.5 mg tablet See Rx Instructions .ROUTE .COMPLEX Qty: 10 0RF Dose Instruction: TAKE ONE TABLET BY MOUTH ONCE A DAY Rx Instructions: TAKE ONE TABLET BY MOUTH ONCE A DAY ALLERGY/DARA RELF D 24H ER TAB See Rx Instructions .ROUTE .COMPLEX Rx Instructions: Take 1 tablet by mouth once daily aspirin 81 MG tablet,delayed release (DR/EC) 81 mg PO DAILY pantoprazole 40 MG tablet,delayed release (DR/EC) See Rx Instructions .Route .COMPLEX Rx Instructions: Take 1 tablet by mouth once daily sulfamethoxazole-trimethoprim [Bactrim DS] 800-160 mg Tablet 1 tab PO BID Qty: 20 0RF mupirocin 2 % ointment 1 applic topical TID 7 Days Qty: 15 0RF Referrals Follow up/Referrals: Jesus Manuel Castro MD [Primary Care Provider] - See instructions Activity Restrictions/Add. Instructions Additional Instructions/Restrictions: Continue taking Clindamycin as prescribed by your Family Physican Use topical medication as prescribed Follow up with your Family Doctor if no improvement or any worsening of symptoms Return if needed Straight to ER if any life threatening symptoms Clinical Impressions Clinical Impression: Wound of right leg Qualifiers: Encounter type: initial encounter Qualified Code(s): S81.801A - Unspecified open wound, right lower leg, initial encounter Instructions Patient Instructions: Clindamycin, Mupirocin Discharge ED Provider: Noelle Fields [facility] [place] General Stated complaint: irritated spot on Rt lower leg Mode of Arrival: Ambulatory Source of Information: Patient Limitations: No Limitations Time Seen by Provider: 04/27/23 19:06 Description of Symptoms (Recalled from Triage Doc. by RN): PATIENT C/O POSSIBLE INFECTED AREA TO TOP OF RIGHT MARTINEZ X 3 WEEKS HEENT Symptoms (Recalled from RN notes): No Resp Symptoms (Recalled from RN notes): No Skin Symptoms (Recalled from RN notes): Yes MS Symptoms (Recalled from RN notes): No Functional Status (Recalled from RN notes): WNL History of Pre
[2023-04-27 19:19] VITALS: BP 131/89; PULSE 76; RESP 18; TEMP 37; O2SAT 98
== END 2023-04-27 19:28 | disposition home or self-care (01) ==
PROVIDERS: Emergency Provider Nurse Practitioner; PCP Emergency Medicine
DX: S81.801A Unspecified open wound, right lower leg, initial encounter (principal); F17.210 Nicotine dependence, cigarettes, uncomplicated; E11.9 Type 2 diabetes mellitus without complications; I10 Essential (primary) hypertension; E78.5 Hyperlipidemia, unspecified; K21.9 Gastro-esophageal reflux disease without esophagitis; F41.1 Generalized anxiety disorder; F31.81 Bipolar II disorder; T14.90XA Injury, unspecified, initial encounter; Z79.85 Long-term (current) use of injectable non-insulin antidiabetic drugs
CPT/HCPCS: 87070; 87205; 99212; 99214; G0463

== ENCOUNTER → 2023-05-24 15:08 | Outpatient (CLI) | payer OTHER, SELFPAY ==
--- NOTE | 2023-05-24 15:15 | MR_ITS ---
FINAL REPORT CLINICAL HISTORY: low back pain right hip and leg pain COMPARISON: None FINDINGS: Multiplanar MR imaging of the lumbar spine was performed without contrast. On the sagittal T2-weighted images, disc degeneration is seen throughout. The vertebral alignment is normal. There is no evidence of fracture. No bony mass is identified. The conus has an unremarkable appearance. L1-2: An annular bulge is present. There is no significant canal stenosis or neural foraminal narrowing. L2-3: An annular bulge is present. There is no significant canal stenosis or neural foraminal narrowing. L3-4: An annular bulge is present. There is no significant canal stenosis or neural foraminal narrowing. L4-5: An annular bulge is present. Mild bilateral neuroforaminal narrowing. L5-S1: An annular bulge is present. Mild bilateral neuroforaminal narrowing. IMPRESSION: Multilevel degenerative disc disease and spondylosis as described. Reviewed, Interpreted and Dictated by Navi Diane III, MD Transcribed by Meseret Sosa Authenticated and [facility]
== END ==
PROVIDERS: PCP Emergency Medicine; Visit Provider Emergency Medicine
DX: M54.50 Low back pain, unspecified (principal)
CPT/HCPCS: 72148; 76376

== ENCOUNTER → 2023-06-07 23:46 | Outpatient (CLI) | payer OTHER, SELFPAY ==
[2023-06-07 23:36] LABS: Amphetamine/Metha Screen,Urine Negative ng/ml (<1000)
[2023-06-08 04:13] LABS: Barbiturates Screen,Urine Negative ng/ml (<200)
[2023-06-08 04:14] LABS: Benzodiazepines Screen,Urine Negative ng/ml (<200); Cannabinoid Screen,Urine Negative ng/ml (<50)
[2023-06-08 04:15] LABS: Cocaine Screen,Urine Negative ng/ml (<300)
[2023-06-08 04:16] LABS: Methadone Screen,Urine Negative ng/ml (<300); Opiate Screen,Urine Positive ng/ml (<300)
[2023-06-08 04:17] LABS: Phencyclidine Screen,Urine Negative ng/ml (<25)
== END ==
PROVIDERS: PCP Emergency Medicine; Visit Provider Emergency Medicine
DX: M25.551 Pain in right hip (principal)
CPT/HCPCS: 80305

== ENCOUNTER 2023-06-26 18:17 | Emergency (ER) | payer OTHER, SELFPAY ==
[2023-06-26 19:20] VITALS: BP 126/70; PULSE 90; RESP 17; TEMP 36.8; O2SAT 98; BMI 38.7
--- NOTE | 2023-06-26 19:38 | EXP.UTC ---
Discharge Plan Disposition Patient Disposition: Home, Self-Care Condition: Good Prescriptions Prescriptions: New amoxicillin-pot clavulanate 875-125 mg Tablet 1 tab PO Q12H Qty: 20 0RF ofloxacin 0.3 % drops 10 drp otic (ear) Q12H 14 Days Qty: 20 0RF No Action albuterol sulfate 90 mcg/actuation HFA aerosol inhaler 2 puff IH DAILY ropinirole 1 mg tablet 1 mg PO DAILY Qty: 90 0RF lidocaine 5 % adhesive patch,medicated 1 patch topical DAILY Qty: 30 0RF Rx Instructions: leave on most painful area for up to 12 hrs bupropion HCl 150 mg tablet extended release 24 hr 150 mg PO DAILY Qty: 30 2RF diclofenac sodium 1 % gel 2 g topical QID Qty: 100 2RF Rx Instructions: apply to single elbow, wrist or hand; for hand includes palm/fingers/back of hand chlordiazepoxide-clidinium [Librax (with clidinium)] 5-2.5 mg capsule 1 cap PO BID Emgality Pen 120 mg/mL pen injector 120 mg SQ QMONTH Qty: 1 2RF Nurtec ODT 75 mg tablet,disintegrating 75 mg PO ONCE PRN (Reason: chronic migraine) Qty: 10 2RF Rx Instructions: Place 1 tablet under tongue immediately at onset of symptoms, do not repeat. Max dose 1 tablet in 24 hours. gabapentin 800 mg tablet 800 mg PO TID Qty: 90 1RF lorazepam [Ativan] 0.5 mg tablet 0.5 mg PO TID PRN (Reason: anxiety) Qty: 90 1RF phentermine [Adipex-P] 37.5 mg tablet 37.5 mg PO DAILY Qty: 30 0RF Rx Instructions: must administer 30 minutes before or 1-2 hours after breakfast oxycodone 10 mg tablet 10 mg PO QID Qty: 120 0RF hydroxyzine HCl 50 mg tablet 50 mg PO QID PRN (Reason: Anxiety) Qty: 120 1RF prazosin 5 mg capsule 5 mg PO HS Qty: 30 1RF propranolol 20 mg tablet 20 mg PO BID 90 Days Qty: 180 0RF furosemide [Lasix] 20 mg tablet 20 mg PO DAILY Qty: 90 0RF montelukast 10 mg tablet See Rx Instructions .Route .COMPLEX Qty: 90 0RF Rx Instructions: TAKE 1 TABLET BY MOUTH ONCE DAILY FOR ALLERGIES rosuvastatin [Crestor] 20 mg tablet 20 mg PO HS Qty: 30 2RF ergocalciferol (vitamin D2) [Vitamin D2] 1,250 mcg (50,000 unit) capsule 1,250 mcg PO WEEKLY Qty: 5 2RF cyclobenzaprine 10 mg tablet 10 mg PO TID PRN (Reason: Muscle Spasm) 90 Days Qty: 270 0RF meloxicam 7.5 mg tablet See Rx Instructions .ROUTE .COMPLEX Qty: 10 0RF Dose Instruction: TAKE ONE TABLET BY MOUTH ONCE A DAY Rx Instructions: TAKE ONE TABLET BY MOUTH ONCE A DAY escitalopram oxalate 20 mg tablet 20 mg PO DAILY 90 Days Qty: 90 0RF ALLERGY/DARA RELF D 24H ER TAB See Rx Instructions .ROUTE .COMPLEX Rx Instructions: Take 1 tablet by mouth once daily aspirin 81 MG tablet,delayed release (DR/EC) 81 mg PO DAILY pantoprazole 40 MG tablet,delayed release (DR/EC) See Rx Instructions .Route .COMPLEX Rx Instructions: Take 1 tablet by mouth once daily mupirocin 2 % ointment 1 applic topical TID 7 Days Qty: 15 0RF Referrals Follow up/Referrals: Jesus Manuel Castro MD [Primary Care Provider] - See instructions Activity Restrictions/Add. Instructions Additional Instructions/Restrictions: *Monitor Temp, Over the counter Motrin or Tylenol as directed/as needed Tylenol every 4 hours and Motrin every 6 hours (as long as your family doctor has told you that you can take it) for fever or pain. and straight to ER if unable to lower temp less than 101.0 after medication given *Warm salt water gargles may help to soothe the throat *Throat Lozenges? *Warm fluids like tea with honey may help to soothe the throat? *Sleep elevated *Humidifier/Vaporizer Follow up IMMEDIATELY for new or worsening symptoms or no Noticeable improvement over the next 48-72 hours. 911 for difficulty breathing or swallowing Clinical Impressions Clinical Impression: Otitis media Qualifiers: Otitis media type: unspecified Laterality: lef
[2023-06-26 19:47] VITALS: BP 126/70; PULSE 90; RESP 17; TEMP 36.8; O2SAT 98
== END 2023-06-26 19:53 | disposition home or self-care (01) ==
PROVIDERS: Emergency Provider Nurse Practitioner; PCP Emergency Medicine
DX: H66.92 Otitis media, unspecified, left ear (principal); H60.92 Unspecified otitis externa, left ear; R50.9 Fever, unspecified; F17.210 Nicotine dependence, cigarettes, uncomplicated; E11.9 Type 2 diabetes mellitus without complications; K21.9 Gastro-esophageal reflux disease without esophagitis; E78.5 Hyperlipidemia, unspecified; I10 Essential (primary) hypertension; F41.1 Generalized anxiety disorder; F31.81 Bipolar II disorder
CPT/HCPCS: 99212; 99214; G0463

== ENCOUNTER 2023-07-11 18:44 | Emergency (ER) | payer OTHER, SELFPAY ==
[2023-07-11 19:55] VITALS: BP 120/76; PULSE 91; RESP 16; TEMP 36.9; O2SAT 100; BMI 38.7
--- NOTE | 2023-07-11 20:14 | XR_ITS ---
PROCEDURE INFORMATION: Exam: XR Left Hip Exam date and time: 07/11/2023 8:24 PM Age: 38 years old Clinical indication: Hip pain; Left hip; Additional info: Sharp pain. No injury. HX of osteopenia TECHNIQUE: Imaging protocol: Radiologic exam of the left hip. Views: 2 or 3 views hip with pelvis when performed. COMPARISON: CT ABDOMEN PELVIS WO CON 04/14/2020 5:44 PM FINDINGS: Bones/joints: Unremarkable. No acute fracture. Soft tissues: Unremarkable. IMPRESSION: No acute findings.
--- NOTE | 2023-07-11 20:14 | XR_ITS ---
PROCEDURE INFORMATION: Exam: XR Left Femur Exam date and time: 07/11/2023 8:25 PM Age: 38 years old Clinical indication: Pain; Thigh; Left; Additional info: Sharp pain. No injury. HX of osteopenia TECHNIQUE: Imaging protocol: Radiologic exam of the left femur. Views: 2 views. COMPARISON: CR XR HIP LT 2-3V W/PELVIS 07/11/2023 8:24 PM FINDINGS: Bones/joints: Unremarkable. No acute fracture. Soft tissues: Unremarkable. IMPRESSION: No acute findings.
--- NOTE | 2023-07-11 20:36 | PC.NURSE ---
Rounded on pt, provided them with a blanket, Radiology in room at time of encounter.
--- NOTE | 2023-07-11 21:24 | XR_ITS ---
PROCEDURE INFORMATION: Exam: XR Right Femur Exam date and time: 07/11/2023 9:35 PM Age: 38 years old Clinical indication: Thigh; Patient HX: Right hip pain x2-3 months. Worse today; Additional info: Pain, osteopenia TECHNIQUE: Imaging protocol: Radiologic exam of the right femur. Views: 2 views. COMPARISON: CR XR HIP RT 2-3V W/PELVIS 04/06/2023 11:20 AM FINDINGS: Bones/joints: Unremarkable. No acute fracture. Soft tissues: Unremarkable. IMPRESSION: No acute findings.
--- NOTE | 2023-07-11 21:24 | CT_ITS ---
PROCEDURE INFORMATION: Exam: CT Pelvis Without Contrast; Skeletal Exam date and time: 07/11/2023 9:54 PM Age: 38 years old Clinical indication: Hip pain; Right hip; Additional info: Pain, R posterior hip, osteopenia TECHNIQUE: Imaging protocol: Computed tomography of the pelvis without contrast. Exam focused on the skeleton. Radiation optimization: All CT scans at this facility use at least one of these dose optimization techniques: automated exposure control; mA and/or kV adjustment per patient size (includes targeted exams where dose is matched to clinical indication); or iterative reconstruction. REPORTING DATA: Count of CT and Cardiac NM exams in prior 12 months: This patient has received 0 known CTs and 0 known cardiac nuclear medicine studies in the 12 months prior to the current study. COMPARISON: CT ABDOMEN PELVIS WO CON 04/14/2020 5:44 PM FINDINGS: Bones/joints: There are findings of avascular necrosis of the bilateral femoral heads, more prominent on the right where there is subtle cortical collapse as well as subchondral fracture present. Minimal subchondral sclerosis noted left femoral head. No associated arthritic change. Osseous structures are otherwise unremarkable. Soft tissues: Evidence of prior hysterectomy. Otherwise unremarkable. 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
--- NOTE | 2023-07-11 21:24 | XR_ITS ---
PROCEDURE INFORMATION: Exam: XR Right Hip Exam date and time: 07/11/2023 9:34 PM Age: 38 years old Clinical indication: Patient HX: Right hip pain x2-3 months. Worse today. ; Additional info: Pain, osteopenia. TECHNIQUE: Imaging protocol: Radiologic exam of the right hip. Views: 2 or 3 views hip with pelvis when performed. COMPARISON: CR XR HIP RT 2-3V W/PELVIS 04/06/2023 11:20 AM FINDINGS: Bones/joints: There are mixed sclerotic and lucent changes are noted in the right femoral head with evidence of small subchondral lucency on the frog-leg view. Findings are concerning for avascular necrosis. Osseous alignment is normal. No arthritic change. Soft tissues: Unremarkable. IMPRESSION: Findings suggesting avascular necrosis of the right femoral head, likely stage III.
--- NOTE | 2023-07-11 21:26 | HMH.EDGENADL ---
Discharge Plan Disposition Patient Disposition: Home, Self-Care Chief Complaint: PAIN Prescriptions Prescriptions: No Action albuterol sulfate 90 mcg/actuation HFA aerosol inhaler 2 puff IH DAILY bupropion HCl 150 mg tablet extended release 24 hr 150 mg PO DAILY Qty: 30 2RF diclofenac sodium 1 % gel 2 g topical QID Qty: 100 2RF Rx Instructions: apply to single elbow, wrist or hand; for hand includes palm/fingers/back of hand Emgality Pen 120 mg/mL pen injector 120 mg SQ QMONTH Qty: 1 2RF Nurtec ODT 75 mg tablet,disintegrating 75 mg PO ONCE PRN (Reason: chronic migraine) Qty: 10 2RF Rx Instructions: Place 1 tablet under tongue immediately at onset of symptoms, do not repeat. Max dose 1 tablet in 24 hours. gabapentin 800 mg tablet 800 mg PO TID Qty: 90 1RF lorazepam [Ativan] 0.5 mg tablet 0.5 mg PO TID PRN (Reason: anxiety) Qty: 90 1RF phentermine [Adipex-P] 37.5 mg tablet 37.5 mg PO DAILY Qty: 30 0RF Rx Instructions: must administer 30 minutes before or 1-2 hours after breakfast oxycodone 10 mg tablet 10 mg PO QID Qty: 120 0RF hydroxyzine HCl 50 mg tablet 50 mg PO QID PRN (Reason: Anxiety) Qty: 120 1RF prazosin 5 mg capsule 5 mg PO HS Qty: 30 1RF ergocalciferol (vitamin D2) [Vitamin D2] 1,250 mcg (50,000 unit) capsule 1,250 mcg PO WEEKLY Qty: 5 2RF chlordiazepoxide-clidinium [Librax (with clidinium)] 5-2.5 mg capsule 1 cap PO BID Qty: 60 0RF propranolol 20 mg tablet 20 mg PO BID 90 Days Qty: 180 0RF montelukast 10 mg tablet See Rx Instructions .ROUTE .COMPLEX Qty: 30 2RF Dose Instruction: TAKE ONE TABLET BY MOUTH ONCE A DAY IF NEEDED FOR ALLERGIES Rx Instructions: TAKE ONE TABLET BY MOUTH ONCE A DAY IF NEEDED FOR ALLERGIES rosuvastatin 20 mg tablet See Rx Instructions .ROUTE .COMPLEX Qty: 30 2RF Dose Instruction: TAKE ONE TABLET BY MOUTH AT BEDTIME Rx Instructions: TAKE ONE TABLET BY MOUTH AT BEDTIME ropinirole 1 mg tablet See Rx Instructions .ROUTE .COMPLEX Qty: 90 2RF Dose Instruction: TAKE ONE TABLET BY MOUTH ONCE A DAY FOR RESTLESS LEGS Rx Instructions: TAKE ONE TABLET BY MOUTH ONCE A DAY FOR RESTLESS LEGS meloxicam 7.5 mg tablet See Rx Instructions .ROUTE .COMPLEX Qty: 10 0RF Dose Instruction: TAKE ONE TABLET BY MOUTH ONCE A DAY Rx Instructions: TAKE ONE TABLET BY MOUTH ONCE A DAY lidocaine 5 % adhesive patch,medicated 1 patch topical DAILY Qty: 30 0RF Rx Instructions: leave on most painful area for up to 12 hrs furosemide [Lasix] 20 mg tablet 20 mg PO DAILY Qty: 90 0RF escitalopram oxalate 20 mg tablet 20 mg PO DAILY 90 Days Qty: 90 0RF cyclobenzaprine 10 mg tablet See Rx Instructions .ROUTE .COMPLEX Qty: 90 2RF Dose Instruction: TAKE ONE TABLET BY MOUTH 3 TIMES A DAY NEEDED FOR MUSCLE SPASMS Rx Instructions: TAKE ONE TABLET BY MOUTH 3 TIMES A DAY NEEDED FOR MUSCLE SPASMS ALLERGY/DARA RELF D 24H ER TAB See Rx Instructions .ROUTE .COMPLEX Rx Instructions: Take 1 tablet by mouth once daily amoxicillin-pot clavulanate 875-125 mg Tablet 1 tab PO Q12H Qty: 20 0RF ofloxacin 0.3 % drops 10 drp otic (ear) Q12H 14 Days Qty: 20 0RF aspirin 81 MG tablet,delayed release (DR/EC) 81 mg PO DAILY pantoprazole 40 MG tablet,delayed release (DR/EC) See Rx Instructions .Route .COMPLEX Rx Instructions: Take 1 tablet by mouth once daily mupirocin 2 % ointment 1 applic topical TID 7 Days Qty: 15 0RF Referrals Follow up/Referrals: Jesus Manuel Castro MD [Primary Care Provider] - See instructions Jordan Jaime DO [Staff Physician] - See instructions Activity Restrictions/Add. Instructions Additional Instructions/Restrictions: At this time is felt you are safe to be discharged home. If new or worsening symptoms please do not hesitate to return the emergency d
[2023-07-11 22:24] LABS: Basophils % 0.4 % (0.1-2.0); Eosinophils # 0.2 K/mm3 (0.0-0.4); Eosinophils % 1.8 % (0.1-12.0); Hemoglobin 14.9 g/dL (12.2-16.2); Lymphocytes % 32.7 % (10-50); Mean Corpuscular Hemoglobin 28.6 pg (27.0-31.2); Mean Corpuscular Volume 92.3 fl (81-99); Mean Platelet Volume 8.5 fl (7.4-10.4); Monocytes # 0.4 K/mm3 (0.1-1.0); Monocytes % 3.9 % (1.7-9.3); Neutrophils # 5.5 K/mm3 (1.8-7.8); Neutrophils % 61.1 % (37.0-80.0); Platelet Count 387 K/mm3 (142-424); Red Cell Distribution Width 13.1 % (11.5-17.5); White Blood Count 9.1 K/mm3 (4.8-10.8)
[2023-07-11 22:29] LABS: Chloride 102 mmol/L (98-107); Sodium 142 mmol/L (136-145)
[2023-07-11 22:30] LABS: Potassium 3.5 mmoL/L (3.5-5.1)
[2023-07-11 22:32] LABS: Alanine Aminotransferase 23 U/L (12-78); Alkaline Phosphatase 86 U/L (38-126); Anion Gap 13.5 mEq/L (5-15); Aspartate Amino Transferase 29 U/L (14-36); Bilirubin,Total 0.3 mg/dl (0.2-1.3); Blood Urea Nitrogen 9 mg/dl (7-17); Carbon Dioxide 30 mmol/L (22.0-30.0); Creatinine Clearance Estimated 150 mL/min (50-200); Estimated Glomerular Filt Rate 80 ml/min (>60); GFR (African American) 97 ML/MIN (>60)
[2023-07-11 22:33] LABS: Albumin Level 4.9 g/dl (3.5-5.0); Albumin/Globulin Ratio 1.2 (1.1-1.8); Calcium 9.4 mg/dl (8.4-10.2); Glucose 90 mg/dl (74-100); Total Protein,Serum 8.9 g/dl (6.3-8.2)
[2023-07-11 22:35] LABS: HCG Qualitative, Serum Negative (Negative)
--- NOTE | 2023-07-11 23:12 | PC.NURSE ---
V/O per MD for 30mg Toradol IVP
--- NOTE | 2023-07-11 23:17 | PC.NURSE ---
Rounded on patient; warm blanket provided to patient; nothing else needed at this time
--- NOTE | 2023-07-11 23:42 | PC.NURSE ---
paged dr heard to speak with dr post
[2023-07-11 23:59] VITALS: BP 106/57; PULSE 80; RESP 18; TEMP 36.7
== END 2023-07-12 00:02 | disposition home or self-care (01) ==
PROVIDERS: Emergency Provider Emergency Medicine; PCP Emergency Medicine
DX: M87.051 Idiopathic aseptic necrosis of right femur (principal); M87.052 Idiopathic aseptic necrosis of left femur; F41.1 Generalized anxiety disorder; F31.81 Bipolar II disorder; K21.9 Gastro-esophageal reflux disease without esophagitis; E78.5 Hyperlipidemia, unspecified; I10 Essential (primary) hypertension; G43.909 Migraine, unspecified, not intractable, without status migrainosus; E11.9 Type 2 diabetes mellitus without complications; F17.210 Nicotine dependence, cigarettes, uncomplicated
CPT/HCPCS: 72192; 73502; 73552; 80053; 84703; 85025; 96374; 96375; 99285; J0131

== ENCOUNTER 2023-07-15 19:39 | Emergency (ER) | payer OTHER, SELFPAY ==
[2023-07-15 19:41] VITALS: BP 136/64; PULSE 110; RESP 18; TEMP 36.8; O2SAT 100; BMI 38.9
--- NOTE | 2023-07-15 19:43 | HMH.EDGENADL ---
Discharge Plan Disposition Patient Disposition: Home, Self-Care Prescriptions Prescriptions: No Action albuterol sulfate 90 mcg/actuation HFA aerosol inhaler 2 puff IH DAILY bupropion HCl 150 mg tablet extended release 24 hr 150 mg PO DAILY Qty: 30 2RF diclofenac sodium 1 % gel 2 g topical QID Qty: 100 2RF Rx Instructions: apply to single elbow, wrist or hand; for hand includes palm/fingers/back of hand Emgality Pen 120 mg/mL pen injector 120 mg SQ QMONTH Qty: 1 2RF Nurtec ODT 75 mg tablet,disintegrating 75 mg PO ONCE PRN (Reason: chronic migraine) Qty: 10 2RF Rx Instructions: Place 1 tablet under tongue immediately at onset of symptoms, do not repeat. Max dose 1 tablet in 24 hours. gabapentin 800 mg tablet 800 mg PO TID Qty: 90 1RF lorazepam [Ativan] 0.5 mg tablet 0.5 mg PO TID PRN (Reason: anxiety) Qty: 90 1RF phentermine [Adipex-P] 37.5 mg tablet 37.5 mg PO DAILY Qty: 30 0RF Rx Instructions: must administer 30 minutes before or 1-2 hours after breakfast oxycodone 10 mg tablet 10 mg PO QID Qty: 120 0RF hydroxyzine HCl 50 mg tablet 50 mg PO QID PRN (Reason: Anxiety) Qty: 120 1RF prazosin 5 mg capsule 5 mg PO HS Qty: 30 1RF chlordiazepoxide-clidinium [Librax (with clidinium)] 5-2.5 mg capsule 1 cap PO BID Qty: 60 0RF propranolol 20 mg tablet 20 mg PO BID 90 Days Qty: 180 0RF montelukast 10 mg tablet See Rx Instructions .ROUTE .COMPLEX Qty: 30 2RF Dose Instruction: TAKE ONE TABLET BY MOUTH ONCE A DAY IF NEEDED FOR ALLERGIES Rx Instructions: TAKE ONE TABLET BY MOUTH ONCE A DAY IF NEEDED FOR ALLERGIES rosuvastatin 20 mg tablet See Rx Instructions .ROUTE .COMPLEX Qty: 30 2RF Dose Instruction: TAKE ONE TABLET BY MOUTH AT BEDTIME Rx Instructions: TAKE ONE TABLET BY MOUTH AT BEDTIME ropinirole 1 mg tablet See Rx Instructions .ROUTE .COMPLEX Qty: 90 2RF Dose Instruction: TAKE ONE TABLET BY MOUTH ONCE A DAY FOR RESTLESS LEGS Rx Instructions: TAKE ONE TABLET BY MOUTH ONCE A DAY FOR RESTLESS LEGS meloxicam 7.5 mg tablet See Rx Instructions .ROUTE .COMPLEX Qty: 10 0RF Dose Instruction: TAKE ONE TABLET BY MOUTH ONCE A DAY Rx Instructions: TAKE ONE TABLET BY MOUTH ONCE A DAY lidocaine 5 % adhesive patch,medicated 1 patch topical DAILY Qty: 30 0RF Rx Instructions: leave on most painful area for up to 12 hrs furosemide [Lasix] 20 mg tablet 20 mg PO DAILY Qty: 90 0RF escitalopram oxalate 20 mg tablet 20 mg PO DAILY 90 Days Qty: 90 0RF cyclobenzaprine 10 mg tablet See Rx Instructions .ROUTE .COMPLEX Qty: 90 2RF Dose Instruction: TAKE ONE TABLET BY MOUTH 3 TIMES A DAY NEEDED FOR MUSCLE SPASMS Rx Instructions: TAKE ONE TABLET BY MOUTH 3 TIMES A DAY NEEDED FOR MUSCLE SPASMS ergocalciferol (vitamin D2) 1,250 mcg (50,000 unit) capsule See Rx Instructions .ROUTE .COMPLEX Qty: 5 0RF Dose Instruction: TAKE ONE CAPSULE BY MOUTH EVERY WEEK Rx Instructions: TAKE ONE CAPSULE BY MOUTH EVERY WEEK ALLERGY/DARA RELF D 24H ER TAB See Rx Instructions .ROUTE .COMPLEX Rx Instructions: Take 1 tablet by mouth once daily amoxicillin-pot clavulanate 875-125 mg Tablet 1 tab PO Q12H Qty: 20 0RF ofloxacin 0.3 % drops 10 drp otic (ear) Q12H 14 Days Qty: 20 0RF aspirin 81 MG tablet,delayed release (DR/EC) 81 mg PO DAILY pantoprazole 40 MG tablet,delayed release (DR/EC) See Rx Instructions .Route .COMPLEX Rx Instructions: Take 1 tablet by mouth once daily mupirocin 2 % ointment 1 applic topical TID 7 Days Qty: 15 0RF Referrals Follow up/Referrals: Jesus Manuel Castro MD [Primary Care Provider] - See instructions Activity Restrictions/Add. Instructions Additional Instructions/Restrictions: Call your family doctor to establish care for this visit to the emergency department and
--- NOTE | 2023-07-15 19:57 | XR_ITS ---
PROCEDURE INFORMATION: Exam: XR Right Hip Exam date and time: 07/15/2023 8:07 PM Age: 38 years old Clinical indication: Hip pain; Right hip; Additional info: Right hip pain after fall TECHNIQUE: Imaging protocol: Radiologic exam of the right hip. Views: 2 or 3 views hip with pelvis when performed. COMPARISON: CT BONY PELVIS 07/11/2023 9:54 PM FINDINGS: Tubes, catheters and devices: Surgical clips project over the pelvis. Bones/joints: No acute fracture or malalignment. Soft tissues: Unremarkable. IMPRESSION: No acute osseous findings.
--- NOTE | 2023-07-15 19:57 | XR_ITS ---
PROCEDURE INFORMATION: Exam: XR Right Femur Exam date and time: 07/15/2023 8:09 PM Age: 38 years old Clinical indication: Pain; Thigh; Right; Additional info: Right hip pain after fall TECHNIQUE: Imaging protocol: Radiologic exam of the right femur. Views: 2 views. COMPARISON: CR XR FEMUR RT 2V 07/11/2023 9:35 PM FINDINGS: Bones/joints: No acute fracture or malalignment. Soft tissues: Unremarkable. IMPRESSION: No acute osseous findings.
--- NOTE | 2023-07-15 19:57 | XR_ITS ---
PROCEDURE INFORMATION: Exam: XR Left Hand Exam date and time: 07/15/2023 7:56 PM Age: 38 years old Clinical indication: Pain; Hand; Left; Additional info: Left wrist/hand pain after fall TECHNIQUE: Imaging protocol: Radiologic exam of the left hand. Views: 3 or more views. COMPARISON: US CA venous doppler UE LT 08/29/2018 2:38 PM FINDINGS: Bones/joints: No acute fracture or malalignment. Soft tissues: Normal. IMPRESSION: No acute osseous findings.
--- NOTE | 2023-07-15 19:57 | XR_ITS ---
PROCEDURE INFORMATION: Exam: XR Left Elbow Exam date and time: 07/15/2023 8:00 PM Age: 38 years old Clinical indication: Pain; Elbow; Left; Additional info: Left elbow after fall TECHNIQUE: Imaging protocol: Radiologic exam of the left elbow. Views: 3 or more views. COMPARISON: CR XR HAND LT MIN 3V 07/15/2023 7:56 PM FINDINGS: Bones/joints: No acute fracture or malalignment. No joint effusion. Soft tissues: Normal. IMPRESSION: No acute osseous findings.
--- NOTE | 2023-07-15 19:57 | XR_ITS ---
PROCEDURE INFORMATION: Exam: XR Left Forearm Exam date and time: 07/15/2023 8:01 PM Age: 38 years old Clinical indication: Pain; Lower or forearm; Left; Additional info: Left elbow after fall TECHNIQUE: Imaging protocol: Radiologic exam of the left forearm. Views: 2 views. COMPARISON: CR XR HAND LT MIN 3V 07/15/2023 7:56 PM FINDINGS: Bones/joints: No acute fracture or malalignment. No elbow joint effusion. Soft tissues: Normal. IMPRESSION: No acute osseous findings.
[2023-07-15 20:01] VITALS: BP 152/71; PULSE 90; O2SAT 100
--- NOTE | 2023-07-15 20:08 | XR_ITS ---
PROCEDURE INFORMATION: Exam: XR Left Wrist Exam date and time: 07/15/2023 8:04 PM Age: 38 years old Clinical indication: Pain; Wrist; Left; Additional info: Fall, pain TECHNIQUE: Imaging protocol: Radiologic exam of the left wrist. Views: 3 or more views. COMPARISON: CR Forearm L 07/15/2023 8:01 PM FINDINGS: Bones/joints: No acute fracture or malalignment. Soft tissues: Normal. IMPRESSION: No acute osseous findings.
[2023-07-15 20:31] VITALS: BP 115/57; PULSE 94; O2SAT 99
[2023-07-15 21:01] VITALS: BP 129/63; PULSE 92; O2SAT 100
--- NOTE | 2023-07-15 21:16 | PC.NURSE ---
in room talking with patient at this time.
[2023-07-15 21:24] VITALS: BP 129/63; PULSE 94; RESP 16; TEMP 36.9; O2SAT 97
== END 2023-07-15 21:25 | disposition home or self-care (01) ==
PROVIDERS: Emergency Provider Emergency Medicine; PCP Emergency Medicine
DX: M25.551 Pain in right hip (principal); M79.602 Pain in left arm; F31.81 Bipolar II disorder; E11.9 Type 2 diabetes mellitus without complications; F41.1 Generalized anxiety disorder; K21.9 Gastro-esophageal reflux disease without esophagitis; E78.5 Hyperlipidemia, unspecified; I10 Essential (primary) hypertension; G43.909 Migraine, unspecified, not intractable, without status migrainosus; F17.210 Nicotine dependence, cigarettes, uncomplicated; M87.021 Idiopathic aseptic necrosis of right humerus; M87.022 Idiopathic aseptic necrosis of left humerus; G90.50 Complex regional pain syndrome I, unspecified
CPT/HCPCS: 73080; 73090; 73110; 73130; 73502; 73552; 99285

== ENCOUNTER → 2023-08-04 13:00 | Outpatient (CLI) | payer OTHER, SELFPAY ==
--- NOTE | 2023-08-04 13:00 | MR_ITS ---
FINAL REPORT CLINICAL HISTORY: right hip pain. BILATERAL HIP PAIN FINDINGS: Multiplanar MR imaging of the right hip was performed without contrast. There is no evidence of fracture or dislocation. There is avascular necrosis involving the superior right femoral head measuring 40 mm in AP dimension. Bone marrow edema is seen in the right femoral head and neck. No bony mass is identified. No labral tear is identified. A moderate joint effusion is seen. The tendons are intact. The musculature is intact. No soft tissue mass or cyst is identified. IMPRESSION: 40 mm area of AVN involving the right superior femoral head with associated bone marrow edema of the femoral head and neck. Reviewed, Interpreted and Dictated by Navi Diane III, MD Transcribed by Grace Barney Authenticated and [facility]
--- NOTE | 2023-08-04 13:00 | MR_ITS ---
FINAL REPORT CLINICAL HISTORY: Left hip pain FINDINGS: Multiplanar MR imaging of the left hip was performed without contrast. There is no evidence of fracture or dislocation. There are 2 foci of abnormal signal involving the femoral head. The more anterior focus measures 16 mm, more superior focus measures 12 mm. Findings worrisome for foci of osteonecrosis. No bony mass is identified. No labral tear is identified. A small joint effusion is seen. The tendons are intact. The musculature is intact. No soft tissue mass or cyst is identified. IMPRESSION: 16 and 12 mm foci of abnormal focus involving the left femoral head worrisome for osteonecrosis. Reviewed, Interpreted and Dictated by Navi Diane III, MD Transcribed by Grace Barney Authenticated and [facility]
== END ==
PROVIDERS: PCP Emergency Medicine; Visit Provider Orthopaedic Surgery
DX: M25.552 Pain in left hip (principal); M25.551 Pain in right hip
CPT/HCPCS: 73721

== ENCOUNTER 2023-08-24 13:35 | Emergency (ER) | payer OTHER, SELFPAY ==
[2023-08-24 13:35] VITALS: BP 122/71; PULSE 107; RESP 22; TEMP 37.1; O2SAT 100; BMI 36.6
--- NOTE | 2023-08-24 13:36 | PC.NURSE ---
Dr. Boyce at [facility] for patient eval
--- NOTE | 2023-08-24 13:43 | XR_ITS ---
FINAL REPORT CLINICAL HISTORY: b/l hip pain COMPARISON: MRI dated 08/04/2023 FINDINGS: SINGLE VIEW PELVIS: A single view of the pelvis was obtained. There is no acute fracture or dislocation of either hip. There is lucency within the right femoral head with a sclerotic margin most consistent with AVN which was shown on MRI dated 08/07/2023. There is osteophyte formation abutting the superior acetabulum. The left hip is unremarkable. IMPRESSION: No acute bony abnormality. AVN of the right femur as seen on MRI dated 08/07/2023. Reviewed, Interpreted and Dictated by Emily Escamilla MD Transcribed by Tiki Nielsen Authenticated and [facility]
--- NOTE | 2023-08-24 13:44 | HMH.EDGENADL ---
Discharge Plan Disposition Patient Disposition: Home, Self-Care Chief Complaint: PAIN Prescriptions Prescriptions: No Action albuterol sulfate 90 mcg/actuation HFA aerosol inhaler 2 puff IH DAILY diclofenac sodium 1 % gel 2 g topical QID Qty: 100 2RF Rx Instructions: apply to single elbow, wrist or hand; for hand includes palm/fingers/back of hand Emgality Pen 120 mg/mL pen injector 120 mg SQ QMONTH Qty: 1 2RF Nurtec ODT 75 mg tablet,disintegrating 75 mg PO ONCE PRN (Reason: chronic migraine) Qty: 10 2RF Rx Instructions: Place 1 tablet under tongue immediately at onset of symptoms, do not repeat. Max dose 1 tablet in 24 hours. mupirocin 2 % ointment 1 applic topical TID prazosin 5 mg capsule 5 mg PO HS Qty: 30 1RF gabapentin 800 mg tablet 1,200 mg PO TID 30 Days Qty: 135 1RF oxycodone 10 mg tablet 20 mg PO QID 30 Days Qty: 240 0RF rosuvastatin 20 mg tablet 40 mg PO DAILY 30 Days Qty: 60 2RF lorazepam [Ativan] 0.5 mg tablet 0.5 mg PO TID PRN (Reason: anxiety) Qty: 90 1RF hydroxyzine HCl 50 mg tablet 50 mg PO QID PRN (Reason: Anxiety) Qty: 120 1RF chlordiazepoxide-clidinium [Librax (with clidinium)] 5-2.5 mg capsule 1 cap PO BID Qty: 60 0RF montelukast 10 mg tablet See Rx Instructions .ROUTE .COMPLEX Qty: 30 2RF Dose Instruction: TAKE ONE TABLET BY MOUTH ONCE A DAY IF NEEDED FOR ALLERGIES Rx Instructions: TAKE ONE TABLET BY MOUTH ONCE A DAY IF NEEDED FOR ALLERGIES ropinirole 1 mg tablet See Rx Instructions .ROUTE .COMPLEX Qty: 90 2RF Dose Instruction: TAKE ONE TABLET BY MOUTH ONCE A DAY FOR RESTLESS LEGS Rx Instructions: TAKE ONE TABLET BY MOUTH ONCE A DAY FOR RESTLESS LEGS lidocaine 5 % adhesive patch,medicated 1 patch topical DAILY Qty: 30 0RF Rx Instructions: leave on most painful area for up to 12 hrs escitalopram oxalate 20 mg tablet 20 mg PO DAILY 90 Days Qty: 90 0RF ergocalciferol (vitamin D2) 1,250 mcg (50,000 unit) capsule See Rx Instructions .ROUTE .COMPLEX Qty: 5 0RF Dose Instruction: TAKE ONE CAPSULE BY MOUTH EVERY WEEK Rx Instructions: TAKE ONE CAPSULE BY MOUTH EVERY WEEK propranolol 20 mg tablet 20 mg PO BID 90 Days Qty: 180 0RF furosemide [Lasix] 20 mg tablet 20 mg PO DAILY Qty: 90 0RF bupropion HCl 150 mg tablet extended release 24 hr 150 mg PO DAILY Qty: 30 2RF cyclobenzaprine 10 mg tablet See Rx Instructions .ROUTE .COMPLEX Qty: 90 2RF Dose Instruction: TAKE ONE TABLET BY MOUTH 3 TIMES A DAY NEEDED FOR MUSCLE SPASMS Rx Instructions: TAKE ONE TABLET BY MOUTH 3 TIMES A DAY NEEDED FOR MUSCLE SPASMS phentermine [Adipex-P] 37.5 mg tablet 37.5 mg PO DAILY Qty: 30 0RF Rx Instructions: must administer 30 minutes before or 1-2 hours after breakfast meloxicam 7.5 mg tablet See Rx Instructions .ROUTE .COMPLEX Qty: 10 0RF Dose Instruction: TAKE ONE TABLET BY MOUTH ONCE A DAY Rx Instructions: TAKE ONE TABLET BY MOUTH ONCE A DAY pantoprazole 40 MG tablet,delayed release (DR/EC) See Rx Instructions .Route .COMPLEX Rx Instructions: Take 1 tablet by mouth once daily Referrals Follow up/Referrals: David Gayle, [Primary Care Provider] - See instructions Activity Restrictions/Add. Instructions Additional Instructions/Restrictions: At this time it was felt you are safe to be discharged home. If new or worsening symptoms please do not hesitate to return the emergency department. Please follow-up with your orthopedist as discussed. Clinical Impressions Clinical Impression: Acute hip pain, Avascular necrosis of bone of left hip, Avascular necrosis of bone of right hip Discharge ED Provider: Diony Boyce General Adult HPI General Chief complaint: PAIN Stated complaint: Right Hip Pain Time Seen by Provider: 08/24/23 13:47 History of Present Illness HPI narrativ
[2023-08-24 14:00] VITALS: BP 127/82; PULSE 84; O2SAT 100
[2023-08-24 14:30] VITALS: BP 114/71; PULSE 89; O2SAT 100
[2023-08-24 15:00] VITALS: BP 136/70; PULSE 89; O2SAT 93
[2023-08-24 16:31] VITALS: BP 117/66; PULSE 79; RESP 17; TEMP 36.8; O2SAT 100
[2023-08-24 16:42] VITALS: BP 117/66; PULSE 79; RESP 16; TEMP 36.7
== END 2023-08-24 16:40 | disposition home or self-care (01) ==
PROVIDERS: Emergency Provider Emergency Medicine; PCP Internal Medicine
DX: M87.051 Idiopathic aseptic necrosis of right femur (principal); M25.551 Pain in right hip; E11.9 Type 2 diabetes mellitus without complications; K21.9 Gastro-esophageal reflux disease without esophagitis; I10 Essential (primary) hypertension; E78.5 Hyperlipidemia, unspecified; F31.81 Bipolar II disorder; F41.1 Generalized anxiety disorder
CPT/HCPCS: 72170; 96374; 96375; 96376; 99285; J0131

== ENCOUNTER → 2023-08-28 10:21 | Outpatient (CLI) | payer OTHER, SELFPAY ==
[2023-08-28 19:24] LABS: Amphetamine/Metha Screen,Urine Negative ng/ml (<1000); Barbiturates Screen,Urine Negative ng/ml (<200)
[2023-08-28 19:25] LABS: Benzodiazepines Screen,Urine Positive ng/ml (<200)
[2023-08-28 19:26] LABS: Cannabinoid Screen,Urine Negative ng/ml (<50); Cocaine Screen,Urine Negative ng/ml (<300)
[2023-08-28 19:27] LABS: Methadone Screen,Urine Negative ng/ml (<300)
[2023-08-28 19:28] LABS: Opiate Screen,Urine Positive ng/ml (<300)
[2023-08-28 19:29] LABS: Phencyclidine Screen,Urine Negative ng/ml (<25)
== END ==
PROVIDERS: PCP Internal Medicine; Visit Provider Internal Medicine
DX: Z79.899 Other long term (current) drug therapy (principal)
CPT/HCPCS: 80305

== ENCOUNTER 2023-09-17 20:28 | Emergency (ER) | payer OTHER, SELFPAY ==
[2023-09-17 20:34] VITALS: BP 112/58; PULSE 87; RESP 20; TEMP 37.1; O2SAT 99; BMI 35.6
--- NOTE | 2023-09-17 21:02 | XR_ITS ---
PROCEDURE INFORMATION: Exam: XR Right Hip Exam date and time: 09/17/2023 9:08 PM Age: 38 years old Clinical indication: Hip pain; Right hip; Additional info: Right hip, acute on chronic pain TECHNIQUE: Imaging protocol: Radiologic exam of the right hip. Views: 2 or 3 views hip with pelvis when performed. COMPARISON: CR XR PELVIS 1-2V 08/24/2023 2:03 PM FINDINGS: Tubes, catheters and devices: There are pelvic surgical clips. Bones/joints: There is stable sclerotic change of the right femoral head compatible with avascular necrosis without evidence for subchondral collapse or significant change from recent prior. No additional fracture or dislocation. No aggressive osseous lesion. Soft tissues: Soft tissues otherwise within normal limits. IMPRESSION: There is stable sclerosis of the right femoral head compatible with avascular necrosis without evidence for subchondral collapse or significant change from recent prior.
--- NOTE | 2023-09-17 21:05 | HMH.EDGENADL ---
Discharge Plan Disposition Patient Disposition: Home, Self-Care Prescriptions Prescriptions: New sulfamethoxazole-trimethoprim [Bactrim DS] 800-160 mg tablet 1 tab PO BID 10 Days Qty: 20 0RF cephalexin 500 mg capsule 500 mg PO QID 10 Days Qty: 40 0RF varenicline 1 mg tablet 1 mg PO BID 77 Days Qty: 154 0RF varenicline 0.5 mg tablet 0.5 mg PO DIRECTED Qty: 30 0RF Rx Instructions: take 1 tablet by mouth daily on days 1-3; then 1 tablet twice daily (morning and evening) on days 4-7 No Action mupirocin 2 % ointment 1 applic topical TID semaglutide (weight loss) 0.25 mg/0.5 mL pen injector 0.25 mg SQ WEEKLY Qty: 2 1RF Rx Instructions: administer weeks 1 through 4 of therapy azithromycin [Zithromax Z-Nathaniel] 250 mg tablet 250 mg PO DAILY Qty: 6 0RF chlordiazepoxide-clidinium [Librax (with clidinium)] 5-2.5 mg capsule 1 cap PO BID Qty: 60 0RF oxycodone 10 mg tablet 20 mg PO QID 30 Days Qty: 240 0RF albuterol sulfate 90 mcg/actuation HFA aerosol inhaler 2 puff IH DAILY Qty: 8.5 3RF bupropion HCl 150 mg tablet extended release 24 hr 150 mg PO DAILY Qty: 30 2RF cyclobenzaprine 10 mg tablet See Rx Instructions .ROUTE .COMPLEX Qty: 90 2RF Dose Instruction: TAKE ONE TABLET BY MOUTH 3 TIMES A DAY NEEDED FOR MUSCLE SPASMS Rx Instructions: TAKE ONE TABLET BY MOUTH 3 TIMES A DAY NEEDED FOR MUSCLE SPASMS diclofenac sodium 1 % gel 2 g topical QID Qty: 100 2RF Rx Instructions: apply to single elbow, wrist or hand; for hand includes palm/fingers/back of hand ergocalciferol (vitamin D2) 1,250 mcg (50,000 unit) capsule See Rx Instructions .ROUTE .COMPLEX Qty: 5 0RF Dose Instruction: TAKE ONE CAPSULE BY MOUTH EVERY WEEK Rx Instructions: TAKE ONE CAPSULE BY MOUTH EVERY WEEK escitalopram oxalate 20 mg tablet 20 mg PO DAILY 90 Days Qty: 90 0RF furosemide [Lasix] 20 mg tablet 20 mg PO DAILY Qty: 90 0RF gabapentin 800 mg tablet 1,200 mg PO TID 30 Days Qty: 135 1RF Emgality Pen 120 mg/mL pen injector 120 mg SQ QMONTH Qty: 1 2RF hydroxyzine HCl 50 mg tablet 50 mg PO QID PRN (Reason: Anxiety) Qty: 120 1RF lidocaine 5 % adhesive patch,medicated 1 patch topical DAILY Qty: 30 0RF Rx Instructions: leave on most painful area for up to 12 hrs lorazepam [Ativan] 0.5 mg tablet 0.5 mg PO TID PRN (Reason: anxiety) Qty: 90 1RF meloxicam 7.5 mg tablet See Rx Instructions .ROUTE .COMPLEX Qty: 10 0RF Dose Instruction: TAKE ONE TABLET BY MOUTH ONCE A DAY Rx Instructions: TAKE ONE TABLET BY MOUTH ONCE A DAY montelukast 10 mg tablet See Rx Instructions .ROUTE .COMPLEX Qty: 30 2RF Dose Instruction: TAKE ONE TABLET BY MOUTH ONCE A DAY IF NEEDED FOR ALLERGIES Rx Instructions: TAKE ONE TABLET BY MOUTH ONCE A DAY IF NEEDED FOR ALLERGIES prazosin 5 mg capsule 5 mg PO HS Qty: 30 1RF propranolol 20 mg tablet 20 mg PO BID 90 Days Qty: 180 0RF Nurtec ODT 75 mg tablet,disintegrating 75 mg PO ONCE PRN (Reason: chronic migraine) Qty: 10 2RF Rx Instructions: Place 1 tablet under tongue immediately at onset of symptoms, do not repeat. Max dose 1 tablet in 24 hours. ropinirole 1 mg tablet See Rx Instructions .ROUTE .COMPLEX Qty: 90 2RF Dose Instruction: TAKE ONE TABLET BY MOUTH ONCE A DAY FOR RESTLESS LEGS Rx Instructions: TAKE ONE TABLET BY MOUTH ONCE A DAY FOR RESTLESS LEGS rosuvastatin 20 mg tablet 40 mg PO DAILY 30 Days Qty: 60 2RF pantoprazole 40 MG tablet,delayed release (DR/EC) See Rx Instructions .Route .COMPLEX Rx Instructions: Take 1 tablet by mouth once daily Referrals Follow up/Referrals: David Gayle, [Primary Care Provider] - See instructions Activity Restrictions/Add. Instructions Additional Instructions/Restrictions: Please follow-up with Dr. Doyle regarding your chronic hip pain w
[2023-09-17 21:30] VITALS: BP 89/43; PULSE 78; O2SAT 95
[2023-09-17 22:39] VITALS: BP 102/60; PULSE 71; RESP 20; TEMP 37.1; O2SAT 98
== END 2023-09-17 22:40 | disposition home or self-care (01) ==
PROVIDERS: Emergency Provider Student in an Organized Health Care Education/Training Program; PCP Internal Medicine
DX: M87.051 Idiopathic aseptic necrosis of right femur (principal); F31.81 Bipolar II disorder; F41.1 Generalized anxiety disorder; K21.9 Gastro-esophageal reflux disease without esophagitis; E78.5 Hyperlipidemia, unspecified; I10 Essential (primary) hypertension; E11.9 Type 2 diabetes mellitus without complications; F17.210 Nicotine dependence, cigarettes, uncomplicated; L98.9 Disorder of the skin and subcutaneous tissue, unspecified; M25.551 Pain in right hip
CPT/HCPCS: 73502; 96374; 96375; 99284; J0131

== ENCOUNTER 2023-10-05 13:33 | Emergency (ER) | payer SELFPAY ==
--- NOTE | 2023-10-05 | XR_ITS ---
FINAL REPORT CLINICAL HISTORY: PAIN COMPARISON: 10/05/2023 FINDINGS: Right hip Two views were obtained. There is no acute fracture or dislocation. The joint spaces appear normal. There is a mixed sclerotic lucency in the area of the right femoral head. Individual lucency measures up to 2.8 cm. No soft tissue abnormality is identified. IMPRESSION: Sclerotic lucency in the right femoral head. Recommend MRI. Reviewed, Interpreted and Dictated by Vaibhav Nick MD Transcribed by Anika Alberts Authenticated and [facility]
--- NOTE | 2023-10-05 13:52 | XR_ITS ---
FINAL REPORT TECHNIQUE: AP views right hip and pelvis CLINICAL HISTORY: pain COMPARISON: MRI of the right hip from 08/04/2023 FINDINGS: PELVIS: There are mixed sclerotic and lucent areas in the right proximal femur, also seen on a prior MRI of 08/04/2023 that are suggestive of avascular necrosis. No acute bony abnormality is identified. Surgical clips are identified from a tubal ligation within the pelvis. The left hip appears unremarkable. IMPRESSION: Mixed sclerotic and lucent areas in the right proximal femur, also seen on prior MR, suggestive of avascular necrosis. No acute bony abnormality is identified. Reviewed, Interpreted and Dictated by Vaibhav Nick MD Transcribed by Charissa Oconnor Authenticated and [facility]
[2023-10-05 14:10] VITALS: BP 129/72; PULSE 83; RESP 20; TEMP 36.6; O2SAT 95; BMI 34.3
--- NOTE | 2023-10-05 14:11 | EXP.UTC ---
Discharge Plan Disposition Patient Disposition: Home, Self-Care Condition: Good Prescriptions Prescriptions: New methylprednisolone 4 mg Tablets,Dose Pack 4 mg PO DIRECTED Qty: 21 0RF No Action mupirocin 2 % ointment 1 applic topical TID semaglutide (weight loss) 0.25 mg/0.5 mL pen injector 0.25 mg SQ WEEKLY Qty: 2 1RF Rx Instructions: administer weeks 1 through 4 of therapy azithromycin [Zithromax Z-Nathaniel] 250 mg tablet 250 mg PO DAILY Qty: 6 0RF chlordiazepoxide-clidinium [Librax (with clidinium)] 5-2.5 mg capsule 1 cap PO BID Qty: 60 0RF albuterol sulfate 90 mcg/actuation HFA aerosol inhaler 2 puff IH DAILY Qty: 8.5 3RF bupropion HCl 150 mg tablet extended release 24 hr 150 mg PO DAILY Qty: 30 2RF cyclobenzaprine 10 mg tablet See Rx Instructions .ROUTE .COMPLEX Qty: 90 2RF Dose Instruction: TAKE ONE TABLET BY MOUTH 3 TIMES A DAY NEEDED FOR MUSCLE SPASMS Rx Instructions: TAKE ONE TABLET BY MOUTH 3 TIMES A DAY NEEDED FOR MUSCLE SPASMS diclofenac sodium 1 % gel 2 g topical QID Qty: 100 2RF Rx Instructions: apply to single elbow, wrist or hand; for hand includes palm/fingers/back of hand furosemide [Lasix] 20 mg tablet 20 mg PO DAILY Qty: 90 0RF Emgality Pen 120 mg/mL pen injector 120 mg SQ QMONTH Qty: 1 2RF hydroxyzine HCl 50 mg tablet 50 mg PO QID PRN (Reason: Anxiety) Qty: 120 1RF lorazepam [Ativan] 0.5 mg tablet 0.5 mg PO TID PRN (Reason: anxiety) Qty: 90 1RF montelukast 10 mg tablet See Rx Instructions .ROUTE .COMPLEX Qty: 30 2RF Dose Instruction: TAKE ONE TABLET BY MOUTH ONCE A DAY IF NEEDED FOR ALLERGIES Rx Instructions: TAKE ONE TABLET BY MOUTH ONCE A DAY IF NEEDED FOR ALLERGIES prazosin 5 mg capsule 5 mg PO HS Qty: 30 1RF propranolol 20 mg tablet 20 mg PO BID 90 Days Qty: 180 0RF Nurtec ODT 75 mg tablet,disintegrating 75 mg PO ONCE PRN (Reason: chronic migraine) Qty: 10 2RF Rx Instructions: Place 1 tablet under tongue immediately at onset of symptoms, do not repeat. Max dose 1 tablet in 24 hours. ropinirole 1 mg tablet See Rx Instructions .ROUTE .COMPLEX Qty: 90 2RF Dose Instruction: TAKE ONE TABLET BY MOUTH ONCE A DAY FOR RESTLESS LEGS Rx Instructions: TAKE ONE TABLET BY MOUTH ONCE A DAY FOR RESTLESS LEGS rosuvastatin 20 mg tablet 40 mg PO DAILY 30 Days Qty: 60 2RF lidocaine 5 % adhesive patch,medicated 1 patch topical DAILY Qty: 30 0RF Rx Instructions: leave on most painful area for up to 12 hrs escitalopram oxalate 20 mg tablet 20 mg PO DAILY 90 Days Qty: 90 0RF oxycodone 10 mg tablet 20 mg PO QID 30 Days Qty: 240 0RF meloxicam 7.5 mg tablet See Rx Instructions .ROUTE .COMPLEX Qty: 10 0RF Dose Instruction: TAKE ONE TABLET BY MOUTH ONCE A DAY Rx Instructions: TAKE ONE TABLET BY MOUTH ONCE A DAY gabapentin 800 mg tablet 1,200 mg PO TID 30 Days Qty: 135 1RF ergocalciferol (vitamin D2) 1,250 mcg (50,000 unit) capsule See Rx Instructions .ROUTE .COMPLEX Qty: 4 1RF Dose Instruction: TAKE ONE CAPSULE BY MOUTH EVERY WEEK Rx Instructions: TAKE ONE CAPSULE BY MOUTH EVERY WEEK sulfamethoxazole-trimethoprim [Bactrim DS] 800-160 mg tablet 1 tab PO BID 10 Days Qty: 20 0RF cephalexin 500 mg capsule 500 mg PO QID 10 Days Qty: 40 0RF varenicline 1 mg tablet 1 mg PO BID 77 Days Qty: 154 0RF varenicline 0.5 mg tablet 0.5 mg PO DIRECTED Qty: 30 0RF Rx Instructions: take 1 tablet by mouth daily on days 1-3; then 1 tablet twice daily (morning and evening) on days 4-7 pantoprazole 40 MG tablet,delayed release (DR/EC) See Rx Instructions .Route .COMPLEX Rx Instructions: Take 1 tablet by mouth once daily Referrals Follow up/Referrals: David Gayle DO [Primary Care Provider] - See instructions Activity Restrictions/Add. Instructions [place]
--- NOTE | 2023-10-05 14:32 | XR_ITS ---
FINAL REPORT CLINICAL HISTORY: PAIN/INJURY COMPARISON: None FINDINGS: RIGHT KNEE: There is no acute fracture or dislocation. The joint spaces are intact. There is no soft tissue abnormality. IMPRESSION: No acute fracture Reviewed, Interpreted and Dictated by Vaibhav Nick MD Transcribed by Charissa Oconnor Authenticated and [facility]
[2023-10-05 15:48] VITALS: BP 129/72; PULSE 83; RESP 20; TEMP 36.6; O2SAT 95
== END 2023-10-05 15:57 | disposition home or self-care (01) ==
LOC: ER 13:40 → UTC 13:40
PROVIDERS: Emergency Provider Nurse Practitioner Family; PCP Internal Medicine
DX: M25.551 Pain in right hip (principal); M25.561 Pain in right knee; F17.210 Nicotine dependence, cigarettes, uncomplicated; E11.9 Type 2 diabetes mellitus without complications; K21.9 Gastro-esophageal reflux disease without esophagitis; E78.5 Hyperlipidemia, unspecified; I10 Essential (primary) hypertension; Z79.85 Long-term (current) use of injectable non-insulin antidiabetic drugs; V48.5XXA Car driver injured in noncollision transport accident in traffic accident, initial encounter; Y92.410 Unspecified street and highway as the place of occurrence of the external cause
CPT/HCPCS: 72190; 73502; 73562; 96372; 99212; 99214; G0463

== ENCOUNTER 2023-12-06 22:20 | Outpatient (CLI) | payer OTHER, SELFPAY ==
[2023-12-06 18:28] LABS: Basophils % 0.5 % (0.1-2.0); Eosinophils # 0.3 K/mm3 (0.0-0.4); Eosinophils % 3.4 % (0.1-12.0); Hematocrit 43.8 % (37.0-47.0); Hemoglobin 14.3 g/dL (12.2-16.2); Lymphocytes # 2.8 K/mm3 (0.7-4.5); Lymphocytes % 33.1 % (10-50); Mean Corpuscular HGB Conc 32.7 g/dL (31.8-35.4); Mean Corpuscular Hemoglobin 30.6 pg (27.0-31.2); Mean Corpuscular Volume 93.8 fl (81-99); Mean Platelet Volume 9.1 fl (7.4-10.4); Monocytes # 0.5 K/mm3 (0.1-1.0); Monocytes % 5.4 % (1.7-9.3); Neutrophils # 4.8 K/mm3 (1.8-7.8); Neutrophils % 57.7 % (37.0-80.0); Platelet Count 244 K/mm3 (142-424); Red Blood Count 4.67 M/mm3 (4.20-5.40); Red Cell Distribution Width 12.8 % (11.5-17.5); White Blood Count 8.3 K/mm3 (4.8-10.8)
[2023-12-06 19:08] LABS: Chloride 103 mmol/L (98-107); Sodium 139 mmol/L (136-145)
[2023-12-06 19:09] LABS: Potassium 3.8 mmoL/L (3.5-5.1)
[2023-12-06 19:11] LABS: Alanine Aminotransferase 23 U/L (12-78); Albumin Level 4.6 g/dl (3.5-5.0); Albumin/Globulin Ratio 1.7 (1.1-1.8); Alkaline Phosphatase 93 U/L (38-126); Anion Gap 7.8 mEq/L (5-15); Aspartate Amino Transferase 30 U/L (14-36); Bilirubin,Total 0.5 mg/dl (0.2-1.3); Blood Urea Nitrogen 7 mg/dl (7-17); Calcium 9.3 mg/dl (8.4-10.2); Carbon Dioxide 32 mmol/L (22.0-30.0); Estimated Glomerular Filt Rate 80 ml/min (>60); GFR (African American) 97 ML/MIN (>60); Globulin 2.7 g/dL (1.3-3.2); Glucose 95 mg/dl (74-100); Total Protein,Serum 7.3 g/dl (6.3-8.2)
== END 2023-12-06 23:59 ==
LOC: LAB.DROPOF 22:20
PROVIDERS: PCP Internal Medicine; Visit Provider Internal Medicine
DX: R53.83 Other fatigue (principal); B96.89 Other specified bacterial agents as the cause of diseases classified elsewhere
CPT/HCPCS: 80053; 85025; 87070; 87205

== ENCOUNTER 2024-01-23 12:48 | Outpatient (CLI) | payer OTHER, SELFPAY ==
--- NOTE | 2024-01-23 12:49 | US_ITS ---
FINAL REPORT CLINICAL HISTORY: history of thyroid nodule in past COMPARISON: 11/04/2021 FINDINGS: THYROID ULTRASOUND: The right lobe of the thyroid measures 5.2 x 2 x 3 cm in size. The left lobe of the thyroid measures 4.7 x 1.2 x 1.1 cm in size. The isthmus measures 4 mm in thickness. There is a 21 x 17 mm nodule present in the right thyroid lobe, larger than noted on the prior study of 2021 when the same nodule measured 16 x 11 mm in size. This nodule has been previously biopsied, is mostly isoechoic with a hypoechoic rim, a TI-RADS category 3 nodule. There is a second nodule also in the right lobe of the thyroid gland measuring 10 x 7 x 9 mm in size, mostly cystic and solid, isoechoic, a TI-RADS category 2 nodule. IMPRESSION: Dominant nodule in the right thyroid lobe, larger than seen on the prior ultrasound of 2021, has been previously biopsied, and has become mostly isoechoic with a hypoechoic rim. This is a TI-RADS category 3 nodule. Second nodule 10 x 7 x 9 mm in size is a TI-RADS category 2 nodule and does not require biopsy at this time. Reviewed, Interpreted and Dictated by Navi Diane III, MD Transcribed by Charissa Oconnor Authenticated and [facility]
== END 2024-01-23 23:59 | disposition home or self-care (01) ==
LOC: RAD 12:49
PROVIDERS: PCP Internal Medicine; Visit Provider Nurse Practitioner
DX: Z86.39 Personal history of other endocrine, nutritional and metabolic disease (principal)
CPT/HCPCS: 76536

== ENCOUNTER 2024-02-01 11:26 | Outpatient (POV) | payer OTHER, SELFPAY | END 2024-02-01 23:59 | disposition home or self-care (01) | LOC: SC 11:27 | PROVIDERS: Visit Provider Specialist/Technologist | DX: Z00.00 Encounter for general adult medical examination without abnormal findings (principal) ==

== ENCOUNTER 2024-02-21 14:21 | Outpatient (CLI) | payer OTHER, SELFPAY ==
--- NOTE | 2024-02-21 14:27 | XR_ITS ---
FINAL REPORT CLINICAL HISTORY: LBP Lateral standing and sitting per drs order COMPARISON: None FINDINGS: 2 lateral views of the lumbar spine were obtained standing and sitting. There is no evidence of fracture. There is no malalignment. There is mild degenerative change. There is straightening of the lumbar spine on the seated view of uncertain significance. No paraspinous soft tissue abnormalities identified. IMPRESSION: Mild degenerative change without acute bony abnormality. Reviewed, Interpreted and Dictated by Navi Diane III, MD Transcribed by Meseret Sosa Authenticated and [facility]
--- NOTE | 2024-02-21 14:27 | XR_ITS ---
FINAL REPORT CLINICAL HISTORY: EMILY HIP PAIN image done standing per drs order COMPARISON: None FINDINGS: SINGLE VIEW PELVIS: A single view of the pelvis was obtained. There is no acute fracture or dislocation. Vizualized joint spaces are normally aligned. Soft tissues are unremarkable. IMPRESSION: No acute bony abnormality. Reviewed, Interpreted and Dictated by Navi Diane III, MD Transcribed by Meseret Sosa Authenticated and [facility]
== END 2024-02-21 23:59 | disposition home or self-care (01) ==
LOC: RAD 14:23
PROVIDERS: PCP Internal Medicine; Visit Provider Orthopaedic Surgery Adult Reconstructive Orthopaedic Surgery
DX: M87.051 Idiopathic aseptic necrosis of right femur (principal); M87.052 Idiopathic aseptic necrosis of left femur
CPT/HCPCS: 72100; 72170

== ENCOUNTER 2024-03-21 18:00 | Outpatient (CLI) | payer OTHER, SELFPAY ==
[2024-03-21 18:37] LABS: Hemoglobin A1C 5.4 % (4.0-6.0)
[2024-03-21 19:01] LABS: 25-OH Vitamin D, Total 24.2 ng/mL (30-100)
[2024-03-21 19:10] LABS: Cholesterol 204 mg/dl (140-200); HDL Cholesterol 41 mg/dl (40-60); Triglycerides 216 mg/dl (30-150); VLDL Cholesterol 43 mg/dL (0-40)
[2024-03-21 19:21] LABS: Direct LDL Cholesterol 112.08 mg/dL (100-129)
[2024-03-21 19:40] LABS: Thyroid Stimulating Hormone 1.19 uIU/mL (0.465-4.68)
== END 2024-03-21 23:59 | disposition home or self-care (01) ==
LOC: LAB.DROPOF 03-22 07:31
PROVIDERS: PCP Internal Medicine; Visit Provider Internal Medicine
DX: E04.1 Nontoxic single thyroid nodule (principal); E78.2 Mixed hyperlipidemia; E55.9 Vitamin D deficiency, unspecified; Z68.36 Body mass index [BMI] 36.0-36.9, adult; E66.9 Obesity, unspecified
CPT/HCPCS: 80061; 82306; 83036; 84443

== ENCOUNTER 2024-10-11 09:18 | Emergency (ER) | payer OTHER, SELFPAY ==
[2024-10-11 10:45] VITALS: BP 139/86; PULSE 76; RESP 18; TEMP 36.9; O2SAT 98; BMI 36.3
--- NOTE | 2024-10-11 11:03 | EXP.UTC ---
Discharge Plan Disposition Patient Disposition: Home, Self-Care Condition: Good Prescriptions Prescriptions: New amoxicillin-pot clavulanate 875-125 mg Tablet 1 tab PO Q12H Qty: 20 0RF ofloxacin 0.3 % drops 10 drp otic (ear) BID 14 Days Qty: 10 0RF Rx Instructions: right ear as directed No Action cyclobenzaprine 10 mg tablet See Rx Instructions .ROUTE .COMPLEX Qty: 90 3RF Dose Instruction: TAKE ONE TABLET BY MOUTH 3 TIMES A DAY NEEDED FOR MUSCLE SPASMS Rx Instructions: TAKE ONE TABLET BY MOUTH 3 TIMES A DAY NEEDED FOR MUSCLE SPASMS escitalopram oxalate 20 mg tablet 20 mg PO DAILY 90 Days Qty: 90 4RF bupropion HCl 150 mg tablet extended release 24 hr See Rx Instructions .ROUTE .COMPLEX Qty: 90 0RF Dose Instruction: TAKE ONE TABLET BY MOUTH ONCE A DAY FOR MOOD Rx Instructions: TAKE ONE TABLET BY MOUTH ONCE A DAY FOR MOOD propranolol 20 mg tablet See Rx Instructions .ROUTE .COMPLEX Qty: 60 2RF Dose Instruction: TAKE ONE TABLET BY MOUTH 2 TIMES A DAY FOR HYPERTENSION Rx Instructions: TAKE ONE TABLET BY MOUTH 2 TIMES A DAY FOR HYPERTENSION oxycodone 10 mg tablet 10 mg PO Q6H PRN (Reason: pain) 30 Days Qty: 90 0RF alendronate 10 mg tablet 10 mg PO DAILY gabapentin 800 mg tablet 800 mg PO DAILY montelukast 10 mg tablet 10 mg PO DAILY methadone 5 mg tablet 5 mg PO DAILY Emgality Pen 120 mg/mL pen injector 120 mg SQ MONTHLY Referrals Follow up/Referrals: David Gayle DO [Primary Care Provider] - See instructions Deo Merrill MD [Physician] - See instructions Nemesio Barakat III, MD [Staff Physician] - See instructions Jennifer Calabrese APRN [Nurse Practitioner] - See instructions Activity Restrictions/Add. Instructions Additional Instructions/Restrictions: *Monitor Temp, Over the counter Motrin or Tylenol as directed/as needed Tylenol every 4 hours and Motrin every 6 hours (as long as your family doctor has told you that you can take it) for fever or pain. and straight to ER if unable to lower temp less than 101.0 after medication given *Take medication as prescribed Follow up with ENT call office for appointment *Humidifier/Vaporizer Follow up IMMEDIATELY for new or worsening symptoms or no Noticeable improvement over the next 48-72 hours. 911 for difficulty breathing or swallowing Clinical Impressions Clinical Impression: Otitis media Instructions Patient Instructions: Middle Ear Infection Print Language Print Language: Hebrew Discharge ED Provider: Noelle Fields [facility] [place] H[place] General Stated complaint: P in R ear x 2 months Mode of Arrival: Ambulatory Source of Information: Patient Limitations: No Limitations Time Seen by Provider: 10/11/24 11:03 Description of Symptoms (Recalled from Triage Doc. by RN): PATIENT C/O RIGHT EAR PAIN ON AND OFF X 2 MONTHS HEENT Symptoms (Recalled from RN notes): Yes Resp Symptoms (Recalled from RN notes): No Skin Symptoms (Recalled from RN notes): No MS Symptoms (Recalled from RN notes): No Functional Status (Recalled from RN notes): WNL History of Present Illness Provider Complaint: Patient states that she has been having pain and drainage in her right ear for about 2 month on and off states that she has been on antibiotics several times Related Data Home Medications ?Medication ?Instructions ?Recorded ?Confirmed alendronate 10 mg tablet 10 mg PO DAILY 10/11/24 10/11/24 gabapentin 800 mg tablet 800 mg PO DAILY 10/11/24 10/11/24 galcanezumab-gnlm 120 mg/mL 120 mg SQ MONTHLY 10/11/24 10/11/24 subcutaneous pen injector (Emgality Pen) methadone 5 mg tablet 5 mg PO DAILY 10/11/24 10/11/24 montelukast 10 mg tablet 10 mg PO DAILY 10/11/24 10/11/24 Previous Rx's ?Medication ?Instructions ?Recorded escitalopram oxalate 20 mg tablet 20 mg PO DAILY antidressant 90 01/23/24 days #90 tabs cyclobenzaprine 10 mg tablet See Rx Instructions .Route 07/09/24 .COMPLEX #90 tabs bupropion HCl 150 mg 24 hr tablet, See Rx Instructions .Route 09/06/24 extended release .COMPLEX #90 tabs propranolol 20 mg tablet See Rx Instructions .Route 09/06/24 .COMPLEX #60 tabs oxycodone 10 mg tablet 10 mg PO Q6H PRN pain 30 days #90 09/30/24 tabs amoxicillin 875 mg-potassium 1 tab PO Q12H #20 tabs 10/11/24 clavulanate 125 mg tablet ofloxacin 0.3 % ear drops 10 drp otic (ear) BID 14 days #10 10/11/24 mL Allergies Allergy/AdvReac Type Severity Reaction Status Date / Time sulfamethoxazole (From Allergy Intermediate Hives Verified 07/30/24 08:31 Bactrim) trimethoprim (From Bactrim) Allergy Intermediate Hives Verified 07/30/24 08:31 lactose (From LACTOSE Allergy Mild DIARRHEA Verified 07/30/24 08:31 (FOOD/DRUG)) Worker's Comp Is this a Worker's Comp case?: No [facility] Disclaimer: The information contained in this section may have been updated after the patient was seen, as this information can be updated by other users. Medical History Thyroid nodule Perforation of right tympanic membrane Perforation of left tympanic membrane History of thyroid nodule Bilateral hearing loss Diabetes 1.5, managed as type 2 Generalized anxiety disorder Bipolar II disorder Seizures Migraine Kidney stone HTN (hypertension), benign HLD (hyperlipidemia) Hiatal hernia GERD (gastroesophageal reflux disease) T2DM (type 2 diabetes mellitus) Depression Arrhythmia Edema Palpitations Dizziness Sinus tachycardia Near syncope Dyspnea Abnormal EKG Dizziness Heart palpitations Atypical chest pain Tobacco use Anxiety Surgical History Hx of myringotomy Hx of tonsillectomy Family History Other Cancer Diabetes Heart attack Hypertension Social History Smoking Status: Current every day smoker tobacco type: cigarettes packs per day: 2 second hand exposure: Yes alcohol intake: never substance use type: former substance user, crack/cocaine, heroin and unknown current occupational status: employed Travel in the last 8 weeks: None household members: children and other housing: house number of children: 3 current occupation: [employer] current occupational exposures/hazards: No caffeine: Yes Have you lived/traveled outside US in past 30 days?: No Contact w/someone who lives/traveled outside US past 30 days?: No Exposure to someone with infectious disease in past 14 days?: No Do you have a fever (greater than 100.4 F or 38 C)?: No Have you tested positive for COVID-19: No Exposed to someone with COVID-19 in past 14 days?: No Do you have a sore throat?: No Do you have a cough?: No Do you have any weakness?: No Do you have any diarrhea?: No Are you experiencing any unusual bleeding?: No Do you have any muscle aches/pain?: No Do you have any abdominal pain?: No Are you experiencing loss of taste or smell?: No ROS Obtained: Yes All systems reviewed & no additional complaints except as documented and Yes Systems reviewed as appropriate & no additional complaints except as documented Constitutional Constitutional: Reports system reviewed and no additional complaints, except as documented and Reports as per HPI ENT Ears, Nose, Mouth, and Throat: Reports system reviewed and no additional complaints, except as documented, Reports as per HPI and Reports otalgia Cardiovascular Cardiovascular: Reports system reviewed and no additional complaints, except as documented and Reports as per HPI Respiratory Respiratory: Reports system reviewed and no additional complaints, except as documented and Reports as per HPI Gastrointestinal Gastrointestingal: Reports system reviewed and no additional complaints, except as documented and as per HPI Physical Exam General General appearance: alert and in no apparent distress ENT ENT exam: Present mucous membranes moist Expanded ENT Exam TM/Canal exam: Right TM: erythema and canal discharge Respiratory Respiratory exam: Present normal lung sounds bilaterally; Absent respiratory distress or wheezes Cardiovascular Cardiovascular exam: Present regular rate, normal rhythm and normal heart sounds Neurological Exam Neurological exam: Present alert, oriented X3 and normal gait Medical Decision Making Medical Records Screening: Per USPSTF and CDC recommendations, given the prevalence of disease in our region, it is our hospital?s policy to screen for HIV and viral Hepatitis for all patients aged 18 and over and those with ongoing risk factors. [place] Inquiry Pt receiving controlled substance: No [place] was queried for this patient: No Vital Signs: 10/11/24 10:45 Temperature 98.5 F Temperature Source Oral Pulse Rate [Left Brachial] 76 Respiratory Rate 18 Blood Pressure [Left Arm] 139/86 Blood Pressure Mean [Left Arm] 103 Blood Pressure Source [Left Arm] Automatic Cuff Blood Pressure Position [Left Arm] Sitting 02 Sat by Pulse Oximetry 98 Oxygen Delivery Method Room Air
[2024-10-11 11:28] VITALS: BP 139/86; PULSE 76; RESP 18; TEMP 36.9; O2SAT 98
== END 2024-10-11 11:32 | disposition home or self-care (01) ==
PROVIDERS: Emergency Provider Nurse Practitioner; PCP Internal Medicine
DX: H66.91 Otitis media, unspecified, right ear (principal)
CPT/HCPCS: 99213; G0381

== ENCOUNTER 2024-10-29 10:37 | Outpatient (CLI) | payer OTHER, SELFPAY ==
[2024-10-29 12:04] LABS: Free T4 (Free Thyroxine) 0.65 ng/dl (0.78-2.19)
[2024-10-29 12:13] LABS: Thyroid Stimulating Hormone 1.58 uIU/mL (0.465-4.68)
== END 2024-10-29 23:59 | disposition home or self-care (01) ==
LOC: LAB 10:59
PROVIDERS: PCP Internal Medicine; Visit Provider Nurse Practitioner
DX: E04.2 Nontoxic multinodular goiter (principal); E04.1 Nontoxic single thyroid nodule; H66.91 Otitis media, unspecified, right ear
CPT/HCPCS: 36415; 84439; 84443; 87070; 87077; 87186

== ENCOUNTER 2024-11-06 15:03 | Outpatient (CLI) | payer OTHER, SELFPAY ==
--- NOTE | 2024-11-06 15:12 | US_ITS ---
FINAL REPORT TECHNIQUE: Real-time grayscale and color ultrasound of the thyroid was performed. CLINICAL HISTORY: repeat related to right nodule growith COMPARISON: 01/23/2024 FINDINGS: The thyroid gland measures 49 x 17 x 30 mm on the right and 42 x 9 x 9 mm on the left. The isthmus measures 3 mm. The parenchyma is unremarkable . Nodules: Dominant nodule on the right is again identified now measuring up to 29 x 25 mm, TR 3. A 2nd focus on the right measures 12 mm, TR 3, with cystic component in the lower pole. IMPRESSION: Dominant TR 3 lesion increased in size from prior. Biopsy recommended per TI-RADS criteria. Reviewed, Interpreted and Dictated by Vaibhav Nick MD Transcribed by Meseret Sosa Authenticated and [facility]
== END 2024-11-06 23:59 | disposition home or self-care (01) ==
LOC: RAD 15:04
PROVIDERS: PCP Internal Medicine; Visit Provider Nurse Practitioner
DX: E04.2 Nontoxic multinodular goiter (principal)
CPT/HCPCS: 76536

== ENCOUNTER 2024-11-20 07:36 | Outpatient (CLI) | payer OTHER, SELFPAY ==
--- NOTE | 2024-11-20 07:40 | US_ITS ---
FINAL REPORT CLINICAL HISTORY: KASH THOMAS -- RT THYROID NODULE FNA FINDINGS: Ultrasound guided thyroid biopsy. HISTORY: Right thyroid mass. Attending radiologist: Dr. Nick Physician Data Center Manager: Kash Kinney PA-C PROCEDURE: After informed consent was obtained and a time-out was performed, the patient was prepped and draped in usual sterile fashion over the rright neck. Utilizing local anesthesia and sterile technique with a 25-gauge needle, access to lesion was obtained. A total of 5 passes were made under direct ultrasound guidance. The patient received no conscious sedation. The patient tolerated procedure well and left the department in good condition. IMPRESSION: Status post ultrasound guided biopsy of thyroid without immediate complication. Films reviewed, interpreted and dictated by Dr. Nick. Transcribed by Kash Kinney PA-C. Reviewed, Interpreted and Dictated by Vaibhav Nick MD Transcribed by WILLIAM Quijano Authenticated and [facility]
== END 2024-11-20 23:59 | disposition home or self-care (01) ==
LOC: RAD 07:37
PROVIDERS: PCP Internal Medicine; Visit Provider Nurse Practitioner
DX: E04.1 Nontoxic single thyroid nodule (principal)
CPT/HCPCS: 10005; 76536

== ENCOUNTER 2025-01-08 13:47 | Outpatient (CLI) | payer OTHER, SELFPAY ==
--- NOTE | 2025-01-08 14:15 | ECG_ITS ---
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 Exam: Resting ECG HR:88 bpm ECG Measurements Heart Rate 88 AXES NV 173 P 34 QRSd 89 QRS 45 QT 289 T 12 QTc 334 Conclusion SINUS RHYTHM POSSIBLE LEFT ATRIAL ENLARGEMENT [-0.1mV P-WAVE IN V1/V2] NONSPECIFIC T-WAVE ABNORMALITY BORDERLINE ECG UNCONFIRMED REPORT Electronically signed by : David Carter MD 01/10/2025 17:16:42
--- NOTE | 2025-01-08 14:34 | XR_ITS ---
FINAL REPORT CLINICAL HISTORY: Right Hip pain with replacement 1 year ago COMPARISON: Pelvis 02/21/2024 and right hip 10/05/2023 FINDINGS: AP and frog leg views of the right hip and an AP view of the pelvis were obtained. Interval right hip arthroplasty. Hardware appears intact. No acute osseous abnormality of the pelvis or right hip. Soft tissues are unremarkable. IMPRESSION: Changes from arthroplasty with no acute osseous abnormality of the right hip or pelvis. Reviewed, Interpreted and Dictated by Emily Escamilla MD Transcribed by Meseret Sosa Authenticated and [facility]
--- NOTE | 2025-01-08 14:34 | XR_ITS ---
FINAL REPORT CLINICAL HISTORY: Left Hip pain..no trauma COMPARISON: Pelvis 02/21/2024 and left hip 07/11/2023 FINDINGS: AP and frog leg views of the left hip were obtained. There is no acute fracture or dislocation. Joint space is preserved. Soft tissues are unremarkable. IMPRESSION: No acute osseous abnormality of the left hip. Reviewed, Interpreted and Dictated by Emily Escamilla MD Transcribed by Meseret Sosa Authenticated and . [facility]
[2025-01-08 21:07] LABS: Basophils % 0.4 % (0.1-2.0); Eosinophils # 0.2 K/mm3 (0.0-0.4); Eosinophils % 2.5 % (0.1-12.0); Hematocrit 41.7 % (37.0-47.0); Hemoglobin 13.9 g/dL (12.2-16.2); Lymphocytes # 3.8 K/mm3 (0.7-4.5); Mean Corpuscular HGB Conc 33.3 g/dL (31.8-35.4); Mean Corpuscular Hemoglobin 31.8 pg (27.0-31.2); Mean Corpuscular Volume 95.4 fl (81-99); Mean Platelet Volume 11.4 fl (7.4-10.4); Monocytes # 0.5 K/mm3 (0.1-1.0); Monocytes % 5.8 % (1.7-9.3); Neutrophils # 4.5 K/mm3 (1.8-7.8); Neutrophils % 49.5 % (37.0-80.0); Platelet Count 254 K/mm3 (142-424); Red Blood Count 4.37 M/mm3 (4.20-5.40); Red Cell Distribution Width 12.4 % (11.5-17.5); White Blood Count 9.2 K/mm3 (4.8-10.8)
[2025-01-08 21:13] LABS: Alanine Aminotransferase 31 U/L (12-78); Albumin Level 4.3 g/dl (3.5-5.0); Albumin/Globulin Ratio 1.7 (1.1-1.8); Alkaline Phosphatase 65 U/L (38-126); Anion Gap 12.6 mEq/L (5-15); Aspartate Amino Transferase 30 U/L (14-36); Bilirubin,Total 0.3 mg/dl (0.2-1.3); Blood Urea Nitrogen 12 mg/dl (7-17); Calcium 9.1 mg/dl (8.4-10.2); Carbon Dioxide 31 mmol/L (22.0-30.0); Chloride 99 mmol/L (98-107); Estimated Glomerular Filt Rate 93 ml/min (>60); GFR (African American) 113 ML/MIN (>60); Globulin 2.6 g/dL (1.3-3.2); Glucose 103 mg/dl (74-100); Potassium 3.6 mmoL/L (3.5-5.1); Sodium 139 mmol/L (136-145); Total Protein,Serum 6.9 g/dl (6.3-8.2)
== END 2025-01-08 23:59 | disposition home or self-care (01) ==
PROVIDERS: Nurse Anesthetist, Certified Registered; PCP Internal Medicine; Visit Provider Otolaryngology
DX: M25.551 Pain in right hip (principal); M25.552 Pain in left hip; R94.31 Abnormal electrocardiogram [ECG] [EKG]; Z96.641 Presence of right artificial hip joint
CPT/HCPCS: 73502; 80053; 85025; 93005

== ENCOUNTER 2025-01-14 07:19 | Day surgery (SDC) | payer OTHER, SELFPAY ==
[2025-01-09 15:30] VITALS: BMI 37.3
[2025-01-14] VITALS (12 sets, daily range): BP systolic 96–136; BP diastolic 37–87; PULSE 71–89; RESP 16–18; TEMP 36.4–36.6; O2SAT 93–100
[2025-01-14] MEDS: LACTATED RINGERS 1000ML 1,000 ML 25 ML IV (08:06)
[2025-01-14] MEDS: LIDOCAINE 1% W/EPI 1:100,000 20ML VIAL 20 ML (10:56)
[2025-01-14 11:08] LABS: POC Glucose,Bedside 89 (70-110)
--- NOTE | 2025-01-14 12:44 | P.OP_ITS ---
Date of procedure: 01/14/25 Pre-op Diagnosis:: Right thyroid nodule Post-op Diagnosis:: Right thyroid nodule Procedure performed:: Right thyroid lobectomy with intraoperative monitoring of the recurrent laryngeal nerves bilaterally Surgeon:: Denzel Otero MD TELESALES SPECIALIST:: Saul Cuevas Anesthesia: GETA Estimated blood loss (mL): 0 Operative findings:: Enlarged right thyroid lobe and nodule was within the lobe without extracapsular invasion. Superior parathyroid gland was identified and preserved. Recurrent laryngeal nerve was identified and preserved Operative note:: The patient was brought to the operating room and placed supine and after adequate general anesthesia the neck was prepped and draped in the usual sterile fashion and then nerve integrity monitoring electrodes placed monitor the recurrent laryngeal nerves bilaterally. 1% lidocaine with epinephrine was used to locally infiltrate a skin crease overlying the palpable thyroid. An incision was then made in carried through the underlying platysma and then subplatysmal flaps elevated superiorly and inferiorly and then the strap muscles divided at midline and retracted laterally and then self-retaining retractors applied. The thyroid isthmus was elevated from the anterior tracheal wall and then divided and ligated with harmonic scalpel. The anterior suspensory ligament was identified isolated next to the thyroid lobe capsule and divided and ligated with harmonic scalpel. The middle thyroid vein was then identified and isolated next to the gland capsule and divided and ligated then attention drawn to the superior pole. The superior pole vascular pedicle was isolated next of the gland capsule and ligated and divided again with harmonic scalpel and then small vascular perforators around the superior pole were similarly ligated and div ided. Attention was then drawn to the inferior pole several vascular perforators were identified at the inferior pole of the right thyroid lobe and these were individually ligated and divided as was a vascular pedicle at the thyroid isthmus. Dissection was then performed around the hypertrophic right thyroid lobe staying on the capsule. The superior parathyroid gland was identified and from the thyroid lobe and preserved along with its vascular supply. Eventually, the recurrent laryngeal nerve was identified in its usual location and then traced from inferior to superior dissecting the right lobe of the thyroid from its lateral surface. The posterior suspensory ligament was then divided and the right thyroid lobe sent for permanent section analysis. Hemostasis was established with ligaclips and bipolar cautery and the wound was irrigated with normal saline. Closure was then performed with 4-0 Vicryl to reapproximate the strap muscles and platysma and then 5-0 nylon to reapproximate the skin edges. A sterile dressing was placed and the procedure concluded. All counts correct and blood loss was minimal and she was sent to recovery in stable condition Condition: stable Disposition: PACU Complications:: No complication
[2025-01-14] MEDS: HYDROMORPHONE 2MG/ML SYRINGE 0.5 MG IV ×4 (12:50→13:05)
--- NOTE | 2025-01-14 12:50 | EXP.ANES.CKL ---
[facility] Disclaimer: The information contained in this section may have been updated after the patient was seen, as this information can be updated by other users. Medical History Otitis media of right ear Ear discharge Thyroid nodule Perforation of right tympanic membrane Perforation of left tympanic membrane History of thyroid nodule Bilateral hearing loss Generalized anxiety disorder Bipolar II disorder Seizures Migraine Kidney stone HTN (hypertension), benign HLD (hyperlipidemia) Hiatal hernia GERD (gastroesophageal reflux disease) Depression Arrhythmia Edema Palpitations Dizziness Sinus tachycardia Near syncope Dyspnea Abnormal EKG Dizziness Heart palpitations Atypical chest pain Tobacco use Anxiety Surgical History Status post left foot surgery History of right hip replacement H/O: hysterectomy Hx of myringotomy Hx of tonsillectomy Family History Other Cancer Diabetes Heart attack Hypertension Social History Smoking Status: Current every day smoker tobacco type: cigarettes packs per day: 2 second hand exposure: Yes alcohol intake: never substance use type: former substance user, crack/cocaine, heroin and unknown current occupational status: employed Travel in the last 8 weeks: None household members: children and other housing: house number of children: 3 current occupation: [employer] current occupational exposures/hazards: No caffeine: Yes Have you lived/traveled outside [place] in past 30 days?: No Contact w/someone who lives/traveled outside US past 30 days?: No Exposure to someone with infectious disease in past 14 days?: No Do you have a fever (greater than 100.4 F or 38 C)?: No Have you tested positive for COVID-19: No Exposed to someone with COVID-19 in past 14 days?: No Do you have a sore throat?: No Do you have a cough?: No Do you have any weakness?: No Do you have any diarrhea?: No Are you experiencing any unusual bleeding?: No Do you have any muscle aches/pain?: No Do you have any abdominal pain?: No Are you experiencing loss of taste or smell?: No [facility] Anesthesia Checklist Patient Identification Patient Identification: Arm Band Structural Data Admitted From: Home Planned Operative Procedure/s: Right Thyroid Lobectomy Consent for Planned Operative Procedure(s) Verified: Yes Verified Documents: Surgical Consent and History and Physical NPO Status Verified Time NPO: 00:00 Additional verifications Anesthesia Reactions: No Hx Blood Transfusions: No Blood Transfusion Reaction: No Airway Assessment Mallampati Score:: Class II C-Spine Mobility Assessed: Yes TMJ Mobility Assessed: Yes Dentition: Good Dentition (Upper Front chipped tooth) Neurological Assessment Level of Consciousness: Awake, Alert and Appropriate Anesthesia Plan Anesthesia Risk discussed: Yes Anesthesia Plan: Verified ASA Class: II Anesthesia Type: General
--- NOTE | 2025-01-14 12:52 | EXP.ANES.I ---
[facility] Anesthesia Record Part I Anesthesia Record I Intake, IV Amount: 1,200 Hydration: Adequate Estimated blood loss (mL): 5 Urine output (mL): 0 Blood Products used (#): none Blood Pressure: 125/77 SaO2: 93 Pulse Rate: 73 Airway Patency: Patent Respiratory Rate: 16 Temperature: 97.5 F Patient is:: Drowsy and Stable Stable to PACU at:: 12:40
[2025-01-14] MEDS: MORPHINE 2MG/ML SYRINGE 2 MG IV ×3 (13:10→13:24)
[2025-01-14] MEDS: KETOROLAC 30MG/ML VIAL 30 MG IV (13:24)
--- NOTE | 2025-01-14 14:47 | P.PNANES_ITS ---
[facility] Anesthesia Record Part II Anesthesia Record Part II Discharge Time: 13:30 Destination: Surgical Day Care (OP Surgery) PACU nurse assessment reviewed?: Yes Patient Condition:: Good Anesthesia Complications:: None Swallowing reflex intact?: Yes Airway Patency: Patent Cyanosis?: No Blood Pressure: 128/76 SaO2: 98 Respiratory Rate: 18 Pulse Rate: 80 Temperature: 97.5 F Mental Status: Alert & Oriented Pain level:: 5 Nausea and/or vomitting:: None Intake, IV Amount: 0 Hydration: Adequate
== END 2025-01-14 14:02 | disposition home or self-care (01) ==
PROVIDERS: PCP Internal Medicine; Visit Provider Otolaryngology
PROC: (CPT 60220; principal; 2025-01-14 09:45)
DX: E04.9 Nontoxic goiter, unspecified (principal)
CPT/HCPCS: 60220; 82962; 96374; J1100; J1171; J1885; J2250; J2270; J2405; J3010; J7120

== ENCOUNTER 2025-03-13 16:31 | Outpatient (CLI) | payer OTHER, SELFPAY ==
[2025-03-13 18:51] LABS: Free T4 (Free Thyroxine) 0.67 ng/dl (0.78-2.19)
== END 2025-03-13 23:59 | disposition home or self-care (01) ==
LOC: LAB 16:32
PROVIDERS: PCP Family Medicine; Visit Provider Nurse Practitioner
DX: Z98.890 Other specified postprocedural states (principal); Z90.89 Acquired absence of other organs
CPT/HCPCS: 36415; 84439; 84443

== ENCOUNTER 2025-03-13 17:08 | Outpatient (CLI) | payer OTHER, SELFPAY ==
--- NOTE | 2025-03-13 17:15 | MR_ITS ---
PROCEDURE INFORMATION: Exam: MR Left Lower Extremity Joint Without Contrast; Hip Exam date and time: 03/13/2025 5:11 PM Age: 39 years old Clinical indication: Left hip pain and avn; Additional info: Lt hip avn TECHNIQUE: Imaging protocol: Magnetic resonance imaging of the left lower extremity joint without contrast. Exam focused on the hip. COMPARISON: MR HIP LT WO CON 08/04/2023 1:04 PM FINDINGS: Bones/joints: Anterior femoral head subchondral defect measuring 13 x 15 x 10 mm similar in size to prior exam which may represent prior osteonecrosis. Stir hyperintense signal changes of the left femoral neck intertrochanteric marrow, with associated loss of T1 fat signal which may represent developing stress fracture. Labrum: Unremarkable. No tear. TENDONS: Tendons of iliopsoas group: Unremarkable. No evidence of tear. Tendons of medial compartment of thigh: Unremarkable. No evidence of tear. Tendons of lateral rotators of hip: Unremarkable. No evidence of tear. Tendons of gluteal group: Unremarkable. No evidence of tear. Soft tissues: Unremarkable. IMPRESSION: 1. Anterior femoral head subchondral defect measuring 13 x 15 x 10 mm similar in size to prior exam which may represent prior osteonecrosis. 2. Stir hyperintense signal changes of the left femoral neck intertrochanteric marrow, with associated loss of T1 fat signal which may represent developing stress fracture.
== END 2025-03-13 23:59 | disposition home or self-care (01) ==
LOC: RAD 17:09
PROVIDERS: PCP Family Medicine; Visit Provider Physician Assistant
DX: M87.052 Idiopathic aseptic necrosis of left femur (principal); M89.752 Major osseous defect, left pelvic region and thigh; R93.6 Abnormal findings on diagnostic imaging of limbs
CPT/HCPCS: 73721

== ENCOUNTER 2025-06-30 14:05 | Outpatient (CLI) | payer SELFPAY ==
[2025-06-30 20:10] LABS: Free T4 (Free Thyroxine) 0.86 ng/dl (0.78-2.19)
[2025-06-30 22:01] LABS: Thyroid Stimulating Hormone 10.70 uIU/mL (0.465-4.68)
--- OUTSIDE RECORDS SUMMARY | 2025-07-01 09:19 | XMS_ITS | Encounter Summary ---
Author Organization Healthcare Address [address] [place] [address] Care Team Providers Care Set Up Mechanic Coil Winding Machines Name Role Phone Pcp, No Primary Care Provider Unavailabl e David Gayle DO Primary Care Provider [phone] David Gayle DO Primary Care Provider [phone] David Gayle DO Unavailable [phone] Reason for Referral * Consultation (Routine) - Closed Specialty Diagnoses / Procedures Referred By Noel t Referred To Contact Orthopaedic Surgery Diagnoses Avascular necrosis of bones of both hips (CMS/HCC) Jordan Jaime DO [address] [place] [address] [place] [address] Phone: tel: fax: Deo Rodrigues MD [address] [place] [address] Phone: tel: fax: Referral ID Status Reason Start Date Expiration Date Visits Re quested Visits Authorized [id number] Closed 07/13/2023 01/11/2025 1 1 Encounter Details Date Type Department Care Team (Late st Contact Info) Description 07/13/2023 Community [facility] [address] [place] [address] Jordan Jaime DO [address] [place] [address] [place] [id number] Avascular necrosis of bones of both hips (CMS/HCC) (Primary Dx) Social History Tobacco Use Types Packs/Day Years Used Date Smoking Tobacco: Every Day Cigarettes Smokeless Tobacco: Never Alcohol Use Standard Drinks/Week Comments Not Currently 0 (1 standard drink = 0.6 oz pur e alcohol) PHQ-2 Answer Date Recorded Patient Health Questionnaire-2 Score 0 04/25/2022 Comments Unknown Sex and Gender Information Value Date Recorded Sex Assigned at Not on file Legal Sex Female 8:06 PM EDT Gender Identity Not on file Sexual Orientation Not on file documented as of this encounter Plan of Treatment Scheduled Referrals Name Type Priority Associated Diagnoses Order Schedule Ambulatory referral to Orthopaedics Joint Reconstruction Outpatient Referral Routine Avascular necrosis of bones of both hips (CMS/HCC) Expected: 07/13/2023 (Approximate), Expires: 07/13/2024 documented as of this encounter Visit Diagnoses Diagnosis Avascular necrosis of bones of both hips (CMS/HCC)- Primary documented in this encounter Care Teams Set Up Mechanic Coil Winding Machines Relationship Specialty Start Date End Date Pcp, Elyssa [address] [place] [address] PCP - General Family Medicine 04/25/22 09/25/23 David Gayle DO [address] [place] [address] PCP - General 09/26/23 10/19/23 David Gayle DO [address] [place] [address] PCP - General 10/20/23 David Gayle DO [address] [place] [address] 10/20/23 documented as of this encounter
--- OUTSIDE RECORDS SUMMARY | 2025-07-01 09:19 | XMS_ITS | Clinical Summary ---
Author Organization Healthcare Address [address] 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 2 Active Motegrity 2 MG tablet Take 1 tablet (2 mg) by mouth 1 (one) time each day. as directed 2 Active propranolol (Inderal) 20 MG tablet Take 1 tablet (20 mg) by mouth 2 (two) times a day. 2 Active prazosin (Minipress) 5 MG capsule Take 1 capsule (5 mg) by mouth every night. 2 Active oxyCODONE (Roxicodone) 10 MG immediate release tablet Take 1 tablet (10 mg) by mouth 4 (four) times a day. 2 Active ondansetron ODT (Zofran-ODT) 4 MG disintegrating tablet Take 1 tablet (4 mg) by mouth every 8 (eight) hours if needed for nausea or vomiting. 2 Active Narcan 4 MG/0.1ML nasal spray ADMINISTER A SINGLE SPRAY IN ONE NOSTRIL UPON SIGNS OF OPIOID OVERDOSE. CALL 911. REPEAT AFTER 3 MINUTES IF NO RESPONSE. 2 Active montelukast (Singulair) 10 MG tablet Take 1 tablet (10 mg) by mouth 1 (one) time each day. 2 Active LORazepam (Ativan) 0.5 MG tablet Take 1 tablet (0.5 mg) by mouth 3 (three) times a day if needed. 2 Active Linzess 290 MCG capsule Take 1 capsule (290 mcg) by mouth 1 (one) time each day in the morning. 2 Active hydrOXYzine HCl (Atarax) 50 MG tablet Take 1 tablet (50 mg) by mouth 4 (four) times a day. 2 Active gabapentin (Neurontin) 800 MG tablet Take 1.5 tablets (1,200 mg) by mouth 3 (three) times a day. 2 Active Emgality 120 MG/ML injection Inject 1 Syringe (120 mg) under the skin every 30 (thirty) days. 2 Active furosemide (Lasix) 20 MG tablet Take 1 tablet (20 mg) by mouth 1 (one) time each day. 2 Active fluticasone (Flonase) 50 MCG/ACT nasal spray Administer 1 spray into each nostril 1 (one) time each day. 2 Active escitalopram (Lexapro) 20 MG tablet Take 1 tablet (20 mg) by mouth 1 (one) time each day. 2 Active ergocalciferol 1.25 MG (06831 UT) capsule Take 1 capsule (50,000 Units) by mouth 1 (one) time per week. 2 Active cyclobenzaprine (Flexeril) 10 MG tablet Take 1 tablet (10 mg) by mouth 3 (three) times a day if needed for muscle spasms. 2 Active clidinium-chlordia zePOXIDE (Librax) 5-2.5 MG capsule Take 1 capsule by mouth 3 (three) times a day if needed. 2 Active albuterol 108 (90 Base) MCG/ACT inhaler Inhale 2 puffs every 4 (four) hours if needed. 2 Active buPROPion XL (Wellbutrin XL) 150 MG 24 hr tablet Take 1 tablet (150 mg) by mouth 1 (one) time each day. Do not crush, chew, or split. Active apixaban (Eliquis) 2.5 MG tablet Take 1 tablet (2.5 mg) by mouth 2 (two) times a day. For 4 weeks post-op for blood clot prevention 56 tablet 4 Active acetaminophen (Tylenol Extra Strength) 500 MG tablet Take 2 tablets (1,000 mg) by mouth every 8 (eight) hours. 100 tablet 4 Active traMADol (Ultram) 50 MG tablet Take 1 tablet (50 mg) by mouth every 8 (eight) hours if needed for moderate pain. 30 tablet 4 Active oseltamivir (Tamiflu) 75 MG capsule Take 1 capsule (75 mg) by mouth 2 (two) times a day. Active rosuvastatin (Crestor) 40 MG tablet 4 Active collagenase (Santyl) 250 UNIT/GM ointmentIndication s:Postoperative wound dehiscence, initial encounter,S/P total right hip arthroplasty Apply 0.5 cm to affected area once daily for 14 days 30 g 4 Active triamcinolone (Kenalog) 0.1 % cream 4 Active Active Problems Problem Noted Date Diagnosed Date Avascular necrosis of bone of hip, right 024 Avascular necrosis of bones of both hips 024 Family History Medical History Relation Name Comments Anesthesia problems Neg Hx Malig Hyperthermia Neg Hx Social History Tobacco Use Types Packs/Day Years Used Date Smoking Tobacco: Some Days Cigarettes 1 10 Started: 2013; Last attempted to quit: 2023 Smokeless Tobacco: Never Alcohol Use Standard Drinks/Week Comments Not Currently 0 (1 standard drink = 0.6 oz pur e alcohol) PHQ-2 Answer Date Recorded Patient Health Questionnaire-2 Score 0 04/11/2024 CAGE ASSESSMENT Answer Date Recorded Cage unable to access Not on file 02/26/2024 Cage max number of drinks Not on file 2023 Cage Beverages a week Not on file 02/26/2024 Have you ever felt you should CUT down on your d rinking? 0 02/26/2024 Have you been ANNOYED by people criticizing your drinking? 0 02/26/2024 Have you felt GUILTY about your drinking? 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 0 02/26/2024 CAGE Questionnaire Score 0 024 PHQ-2A Answer Date Recorded Patient Health Questionnaire-2 Score 2 08/25/2023 Comments No Sex and Gender Information Value Date Recorded Sex Assigned at Not on file Legal Sex Female 8:06 PM EDT Gender Identity Not on file Sexual Orientation Not on file Last Filed Vital Signs Vital Sign Reading Time Taken Comments Blood Pressure 132/69 04/11/2024 4:20 PM EDT Pulse 91 04/11/2024 4:20 PM EDT Temperature 36.6 C (97.9 F) 02/27/2024 11:14 AM EDT Respiratory Rate 16 02/27/2024 7:26 AM EDT Oxygen Saturation 96% 04/11/2024 4:20 PM EDT Inhaled Oxygen Concentration - - Weight 105 kg (232 lb) 04/11/2024 4:20 PM EDT Height 160 cm (5' 3 ) 04/11/2024 4:20 PM EDT Body Mass Index 41.1 04/11/2024 4:20 PM EDT Plan of Treatment Health Maintenance Due Date Last Done Comments [facility]-/Child/Adol SDOH Screenings 1985 [facility]-Varicella Vaccines (1 of 2 - 13+ 2-dose series) 1998 [facility]- SDOH Screenings 2003 [facility]-Adult SDOH Screenings 2003 HPV Vaccines (1 - 3-dose SCDM series) 2012 [facility]-Depression Screening 04/11/2025 04/11/2024 [facility]-BDRUE-80 Vaccine ( - 2023- season) 2025 [facility]-Influenza Vaccine (#1) 2025 [facility]-DTaP,Tdap,and Td Vaccines (3 - Td or Tdap) 10/25/2033 10/25/2023, 06/07/1999 [facility]-Zoster Vaccines (1 of 2) 2035 [facility]-Hepatitis B Vaccines Completed 000, 07/05/1999, 06/07/1999 [facility]-HIV Screening Completed 10/20/2023 [facility]-Hepatitis C Screening Completed 10/20/2023 [facility]-Obesity Intervention Completed 024, 03/29/2024, 03/12/2024, Additional history exists [facility]-HIB Vaccines Aged Out No longer e ligible based on patient's age to complete this topic [facility]-Hepatitis A Vaccines Aged Out No longer eligible based on patient's age to complete this topic [facility]-IPV Vaccines Aged Out No longer e ligible based on patient's age to complete this topic [facility]-Pneumococcal Vaccine: Pediatrics (0 to 5 Years) and At-Risk Patients (6 to 49 Years) Aged Out No longer eligible based on patient's age to complete this topic [facility]-Rotavirus Vaccines Aged Out No lo nger eligible based on patient's age to complete this topic Medical Devices Implanted Type Area Quality Tester Device Identifier Shelf Expiration Date Model / Serial / Lot Plate Plate Left: Leg Screw Screw Left: Leg Chg Screw Ref Spher Head 35mm - [id number] Implanted:Qty: 1 on 02/26/2024 by David Doyle MD at [facility] Right: Hip [employer]-[id number] 09/25/2033 [id number] / / [id number] Chg Shell R3 3 Hole Acet 50mm - [id number] Implanted:Qty: 1 on 02/26/2024 by David Doyle MD at [facility] Right: Hip [employer]-[id number] 01/18/2033 [id number] / / [id number] Chg Screw Ref Spher Head 25mm - [id number] Implanted:Qty: 1 on 02/26/2024 by David Doyle MD at [facility] Right: Hip [employer]-[id number] 10/17/2033 [id number] / / [id number] Liner Or3o Dual Mbility 38 50 - [id number] Implanted:Qty: 1 on 02/26/2024 by David Doyle MD at [facility] Right: Hip [employer]-[id number] 10/28/2033 [id number] / / [id number] Hip Plus Sl Integr Erika Bianca W.Ti.Morales 4 4 - [id number] Implanted:Qty: 1 on 02/26/2024 by David Doyle MD at [facility] Right: Hip [employer]-[id number] 03/24/2029 [id number] / / [id number] Liner Or3o Dual Mbility Xlpe - [id number] Implanted:Qty: 1 on 02/26/2024 by David Doyle MD at [facility] Right: Hip [employer]-[id number] 08/14/2033 [id number] / / [id number] Chg Head Oxinium Fem 09/28 28m - [id number] Implanted:Qty: 1 on 02/26/2024 by David Doyle MD at [facility] Right: Hip [employer]-[id number] 10/24/2033 [id number] / / [id number] Procedures Procedure Name Priority Date/Time Associated Diagnosis Comments HEPATITIS C ANTIBODY - ED W/REFLEX TO HCV QUANT PCR STAT 10/20/2023 1:05 PM EST ED HIV 1/2 ANTIBODY/ANTIGEN SCREEN WITH REFLEX TO HIV I/II DIFFERENTIATION STAT 10/20/2023 1:05 PM EST from Last 3 Months or Most Recently Relevant to Health Maintenance Results * ED HIV 1/2 Antibody/Antigen Screen w/Reflex to HIV 1/2 Differentiation (10/20/2023 1:05 PM EST) HIV 1 & 2 Antibody/Antigen Screen Non Reactive Non Reactive 10/20/2023 2:19 PM EST [facility] Comment:Screening for HIV 1 & 2 antibodies, and P24 antigen is NONREACTIVE. No confirmatory testing is required. Blood Venous blood specimen / Unknown Venipuncture / Unknown 10/20/2023 1:05 PM EST 10/20/2023 1:38 PM EST us Kevin Nieves MD LAB BLOOD ORDERABLES Final Result [facility] [address] [place] [address] * Hepatitis C Antibody - ED (10/20/2023 1:05 PM EST) Hepatitis C Antibody Negative Negative 10/20/2023 2:19 PM EST [facility] Blood Venous blood specimen / Unknown Venipuncture / Unknown 10/20/2023 1:05 PM EST 10/20/2023 1:38 PM EST Kevin Nieves MD LAB BLOOD ORDERABLES Final Result [facility] [address] [place] [address] from Last 3 Months or Most Recently Relevant to Health Maintenance Insurance [employer] MEDICAID [employer] MEDICAID [facility] [employer] [facility] Advance Directives * Full Code (Latest Code Status on File) Date Activated Date Inactivated Comments 02/26/2024 8:59 AM 02/27/2024 3:57 PM Question Answer Comments Patient has decision-making capacity? 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
== END 2025-06-30 23:59 ==
LOC: LAB.DROPOF 07-01 08:49
PROVIDERS: PCP Family Medicine; Visit Provider Family Medicine
DX: E04.1 Nontoxic single thyroid nodule (principal); E89.0 Postprocedural hypothyroidism; Z98.890 Other specified postprocedural states
CPT/HCPCS: 84439; 84443

== ENCOUNTER 2025-07-02 08:10 | Outpatient (CLI) | payer OTHER, SELFPAY ==
--- NOTE | 2025-07-02 08:13 | XR_ITS ---
FINAL REPORT CLINICAL HISTORY: right foot pain COMPARISON: 09/27/2021 FINDINGS: Three views of the right foot show a mildly displaced transverse fracture of the fifth metatarsal base. The joint spaces appear normal. IMPRESSION: Fifth metatarsal base fracture. Reviewed, Interpreted and Dictated by Shauna Zuñiga MD Transcribed by Meseret Sosa Authenticated and [facility]
== END 2025-07-02 23:59 | disposition home or self-care (01) ==
LOC: RAD 08:11
PROVIDERS: PCP Family Medicine; Visit Provider Physician Assistant
DX: S92.351A Displaced fracture of fifth metatarsal bone, right foot, initial encounter for closed fracture (principal); X58.XXXA Exposure to other specified factors, initial encounter
CPT/HCPCS: 73630

== ENCOUNTER 2025-07-23 08:57 | Outpatient (CLI) | payer OTHER, SELFPAY ==
--- NOTE | 2025-07-23 08:59 | XR_ITS ---
FINAL REPORT CLINICAL HISTORY: right foot fx. broke 5th metatarsal sept 11, still painful. no surgery. COMPARISON: 07/02/2025 FINDINGS: RIGHT FOOT 3 views of the right foot were obtained. There has been no significant change in fracture at the base of the fifth metatarsal. No significant development of callus is seen. Joint spaces otherwise preserved. Soft tissues are unremarkable. IMPRESSION: No significant change in fracture at the base of the fifth metatarsal. Reviewed, Interpreted and Dictated by Emily Escamilla MD Transcribed by Grace Barney Authenticated and [facility]
== END 2025-07-23 23:59 | disposition home or self-care (01) ==
LOC: RAD 08:58
PROVIDERS: PCP Family Medicine; Visit Provider Physician Assistant
DX: S92.351D Displaced fracture of fifth metatarsal bone, right foot, subsequent encounter for fracture with routine healing (principal); X58.XXXD Exposure to other specified factors, subsequent encounter
CPT/HCPCS: 73630

== ENCOUNTER 2025-08-15 09:00 | Emergency (ER) | payer SELFPAY ==
--- OUTSIDE RECORDS SUMMARY | 2025-06-30 00:55 | XMS_ITS | Continuity of Care Document ---
Author Organization [facility] Phone Care Team Providers Care Aerophysics Engineer Name Role Phone MEMO JETER Primary Attending Unavailable NO, DEFINED P Primary Care Unavailable NO, DEFINED P Unavailable Unavailable MEMO JETER Admitting Unavailable ALLERGIES AND ADVERSE REACTIONS ALLERGIES AND ADVERSE REACTIONS Code System Allergy Substance Adverse Reaction Date Reaction (Severity) Comment Status Reported By Updated By No Known Allergies [id number] on June 26, 2025 3:40:46 PM [facility] RESULTS Patient: RADHA Berry Date of : June 15 8 LABORATORY RESULTS Information is not available LABORATORY NARRATIVE RESULTS Information is not available RADIOLOGY RESULTS ORDER 100: KNEE 3V LT (LOINC : 05026-5) ORDER DATE: June 26, 2025 4:11:00 PM [facility] PERFORMING LAB: [address] [id number] Final Result Date: June 26, 2025 5:01:[address] [address] Name: YAMIL GARCIA Exam Date: 06/26/2025 : 1985 Age 40 years Gender: F Physician: AQUILINO PICKENS Facility: [facility] Facility HSV: Outpatient Exam: KNEE 3V LT XR KNEE 3 VIEWS LEFT Reason For Study: Pain with Trauma/Injury COMPARISON:None TECHNIQUE: 3 views of the left knee were obtained. FINDINGS Multiple views of the knee show no fracture or dislocation. No significant arthritic changes can be detected. There is no joint fluid. No radiopaque foreign body can be seen in the surrounding soft tissues. IMPRESSION: Normal views of the knee. Electronically signed by: Tra Silveira MD 06/26/2025 01:01 PM EDT RP Dictated By: Tra Silveira Transcribed By: Transcribed On: 06/26/2025 1:01 PM Electronically signed by: Tra Silveira 06/26/2025 Thank you for referring YAMIL GARCIA to [facility]. Legally authenticated by SULLY KOROMA 2025-06-26 13:01:21 ORDER 200: FOOT RT 3V (LOINC : 03019-5) ORDER DATE: June 26, 2025 4:11:00 PM [place] PERFORMING LAB: [address] [id number] Final Result Date: June 26, 2025 5:02:[address] [address] Name: YAMIL GARCIA Exam Date: 06/26/2025 : 1985 Age 40 years Gender: F Physician: AQUILINO PICKENS Facility: [facility] Facility HSV: Outpatient Exam: FOOT RT 3V XR FOOT 3 OR MORE VIEWS RIGHT Reason For Study: Pain with Trauma/Injury COMPARISON:None TECHNIQUE: 3 views of the right foot were obtained. FINDINGS Transverse minimally displaced fracture of the base of fifth metatarsal. No significant radiopaque foreign body or soft tissue calcifications. Minimal degenerative change. IMPRESSION: Minimally displaced fracture base of fifth metatarsal. Electronically signed by: Tra Silveira MD 06/26/2025 01:02 PM EDT RP Dictated By: Tra Silveira Transcribed By: Transcribed On: 06/26/2025 1:02 PM Electronically signed by: Tra Silveira 06/26/2025 Thank you for referring YAMIL GARCIA to [facility]. Legally authenticated by SULLY KOROMA 2025-06-26 13:02:19 ORDER 300: ANKLE 3V RT (LOIN C: 78349-6) ORDER DATE: June 26, 2025 4:11:00 PM UTC PERFORMING LAB: [address] [place] [id number] Final Result Date: June 26, 2025 5:06:18 [facility] [address] [place] [address] Name: YAMIL GARCIA Exam Date: 06/26/2025 : 1985 Age 40 years Gender: F Physician: AQUILINO PICKENS Facility: [facility] Facility HSV: Outpatient Exam: ANKLE 3V RT PROCEDURE DESCRIPTION: ANKLE 3V RT CLINICAL INDICATION: Pain with Trauma/Injury. TECHNIQUE: 3 views / images submitted. COMPARISON: Plain radiographs of the foot performed the same date. FINDINGS: There is a fracture involving the base of the fifth metatarsal. IMPRESSION: Fifth metatarsal fracture. Follow-up is recommended. Orthopedic consultation may also be obtained. Electronically signed by: Evangelista Dey MD 06/26/2025 01:06 PM EDT Dictated By: EVANGELISTA DEY Transcribed By: Transcribed On: 06/26/2025 1:06 PM Electronically signed by: EVANGELISTA DEY 06/26/2025 Thank you for referring YAMIL GARCIA to [facility]. Legally authenticated by YISSEL Painter 2025-06-26 13:06:18 PATHOLOGY NARRATIVE RESULTS Information is not available MICROBIOLOGY RESULTS No Micro Labs/Results Exist for Patient BLOOD ADMIN RESULTS Information is not available MEDICATIONS HOME MEDICATIONS Status RXNORM NDC Medication Dose Route Frequency Dates Comments Reported By Updated By Drug Treatment Unknown DISCHARGE MEDICATIONS Status RXNORM NDC Medication Dose Route Frequency Dates Dis pense Data Comments Physician Updated By No Discharge Medication Info rmation Available INPATIENT MEDICATIONS Status RXNORM NDC Medication Dose Route Frequency Rat e Quantity Dates Indication Dispense Data Comments Physician Updated [facility] [id number] ibuprofen (MOTRIN) 400 MG TABS 400.0 MG ORAL ONE TIME ONLY (SCHEDULED DOSE) Start: 2024 4:19:0 0 PM UT End: 2024 4:19:0 0 PM [facility] ED on 2024 4:17:00 PM UT SOCIAL HISTORY SOCIAL HISTORY - Smoking Status SNOMED-CT Social History Element Description Effective Dates Offered Cessation Comment Updated By [id number] Current Tobacco smoking status Light Tobacco Smoker [id number] on June 26, 2025 3:41:35 PM UT SOCIAL HISTORY - Gender Sex: Female SOCIAL HISTORY - Status : status i nformation is not available Intention in Next Year: intention information is not available SOCIAL HISTORY - Assessments Code System Description Status Date Value of Assessment Updated By Comment Assessment Information is no t available SOCIAL HISTORY - [place] Affiliation [place] information is not av ailable SOCIAL HISTORY - Legal Sex Legal Sex information is not available SOCIAL HISTORY - Sexual Behavior Sexual Orientation Gender Identity SNOMED-CT Description SNO MED -CT Description Activity Level No of Partners Partner Type UpdatedBy Information is not available SOCIAL HISTORY - Occupation Occupation information is no t available VITAL SIGNS PATIENT VITAL SIGNS This section displays the mo st recent value for each vital sign as of June 30, 2025 4:55:29 AM [place] Loinc Code Vital [place] [address]-2 Body weight Measured June 162024 3:36:07 PM UTC 95.25 kg (210.0 lb) [id number] on June 26, 2025 3:36:07 PM UT 8462-4 Diastolic blood pressure June 26, 2025 3:33:00 PM UTC 84.0 mm[Hg] 8867-4 Heart rate June 26 3:33:00 PM UTC 90 /min 36040-2 Oxygen saturation in Arterial blood by Pulse oximetry June 26, 2025 3:33:00 PM UTC 100.0 % 9279-1 Respiratory rate June 26 5:50:00 PM UTC 18 /min 8480-6 Systolic blood pressure June 26, 2025 3:33:00 PM UTC 140.0 mm[Hg] PEDIATRIC GROWTH CHART - VITAL SIGNS This section displays Head C ircumference Percentile, Weight for Length Percentile and BMI Percentile Loinc Code Pediatric Measure Age (Months) Result Updat ed By No Pediatric Growth Chart Pe rcentile Information Available. HEALTH CONCERNS Problems Concern Status Health Concern problem infor mation not available. Smoking Status Status Years Used Consumed packs p er day Health Concern smoking histo ry information not available. Family History Concern Status Health Concern family histor y information not available. 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 Code System Diagnosis Onset Date Diagnosis information is not available. ABSTRACT DIAGNOSES Code System Diagnosis Updated By Abatement Date M25.562 ICD10 PAIN IN LEFT KNEE [id number] on June 30, 2025 4:54:51 AM UT M79.671 ICD10 PAIN IN RIGHT FOOT [id number] o n June 30, 2025 4:54:51 AM UT S92.351A ICD10 DISPLACED FRACTU RE OF FIFTH METATARSAL BONE, RIGHT FOOT, INITIAL ENCOUNTER FOR CLOSED FRACTURE [id number] on June 30, 2025 4:54:51 AM UTC S80.212A ICD10 ABRASION, LEFT K NEE, INITIAL ENCOUNTER [id number] on June 30, 2025 4:54:51 AM UTC F17.210 ICD10 NICOTINE DEPENDE NCE, CIGARETTES, UNCOMPLICATED [id number] on June 30, 2025 4:54:51 AM UTC W01.0XXA ICD10 FALL ON SAME LEV EL FROM SLIPPING, TRIPPING AND STUMBLING WITHOUT SUBSEQUENT STRIKING AGAINST OBJECT, INITIAL ENCOUNTER [id number] on June 30, 2025 4:54:51 AM UTC Y99.0 ICD10 CIVILIAN ACTIVIT Y DONE FOR INCOME OR PAY [id number] on June 30, 2025 4:54:51 AM [facility] CARE TEAM Care Aerophysics Engineer Role MEMO JETER Primary Attending DEFINED NO Primary Care DEFINED NO Referring MEMO JETER Admitting CARE TEAM CARE manager materials management Role on Team Location Telecom Status Start Date End Teddy e Updated By NO DEFINED PRIMARY C Referring normal June 26, 2025 4:36:57 PM [facility] June 26, 2025 5:51:00 PM [facility] [id number] on June 26, 2025 4:36:57 PM [facility] [place] Attending normal June 26, 2025 4:36:57 PM [facility] June 26, 2025 5:51:00 PM [facility] [id number] on June 26, 2025 4:36:57 PM [place] [facility] Admitting normal June 26, 2025 4:36:57 PM [facility] June 26, 2025 5:51:00 PM [facility] [id number] on June 26, 2025 4:36:57 PM [facility] NO DEFINED PRIMARY C PCP normal June 26, 2025 3:20:12 PM [facility] June 26, 2025 5:51:00 PM [facility] [id number] on June 26, 2025 4:36:57 PM [facility]
[2025-08-15 09:12] VITALS: BP 133/88; PULSE 74; RESP 20; TEMP 36.5; O2SAT 99; BMI 36.0
--- OUTSIDE RECORDS SUMMARY | 2025-08-15 09:29 | XMS_ITS | Data Portability ---
Author Organization [facility] ADMIN Address [address] [place] [id number] Assessment No assessment recorded. Plan of Treatment Reminders Order Date Submit Date Provider Last Modified By Organization Details Last Modified Time Details Appointments None record ed. Lab None record ed. Referral None record ed. Procedures None record ed. Surgeries None record ed. Imaging None record ed. Medication Orders None record ed. Patient TargetsNo targets recorded. Patient Instructions Encounter Date Encounter Id Patient Instructions Last Modified By Organization Details Last Modified Time 11/15/2022 [id number] 1-F/u prn. [email or web address] Not available 10/18 16:39:32 Reason for Referral None Reported. Problems Name Problem SNOMED Code Status Onset Date Resolution Date Notes Provider Name and Address Organization Details Recorded Time Sensorineural hearing loss 03247890 Active 2022 COSMO VARGAS, AUD [address] [facility], [place], [address] , [facility] & [place] 16:39:04 Problem Notes None recorded. Medical Equipment None Reported. Medications Name Sig Start Date Stop Date Status Note LastModified by Organization Details LastModified Time eq allergy relf d 10-240mg tab TAKE 1 TABLET BY MOUTH ONCE DAILY active Not Available Not Available No t Available cyclobenzapr ine 10 mg tablet TAKE 1 TABLET BY MOUTH THREE TIMES DAILY NEEDED FOR MUSCLE SPASM active Not Available Not Available No t Available amoxicillin 500 mg capsule TAKE 1 CAPSULE MOUTH 3 TIMES DAILY UNTIL GONE active Not Available Not Available N ot Available methocarbamo l 500 mg tablet TAKE 2 TABLETS BY MOUTH THREE TIMES DAILY FOR 10 DAYS active Not Available Not Available Not Available metformin 500 mg tablet TAKE 1 TABLET BY MOUTH TWICE DAILY FOR DIABETES active Not Available Not Available No t Available neomycin-mars ymyxin-hydro jennifer 3.5 mg/mL-10,000 unit/mL-1 % ear solution INSTILL 5 DROPS INTO AFFECTED EAR(S) 4 TIMES DAILY active Not Available Not Available Not Available gabapentin 600 mg tablet TAKE 1 TABLET BY MOUTH 4 TIMES DAILY FOR PAIN active Not Available Not Available No t Available ropinirole 1 mg tablet TAKE 1 TABLET BY MOUTH ONCE DAILY FOR LEGS active Not Available Not Available No t Available clindamycin HCl 300 mg capsule active Not Available Not Available Not Available azithromycin 250 mg tablet TAKE 2 TABLETS BY MOUTH ON DAY 1, AND THEN TAKE 1 TABLET BY MOUTH ONCE A DAY ON DAY 2 THROUGH DAY 5 active Not Available Not Available No t Available ibuprofen 800 mg tablet TAKE 1 TABLET BY MOUTH TWICE DAILY FOR PAIN active Not Available Not Available No t Available benzonatate 200 mg capsule TAKE 1 CAPSULE BY MOUTH THREE TIMES DAILY NEEDED FOR COUGH active Not Available Not Available No t Available hydrocodone 5 mg-acetamino phen 325 mg tablet TAKE 1 TABLET BY MOUTH EVERY 6 HOURS NEEDED FOR LEFT FOOT AVULSION FRACTURE FOR 3 DAYS active Not Available Not Available N ot Available meloxicam 15 mg tablet active Not Available Not Available No t Available prednisone 20 mg tablet active Not Available Not Available Not Available hydroxyzine HCl 50 mg tablet TAKE 1 TABLET BY MOUTH 4 TIMES DAILY NEEDED FOR ANXIETY active Not Available Not Available Not Available phentermine 37.5 mg tablet TAKE 1 TABLET BY MOUTH ONCE DAILY MUST ADMINISTER 30 MINUTES BEFORE OR 1-2 HOURS AFTER BREAKFAST active Not Available Not Available No t Available sulfamethoxa zole 800 mg-trimethop rim 160 mg tablet TAKE 1 TABLET BY MOUTH TWICE DAILY FOR 10 DAYS active Not Available Not Available No t Available tramadol 50 mg tablet TAKE 1 TABLET BY MOUTH 4 TIMES DAILY active Not Available Not Available Not Available acetaminophe n 500 mg tablet active Not Available Not Available Not Available triamcinolon e acetonide 0.1 % topical cream active Not Available Not Available Not Available ketorolac 10 mg tablet TAKE 1 TABLET BY MOUTH EVERY 6 HOURS NEEDED FOR PAIN active Not Available Not Available No t Available meloxicam 7.5 mg tablet active Not Available Not Available Not Available prazosin 5 mg capsule TAKE 1 CAPSULE BY MOUTH AT BEDTIME active Not Available Not Available No t Available propranolol 10 mg tablet TAKE 1 TABLET BY MOUTH TWICE DAILY active Not Available Not Available No t Available ofloxacin 0.3 % ear drops active Not Available Not Available Not Available lorazepam 0.5 mg tablet TAKE 1 TABLET BY MOUTH THREE TIMES DAILY NEEDED FOR ANXIETY active Not Available Not Available Not Available gabapentin 800 mg tablet active Not Available Not Available Not Available benzonatate 100 mg capsule TAKE 1 CAPSULE BY MOUTH THREE TIMES DAILY NEEDED FOR COUGH active Not Available Not Available No t Available cephalexin 500 mg capsule active Not Available Not Available Not Available pantoprazole 40 mg tablet,delay ed release TAKE 1 TABLET BY MOUTH ONCE DAILY active Not Available Not Available No t Available oseltamivir 75 mg capsule TAKE 1 CAPSULE BY MOUTH TWICE DAILY active Not Available Not Available No t Available dexamethason e 4 mg tablet TAKE 1 TABLET BY MOUTH IMMEDIATELY AND 1 TABLET THE FOLLOWING MORNING active Not Available Not Available No t Available lidocaine 5 % topical patch active Not Available Not Available Not Available gabapentin 300 mg capsule TAKE 1 CAPSULE BY MOUTH 4 TIMES DAILY active Not Available Not Available Not Available omeprazole 20 mg capsule,nalini yed release active Not Available Not Available Not Available chlordiazepo xide-clidini um 5 mg-2.5 mg capsule TAKE 1 CAPSULE BY MOUTH TWICE DAILY DIRECTED active Not Available Not Available No t Available montelukast 10 mg tablet TAKE 1 TABLET BY MOUTH ONCE DAILY FOR ALLERGIES active Not Available Not Available No t Available mupirocin 2 % topical ointment APPLY OINTMENT TOPICALLY TO AFFECTED AREA UP TO TWICE DAILY FOR 3 WEEKS FOR CELLULITIS active Not Available Not Available N ot Available furosemide 20 mg tablet TAKE 1 TABLET BY MOUTH ONCE DAILY FOR EDEMA active Not Available Not Available No t Available ergocalcifer ol (vitamin D2) 1,250 mcg (50,000 unit) capsule TAKE 1 CAPSULE BY MOUTH ONCE A WEEK active Not Available Not Available No t Available ibuprofen 600 mg tablet TAKE 1 TABLET BY MOUTH EVERY 4 TO 6 HOURS NEEDED FOR PAIN active Not Available Not Available No t Available oxycodone-ac etaminophen 7.5 mg-325 mg tablet active Not Available Not Available No t Available methylpredni solone 4 mg tablets in a dose pack TAKE BY MOUTH DIRECTED ON INSIDE OF PACKAGE active Not Available Not Available No t Available albuterol sulfate HFA 90 mcg/actuatio n aerosol inhaler INHALE 2 PUFFS BY MOUTH EVERY 4 HOURS NEEDED active Not Available Not Available No t Available ipratropium bromide 42 mcg (0.06 %) nasal spray USE 2 SPRAY(S) IN EACH NOSTRIL 4 TIMES DAILY NEEDED active Not Available Not Available No t Available docusate sodium 250 mg capsule active Not Available Not Available N ot Available propranolol 20 mg tablet TAKE 1 TABLET BY MOUTH TWICE DAILY active Not Available Not Available No t Available methadone 5 mg tablet active Not Available Not Available No t Available ondansetron 4 mg disintegrati ng tablet DISSOLVE 1 TABLET IN MOUTH EVERY 8 HOURS NEEDED FOR NAUSEA active Not Available Not Available No t Available fluticasone propionate 50 mcg/actuatio n nasal spray,suspen spencer USE 2 SPRAY(S) IN EACH NOSTRIL ONCE DAILY active Not Available Not Available N ot Available doxycycline hyclate 100 mg tablet TAKE 1 TABLET BY MOUTH TWICE DAILY FOR 5 DAYS active Not Available Not Available No t Available dicyclomine 10 mg capsule TAKE 1 CAPSULE BY MOUTH TWICE DAILY active Not Available Not Available No t Available amoxicillin 875 mg-potassium clavulanate 125 mg tablet active Not Available Not Available Not Available oxycodone 5 mg tablet TAKE 1 TABLET BY MOUTH EVERY 6 HOURS NEEDED FOR POST OP PAIN FOR 7 DAYS active Not Available Not Available No t Available escitalopram 20 mg tablet TAKE 1 TABLET BY MOUTH ONCE DAILY FOR ANTIDEPRESS ANT active Not Available Not Available No t Available rosuvastatin 10 mg tablet TAKE 1 TABLET BY MOUTH ONCE DAILY active Not Available Not Available No t Available rosuvastatin 20 mg tablet active Not Available Not Available Not Available rosuvastatin 40 mg tablet active Not Available Not Available Not Available bupropion HCl XL 150 mg 24 hr tablet, extended release TAKE 1 TABLET BY MOUTH ONCE DAILY active Not Available Not Available No t Available Amitiza 24 mcg capsule TAKE 1 CAPSULE BY MOUTH TWICE DAILY WITH MEALS active Not Available Not Available No t Available varenicline tartrate 0.5 mg (11)-1 mg (42) tablets in a dose pack active Not Available Not Available Not Available oxycodone 10 mg tablet TAKE 1 TABLET BY MOUTH EVERY 4 TO 6 HOURS FOR 7 DAYS NEEDED FOR SEVERE PAIN active Not Available Not Available Not Available diclofenac 1 % topical gel active Not Available Not Available Not Available Linzess 290 mcg capsule TAKE 1 CAPSULE BY MOUTH IN THE MORNING 30 TO 60 MINUTES BEFORE MEAL active Not Available Not Available Not Available Narcan 4 mg/actuation nasal spray ADMINISTER A SINGLE SPRAY IN ONE NOSTRIL UPON SIGNS OF OPIOID OVERDOSE. CALL 911. REPEAT AFTER 3 MINUTES IF NO RESPONSE. active Not Available Not Available No t Available Emgality Pen 120 mg/mL subcutaneous pen injector INJECT 1 SYRINGE SUBCUTANEOU SLY ONCE A MONTH DIRECTED FOR MIGRAINE PREVENTION active Not Available Not Available N ot Available Motegrity 2 mg tablet TAKE 1 TABLET BY MOUTH ONCE DAILY DIRECTED active Not Available Not Available No t Available Nurtec ODT 75 mg disintegrati ng tablet PLACE 1 TABLET UNDER THE TONGUE AT ONSET OF SYMPTOMS. MAX DOSE OF 1 TAB PER DAY active Not Available Not Available No t Available [facility] COVID-19 Antigen Rapid Home Test kit active Not Available Not Available Not Available Vitals None Recorded Social History None recorded. Functional Status None recorded. Mental Status None recorded. Family History Nothing Reported. Medical History No medical history recorded. Gynecological HistoryNo gynecological history recorded. Obstetrics History GPAL:G 0 P 0 0 0 0 Past Encounters Encounter ID Performer Location Encounter Start Date Encounter Closed Date Diagnosis/Indication Diagnosis SNOMED-CT Code Diagnosis ICD10 Code Diagnosis IMO Codes Diagnosis Note [id number] [facility] [place] [phone] 11/15/2022 16:29:08 11/15/2022 16:37:15 Sensorineural hearing loss 65051682 H90.3 Health Concerns Section Related Observation LastModified by Organization Detai ls LastModified Time None Recorded Concern Status LastModified by Organization Details LastModified Time None Recorded Advance Directives Directive None Recorded Payers Insurance Date Sequence Insurance Name Policy Number Policy Alvarado Covered Member ID Alvarado Member ID Guarantor Name 10/21/2020 1 [employer] (PPO) Samson Leiva [id number] Samson Leiva 09/30/2020 2 [employer] [place] (MEDICAID HMO) Samson Leiva [id number] Samson Leiva 01/19/2021 [employer] Samson Leiva [id number] Samson Leiva 11/15/2022 1 [facility] PLAN (MEDICAID REPLACEMENT - HMO) [facility] Samson Leiva [id number] Samson Leiva 10/21/2020 2 MEDICAID-[facility] - FFS/TRADITIONAL Samson Leiva [id number] Samson Leiva Notes Date Note Type Note Provider Name and Address Organization Details Recorded Time 11/15/2022 text/html Ms. Leiva was seen today for a hearing aid service. Cleaned hearing aids. Increased gain. COSMO VARGAS, AUD 1140 [facility], [place], [address], [facility] [place] & [place] 11/15/2022 16:39:44 OBGyn Episode No OBEpisode recorded.
--- OUTSIDE RECORDS SUMMARY | 2025-08-15 09:29 | XMS_ITS | Encounter Summary ---
Author Organization Healthcare Address [address] [place] [address] Care Team Providers Care Technician Inventory Specialist Name Role Phone Pcp, No Primary Care Provider Unavailabl e David Gayle DO Primary Care Provider [phone] David Gayle DO Primary Care Provider [phone] David Gayle DO Unavailable [phone] David Erickson MD Primary Care Provider [phone] Reason for Referral * Consultation (Routine) - Closed Specialty Diagnoses / Procedures Referred By Noel t Referred To Contact Orthopaedic Surgery Diagnoses Avascular necrosis of bones of both hips Jordan Jaime DO [address] [place] [address] [place] [address] Phone: tel: fax: Deo Rodrigues MD [address] [place] [address] Phone: tel: fax: Referral ID Status Reason Start Date Expiration Date Visits Re quested Visits Authorized [id number] Closed 07/13/2023 01/11/2025 1 1 Encounter Details Date Type Department Care Team (Late st Contact Info) Description 07/13/2023 Community [facility] [address] [place] [address] Jordan Jaime DO [address] [place] [address] [place] [address] Avascular necrosis of bones of both hips [...] as of this encounter Plan of Treatment Upcoming Encounters Date Type Department Care Team (Late st Contact Info) Description 09/16/2025 3:20 PM EST Office Visit Medical Office Building [facility] [address] [facility], [address] [place] [address] David Doyle MD [address] [facility] [address] [place] [address] Scheduled Referrals Name Type Priority Associated Diagnoses Order Schedule Ambulatory referral to Orthopaedics Joint Reconstruction Outpatient Referral Routine Avascular necrosis of bones of both hips (CMS/HCC) Expected: 07/13/2023 (Approximate), Expires: 07/13/2024 documented as of this encounter Visit Diagnoses Diagnosis Avascular necrosis of bones of both hips- Primary documented in this encounter Care Teams Technician Inventory Specialist Relationship Specialty Start Date End Date Pcp, No [address] [place] [address] PCP - General Family Medicine 04/25/22 09/25/23 David Gayle DO [address] [place] [address] PCP - General 09/26/23 10/19/23 David Gayle DO [address] [place] [address] PCP - General 10/20/23 07/14/25 David Erickson MD [address] [place] [address] PCP - General 07/15/25 David Gayle DO [address] [place] [address] 10/20/23 documented as of this encounter
--- OUTSIDE RECORDS SUMMARY | 2025-08-15 09:29 | XMS_ITS | Clinical Summary ---
Author Organization Healthcare Address [address] [place] [address] Care Team Providers Care Mixing Engineer Name Role Phone David Gayle DO Unavailable [phone] David Erickson MD Primary Care Provider [phone] Allergies Active Allergy Reactions Criticality Noted Date [...] each day. 2 Active ergocalciferol 1.25 MG (89947 UT) capsule Take 1 capsule (50,000 Units) [...] drink first t rodrigo in the morning (EYE-DIETICIAN) to steady your nerves or to get [...] 04/11/2024 4:20 PM EDT Plan of Treatment Upcoming Encounters Date Type Department Care Team (Late st Contact Info) Description 09/16/2025 3:20 PM EST Office Visit Medical Office Building [facility] [address] [facility], [address] [place] [address] David Doyle MD [address] [facility] [address] [place] [address] Health Maintenance Due Date Last Done Comments [facility]-Infant/Child/Adol SDOH Screenings 1985 [facility]-Varicella Vaccines (1 of 2 - 13+ 2-dose series) 1998 [facility]- SDOH Screenings 2003 [facility]-Adult SDOH Screenings 2003 HPV Vaccines (1 - 3-dose SCDM series) 2012 [facility]-Depression Screening 04/11/2025 04/11/2024 [id number] Vaccine ( season) 2025 [facility]-Influenza Vaccine (#1) 2025 [facility]-DTaP,Tdap,and [...] this topic Medical Devices Implanted Type Area Automatic Lehr Operator Device Identifier Shelf Expiration Date Model / Serial / Lot Plate Plate Left: Leg Screw Screw Left: Leg Chg Screw Ref Spher Head 35mm - [id number] Implanted:Qty: 1 on 02/26/2024 by David Doyle MD at [facility] Right: Hip [id number] 09/25/2033 [id number] / / [id number] Chg Shell R3 3 Hole Acet 50mm - [id number] Implanted:Qty: 1 on 02/26/2024 by David Doyle MD at [facility] Right: Hip [id number] 01/18/2033 [id number] / / [id number] Chg Screw Ref Spher Head 25mm - [id number] Implanted:Qty: 1 on 02/26/2024 by David Doyle MD at [facility] Right: Hip [employer]-[id number] 10/17/2033 [id number] / / [id number] Liner Or3o Dual Mbility 38 50 - [id number] Implanted:Qty: 1 on 02/26/2024 by David Doyle MD at [facility] Right: Hip [employer]-[id number] 10/28/2033 [id number] / / [id number] Hip Plus Sl Integr Erika Schaft W.Ti.Morales 4 4 - [id number] Implanted:Qty: 1 on 02/26/2024 by David Doyle MD at [facility] Right: Hip [employer]-[id number] 03/24/2029 [id number] / / [id number] Liner Or3o Dual Mbility Xlpe 28/38 - [id number] Implanted:Qty: 1 on 02/26/2024 by David Doyle MD at [facility] Right: Hip [employer]-[id number] 08/14/2033 [id number] / / [id number] Chg Head Oxinium Fem 09/28 28m - [id number] Implanted:Qty: 1 on 02/26/2024 by aDvid Doyle MD at [facility] Right: Hip [employer]-[id number] 10/24/2033 [id number] / / [id number] Procedures Procedure Name Priority Date/Time Associated Diagnosis [...] Reactive Non Reactive 10/20/2023 2:19 PM EST [facility] Comment:Screening for HIV 1 & 2 antibodies, and P24 antigen is NONREACTIVE. No confirmatory testing is required. Blood Venous blood specimen / Unknown Venipuncture / Unknown 10/20/2023 1:05 PM EST 10/20/2023 1:38 PM EST Kevin Nieves MD LAB BLOOD ORDERABLES Final Result [facility] [address] [place] [address] * Hepatitis C Antibody - ED (10/20/2023 1:05 PM EST) Hepatitis C Antibody Negative Negative 10/20/2023 2:19 PM EST [facility] Blood Venous blood specimen / Unknown Venipuncture / Unknown 10/20/2023 1:05 PM EST 10/20/2023 1:38 PM EST Kevin Nieves MD LAB BLOOD ORDERABLES Final Result Performing Organization Address City/[facility]/ZIP Co de Phone Number [facility] [address] [place] [address] from Last 3 Months or Most Recently Relevant to Health Maintenance [place] [address] [place] [address] AUTO Advance Directives * Full Code (Latest Code Status on File) Date Activated Date Inactivated Comments 02/26/2024 8:59 AM 02/27/2024 3:57 PM Question Answer Comments Patient has decision-making capacity? Yes Care Teams Mixing Engineer Relationship Specialty Start Date End Date David Erickson MD [address] [place] [address] PCP - General 07/15/25 David Gayle DO [address] [place] [address] 10/20/23
--- NOTE | 2025-08-15 09:30 | XR_ITS ---
FINAL REPORT TECHNIQUE: Chest PA & Lateral CLINICAL HISTORY: Cough, right sided chest discomfort with coughing since monday, smoker x 20 yrs COMPARISON: 04/19/2022 FINDINGS: 2 views of the chest were performed. The heart size is normal. The mediastinum is within normal limits. There is no acute cardiopulmonary process. There are no pleural effusions. There is no pneumothorax. Mild thoracic levoscoliosis is noted. IMPRESSION: No acute cardiopulmonary process. Reviewed, Interpreted and Dictated by Vaibhav Nick MD Transcribed by Charissa Oconnor Authenticated and [facility]
--- NOTE | 2025-08-15 09:30 | HMH.EDGENADL ---
Discharge Plan Disposition Patient Disposition: Home, Self-Care Prescriptions Prescriptions: New ondansetron 4 mg tablet,disintegrating 4 mg PO Q6H PRN (Reason: nausea and vomiting) Qty: 12 0RF No Action furosemide 20 mg tablet 20 mg PO DAILY gabapentin 800 mg tablet 800 mg PO TID Qty: 90 1RF metformin 1,000 mg tablet 1,000 mg PO BID Qty: 60 2RF azelastine 137 mcg (0.1 %) spray,non-aerosol 2 spray intranasal BID Qty: 30 2RF Rx Instructions: administer into each nostril Emgality Pen 120 mg/mL pen injector 120 mg SQ MONTHLY Qty: 1 2RF linaclotide 72 mcg capsule 72 mcg PO DAILY Qty: 30 2RF escitalopram oxalate 20 mg tablet 20 mg PO DAILY 90 Days Qty: 90 4RF bupropion HCl 150 mg tablet extended release 24 hr 150 mg PO DAILY Qty: 90 3RF propranolol 20 mg tablet 20 mg PO BID Qty: 60 5RF cyclobenzaprine 10 mg tablet See Rx Instructions .ROUTE .COMPLEX Qty: 90 1RF Dose Instruction: TAKE 1 TABLET BY MOUTH 3 TIMES A DAY NEEDED FOR muscle SPASMS Rx Instructions: TAKE 1 TABLET BY MOUTH 3 TIMES A DAY NEEDED FOR muscle SPASMS levothyroxine 50 mcg capsule 50 mcg PO DAILY Qty: 30 2RF oxycodone 10 mg tablet 10 mg PO QID 30 Days Qty: 120 0RF montelukast 10 mg tablet 10 mg PO DAILY Referrals Follow up/Referrals: David Erickson MD [Primary Care Provider, Family Practice] - See instructions Activity Restrictions/Add. Instructions Additional Instructions/Restrictions: You can take Zofran every 6 hours as needed to help with nausea and vomiting. You can continue to take Tylenol and ibuprofen every 6 hours as well to help with symptoms. Follow-up with your primary care physician as needed. If you develop any new or worsening symptoms, or if you become concerned for your health for any reason, return to the emergency department for evaluation. Encouraged her to call the hospital to obtain the results of your COVID and flu testing in a couple hours once it has resulted or you can follow-up the results on the patient portal., Clinical Impressions Clinical Impression: Viral respiratory illness Stand Alone Forms Stand Alone Forms: Work/School Release Print Language Print Language: Mongolian Discharge ED Provider: Karsner,Gurvinder General Adult HPI General Chief complaint: Upper Respiratory Infection Stated complaint: headache, body aches Time Seen by Provider: 08/15/25 09:25 History of Present Illness HPI narrative: Samson Leiva is a 40y female with a history of migraines, bipolar disorder, avascular necrosis of the hips GERD, hypertension, chronic metatarsal fracture, hyperlipidemia who presents to the emergency department for complaints of bodyaches, headache and cough. Patient states that starting on Monday, she developed a migraine headache that has improved some with ibuprofen and Tylenol at home. She states that she has developed body aches but denies any fever. She does report a dry cough and some right lateral chest pain only with coughing. She had an episode of vomiting today and does feel nauseated but denies any abdominal pain. She states that her daughter has similar symptoms currently. Related Data Home Medications ?Medication ?Instructions ?Recorded ?Confirmed montelukast 10 mg tablet 10 mg PO DAILY 10/11/24 07/23/25 furosemide 20 mg tablet 20 mg PO DAILY 10/29/24 07/23/25 Previous Rx's ?Medication ?Instructions ?Recorded galcanezumab-gnlm 120 mg/mL 120 mg SQ MONTHLY #1 mL 02/26/25 subcutaneous pen injector (Emgality Pen) bupropion HCl 150 mg 24 hr tablet, 150 mg PO DAILY #90 tabs 03/12/25 extended release escitalopram oxalate 20 mg tablet 20 mg PO DAILY antidressant 90 03/12/25 days #90 tabs linaclotide 72 mcg capsule 72 mcg PO DAILY #30 caps 03/12/25 propranolol 20 mg tablet 20 mg PO BID #60 tabs 03/12/25 azelastine 137 mcg (0.1 %) nasal 2 spray intranasal BID #30 mL 03/13/25 spray cyclobenzaprine 10 mg tablet See Rx Instructions .Route 06/09/25 .COMPLEX #90 tabs gabapentin 800 mg tablet 800 mg PO TID #90 tabs 06/30/25 metformin 1,000 mg tablet 1,000 mg PO BID #60 tabs 06/30/25 levothyroxine 50 mcg capsule 50 mcg PO DAILY #30 caps 07/01/25 oxycodone 10 mg tablet 10 mg PO QID 30 days #120 tabs 07/24/25 ondansetron 4 mg disintegrating 4 mg PO Q6H PRN nausea and 08/15/25 tablet vomiting #12 tabs Allergies Allergy/AdvReac Type Severity Reaction Status Date / Time sulfamethoxazole (From Allergy Intermediate Hives Verified 07/23/25 09:34 Bactrim) trimethoprim (From Bactrim) Allergy Intermediate Hives Verified 07/23/25 09:34 lactose (From LACTOSE Allergy Mild DIARRHEA Verified 07/23/25 09:34 (FOOD/DRUG)) [facility] Disclaimer: The information contained in this section may have been updated after the patient was seen, as this information can be updated by other users. Medical History Family history of diabetes mellitus Otitis media of right ear Ear discharge Thyroid nodule Perforation of right tympanic membrane Perforation of left tympanic membrane History of thyroid nodule Bilateral hearing loss Generalized anxiety disorder Bipolar II disorder Seizures Migraine Kidney stone HTN (hypertension), benign HLD (hyperlipidemia) Hiatal hernia GERD (gastroesophageal reflux disease) Depression Arrhythmia Edema Palpitations Dizziness Sinus tachycardia Near syncope Dyspnea Abnormal EKG Dizziness Heart palpitations Atypical chest pain Tobacco use Anxiety Surgical History Status post thyroidectomy Status post left foot surgery History of right hip replacement H/O: hysterectomy Hx of myringotomy Hx of tonsillectomy Family History Other Cancer Diabetes Family history of diabetes mellitus Heart attack Hypertension Social History Smoking Status: Current every day smoker tobacco type: cigarettes packs per day: 1 second hand exposure: Yes alcohol intake: never substance use type: former substance user, crack/cocaine, heroin and unknown current occupational status: employed Travel in the last 8 weeks?: None household members: children and other housing: house number of children: 3 current occupation: [employer] current occupational exposures/hazards: No caffeine: Yes Have you lived/traveled outside US in past 30 days?: No Contact w/someone who lives/traveled outside US past 30 days?: No Exposure to someone with infectious disease in past 14 days?: No Do you have a fever (greater than 100.4 F or 38 C)?: No Have you tested positive for COVID-19?: No Exposed to someone with COVID-19 in past 14 days?: No Do you have a sore throat?: No Do you have a cough?: No Do you have any weakness?: No Do you have any diarrhea?: No Are you experiencing any unusual bleeding?: No Do you have any muscle aches/pain?: No Do you have any abdominal pain?: No Are you experiencing loss of taste or smell?: No Other Medical History Have you received the Flu Vaccine for this season: No Have you received the Pneumonia Vaccine: No ROS Obtained: Yes Systems reviewed as appropriate & no additional complaints except as documented Physical Exam General General appearance: alert and in no apparent distress Head Head exam: atraumatic Eye Eye exam: Present normal appearance ENT ENT exam: Present normal external ear exam Neck Neck exam: Present full ROM Chest Chest inspection: Present symmetric chest wall rise Respiratory Respiratory exam: Present normal lung sounds bilaterally; Absent respiratory distress, wheezes or stridor Cardiovascular Cardiovascular exam: Present regular rate and normal rhythm Abdominal Exam Abdominal exam: Present soft; Absent distention, tenderness, guarding or rebound Extremities Exam Extremities exam: Present normal inspection Back Exam Back exam: Present normal inspection Neurological Exam Neurological exam: Present alert and oriented X3 Psychiatric Psychiatric exam: Present normal affect Skin Skin exam: Present warm and dry Medical Decision Making Medical Records Screening: Per USPSTF and CDC recommendations, given the prevalence of disease in our region, it is our hospital?s policy to screen for HIV and viral Hepatitis for all patients aged 18 and over and those with ongoing risk factors. [place] Inquiry Pt receiving controlled substance: No Vital Signs: 08/15/25 09:12 08/15/25 09:31 Temperature 97.7 F Temperature Source Oral Pulse Rate [Left Radial] 74 Respiratory Rate 20 Blood Pressure [Right Arm] 133/88 Blood Pressure Mean [Right Arm] 103 02 Sat by Pulse Oximetry 99 97 Oxygen Delivery Method Room Air Room Air Orders (Tests/Meds): ED MEDICATIONS Discontinued Medications Generic Name Dose Route Start Last Admin Trade Name Freq PRN Reason Stop Dose Admin Ondansetron HCl 4 mg 08/15/25 09:30 08/15/25 09:34 Ondansetron 4mg Odt SL 08/15/25 09:31 4 mg ONCE ONE Administration ORDERS Category Date Time Status CXR 2 view (NOT portable) [XR chest 2V] Stat Exams 08/15/25 09:30 Taken Rapid PCR Covid and Flu A/B Stat Lab 08/15/25 09:08 Received Medical Decision Narrative: Samson Leiva is a 40y female with a history of migraines, bipolar disorder, avascular necrosis of the hips GERD, hypertension, chronic metatarsal fracture, hyperlipidemia who presents to the emergency department for complaints of bodyaches, headache and cough. Patient states that starting on Monday, she developed a migraine headache that has improved some with ibuprofen and Tylenol at home. She states that she has developed body aches but denies any fever. She does report a dry cough and some right lateral chest pain only with coughing. She had an episode of vomiting today and does feel nauseated but denies any abdominal pain. She states that her daughter has similar symptoms currently. On arrival, patient is hemodynamically stable with normal blood pressure, heart rate within normal limits, afebrile, oxygen saturation 97% on room air. Physical exam, stated above, revealed a nontoxic-appearing female in no distress. She speaking full sentences. Cardiopulmonary exam without wheezing, rales or rhonchi. No murmurs or rubs. Abdomen is soft, nontender nondistended. She appears hydrated. Differential diagnosis includes, but is not limited to: Viral respiratory illness, pneumonia, costochondritis, pleurisy. Patient is PERC negative and I have very low concern for pulmonary embolism or cardiac pathology given patient is not having any chest pain at rest and is only present when coughing on the right lateral aspect of her chest and is most likely viral in nature. Will obtain rapid COVID and flu testing as well as chest x-ray to rule out pneumonia. Will administer 4 mg of sublingual Zofran for nausea. X-ray imaging was interpreted by me personally prior to official radiology read and shows no focal consolidation, no pneumothorax, no pulmonary effusion. Patient does have peribronchial thickening consistent with viral etiology. See radiology report for details Rapid COVID and flu testing are pending at this time. Patient will be provided a work note. Encouraged her to continue Tylenol and ibuprofen and will prescribe Zofran for nausea. She had improvement of her nausea after Zofran was given here. All questions were answered. Return precautions were given. She demonstrated understanding and was in agreement this plan. She was then discharged from the emergency department in stable condition. Patient was instructed to follow-up the results of her COVID and flu testing on the patient portal or by calling the hospital. She is outside the window for any Tamiflu or Paxlovid and results would not change ED management. All questions were answered. Patient demonstrated understanding and was in agreement with this plan. She was then discharged from the emergency department in stable condition. Critical Care Critical Care Time Critical Care Time: No
[2025-08-15 09:31] VITALS: O2SAT 97
[2025-08-15] MEDS: ONDANSETRON 4MG ODT 4 MG SL (09:34)
--- NOTE | 2025-08-15 09:36 | PC.NURSE ---
pt transported to radiology
[2025-08-15 09:53] LABS: Coronavirus 19, PCR Not Detected (NotDetected); Influenza A, PCR Not Detected (NotDetected); Influenza B, PCR Not Detected (NotDetected)
[2025-08-15 10:01] VITALS: BP 126/62; PULSE 71; RESP 16; TEMP 36.7; O2SAT 98
== END 2025-08-15 10:02 | disposition home or self-care (01) ==
PROVIDERS: Emergency Provider Student in an Organized Health Care Education/Training Program; PCP Family Medicine
DX: R51.9 Headache, unspecified (principal); R11.2 Nausea with vomiting, unspecified; J06.9 Acute upper respiratory infection, unspecified; B34.9 Viral infection, unspecified; F17.210 Nicotine dependence, cigarettes, uncomplicated
CPT/HCPCS: 71046; 87636; 99283; Q0162

== ENCOUNTER 2025-08-20 07:41 | Outpatient (CLI) | payer OTHER, SELFPAY ==
--- NOTE | 2025-08-20 07:44 | XR_ITS ---
FINAL REPORT CLINICAL HISTORY: right foot pain..fx in sept prior sent COMPARISON: 07/23/2025 FINDINGS: AP, oblique and lateral views of the right foot were obtained. There has been no change in the appearance of the fracture at the base of the fifth metatarsal. No significant interval callus formation is noted. No new osseous abnormality. The joint spaces are preserved. Soft tissues are unremarkable. IMPRESSION: No change in fifth metatarsal fracture. Reviewed, Interpreted and Dictated by Emily Escamilla MD Transcribed by Meseret Sosa Authenticated and [facility]
--- OUTSIDE RECORDS SUMMARY | 2025-08-20 07:44 | XMS_ITS | Encounter Summary ---
Author Organization Healthcare Address [address] [place] [address] Care Team Providers Care Bulk Pallet Builder Name Role Phone Pcp, No Primary Care Provider Unavailabl e David Gayle DO Primary Care Provider [phone] David Gayle DO Primary Care Provider [phone] David Gayle DO Unavailable [phone] David Erickson MD Primary Care Provider [phone] Reason for Referral * Consultation (Routine) - Closed Specialty Diagnoses / Procedures Referred By Contkelly t Referred To Contact Orthopaedic Surgery Diagnoses Avascular necrosis of bones of both hips Jordan Jaime DO [address] [place] [address] [place] [address] Phone: tel: fax: Deo Rodrigues MD [address] [place] [address] Phone: tel: fax: Referral ID Status Reason Start Date Expiration Date Visits Re quested Visits Authorized [id number] Closed 07/13/2023 01/11/2025 1 1 Encounter Details Date Type Department Care Team (Late st Contact Info) Description 07/13/2023 Community [facility] Community Practice [address] [place] [address] Jordan Jaime DO [address] [place] [address] Avascular necrosis of bones of both hips [...] [facility] [address] [facility], [address] [place] [address] David Doyle MD [address] [facility] [address] [place] [address] Scheduled Referrals Name Type Priority Associated Diagnoses Order Schedule Ambulatory referral to Orthopaedics Joint Reconstruction Outpatient Referral Routine Avascular necrosis of bones of both hips (CMS/HCC) Expected: 07/13/2023 (Approximate), Expires: 07/13/2024 documented as of this encounter Visit Diagnoses Diagnosis Avascular necrosis of bones of both hips- Primary documented in this encounter Care Teams Bulk Pallet Builder Relationship Specialty Start Date End Date Pcp, No [address] [place] [address] PCP - General Family Medicine 04/25/22 09/25/23 David Gayle DO [address] [place] [address] PCP - General 09/26/23 10/19/23 David Gayle DO [address] [place] [address] PCP - General 10/20/23 07/14/25 David Erickson MD [address] [place] [address] PCP - General 07/15/25 David Gayle DO [address] [place] [address] 10/20/23 documented as of this encounter
--- OUTSIDE RECORDS SUMMARY | 2025-08-20 07:44 | XMS_ITS | Clinical Summary ---
Author Organization Healthcare Address [address] [place] [address] Care Team Providers Care Suspect Artist Name Role Phone David Gayle DO Unavailable [phone] David Erickson MD Primary Care Provider [phone] Allergies Active Allergy Reactions Criticality Noted Date [...] each day. 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 [address] [place] [address] Health Maintenance Due Date Last Done Comments [facility]-Infant/Child/Adol SDOH Screenings 1985 [facility]-Varicella Vaccines (1 of 2 - 13+ 2-dose series) 1998 [facility]- SDOH Screenings 2003 [facility]-Adult SDOH Screenings 2003 HPV Vaccines (1 - 3-dose SCDM series) 2012 [facility]-Depression Screening 04/11/2025 04/11/2024 [id number] Vaccine ( season) 2025 [facility]-Influenza Vaccine (#1) [...] this topic Medical Devices Implanted Type Area Electronic Technician Device Identifier Shelf Expiration Date Model / Serial / Lot Plate Plate Left: Leg Screw Screw Left: Leg Chg Screw Ref Spher Head 35mm - [id number] Implanted:Qty: 1 on 02/26/2024 by David Doyle MD at [facility] Right: Hip [employer]-[id number] 09/25/2033 [id number] / / [id number] Chg Shell R3 3 Hole Acet 50mm - [id number] Implanted:Qty: 1 on 02/26/2024 by David Doyle MD at [facility] Right: Hip [employer]-[id number] 01/18/2033 [id number] / / [id number] Chg Screw Ref Spher Head 25mm - [id number] Implanted:Qty: 1 on 02/26/2024 by David Doyle MD at [facility] Right: Hip [employer]-[id number] 10/17/2033 [id number] / / [id number] Liner Or3o Dual Mbility 38 50 - [id number] Implanted:Qty: 1 on 02/26/2024 by David Doyle MD at [facility] Right: Hip [employer]-[id number] 10/28/2033 [id number] / / [id number] Hip Plus Sl Integr Erika Schaft W.Ti.Morales 4 4 - [id number] Implanted:Qty: 1 on 02/26/2024 by David Doyle MD at [facility] Right: Hip [employer]-[id number] 03/24/2029 [id number] / / [id number] Liner Or3o Dual Mbility Xlpe 28/38 - [id number] Implanted:Qty: 1 on 02/26/2024 by David Doyle MD at [facility] Right: Hip [employer]-[id number] 08/14/2033 [id number] / / [id number] Chg Head Oxinium Fem 09/28 28m - [id number] Implanted:Qty: 1 on 02/26/2024 by David Doyle MD at [facility] Right: Hip [employer]-[id number] 10/24/2033 [id number] / / [id number] Procedures Procedure Name Priority Date/Time Associated Diagnosis [...] Reactive Non Reactive 10/20/2023 2:19 PM EST [facility] Comment:Screening for HIV 1 & 2 antibodies, and P24 antigen is NONREACTIVE. No confirmatory testing is required. Blood Venous blood specimen / Unknown Venipuncture / Unknown 10/20/2023 1:05 PM EST 10/20/2023 1:38 PM EST Kevin Nieves MD LAB BLOOD ORDERABLES Final Result [facility] [address] [place] [address] * Hepatitis C Antibody - ED (10/20/2023 1:05 PM EST) Hepatitis C Antibody Negative Negative 10/20/2023 2:19 PM EST [facility] Blood Venous blood specimen / Unknown Venipuncture / Unknown 10/20/2023 1:05 PM EST 10/20/2023 1:38 PM EST Kevin Nieves MD LAB BLOOD ORDERABLES Final Result Performing Organization Address City/[facility]/ZIP Co de Phone Number [facility] [address] [place] [address] from Last 3 Months or Most Recently Relevant to Health Maintenance [place] [address] [place] [address] AUTO Advance Directives * Full Code (Latest Code Status on File) Date Activated Date Inactivated Comments 02/26/2024 8:59 AM 02/27/2024 3:57 PM Question Answer Comments Patient has decision-making capacity? Yes Care Teams Suspect Artist Relationship Specialty Start Date End Date David Erickson MD [address] [place] [address] PCP - General 07/15/25 David Gayle DO [address] [place] [address] 10/20/23
--- OUTSIDE RECORDS SUMMARY | 2025-08-20 07:45 | XMS_ITS | Data Portability ---
Author Organization [facility] ADMIN Address [address] [place] [address] Assessment No assessment recorded. Plan of Treatment [...] By Organization Details Last Modified Time 11/15/2022 [id number] 1-F/u prn. [email or web address] Not available 10/18 16:39:32 Reason for Referral None Reported. Problems Name Problem SNOMED Code Status Onset Date Resolution Date Notes Provider Name and Address Organization Details Recorded Time Sensorineural hearing loss 80607253 Active 2022 COSMO VARGAS, AUD [address] [facility], [place], [address] , [facility] & [place] 16:39:04 Problem Notes None recorded. Medical Equipment [...] ICD10 Code Diagnosis IMO Codes Diagnosis Note [id number] DREW ISAAC [facility] [place] [phone] 11/15/2022 16:29:08 11/15/2022 16:37:15 Sensorineural hearing loss 13211133 H90.3 Health Concerns Section Related Observation LastModified by Organization Detai ls LastModified Time None Recorded Concern Status LastModified by Organization Details LastModified Time None Recorded Advance Directives Directive None Recorded Payers Insurance Date Sequence Insurance Name Policy Number Policy Alvarado Covered Member ID Alvarado Member ID Guarantor Name 10/21/2020 1 [employer] (PPO) Samson Leiva [id number] Samson Leiva 09/30/2020 2 [employer] [place] (MEDICAID HMO) Samson Leiva [id number] Samson Leiva 01/19/2021 [employer] Samson Leiva [id number] Samson Leiva 11/15/2022 1 [facility] PL[facility] (MEDICAID REPLACEMENT - HMO) [facility] Samson Leiva [id number] Samson Leiva 10/21/2020 2 MEDICAID-[facility] - FFS/TRADITIONAL Samson Leiva [id number] Samson Leiva Notes Date Note Type Note Provider Name and Address Organization Details Recorded Time 11/15/2022 text/html Ms. Leiva was seen today for a hearing aid service. Cleaned hearing aids. Increased gain. COSMO VARGAS, AUD [address] [facility], [place], [address], [facility] - [place] & [place] 11/15/2022 16:39:44 OBGyn Episode No OBEpisode recorded.
== END 2025-08-20 23:59 | disposition home or self-care (01) ==
LOC: RAD 07:42
PROVIDERS: PCP Family Medicine; Visit Provider Physician Assistant
DX: S92.351D Displaced fracture of fifth metatarsal bone, right foot, subsequent encounter for fracture with routine healing (principal); X58.XXXD Exposure to other specified factors, subsequent encounter
CPT/HCPCS: 73630

== ENCOUNTER 2025-09-05 16:20 | Outpatient (CLI) | payer SELFPAY ==
[2025-09-05 21:23] LABS: Thyroid Stimulating Hormone 2.33 uIU/mL (0.465-4.68)
--- OUTSIDE RECORDS SUMMARY | 2025-09-08 11:20 | XMS_ITS | Encounter Summary ---
Author Organization Healthcare Address [address] [place] [address] Care Team Providers Care Per Assessment Nurse Name Role Phone Pcp, No Primary Care Provider Unavailabl e David Gayle DO Primary Care Provider [phone] David Gayle DO Primary Care Provider [phone] David Gayle DO Unavailable [phone] David Erickson MD Primary Care Provider [phone] Reason for Referral * Consultation (Routine) - Closed Specialty Diagnoses / Procedures Referred By Noel t Referred To Contact Orthopaedic Surgery Diagnoses Avascular necrosis of bones of both hips Jordan Jaime DO [address] [place] [address] Phone: tel: fax: Deo Rodrigues MD [address] [place] [address] Phone: tel: fax: Referral ID Status Reason Start Date Expiration Date Visits Re quested Visits Authorized [id number] Closed 07/13/2023 01/11/2025 1 1 Encounter Details Date Type Department Care Team (Late st Contact Info) Description 07/13/2023 Community [facility] Community Practice [address] [place] [address] Jordan Jaime DO [address] [place] [address] Avascular necrosis of bones of both hips [...] [facility] [address] [facility], [address] [place] [address] David Doyle MD [address] [facility] [address] [place] [address] Scheduled Referrals Name Type Priority Associated Diagnoses Order Schedule Ambulatory referral to Orthopaedics Joint Reconstruction Outpatient Referral Routine Avascular necrosis of bones of both hips (CMS/HCC) Expected: 07/13/2023 (Approximate), Expires: 07/13/2024 documented as of this encounter Visit Diagnoses Diagnosis Avascular necrosis of bones of both hips- Primary documented in this encounter Care Teams Per Assessment Nurse Relationship Specialty Start Date End Date Pcp, Elyssa [address] [place] [address] PCP - General Family Medicine 04/25/22 09/25/23 David Gayle DO [address] [place] [address] PCP - General 09/26/23 10/19/23 David Gayle DO [address] [place] [address] PCP - General 10/20/23 07/14/25 [place] [address] PCP - General 07/15/25 David Gayle DO [address] [place] [address] 10/20/23 documented as of this encounter
--- OUTSIDE RECORDS SUMMARY | 2025-09-08 11:20 | XMS_ITS | Clinical Summary ---
Author Organization Healthcare Address [address] [place] [address] Care Team Providers Care Stockbroker Name Role Phone David Gayle DO Unavailable [phone] David Erickson MD Primary Care Provider [phone] Allergies Active Allergy Reactions Criticality Noted Date [...] each day. 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 your nerves or to get [...] [facility] [address], [address] [place] [address] David Doyle MD [address] [facility] [address] [place] [address] Health Maintenance Due Date Last Done Comments [facility]-/Child/Adol SDOH Screenings 1985 [facility]-Varicella Vaccines (1 of 2 - 13+ 2-dose series) 1998 [facility]- SDOH Screenings 2003 [facility]-Adult SDOH Screenings 2003 HPV Vaccines (1 - 3-dose SCDM series) 2012 [facility]-Depression Screening 04/11/2025 04/11/2024 [id number] Vaccine ( season) 2025 [facility]-Influenza Vaccine (#1) [...] this topic Medical Devices Implanted Type Area Overhead Line Worker Device Identifier Shelf Expiration Date Model / Serial / Lot Plate Plate Left: Leg Screw Screw Left: Leg Chg Screw Ref Spher Head 35mm - [id number] Implanted:Qty: 1 on 02/26/2024 by David Doyle MD at [facility] Right: Hip [employer]-[id number] 09/25/2033 [id number] / / [id number] Chg Shell R3 3 Hole Acet 50mm - [id number] Implanted:Qty: 1 on 02/26/2024 by David Doyle MD at [facility] Right: Hip [employer]-[id number] 01/18/2033 [id number] / / [id number] Chg Screw Ref Spher Head 25mm - [id number] Implanted:Qty: 1 on 02/26/2024 by David Doyle MD at [facility] Right: Hip [employer]-[id number] 10/17/2033 [id number] / / [id number] Liner Or3o Dual Mbility 38 50 - [id number] Implanted:Qty: 1 on 02/26/2024 by David Doyle MD at [facility] Right: Hip [employer]-[id number] 10/28/2033 [id number] / / [id number] Hip Plus Sl Integr Erika Schaft W.Ti.Morales 4 4 - [id number] Implanted:Qty: 1 on 02/26/2024 by David Doyle MD at [facility] Right: Hip [employer]-[id number] 03/24/2029 [id number] / / [id number] Liner Or3o Dual Mbility Xlpe 28/38 - [id number] Implanted:Qty: 1 on 02/26/2024 by David Doyle MD at [facility] Right: Hip [employer]-[id number] 08/14/2033 [id number] / / [id number] Chg Head Oxinium Fem 09/28 28m - [id number] Implanted:Qty: 1 on 02/26/2024 by David Doyle MD at [facility] Right: Hip [employer]-[id number] 10/24/2033 [id number] / / [id number] Procedures Procedure Name Priority Date/Time Associated Diagnosis [...] Reactive Non Reactive 10/20/2023 2:19 PM EST [facility] Comment:Screening for HIV 1 & 2 antibodies, and P24 antigen is NONREACTIVE. No confirmatory testing is required. Blood Venous blood specimen / Unknown Venipuncture / Unknown 10/20/2023 1:05 PM EST 10/20/2023 1:38 PM EST Kevin Nieves MD LAB BLOOD ORDERABLES Final Result [facility] [address] [place] [address] * Hepatitis C Antibody - ED (10/20/2023 1:05 PM EST) Hepatitis C Antibody Negative Negative 10/20/2023 2:19 PM EST [facility] Blood Venous blood specimen / Unknown Venipuncture / Unknown 10/20/2023 1:05 PM EST 10/20/2023 1:38 PM EST Kevin Nieves MD LAB BLOOD ORDERABLES Final Result [facility] [address] [place] [address] from Last 3 Months or Most Recently Relevant to Health Maintenance [place] [address] [place] [address] AUTO Advance Directives * Full Code (Latest Code Status on File) Date Activated Date Inactivated Comments 02/26/2024 8:59 AM 02/27/2024 3:57 PM Question Answer Comments Patient has decision-making capacity? Yes Care Teams Stockbroker Relationship Specialty Start Date End Date David Erickson MD [id number] PCP - General 07/15/25 David Gayle DO [address] [place] [address] 10/20/23
== END 2025-09-05 23:59 ==
LOC: LAB.DROPOF 09-08 10:53
PROVIDERS: PCP Family Medicine; Visit Provider Family Medicine
DX: E03.9 Hypothyroidism, unspecified (principal)
CPT/HCPCS: 84443

== ENCOUNTER 2025-09-17 07:49 | Outpatient (CLI) | payer OTHER, SELFPAY ==
--- OUTSIDE RECORDS SUMMARY | 2025-09-11 05:40 | XMS_ITS | Continuity of Care Document ---
Author Organization [facility] Phone Care Team Providers Care Sales Incentive Analyst Name Role Phone LUCILA STEIN Primary Care [phone] LOPEZ LOUIS Primary Attending LOPEZ LOUIS Admitting LOPEZ LOUIS Unavailable ALLERGIES AND ADVERSE REACTIONS ALLERGIES AND ADVERSE REACTIONS Code System Allergy Substance Adverse Reaction Date Reaction (Severity) Comment Status Reported By Updated By No Known Allergies FAMILY HISTORY RELATION: Father Status: Cause of : Unknown Age at : Unknown SNOMED-CT Diagnosis Age At Onset Information not available RELATION: Mother Status: LIVING SNOMED-CT Diagnosis Age At Onset [id number] Chronic obstructive lung disease RESULTS Patient: RADHA LOBO Date of : June [birth year] LABORATORY RESULTS Information is not available LABORATORY NARRATIVE RESULTS Information is not available RADIOLOGY RESULTS ORDER 100: PELVIS 1 TO 2V (L OINC: [id number]) ORDER DATE: September 09, 2025 7:56:00 PM [facility] PERFORMING LAB: [address] [id number] Final Result Date: September 09, 2025 8:12:[address] [place] [address] Name: YAMIL GARCIA Exam Date: 09/09/2025 : 1985 Age 40 years Gender: F Physician: LOPEZ LOUIS Facility: [facility] Facility HSV: Outpatient Exam: PELVIS 1 TO 2V EXAM DESCRIPTION: PELVIS 1 TO 2V CLINICAL HISTORY: 40 years Female, Pelvic Pain COMPARISON: None. FINDINGS: Postop total right hip. Surgical clips in pelvis. No fracture or dislocation. Bony pelvis intact. SI joints and pubic symphysis are anatomically aligned. Patient had additional imaging reported independently. IMPRESSION: No acute bony abnormality. Electronically signed by: Ga Soliz MD 09/09/2025 04:01 PM EST RP Dictated By: GA SOLIZ Transcribed By: Transcribed On: 09/09/2025 3:12 PM Electronically signed by: GA SOLIZ 09/09/2025 Thank you for referring YAMIL GARCIA to [facility]. Legally authenticated by MARTÍNEZ DYE 2025-09-09 15:12:54 ORDER 200: [employer] ( INC: [id number]) ORDER DATE: September 09, 2025 7:56:00 PM [facility] PERFORMING LAB: [address] [id number] Final Result Date: September 09, 2025 8:13:[address] [place] [address] Name: YAMIL GARCIA Exam Date: 09/09/2025 : 1985 Age 40 years Gender: F Physician: LOPEZ LOUIS Facility: [facility] Facility HSV: Outpatient Exam: [facility] [employer] EXAM DESCRIPTION: SACRUM CO[employer]YX CLINICAL HISTORY: 40 years Female, Deformity COMPARISON: None. FINDINGS: No acute displaced sacral or coccygeal fracture is evident. SI joints are anatomically approximated. There are postop changes of total right hip replacement. Surgical clips overlie the pelvis. IMPRESSION: No acute bony abnormality identified. Electronically signed by: Ga Soliz MD 09/09/2025 04:02 PM EST RP Dictated By: GA SOLIZ Transcribed By: Transcribed On: 09/09/2025 3:13 PM Electronically signed by: GA SOLIZ 09/09/2025 Thank you for referring YAMIL GARCIA to [facility]. Legally authenticated by MARTÍNEZ DYE 2025-09-09 15:13:00 PATHOLOGY NARRATIVE RESULTS Information is not available MICROBIOLOGY RESULTS No Micro Labs/Results Exist for Patient BLOOD ADMIN RESULTS Information is not available MEDICATIONS HOME MEDICATIONS Status RXNORM NDC Medication Dose Route Frequency Dates Comments Reported By Updated By Active FreeT extMe d Lexapro oral 0.0 Last Dose: [id number] on September 09, 2025 7:53:05 PM [facility] Active FreeT extMe d Wellbutrin XL oral 0.0 Last Dose: [id number] on September 09, 2025 7:53:05 PM [facility] Active [id number] 97867 25665 4 gabapentin 900 mg Tablet, Extended Release 24 hr 0.0 ORAL Last Dose: [id number] on September 09, 2025 7:53:05 PM [facility] Active FreeT extMe d oxycodone oral 0.0 Last Dose: [id number] on September 09, 2025 7:53:05 PM [facility] Active FreeT extMe d propranolol oral 0.0 Last Dose: [id number] on September 09, 2025 7:53:06 PM [facility] Active FreeT extMe d metformin oral 0.0 Last Dose: [id number] on September 09, 2025 7:53:06 PM [facility] DISCHARGE MEDICATIONS Status RXNORM NDC Medication Dose Route Frequency Dates Dis pense Data Comments Physician Updated By No Discharge Medication Info rmation Available INPATIENT MEDICATIONS Status RXNORM NDC Medication Dose Route Frequency Rat e Quantity Dates Indication Dispense Data Comments Physician Updated By No Inpatient Medication Info rmation Available SOCIAL HISTORY SOCIAL HISTORY - Smoking Status SNOMED-CT Social History Element Description Effective Dates Offered Cessation Comment Updated By [id number] Current Tobacco smoking status Current Every Day Smoker [id number] on September 09, 2025 7:53:34 PM [facility] SOCIAL HISTORY - Gender Sex: Female SOCIAL HISTORY - Status : status i nformation is not available Intention in Next Year: intention information is not available SOCIAL HISTORY - Assessments Code System Description Status Date Value of Assessment Updated By Comment Assessment Information is no t available SOCIAL HISTORY - [place] Affiliation [place] information is not av ailable SOCIAL HISTORY [...] value for each vital sign as of September 11, 2025 10:40:46 AM UTC Loinc Code Vital Sign Activity Date Result Updated By 8310-5 Body temperature September 09 7:30:45 PM UTC 97.9 [degF] 17034-2 Body weight Measured August 7:39:52 PM UTC 95.0 kg (209.0 lb) [id number] on September 09, 2025 7:39:52 PM UTC 8462-4 Diastolic blood pressure September 09, 2025 8:40:55 PM UTC 72.0 mm[Hg] 8867-4 Heart rate September 09 8:40:55 PM UTC 87 /min 93012-6 Oxygen saturation in Arterial blood by Pulse oximetry September 09, 2025 8:40:55 PM UTC 97.0 % 9279-1 Respiratory rate September 09 8:40:55 PM UTC 18 /min 8480-6 Systolic blood pressure September 09, 2025 8:40:55 PM UTC 136.0 mm[Hg] PEDIATRIC GROWTH CHART - VITAL SIGNS [...] ENCOUNTERS ENCOUNTER INFORMATION Reason for Visit FALL INJURY Admission September 09, 2025 7:20:[address] [address] Discharge September 09, 2025 8:43:00 PM [facility] DISCHARGED TO HOME OR SELF CARE ENCOUNTER DIAGNOSES Notes information is not pollo ilable. Code System Diagnosis Onset Date Diagnosis information is not available. ABSTRACT DIAGNOSES Code System Diagnosis Updated By Abatement Date R10.20 ICD10 PELVIC AND PERIN EAL PAIN UNSPECIFIED SIDE [id number] on September 11, 2025 10:39:57 AM UT M53.3 ICD10 SACROCOCCYGEAL D ISORDERS, NOT ELSEWHERE CLASSIFIED [id number] on September 11, 2025 10:39:57 AM UTC M25.552 ICD10 PAIN IN LEFT HIP [id number] on September 11, 2025 10:39:57 AM UTC S30.0XXA ICD10 CONTUSION OF LOW ER BACK AND PELVIS, INITIAL ENCOUNTER [id number] on September 11, 2025 10:39:57 AM UTC L75.8 ICD10 OTHER APOCRINE SWEAT DISORDE RS [id number] on September 11, 2025 10:39:57 AM UTC F41.9 ICD10 ANXIETY DISORDER, UNSPECIFIE D [id number] on September 11, 2025 10:39:57 AM UTC F32.A ICD10 DEPRESSION, UNSPECIFIED [id number] [id number] on September 11, 2025 10:39:57 AM UTC Z72.0 ICD10 TOBACCO USE [id number] on 2024 10:39:57 AM UTC Z79.899 ICD10 OTHER DETENTION (CURRENT) DRUG THERAPY [id number] on September 11, 2025 10:39:57 AM UTC W10.9XXA ICD10 FALL (ON) (FROM) UNSPECIFIED STAIRS AND STEPS, INITIAL ENCOUNTER [id number] on September 11, 2025 10:39:57 AM UT CARE TEAM Care Sales Incentive Analyst Role LUCILA STEIN Primary Care LOPEZ LOUIS Primary Attending LOPEZ LOUIS Admitting LOPEZ LOUIS Referring CARE TEAM CARE charge account clerk Role on Team Location Telecom Status Start Date End Teddy e Updated By HERIBERTO Del Rosario MD, MD Referring normal September 09, 2025 7:55:20 PM UT September 09, 2025 8:43:00 PM [facility] [id number] on September 09, 2025 7:55:20 PM [facility] HERIBERTO Del Rosario MD, MD Attending normal September 09, 2025 7:55:20 PM [facility] September 09, 2025 8:43:00 PM [facility] [id number] on September 09, 2025 7:55:20 PM [facility] HERIBERTO Del Rosario MD, MD Admitting normal September 09, 2025 7:55:20 PM [facility] September 09, 2025 8:43:00 PM [facility] [id number] on September 09, 2025 7:55:20 PM [facility] SARITA Berry PCP normal September 09, 2025 7:20:41 PM [facility] September 09, 2025 8:43:00 PM [facility] [id number] on September 09, 2025 7:55:20 PM [facility]
--- OUTSIDE RECORDS SUMMARY | 2025-09-17 07:52 | XMS_ITS | Encounter Summary ---
Author Organization Healthcare Address [address] [place] [address] Care Team Providers Care Tankage Grinder Operator Name Role Phone Pcp, No Primary Care Provider Unavailabl e David Gayle DO Primary Care Provider [phone] David Gayle DO Primary Care Provider [phone] David Gayle DO Unavailable [phone] David Erickson MD Primary Care Provider [phone] Reason for Referral * Consultation (Routine) - Closed Specialty Diagnoses / Procedures Referred By Noel t Referred To Contact Orthopaedic Surgery Diagnoses Avascular necrosis of bones of both hips Jordan Jaime DO [address] [place] [address] [place] [address] Phone: tel: fax: Deo Rodrigues MD [address] [place] [address] Phone: tel: fax: Referral ID Status Reason Start Date Expiration Date Visits Re quested Visits Authorized [id number] Closed 07/13/2023 01/11/2025 1 1 Encounter Details Date Type Department Care Team (Late st Contact Info) Description 07/13/2023 [facility] [address] [place] [address] Jordan Jaime DO [address] [place] [address] Avascular necrosis of bones of both hips [...] Primary documented in this encounter Care Teams Tankage Grinder Operator Relationship Specialty Start Date End Date Pcp, Elyssa [address] [place] [address] PCP - General Family Medicine 04/25/22 09/25/23 David Gayle DO [address] [place] [address] PCP - General 09/26/23 10/19/23 David Gayle DO [address] [place] [address] PCP - General 10/20/23 07/14/25 [place] [id number] PCP - General 07/15/25 David Gayle DO [address] [place] [address] [id number] 10/20/23 documented as of this encounter
--- OUTSIDE RECORDS SUMMARY | 2025-09-17 07:52 | XMS_ITS | Clinical Summary ---
Author Organization Healthcare Address [address] [place] [address] Care Team Providers Care Airport Operations Coordinator Name Role Phone David Gayle DO Unavailable David Erickson MD Primary Care Provider [phone] Allergies Active Allergy Reactions Criticality Noted Date [...] each day. 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) to steady your nerves or to get [...] SCDM series) 2012 [facility]-Depression Screening 04/11/2025 04/11/2024 [id number] Vaccine ( - season) 2025 [facility]-Influenza Vaccine (#1) 2025 [facility]-DTaP,Tdap,and [...] this topic Medical Devices Implanted Type Area Guest Advisor Device Identifier Shelf Expiration Date Model / Serial / Lot Plate Plate Left: Leg Screw Screw Left: Leg Chg Screw Ref Spher Head 35mm - [id number] Implanted:Qty: 1 on 02/26/2024 by David Doyle MD at [facility] Right: Hip [employer]-[id number] 09/25/2033 [id number] / / [id number] Chg Shell R3 3 Hole Acet 50mm - [id number] Implanted:Qty: 1 on 02/26/2024 by David Doyle MD at [facility] Right: Hip [employer]-[id number] 01/18/2033 [id number] / / [id number] Chg Screw Ref Spher Head 25mm - [id number] Implanted:Qty: 1 on 02/26/2024 by David Doyle MD at [facility] Right: Hip [employer]-[id number] 10/17/2033 [id number] / / [id number] Liner Or3o Dual Mbility 38 50 - [id number] Implanted:Qty: 1 on 02/26/2024 by David Doyle MD at [facility] Right: Hip [employer]-[id number] 10/28/2033 [id number] / / [id number] Hip Plus Sl Integr Erika Schaft W.Ti.Morales 4 4 - [id number] Implanted:Qty: 1 on 02/26/2024 by David Doyle MD at [facility] Right: Hip [employer]-[id number] 03/24/2029 [id number] / / [id number] Liner Or3o Dual Mbility Xlpe - [id number] Implanted:Qty: 1 on 02/26/2024 by David Doyle MD at [facility] Right: Hip [employer]-[id number] 08/14/2033 [id number] / / [id number] Chg Head Oxinium Fem 09/28 28m - [id number] Implanted:Qty: 1 on 02/26/2024 by David Doyle MD at [facility] Right: Hip [employer]-[id number] 10/24/2033 [id number] / / [id number] Procedures Procedure Name Priority Date/Time Associated Diagnosis [...] Reactive Non Reactive 10/20/2023 2:19 PM EST [facility] Comment:Screening for HIV 1 & 2 antibodies, and P24 antigen is NONREACTIVE. No confirmatory testing is required. Blood Venous blood specimen / Unknown Venipuncture / Unknown 10/20/2023 1:05 PM EST 10/20/2023 1:38 PM EST us Kevin Nieves MD LAB BLOOD ORDERABLES Final Result [facility] [address] [place] [address] * Hepatitis C Antibody - ED (10/20/2023 1:05 PM EST) Hepatitis C Antibody Negative Negative 10/20/2023 2:19 PM EST [facility] Blood Venous blood specimen / Unknown Venipuncture / Unknown 10/20/2023 1:05 PM EST 10/20/2023 1:38 PM EST us Keivn Nieves MD LAB BLOOD ORDERABLES Final Result [facility] [address] [place] [address] from Last 3 Months or Most Recently Relevant to Health [place] [address] [facility] AUTO Advance Directives * Full Code (Latest Code Status on File) Date Activated Date Inactivated Comments 02/26/2024 8:59 AM 02/27/2024 3:57 PM Question Answer Comments Patient has decision-making capacity? Yes Care Teams Airport Operations Coordinator Relationship Specialty Start Date End Date David Erickson MD [id number] PCP - General 07/15/25 David Gayle DO [address] [place] [address] 10/20/23
--- NOTE | 2025-09-17 08:00 | XR_ITS ---
FINAL REPORT CLINICAL HISTORY: right foot fx..metatarsal fx..pain COMPARISON: 08/20/2025 FINDINGS: AP, oblique and lateral views of the right foot were obtained. There has been no change in the fracture at the base of the right fifth metatarsal. No significant interval healing is noted. No new osseous abnormality. The joint spaces are preserved. There is no acute soft tissue abnormality. IMPRESSION: No significant change right fifth metatarsal fracture. Reviewed, Interpreted and Dictated by Emily Escamilla MD Transcribed by Meseret Sosa Authenticated and [facility]
== END 2025-09-17 23:59 | disposition home or self-care (01) ==
LOC: RAD 07:51
PROVIDERS: PCP Family Medicine; Visit Provider Physician Assistant
DX: S92.351A Displaced fracture of fifth metatarsal bone, right foot, initial encounter for closed fracture (principal)
CPT/HCPCS: 73630